=== PATIENT | female | born 1955 | race Caucasian/White ===

== ENCOUNTER 2020-08-22 15:14 | Inpatient (IN) | payer OTHER ==
[2020-08-22] MEDS ORDERED: SODIUM CHLORIDE 0.9% 1,000 ML IV STA (15:51)
--- NOTE | 2020-08-22 15:58 | ED ---
General Adult HPI - General Chief complaint: Shortness of Breath Stated complaint: SOB/fever Time Seen by Provider: 08/22/20 15:18 Source: patient, EMS Mode of arrival: EMS Limitations: no limitations - History of Present Illness Initial comments: Dictation was produced using [employer] dictation software. please excuse any grammatical, word or spelling errors. This patient was cared for during a federal and state declared state of emergency secondary to Covid 19 Chief Complaint: 64-year-old female presents with dyspnea History of Present Illness: Patient is a 64-year-old female she has past medical history of GERD, dyslipidemia. She states she was told that she has pneumonia last week. She's been short of breath for approximately 7 days. Her was positive for cocaine. He had not needed to be admitted to the hospital. Over the last 3 or 4 days patient has been having severe dyspnea especially when ambulating about the house. She told her today to call the ambulance word. Patient denies any constitutional symptoms. She denies any pain complaints. She feels rather well at rest. EMS provided patient with a breathing treatment which she reports improved her symptoms. The ROS documented in this emergency department record has been reviewed and confirmed by me. Those systems with pertinent positive or negative responses have been documented in the HPI. All other systems are other negative and/or noncontributory. PHYSICAL EXAM: General Impression: Alert and oriented x3, not in acute distress HEENT: Normocephalic atraumatic, extra-ocular movements intact, pupils equal and reactive to light bilaterally, mucous membranes moist. Cardiovascular: Heart regular rate and rhythm Chest: Able to complete full sentences, no retractions, no tachypnea Abdomen: abdomen soft, non-tender, non-distended, no organomegaly Musculoskeletal: Pulses present and equal in all extremities, no peripheral edema Motor: no focal deficits noted Neurological: CN II-XII grossly intact, no focal motor or sensory deficits noted Skin: Intact with no visualized rashes Psych: Normal affect and mood ED course: 64-year-old female presents with exertional dyspnea. She was so that she has pneumonia by her primary care physician on an outpatient visit. Her tested positive for coronavirus. Signs upon arrival shows temperature 100.9, blood pressure within acceptable limits. Patient was 70% on room air. S he is 90% with 15 L nonrebreather. Clinical presentation consistent with hypoxic respiratory failure secondary to Covid 19. Laboratory evaluation obtained. CBC unremarkable. Patient does have mild leukopenia. Coag panel is negative. D-dimer 0.48. Metabolic panel is mostly unremarkable. Lactic dehydrogenase is 1139. C-reactive protein is 32.9. Chest x-ray shows diffuse severe multifocal infiltrates with relative sparing of the upper lobe concerning for occult 19 infection. Consultation was made to supervisor bonding and underwriting operations manager Dr. Clemente. He was at bedside and evaluated patient. He recommended redness here, Decadron, zinc, vitamin D, vitamin C, melatonin. Patient placed on high flow nasal cannula. She'll be placed in a prone position. This point no need indication for intubation. Patient be admitted to the intensive care unit for hypoxic respiratory failure secondary to covid 19. - Related Data Allergies Allergy/AdvReac Type Severity Reaction Status Date / Time levofloxacin Allergy Unknown Verified 08/22/20 16:15 sulfamethoxazole Allergy Unknown Verified 08/22/20 16:15 [From Bactrim] trimethoprim [From Bactrim] Allergy Unknown Verified 08/22/20 16:15 Review of Systems ROS Statement: Those systems with pertinent positive or pertinent negative responses have been documented in the HPI. ROS Other: All systems not noted in ROS Statement are negative. Past Medical History Past Medical History: GERD/Reflux, Hyperlipidemia History of Any Multi-Drug Resistant Organisms: None Reported Past Surgical History: Orthopedic Surgery Past Psychological History: Depression Smoking Status: Never smoker Past Alcohol Use History: None Reported Past Drug Use History: None Reported General Exam Limitations: no limitations Course Vital Signs 08/22/20 08/22/20 08/22/20 15:23 15:28 15:29 Temperature 100.9 F H Pulse Rate 70 Respiratory 20 20 Rate Blood Pressure 137/74 O2 Sat by Pulse 72 L 90 L Oximetry Medical Decision Making - Lab Data Result diagrams: 08/22/20 15:41 08/22/20 15:41 Lab Results 08/22/20 08/22/20 08/22/20 Range/Units 15:41 15:41 15:41 WBC 5.6 (3.8-10.6) k/uL RBC 4.64 (3.80-5.40) m/uL Hgb 14.9 (11.4-16.0) gm/dL Hct 44.8 (34.0-46.0) % MCV 96.5 (80.0-100.0) fL MCH 32.0 (25.0-35.0) pg MCHC 33.1 (31.0-37.0) g/dL RDW 13.6 (11.5-15.5) % Plt Count 165 (150-450) k/uL Neutrophils % 91 % Lymphocytes % 5 % Monocytes % 2 % Eosinophils % 1 % Basophils % 1 % Neutrophils # 5.1 (1.3-7.7) k/uL Lymphocytes # 0.3 L (1.0-4.8) k/uL Monocytes # 0.1 (0-1.0) k/uL Eosinophils # 0.0 (0-0.7) k/uL Basophils # 0.0 (0-0.2) k/uL PT 9.6 (9.0-12.0) sec INR 0.9 (<1.2) APTT 25.0 (22.0-30.0) sec D-Dimer 0.48 (<0.60) mg/L FEU Sodium 134 L (137-145) mmol/L Potassium 3.8 (3.5-5.1) mmol/L Chloride 101 (98-107) mmol/L Carbon Dioxide 29 (22-30) mmol/L Anion Gap 4 mmol/L BUN 13 (7-17) mg/dL Creatinine 0.72 (0.52-1.04) mg/dL Est GFR (CKD-EPI)AfAm >90 (>60 ml/min/1.73 sqM) Est GFR (CKD-EPI)NonAf 90 (>60 ml/min/1.73 sqM) Glucose 133 H (74-99) mg/dL Plasma Lactic Acid Lj (0.7-2.0) mmol/L Calcium 8.4 (8.4-10.2) mg/dL Magnesium 2.2 (1.6-2.3) mg/dL Total Bilirubin 0.5 (0.2-1.3) mg/dL AST 36 (14-36) U/L ALT 18 (4-34) U/L Alkaline Phosphatase 76 (38-126) U/L Lactate Dehydrogenase 1139 H (313-618) U/L C-Reactive Protein 32.9 H (<10.0) mg/L Total Protein 6.5 (6.3-8.2) g/dL Albumin 3.5 (3.5-5.0) g/dL 08/22/20 Range/Units 15:41 WBC (3.8-10.6) k/uL RBC (3.80-5.40) m/uL Hgb (11.4-16.0) gm/dL Hct (34.0-46.0) % MCV (80.0-100.0) fL MCH (25.0-35.0) pg MCHC (31.0-37.0) g/dL RDW (11.5-15.5) % Plt Count (150-450) k/uL Neutrophils % % Lymphocytes % % Monocytes % % Eosinophils % % Basophils % % Neutrophils # (1.3-7.7) k/uL Lymphocytes # (1.0-4.8) k/uL Monocytes # (0-1.0) k/uL Eosinophils # (0-0.7) k/uL Basophils # (0-0.2) k/uL PT (9.0-12.0) sec INR (<1.2) APTT (22.0-30.0) sec D-Dimer (<0.60) mg/L FEU Sodium (137-145) mmol/L Potassium (3.5-5.1) mmol/L Chloride (98-107) mmol/L Carbon Dioxide (22-30) mmol/L Anion Gap mmol/L BUN (7-17) mg/dL Creatinine (0.52-1.04) mg/dL Est GFR (CKD-EPI)AfAm (>60 ml/min/1.73 sqM) Est GFR (CKD-EPI)NonAf (>60 ml/min/1.73 sqM) Glucose (74-99) mg/dL Plasma Lactic Acid Lj 1.0 (0.7-2.0) mmol/L Calcium (8.4-10.2) mg/dL Magnesium (1.6-2.3) mg/dL Total Bilirubin (0.2-1.3) mg/dL AST (14-36) U/L ALT (4-34) U/L Alkaline Phosphatase (38-126) U/L Lactate Dehydrogenase (313-618) U/L C-Reactive Protein (<10.0) mg/L Total Protein (6.3-8.2) g/dL Albumin (3.5-5.0) g/dL Critical Care Time Critical Care Time: Yes Total Critical Care Time: 33 Disposition Clinical Impression: COVID-19, Respiratory failure with hypoxia Disposition: ADMITTED IP TO THIS [facility] Condition: Critical Referrals: Andrea Chun DO [Primary Care Provider] - 1-2 days Decision Time: 16:47
[2020-08-22 16:04] LABS: Basophils % (A) 1 %; Eosinophils % (A) 1 %; HCT 44.8 % (34.0-46.0); HGB 14.9 gm/dL (11.4-16.0); Lymphocytes # (A) 0.3 k/uL (1.0-4.8); Lymphocytes % (A) 5 %; MCHC 33.1 g/dL (31.0-37.0); MCV 96.5 fL (80.0-100.0); Mean Platelet Volume 7.8; Monocytes # (A) 0.1 k/uL (0-1.0); Monocytes % (A) 2 %; Neutrophils # (A) 5.1 k/uL (1.3-7.7); Neutrophils % (A) 91 %; Platelet Count 165 k/uL (150-450); RBC 4.64 m/uL (3.80-5.40); RDW 13.6 % (11.5-15.5); WBC 5.6 k/uL (3.8-10.6)
[2020-08-22] MEDS ORDERED: DEXAMETHASONE SOD PHOSPHATE 10 MG/ML 1 ML VIAL IV STA (16:11)
[2020-08-22 16:17] LABS: ALT 18 U/L (4-34); AST 36 U/L (14-36); African American GFR (CKD) >90 (>60 ml/min/1.73 sqM); Albumin 3.5 g/dL (3.5-5.0); Alkaline Phosphatase 76 U/L (38-126); Anion Gap 4 mmol/L; Blood Urea Nitrogen 13 mg/dL (7-17); C Reactive Protein 32.9 mg/L (<10.0); Calcium 8.4 mg/dL (8.4-10.2); Carbon Dioxide 29 mmol/L (22-30); Chloride 101 mmol/L (98-107); Glucose 133 mg/dL (74-99); LDH 1139 U/L (313-618); Magnesium 2.2 mg/dL (1.6-2.3); Non-African American GFR(CKD) 90 (>60 ml/min/1.73 sqM); Potassium 3.8 mmol/L (3.5-5.1); Sodium 134 mmol/L (137-145); Total Bilirubin 0.5 mg/dL (0.2-1.3); Total Protein 6.5 g/dL (6.3-8.2)
[2020-08-22] MEDS ORDERED: ENOXAPARIN 40 MG/0.4 ML SYRINGE SQ STA ×2 (16:17→18:58)
[2020-08-22] MEDS ORDERED: FAMOTIDINE 20 MG/2 ML VIAL IV STA (16:18)
--- NOTE | 2020-08-22 16:23 | XR ---
EXAMINATION TYPE: XR chest 1V portable DATE OF EXAM: 08/22/2020 COMPARISON: NONE HISTORY: Fever and cough. Suspected covid pneumonia. TECHNIQUE: Single AP portable frontal upright view of the chest is obtained. FINDINGS: There are multifocal bilateral opacities with relative sparing left upper lung. Silhouetti ng of both heart borders and hemidiaphragm. No pleural effusion or pneumothorax noted bilaterally. T he cardiac silhouette size is thought within normal limits. The osseous structures are intact. IMPRESSION: Bilateral multifocal acute infiltrates with relative sparing of left upper lobe could be product of covid-19 infection.
[2020-08-22] MEDS ORDERED: ASCORBIC ACID 500 MG TAB PO ONE (16:30)
[2020-08-22] MEDS ORDERED: ZINC SULFATE 220 MG CAP PO ONE (16:30)
[2020-08-22] MEDS ORDERED: CHOLECALCIFEROL 1,000 UNIT TAB PO ONE (16:30)
[2020-08-22 16:39] LABS: D-Dimer 0.48 mg/L FEU (<0.60); INR 0.9 (<1.2); Prothrombin Time 9.6 sec (9.0-12.0)
[2020-08-22] MEDS ORDERED: NALOXONE 0.4 MG/ML 1 ML VIAL IV PRN (16:44)
[2020-08-22] MEDS ORDERED: REMDESIVIR (EUA) 200 MG in SODIUM CHLORIDE 0.9% 250 ML IVPB ONE (17:00)
[2020-08-22 18:19] LABS: Glucose,Whole Blood 143 mg/dL (75-99)
--- NOTE | 2020-08-22 18:58 | P.CNPUL ---
History of Present Illness Consult date: 08/22/20 Reason for consult: dyspnea, hypoxemia, pneumonia History of present illness: This is a 64-year-old here patient, obese, known history of hyperlipidemia and acid reflux in addition to a mild component of anxiety/depression, comes into the hospital due to worsening shortness of breath. The patient was getting more short of breath over the past week or so. Her she had the same symptoms. They visited the primary care physician with the chest x-ray was done and she was told to have pneumonia. Subsequently, her went and checked himself for COVID 19 and die turner to be positive. The patient presented to the emergency with increased cough and shortness of breath. She was found to be quite hypoxic and an initial pulse ox was in the 70% range. Accordingly, the patient was placed on high flow oxygen 6 L oxygen flow, AIRVO , and this brought her pulse ox up to 88-89%. Chest x-ray showed diffuse bilateral pulmonary i nfiltrates consistent with coronavirus Covid 19 related pneumonia. The patient was febrile with a temperature 100.9. The blood count showed lymphopenia. LDH was 1139, C-reactive protein was 32.9. Review of Systems Constitutional: Reports fatigue, Reports fever, Reports weakness Eyes: denies as per HPI, denies blurred vision, denies bulging eye, denies decreased vision, denies diplopia, denies discharge, denies dry eye, denies ir ritation, denies itching, denies pain, denies photophobia, denies loss of peripheral vision, denies loss of vision, denies tunnel vision/blind spots Ears: deny: decreased hearing, ear discharge, earache, tinnitus Ears, nose, mouth and throat: Denies headache, Denies sore throat Breasts: absent: as per HPI, change in shape, gynecomastia, masses, nipple discharge, pain, skin changes, swelling Cardiovascular: Reports dyspnea on exertion Respiratory: Reports cough, Reports dyspnea Gastrointestinal: Reports as per HPI Genitourinary: Reports as per HPI Menstruation: Reports as per HPI Musculoskeletal: Reports as per HPI Musculoskeletal: absent: ankle pain, ankle stiffness, ankle swelling, as per HPI, elbow pain, elbow stiffness, elbow swelling, foot pain, foot stiffness, foot swelling, hand pain, hand stiffness, hand swelling, hip pain, hip sti ffness, hip swelling, knee pain, knee stiffness, knee swelling, shoulder pain, shoulder stiffness, shoulder swelling, wrist pain, wrist stiffness, wrist swelling Integumentary: Reports as per HPI Neurological: Reports as per HPI, Reports weakness Psychiatric: Reports as per HPI, Reports paranoia Endocrine: Reports as per HPI Hematologic/Lymphatic: Reports as per HPI Allergic/Immunologic: Reports as per HPI Past Medical History Past Medical History: GERD/Reflux, Hyperlipidemia History of Any Multi-Drug Resistant Organisms: None Reported Past Surgical History: Orthopedic Surgery Additional Past Surgical History / Comment(s): knee surgery Past Psychological History: Depression Smoking Status: Never smoker Past Alcohol Use History: None Reported Past Drug Use History: None Reported Medications and Allergies Home Medications Medication Instructions Recorded Confirmed Type Acetaminophen [Tylenol] 325 mg PO DAILY PRN 08/22/20 08/22/20 History Albuterol Sulfate [Proair Hfa] 2 puff INHALATION RT-Q4H PRN 08/22/20 08/22/20 History Azithromycin [Zithromax] See Taper PO DAILY 08/22/20 08/22/20 History Citalopram Hydrobromide [CeleXA] 20 mg PO DAILY 08/22/20 08/22/20 History Meloxicam [Mobic] 7.5 mg PO BID 08/22/20 08/22/20 History Mometasone/Formoterol [Dulera 100 1 puff INHALATION DIRECTED PRN 08/22/20 08/22/20 History Mcg-5 Mcg Inhaler] Omeprazole [PriLOSEC] 20 mg PO DAILY 08/22/20 08/22/20 History Simvastatin [Zocor] 80 mg PO DAILY 08/22/20 08/22/20 History Vitamin C (Unknown Strength) 1 tab PO DAILY 08/22/20 08/22/20 History Vitamin D3 (Unknown Strenghth) 1 tab PO DAILY 08/22/20 08/22/20 History predniSONE See Taper PO DIRECTED 08/22/20 08/22/20 History Allergies Allergy/AdvReac Type Severity Reaction Status Date / Time levofloxacin Allergy Unknown Verified 08/22/20 17:39 sulfamethoxazole Allergy Unknown Verified 08/22/20 17:39 [From Bactrim] trimethoprim [From Bactrim] Allergy Unknown Verified 08/22/20 17:39 Physical Exam Vitals: Vital Signs Temp Pulse Resp BP Pulse Ox 11/01/20 17:05 66 18 131/59 88 L 08/22/20 16:53 100.4 F H 69 18 141/71 88 L 08/22/20 15:29 90 L 08/22/20 15:28 20 08/22/20 15:23 100.9 F H 70 20 137/74 72 L Intake and Output 08/22/20 08/22/20 08/22/20 06:59 14:59 22:59 Other: Weight 136.078 kg morbidly obese currently on high flow oxygen at 60 liters, Despite the significant hypoxemia, the patient is not having any major respiratory distress at rest. She is not using accessory muscles of breathing. She is a bit tac hypneic however. Head exam was generally normal. There was no scleral icterus or corneal arcus. Mucous membranes were moist. Neck was supple and without jugular venous distension, thyromegaly, or carotid bruits. Carotids were easily palpable bilaterally. There was no adenopathy Lungs sounds are diminished and the patient has crackles in lung bases bilaterally Cardiac exam revealed the PMI to be normally situated and sized. The rhythm was regular and no extrasystoles were noted during several minutes of auscultation. The first and second heart sounds were normal and physiologic splitting of the second heart sound was noted. There were no murmurs, rubs, clicks, or gallops. Abdominal exam revealed normal bowel sounds. The abdomen was soft, non-tender, and without masses, organomegaly, or appreciable enlargement of the abdominal aorta. Examination of the extremities revealed easily palpable radial, femoral and pedal pulses. There was no cyanosis, clubbing or edema. Examination of the skin revealed no evidence of significant rashes, suspicious appearing nevi or other concerning lesions. Neurologically, the patient is awake and alert and the patient does not have any focal neurological deficit. Cranial nerves are essentially intact. Results - Laboratory Findings CBC and BMP: 08/22/20 15:41 08/22/20 15:41 PT/INR, D-dimer PT 9.6 sec (9.0-12.0) 08/22/20 15:41 INR 0.9 (<1.2) 08/22/20 15:41 D-Dimer 0.48 mg/L FEU (<0.60) 08/22/20 15:41 Abnormal lab findings: Abnormal Labs 08/22/20 08/22/20 15:41 15:41 Lymphocytes # 0.3 L Sodium 134 L Glucose 133 H Lactate Dehydrogenase 1139 H C-Reactive Protein 32.9 H - Diagnostic Findings Chest x-ray: image reviewed Assessment and Plan Plan: 1 acute bilateral pneumonia with secondary hypoxic respiratory failure. This is most likely consistent with acute COVID 19 related pneumonia. The patient's symptoms are highly suggestive. Furthermore, her has been confirmed to have coronavirus and the patient's clinical presentation and chest x-rays highly suggestive. 2 fever, secondary to above 3 elevated inflammatory markers including LDH and C-reactive protein, secondary to above 4 dyspnea secondary to above 5 obesity with a BMI of 53.1 6 hyperlipidemia 7 acid reflux 8 osteoarthritis Plan Transfer this patient to the intensive care units Daily chest x-rays High flow oxygen currently running at 60 L to maintain a saturation above 90%. May consider BiPAP and even intubation mechanical ventilation if her condition decompensates. We'll put the patient on a probiotic position if possible in the intensive care unit. Keep her in interrupted isolation. Start the patient on Decadron 6 mg IV and a daily basis Start the patient on Remdesivir per protocol Start the patient on Lovenox Start the patient on zinc, melatonin Pepcid and vitamin C We'll continue to follow the condition very closely in the ICU. Condition is obvious significant. Testing for coronavirus Covid 19 by nasal swab PCR was sent. We'll continue to follow.
[2020-08-22] MEDS: MELATONIN 5 MG TABLET PO SCH (21:45)
[2020-08-22] MEDS: SODIUM CHLORIDE 0.9% 1,000 ML IV SCH (21:46)
[2020-08-22 23:22] LABS: Ferritin 459.5 ng/mL (10.0-291.0)
[2020-08-23 02:17] LABS: ABG Base Excess 6.7 mmol/L; ABG HCO3 31 mmol/L (21-25); ABG Oxygen Saturation 79.7 % (94-97); ABG PCO2 47 mmHg (35-45); ABG PH 7.43 (7.35-7.45); ABG TCO2 33 mmol/L (19-24); Allen Test Performed? Yes
[2020-08-23] MEDS ORDERED: propofoL 100 ML IV ONE ×2 (02:52→03:46)
[2020-08-23] MEDS ORDERED: CISATRACURIUM 2 MG/ML 5 ML VIAL IV ONE (03:39)
--- NOTE | 2020-08-23 03:49 | XR ---
EXAM: XR Chest, 1 View CLINICAL HISTORY: Reason: intubation TECHNIQUE: Frontal view of the chest. COMPARISON: 08/22/2020 4:01 PM FINDINGS: Lines/Tubes: Interval intubation with endotracheal tube terminating 4.5 cm of the level of the duran. Endotracheal tube terminates below field- of-view into the left upper quadrant. Bilateral patchy lung opacities with relative sparing of the left upper lobe, similar in appearance to prior study. IMPRESSION: Interval intubation and placement of nasogastric tube with endotracheal tube in appropriate position.
[2020-08-23] MEDS: CISATRACURIUM 200 MG in SODIUM CHLORIDE 0.9% 180 ML IV SCH ×2 (03:50→22:30)
[2020-08-23 04:09] LABS: ABG PO2 44 mmHg (83-108)
[2020-08-23 04:30] LABS: Basophils % (A) 0 %; Eosinophils % (A) 0 %; HCT 46.5 % (34.0-46.0); HGB 14.6 gm/dL (11.4-16.0); Lymphocytes # (A) 0.4 k/uL (1.0-4.8); Lymphocytes % (A) 9 %; MCH 31.1 pg (25.0-35.0); MCHC 31.5 g/dL (31.0-37.0); MCV 98.7 fL (80.0-100.0); Mean Platelet Volume 7.8; Monocytes # (A) 0.1 k/uL (0-1.0); Monocytes % (A) 3 %; Neutrophils # (A) 4.2 k/uL (1.3-7.7); Neutrophils % (A) 87 %; Platelet Count 167 k/uL (150-450); RBC 4.71 m/uL (3.80-5.40); RDW 14.3 % (11.5-15.5); WBC 4.8 k/uL (3.8-10.6)
[2020-08-23 04:50] LABS: ALT 17 U/L (4-34); AST 44 U/L (14-36); African American GFR (CKD) >90 (>60 ml/min/1.73 sqM); Albumin 3.2 g/dL (3.5-5.0); Alkaline Phosphatase 62 U/L (38-126); Anion Gap 4 mmol/L; Blood Urea Nitrogen 18 mg/dL (7-17); C Reactive Protein 41.5 mg/L (<10.0); Carbon Dioxide 29 mmol/L (22-30); Chloride 103 mmol/L (98-107); Glucose 157 mg/dL (74-99); LDH 1509 U/L (313-618); Non-African American GFR(CKD) 87 (>60 ml/min/1.73 sqM); Potassium 4.2 mmol/L (3.5-5.1); Sodium 136 mmol/L (137-145); Total Bilirubin 0.6 mg/dL (0.2-1.3)
[2020-08-23 04:59] LABS: ABG HCO3 30 mmol/L (21-25); ABG Oxygen Saturation 94.6 % (94-97); ABG PCO2 45 mmHg (35-45); ABG PH 7.42 (7.35-7.45); ABG PO2 71 mmHg (83-108); ABG TCO2 31 mmol/L (19-24); Allen Test Performed? Yes
[2020-08-23] MEDS: ZINC SULFATE 220 MG CAP PO SCH (07:42)
[2020-08-23] MEDS: CITALOPRAM HYDROBROMIDE 20 MG TAB PO SCH (07:42)
[2020-08-23] MEDS: ATORVASTATIN 40 MG TAB PO SCH (07:42)
[2020-08-23] MEDS: ASCORBIC ACID 500 MG TAB PO SCH (07:43)
[2020-08-23] MEDS: CHLORHEXIDINE GLUCONATE 15 ML CUP MUCOUS MEM SCH ×2 (07:43→20:05)
[2020-08-23] MEDS: CHOLECALCIFEROL 1,000 UNIT TAB PO SCH (07:43)
[2020-08-23] MEDS ORDERED: PANTOPRAZOLE 40 MG/10 ML VIAL IV SCH (09:00)
[2020-08-23] MEDS ORDERED: PROPOFOL 10 MG/ML 20 ML VIAL IV ONE (09:54)
[2020-08-23] MEDS ORDERED: SUCCINYLCHOLINE CHLORIDE VIAL 200 MG/10 ML VIAL IV ONE (09:54)
[2020-08-23] MEDS: DEXAMETHASONE SOD PHOSPHATE 10 MG/ML 1 ML VIAL IV SCH (10:15)
[2020-08-23] MEDS: FAMOTIDINE 20 MG/2 ML VIAL IV SCH ×2 (10:19→20:05)
[2020-08-23] MEDS: ENOXAPARIN 40 MG/0.4 ML SYRINGE SQ SCH (10:19)
[2020-08-23] MEDS: SODIUM CHLORIDE 0.9% 1,000 ML IV SCH (10:28)
[2020-08-23 11:23] LABS: Ferritin 393.4 ng/mL (10.0-291.0)
[2020-08-23 12:39] LABS: Glucose,Whole Blood 142 mg/dL (75-99)
[2020-08-23] MEDS ORDERED: FUROSEMIDE 10 MG/ML 4 ML VIAL IV STA (12:47)
--- NOTE | 2020-08-23 15:17 | P.PN ---
Subjective Progress Note Date: 08/23/20 Principal diagnosis: Acute hypoxic respiratory failure secondary to pneumonia, highly suspicious for Covid 19 pneumonitis This is a 64-year-old here patient, obese, known history of hyperlipidemia and acid reflux in addition to a mild component of anxiety/depression, comes into [facility] due to worsening shortness of breath. The patient was getting more short of breath over the past week or so. Her she had the same symptoms. They visited the primary care physician with the chest x-ray was done and she was told to have pneumonia. Subsequently, her went and checked himself for COVID 19 and turn machine operator to be positive. The patient presented to the emergency with increased cough and shortness of breath. She was found to be quite hypoxic and an initial pulse ox was in the 70% range. Accordingly, the patient was placed on high flow oxygen 6 L oxygen flow, AIRVO , and this brought her pulse ox up to 88-89%. Chest x-ray showed diffuse bilateral pulmonary infiltrates consistent with coronavirus Covid 19 related pneumonia. The patient was febrile with a temperature 100.9. The blood count showed lymphopenia. LDH was 1139, C-reactive protein was 32.9. Patient was reevaluated today on 08/23/20, patient remains intubated and mechanically ventilated. Chest x-ray shows diffuse interstitial infiltrates. She is presently on assist control rate of 25 volume is 400 FiO2 is 100% and PEEP is at 15. ABG was marginal showed a pO2 of 71 pCO2 of 45 pH of 7.42, hence I recommended increasing the PEEP to 18 and I cut down the FiO2 to 80%. Patient is on propofol drip at 41 mcg/kg/m and on Nimbex. Patient is also on Lovenox 40 mg subcu daily, and she is already started on remresivir treatment since yesterday. Patient will be started on enteral tube feeding. Labs today were all reviewed. CBC is relatively normal. Electrolytes and renal profile are normal. LDH is 10/26/2008. C-reactive protein is 41.5. Ferritin level is 393. Markers are elevated as noted. PCR for coronavirus is still pending. Objective - Vital Signs Vital signs: Vital Signs Temp 98.4 F 08/23/20 12:00 Pulse 49 L 08/23/20 15:00 Resp 25 H 08/23/20 15:00 BP 108/58 08/23/20 15:00 Pulse Ox 95 08/23/20 15:05 Intake & Output 08/22/20 08/23/20 08/23/20 18:59 06:59 18:59 Intake Total 20 856.229 6711.187 Output Total 40 780 830 Balance -20 -21.187 181.187 Weight 136.078 kg 138.1 kg 138.1 kg Intake: IV 20 735 675 Sodium Chloride 0.9% 1, 20 735 75 000 ml @ 20 mls/hr IV . Q24H [facility] Rx#:[id number] Sodium Chloride 0.9% 1, 600 000 ml @ 75 mls/hr IV . [id number] [facility] Rx#:[id number] Intake, IV Titration 23.813 276.187 Amount propofoL 1,000 mg In 23.813 276.187 Empty Bag 1 bag @ Titrate IV .Q0M [facility] Rx#: [id number] Other 60 Output: Urine 40 780 830 Other: Voiding Method Bedpan Indwelling Catheter Indwelling Catheter - Exam Physical Exam: Revealed 64-year-old female obese, on mechanical ventilation. Sedated, and paralyzed. Head: Atraumatic, normocephalic. HEENT:[Neck is supple.] [No neck masses.] [No thyromegaly.] [No JVD.] PERRLA, EOMI, no icterus. Chest: [To [place] chest expansion, crackles at the bases bilaterally.] Cardiac Exam: [Normal S1 and S2, no S3 gallop, no murmur.] Abdomen: [Obese, Soft, nontender, no megaly, no rebound, no guarding, normal bowel sounds.] Extremities: [No clubbing, no edema, no cyanosis.] Neurological Exam: Could not be assessed, patient is intubated mechanically ventilated, sedated, and paralyzed. Acute: Could not be assessed. Lymphatics: No cervical or supraclavicular lymphadenopathy. - Labs CBC & Chem 7: 08/23/20 03:59 08/23/20 03:59 Labs: Abnormal Lab Results - Last 24 Hours (Table) 08/22/20 08/22/20 08/22/20 Range/Units 15:41 15:41 17:59 Hct (34.0-46.0) % Lymphocytes # 0.3 L (1.0-4.8) k/uL ABG pCO2 (35-45) mmHg ABG pO2 (83-108) mmHg ABG HCO3 (21-25) mmol/L ABG Total CO2 (19-24) mmol/L ABG O2 Saturation (94-97) % Sodium 134 L (137-145) mmol/L BUN (7-17) mg/dL Glucose 133 H (74-99) mg/dL POC Glucose (mg/dL) 143 H (75-99) mg/dL Calcium (8.4-10.2) mg/dL Ferritin 459.5 H (10.0-291.0) ng/mL AST (14-36) U/L Lactate Dehydrogenase 1139 H (313-618) U/L C-Reactive Protein 32.9 H (<10.0) mg/L Total Protein (6.3-8.2) g/dL Albumin (3.5-5.0) g/dL 08/23/20 08/23/20 08/23/20 Range/Units 02:15 03:59 03:59 Hct 46.5 H (34.0-46.0) % Lymphocytes # 0.4 L (1.0-4.8) k/uL ABG pCO2 47 H (35-45) mmHg ABG pO2 44 L* (83-108) mmHg ABG HCO3 31 H (21-25) mmol/L ABG Total CO2 33 H (19-24) mmol/L ABG O2 Saturation 79.7 L (94-97) % Sodium 136 L (137-145) mmol/L BUN 18 H (7-17) mg/dL Glucose 157 H (74-99) mg/dL POC Glucose (mg/dL) (75-99) mg/dL Calcium 8.0 L (8.4-10.2) mg/dL Ferritin 393.4 H (10.0-291.0) ng/mL AST 44 H (14-36) U/L Lactate Dehydrogenase 1509 H (313-618) U/L C-Reactive Protein 41.5 H (<10.0) mg/L Total Protein 6.0 L (6.3-8.2) g/dL Albumin 3.2 L (3.5-5.0) g/dL 08/23/20 08/23/20 Range/Units 04:55 12:38 Hct (34.0-46.0) % Lymphocytes # (1.0-4.8) k/uL ABG pCO2 (35-45) mmHg ABG pO2 71 L (83-108) mmHg ABG HCO3 30 H (21-25) mmol/L ABG Total CO2 31 H (19-24) mmol/L ABG O2 Saturation (94-97) % Sodium (137-145) mmol/L BUN (7-17) mg/dL Glucose (74-99) mg/dL POC Glucose (mg/dL) 142 H (75-99) mg/dL Calcium (8.4-10.2) mg/dL Ferritin (10.0-291.0) ng/mL AST (14-36) U/L Lactate Dehydrogenase (313-618) U/L C-Reactive Protein (<10.0) mg/L Total Protein (6.3-8.2) g/dL Albumin (3.5-5.0) g/dL Assessment and Plan Assessment: Impression: Acute hypoxic respiratory failure secondary to bilateral pneumonia, most likely related to covid 19 pneumonitis unless for otherwise. Elevated inflammatory markers for cruz virus infection. Obesity with BMI of 53.1. History of dyslipidemia. History of GERD. History of degenerative joint disease. Recommendation: Continue ventilatory support, and vent settings were adjusted accordingly. Patient is now on a PEEP of 18 FiO2 is down to 80% Continue Decadron. Continue remdesivir Continue Lovenox. Continue zinc melatonin Pepcid and vitamin C. Patient is not ready for any weaning trials or sedation interruption patient is requiring Nimbex and she is also requiring propofol at relatively high dose. Continue nutritional support. Continue GI and DVT prophylaxis. Overall prognosis based on the initial presentation seems to be very poor and guarded. We'll continue to follow. Critical care time is 35 minutes Time with Patient: Greater than 30
[2020-08-23] MEDS: REMDESIVIR (EUA) 100 MG in SODIUM CHLORIDE 0.9% 250 ML IVPB SCH (17:30)
--- NOTE | 2020-08-23 18:41 | P.HPIM ---
History of Present Illness H&P Date: 08/23/20 Chief Complaint: Short of breath History of presenting complaint: This is a 64-year-old patient follows with Dr. Ross. Patient has tested positive for COVID. Patient's symptoms started about a week ago. Progressively short of breath. More so in the last 4 days. Became much more significant yesterday. Presented to the ER. Also had fevers. Patient was hypoxic in the ER initial pulse ox around 70%. Was on 6 L with an wall. Check stat x-ray shows bilateral infiltrates. Patient smoked to the ICU. Subsequently intubated. Patient's currently on IV Decadron, propofol, IV fluids, IV cisatracurium. Patient on a FiO2 80% and a PEEP of 18. Has a OG- tube, Florentino catheter and endotracheal tube. Telemetry shows sinus rhythm. Seen by Dr. Clemente drywall finishing foreman in the ER. Review of systems-cannot be done as patient intubated Past medical history to include: GERD, hyperlipidemia, depression, asthma Social history: . No history of smoking or alcohol. Family history: Cannot obtain patient intubated Physical examination: VITAL SIGNS: 100.9, 70, 20, 137/74, 72% on room air-upon presentation GENERAL: BMI 53.9, laying in bed, intubated. EYES: Pupils equal. Conjunctiva normal. HEENT: External appearance of nose and ears normal, oral cavity-endotracheal tube and OG tube. NECK: JVD not raised; masses not palpable. HEART: First and second heart sounds are normal; no edema. LUNGS: Respiratory rate increased; decreased breath sound. ABDOMEN: Soft, nontender, liver spleen not palpable, no masses palpable. PSYCH: Patient sedatedl. NEUROLOGICAL: Cranial nerves grossly intact; no facial asymmetry, power and sensation grossly intact. LYMPHATICS: No lymph nodes palpable in the axilla and neck INVESTIGATIONS, reviewed in the clinical context: White count 5.6 hemoglobin 14.9 platelets 165 decreased lymphocytes Potassium 3.8 creatinine 0.7 to Ferritin 459 LDH 1139 CRP 32.9 pro-calcitonin 0.07 Chest x-ray film personally reviewed by me-bilateral scattered infiltrates, portable film Assessment: -Bilateral extensive likely COVID 19 pneumonia, POA -Sepsis from above -Acute severe hypoxic respiratory failure from COVID 19 pneumonia -GERD -Hyperlipidemia -Depression not otherwise specified -Moderate persistent asthma with acute exacerbation -Morbid obesity BMI 53.9 Plan: Patient is intubated. Patient is receiving Decadron, Remdesivir, Lovenox, zinc, Pepcid vitamin C. Patient in the ICU. Drips include Nimbex and propofol. Being followed by drywall finishing foreman Past Medical History Past Medical History: GERD/Reflux, Hyperlipidemia History of Any Multi-Drug Resistant Organisms: None Reported Past Surgical History: Orthopedic Surgery Additional Past Surgical History / Comment(s): right knee surgery Past Psychological History: Depression Smoking Status: Never smoker Past Alcohol Use History: None Reported Past Drug Use History: None Reported Medications and Allergies Home Medications Medication Instructions Recorded Confirmed Type Acetaminophen [Tylenol] 325 mg PO DAILY PRN 08/22/20 08/22/20 History Albuterol Sulfate [Proair Hfa] 2 puff INHALATION RT-Q4H PRN 08/22/20 08/22/20 History Azithromycin [Zithromax] See Taper PO DAILY 08/22/20 08/22/20 History Citalopram Hydrobromide [CeleXA] 20 mg PO DAILY 08/22/20 08/22/20 History Meloxicam [Mobic] 7.5 mg PO BID 08/22/20 08/22/20 History Mometasone/Formoterol [Dulera 100 2 puff INHALATION RT-BID 08/22/20 08/23/20 History Mcg-5 Mcg Inhaler] Omeprazole [PriLOSEC] 20 mg PO DAILY 08/22/20 08/22/20 History Simvastatin [Zocor] 80 mg PO DAILY 08/22/20 08/22/20 History Vitamin C (Unknown Strength) 1 tab PO DAILY 08/22/20 08/22/20 History Vitamin D3 (Unknown Strenghth) 1 tab PO DAILY 08/22/20 08/22/20 History predniSONE See Taper PO DIRECTED 08/22/20 08/22/20 History Allergies Allergy/AdvReac Type Severity Reaction Status Date / Time levofloxacin Allergy Unknown Verified 08/22/20 17:39 sulfamethoxazole Allergy Unknown Verified 08/22/20 17:39 [From Bactrim] trimethoprim [From Bactrim] Allergy Unknown Verified 08/22/20 17:39 Physical Exam Vitals: Vital Signs Temp Pulse Resp BP Pulse Ox 08/23/20 10:00 54 L 17 107/63 92 L 11/02/20 09:00 61 28 H 127/74 94 L 08/23/20 08:00 98 F 52 L 24 104/62 94 L 08/23/20 07:00 51 L 25 H 101/61 95 08/23/20 06:00 47 L 24 103/74 92 L 08/23/20 05:00 48 L 24 91/52 91 L 08/23/20 04:00 99.5 F 53 L 24 109/73 86 L 08/23/20 03:00 65 24 140/64 84 L 08/23/20 02:00 60 18 117/60 86 L 08/23/20 01:00 66 16 116/61 85 L 08/23/20 00:10 86 L 08/23/20 00:00 99 F 60 20 125/59 87 L 08/22/20 23:00 63 15 126/54 85 L 08/22/20 22:00 61 20 131/60 85 L 08/22/20 21:00 63 18 126/62 88 L 08/22/20 20:00 98.9 F 70 15 137/70 85 L 08/22/20 19:52 90 L 08/22/20 19:00 66 27 H 127/69 83 L 08/22/20 18:45 63 26 H 127/69 91 L 08/22/20 18:30 64 24 138/70 84 L 08/22/20 18:15 74 18 128/66 85 L 08/22/20 18:00 99.6 F 68 29 H 123/112 88 L 08/22/20 17:54 73 12 85 L 08/22/20 17:05 66 18 131/59 88 L 08/22/20 16:53 100.4 F H 69 18 141/71 88 L 08/22/20 15:29 90 L 08/22/20 15:28 20 08/22/20 15:23 100.9 F H 70 20 137/74 72 L Intake and Output 08/22/20 08/23/20 08/23/20 22:59 06:59 14:59 Intake Total 155 623.813 436.187 Output Total 220 600 145 Balance -65 23.813 291.187 Intake: IV 155 600 300 Sodium Chloride 0.9% 1, 155 600 75 000 ml @ 20 mls/hr IV . Q24H [facility] Rx#:[id number] Sodium Chloride 0.9% 1, 225 000 ml @ 75 mls/hr IV . [id number] [facility] Rx#:[id number] Intake, IV Titration 23.813 76.187 Amount propofoL 1,000 mg In 23.813 76.187 Empty Bag 1 bag @ Titrate IV .Q0M [facility] Rx#: [id number] Other 60 Output: Urine 220 600 145 Other: Voiding Method Indwelling Catheter Indwelling Catheter Indwelling Catheter Weight 136.078 kg 138.1 kg Results CBC & Chem 7: 08/23/20 03:59 08/23/20 03:59 Labs: Abnormal Lab Results - Last 24 Hours (Table) 08/22/20 08/22/20 08/22/20 Range/Units 15:41 15:41 17:59 Hct (34.0-46.0) % Lymphocytes # 0.3 L (1.0-4.8) k/uL ABG pCO2 (35-45) mmHg ABG pO2 (83-108) mmHg ABG HCO3 (21-25) mmol/L ABG Total CO2 (19-24) mmol/L ABG O2 Saturation (94-97) % Sodium 134 L (137-145) mmol/L BUN (7-17) mg/dL Glucose 133 H (74-99) mg/dL POC Glucose (mg/dL) 143 H (75-99) mg/dL Calcium (8.4-10.2) mg/dL Ferritin 459.5 H (10.0-291.0) ng/mL AST (14-36) U/L Lactate Dehydrogenase 1139 H (313-618) U/L C-Reactive Protein 32.9 H (<10.0) mg/L Total Protein (6.3-8.2) g/dL Albumin (3.5-5.0) g/dL 08/23/20 08/23/20 08/23/20 Range/Units 02:15 03:59 03:59 Hct 46.5 H (34.0-46.0) % Lymphocytes # 0.4 L (1.0-4.8) k/uL ABG pCO2 47 H (35-45) mmHg ABG pO2 44 L* (83-108) mmHg ABG HCO3 31 H (21-25) mmol/L ABG Total CO2 33 H (19-24) mmol/L ABG O2 Saturation 79.7 L (94-97) % Sodium 136 L (137-145) mmol/L BUN 18 H (7-17) mg/dL Glucose 157 H (74-99) mg/dL POC Glucose (mg/dL) (75-99) mg/dL Calcium 8.0 L (8.4-10.2) mg/dL Ferritin (10.0-291.0) ng/mL AST 44 H (14-36) U/L Lactate Dehydrogenase 1509 H (313-618) U/L C-Reactive Protein 41.5 H (<10.0) mg/L Total Protein 6.0 L (6.3-8.2) g/dL Albumin 3.2 L (3.5-5.0) g/dL 08/23/20 Range/Units 04:55 Hct (34.0-46.0) % Lymphocytes # (1.0-4.8) k/uL ABG pCO2 (35-45) mmHg ABG pO2 71 L (83-108) mmHg ABG HCO3 30 H (21-25) mmol/L ABG Total CO2 31 H (19-24) mmol/L ABG O2 Saturation (94-97) % Sodium (137-145) mmol/L BUN (7-17) mg/dL Glucose (74-99) mg/dL POC Glucose (mg/dL) (75-99) mg/dL Calcium (8.4-10.2) mg/dL Ferritin (10.0-291.0) ng/mL AST (14-36) U/L Lactate Dehydrogenase (313-618) U/L C-Reactive Protein (<10.0) mg/L Total Protein (6.3-8.2) g/dL Albumin (3.5-5.0) g/dL Thrombosis Risk Factor Assmnt - Choose All That Apply Any of the Below Risk Factors Present?: Yes Each Factor Represents 1 point: Obesity (BMI >25) Other Risk Factors: Yes Each Risk Factor Represents 2 Points: Age 61-74 years Other congenital or acquired thrombophilia - If yes, enter type in comment: No Thrombosis Risk Factor Assessment Total Risk Factor Score: 3 Thrombosis Risk Factor Assessment Level: Moderate Risk
[2020-08-23] MEDS: MELATONIN 5 MG TABLET PO SCH (20:05)
[2020-08-24 04:59] LABS: Basophils # (A) 0.2 k/uL (0-0.2); Basophils % (A) 1 %; Eosinophils % (A) 0 %; HCT 44.6 % (34.0-46.0); HGB 14.4 gm/dL (11.4-16.0); Lymphocytes # (A) 0.7 k/uL (1.0-4.8); Lymphocytes % (A) 6 %; MCH 31.2 pg (25.0-35.0); MCHC 32.3 g/dL (31.0-37.0); MCV 96.8 fL (80.0-100.0); Magnesium 2.3 mg/dL (1.6-2.3); Mean Platelet Volume 8.1; Monocytes # (A) 0.3 k/uL (0-1.0); Monocytes % (A) 3 %; Neutrophils # (A) 9.4 k/uL (1.3-7.7); Neutrophils % (A) 88 %; Platelet Count 155 k/uL (150-450); RBC 4.61 m/uL (3.80-5.40); RDW 13.7 % (11.5-15.5); WBC 10.6 k/uL (3.8-10.6)
[2020-08-24 05:06] LABS: African American GFR (CKD) >90 (>60 ml/min/1.73 sqM); Anion Gap 5 mmol/L; Blood Urea Nitrogen 29 mg/dL (7-17); Calcium 7.6 mg/dL (8.4-10.2); Carbon Dioxide 26 mmol/L (22-30); Chloride 105 mmol/L (98-107); Glucose 150 mg/dL (74-99); Non-African American GFR(CKD) 90 (>60 ml/min/1.73 sqM); Sodium 136 mmol/L (137-145)
[2020-08-24 05:07] LABS: D-Dimer 0.95 mg/L FEU (<0.60)
[2020-08-24 06:59] LABS: Glucose,Whole Blood 129 mg/dL (75-99)
[2020-08-24] MEDS: ASCORBIC ACID 500 MG TAB PO SCH (08:04)
[2020-08-24] MEDS: SODIUM CHLORIDE 0.9% 1,000 ML IV SCH ×2 (08:04→17:12)
[2020-08-24] MEDS: ATORVASTATIN 40 MG TAB PO SCH (08:04)
[2020-08-24] MEDS: CHLORHEXIDINE GLUCONATE 15 ML CUP MUCOUS MEM SCH ×2 (08:05→20:22)
[2020-08-24] MEDS: FAMOTIDINE 20 MG/2 ML VIAL IV SCH ×2 (08:05→20:21)
[2020-08-24] MEDS: CHOLECALCIFEROL 1,000 UNIT TAB PO SCH (08:06)
[2020-08-24] MEDS: ENOXAPARIN 40 MG/0.4 ML SYRINGE SQ SCH ×2 (08:07→20:21)
[2020-08-24] MEDS: ZINC SULFATE 220 MG CAP PO SCH (08:07)
[2020-08-24] MEDS: DEXAMETHASONE SOD PHOSPHATE 10 MG/ML 1 ML VIAL IV SCH (08:21)
[2020-08-24 08:22] LABS: ABG Base Excess 6.4 mmol/L; ABG HCO3 31 mmol/L (21-25); ABG Oxygen Saturation 92.5 % (94-97); ABG PCO2 45 mmHg (35-45); ABG PH 7.44 (7.35-7.45); ABG PO2 63 mmHg (83-108); ABG TCO2 32 mmol/L (19-24); Allen Test Performed? Yes
--- NOTE | 2020-08-24 08:25 | XR ---
EXAMINATION TYPE: XR chest 1V portable DATE OF EXAM: 08/24/2020 COMPARISON: Prior chest x-ray 08/23/2020 HISTORY: Intubated TECHNIQUE: Single frontal view of the chest is obtained. FINDINGS: Endotracheal tube and orogastric tube are overlying appropriate positions, distal tip of t he orogastric tube not seen with certainty. Bilateral airspace disease is again seen. There are overl regan artifacts. No evident pneumothorax although there is some patient motion which may obscure detai l. Cardiomediastinal silhouette is stable. IMPRESSION: Correlate for pneumonia, edema, ARDS. Additional findings above. Follow-up suggested.
[2020-08-24 11:24] LABS: Glucose,Whole Blood 207 mg/dL (75-99)
--- NOTE | 2020-08-24 12:32 | XR ---
EXAMINATION TYPE: XR chest 1V confirm line [facility] DATE OF EXAM: 08/24/2020 COMPARISON: 08/24/2020, earlier today HISTORY: 64-year-old female central line placement TECHNIQUE: Single frontal view of the chest is obtained. FINDINGS: Right IJ CVC tip in the upper right atrium. ET tube remains satisfactory. Distal aspect of the imagin g tube courses beyond field of view. Heart mildly enlarged. Diffuse interstitial and patchy airspace opacities persist. Slightly less confluent in the right lower lung. Similar asymmetric densities, rig ht greater than left. No sizable effusion. IMPRESSION: 1. Right IJ CVC tip in the right atrium. 2. Continued diffuse opacities, right greater than the left though with improving aeration in the ri ght lower lung.
--- NOTE | 2020-08-24 16:22 | P.PN ---
Subjective Progress Note Date: 08/24/20 Principal diagnosis: Acute hypoxic respiratory failure secondary to pneumonia, highly suspicious for Covid 19 pneumonitis This is a 64-year-old here patient, obese, known history of hyperlipidemia and acid reflux in addition to a mild component of anxiety/depression, comes into [facility] due to worsening shortness of breath. The patient was getting more short of breath over the past week or so. Her she had the same symptoms. They visited the primary care physician with the chest x-ray was done and she was told to have pneumonia. Subsequently, her went and checked himself for COVID 19 and basket turner to be positive. The patient presented to the emergency with increased cough and shortness of breath. She was found to be quite hypoxic and an initial pulse ox was in the 70% range. Accordingly, the patient was placed on high flow oxygen 6 L oxygen flow, AIRVO , and this brought her pulse ox up to 88-89%. Chest x-ray showed diffuse bilateral pulmonary infiltrates consistent with coronavirus Covid 19 related pneumonia. The patient was febrile with a temperature 100.9. The blood count showed lymphopenia. LDH was 1139, C-reactive protein was 32.9. Patient was reevaluated today on 08/23/20, patient remains intubated and mechanically ventilated. Chest x-ray shows diffuse interstitial infiltrates. She is presently on assist control rate of 25 volume is 400 FiO2 is 100% and PEEP is at 15. ABG was marginal showed a pO2 of 71 pCO2 of 45 pH of 7.42, hence I recommended increasing the PEEP to 18 and I cut down the FiO2 to 80%. Patient is on propofol drip at 41 mcg/kg/m and on Nimbex. Patient is also on Lovenox 40 mg subcu daily, and she is already started on remresivir treatment since yesterday. Patient will be started on enteral tube feeding. Labs today were all reviewed. CBC is relatively normal. Electrolytes and renal profile are normal. LDH is 10/26/2008. C-reactive protein is 41.5. Ferritin level is 393. Markers are elevated as noted. PCR for coronavirus is still pending. Patient was reevaluated today on 09/20/20, patient remains intubated and mechanically ventilated. And now she is requiring high FiO2 of 70%, PEEP is up to 20. Tidal volume remains at 400 and the rate is at 25. ABG showed a pO2 of 63 pCO2 of 45 pH of 7.44 patient remains on propofol at 40 mcg/kg/per minute. Nimbex at 1 mcg/kg/m. Lovenox dose was increased to 40 mg subcu twice a day. Lines were placed today. Including a right IJ central line and a radial arterial line. Patient is also on tube feeding. Patient is on her second day of remdesivir and she remains on Decadron. pcr for Covid 19 is pending. CBC is relatively normal. D-dimer is 0.95 electrolytes are relatively normal renal profile is normal. LDH is elevated at 2168 C-reactive protein is 41.5. Pro- calcitonin is 0.07/normal. Objective - Vital Signs Vital signs: Vital Signs Temp 100.1 F H 08/24/20 12:00 Pulse 53 L 08/24/20 12:00 Resp 25 H 08/24/20 12:00 BP 113/54 08/24/20 12:00 Pulse Ox 90 L 08/24/20 12:00 Intake & Output 08/23/20 08/24/20 08/24/20 18:59 06:59 18:59 Intake Total 6937.699 6722.587 829.432 Output Total 1030 430 290 Balance 333.229 8120.587 539.432 Weight 138.1 kg 137.6 kg Intake: IV 1150 900 450 Remdesivir (Eua) 100 mg 250 In Sodium Chloride 0.9% 250 ml @ 250 mls/hr IVPB DAILY@1700 [facility] Rx#: [id number] Sodium Chloride 0.9% 1, 75 000 ml @ 20 mls/hr IV . Q24H [facility] Rx#:[id number] Sodium Chloride 0.9% 1, 825 900 450 000 ml @ 75 mls/hr IV . [id number] [facility] Rx#:[id number] Intake, IV Titration 376.187 338.587 99.432 Amount Cisatracurium 200 mg In 152.413 Sodium Chloride 0.9% 180 ml @ 1 MCG/KG/MIN 8.165 mls/hr IV .Q24H [facility] Rx#: [id number] propofoL 1,000 mg In 376.187 186.174 99.432 Empty Bag 1 bag @ Titrate IV .Q0M [facility] Rx#: [id number] Oral 60 Tube Feeding 30 200 160 Other 60 90 60 Output: Urine 1030 430 290 Other: Voiding Method Indwelling Catheter Indwelling Catheter Indwelling Catheter - Exam Physical Exam: Revealed 64-year-old female obese, on mechanical ventilation. Sedated, and paralyzed. Head: Atraumatic, normocephalic. HEENT:[Neck is supple.] [No neck masses.] [No thyromegaly.] [No JVD.] PERRLA, EOMI, no icterus. Chest: [Symmetrical chest expansion, crackles at the bases bilaterally. T hroughout.] Cardiac Exam: [Normal S1 and S2, no S3 gallop, no murmur.] Abdomen: [Obese, Soft, nontender, no megaly, no rebound, no guarding, normal bowel sounds.] Extremities: [No clubbing, no edema, no cyanosis.] Neurological Exam: Could not be assessed, patient is intubated mechanically ventilated, sedated, and paralyzed. Acute: Could not be assessed. Lymphatics: No cervical or supraclavicular lymphadenopathy. - Labs CBC & Chem 7: 08/24/20 04:24 08/24/20 04:24 Labs: Abnormal Lab Results - Last 24 Hours (Table) 08/24/20 08/24/20 08/24/20 Range/Units 04:24 04:24 04:24 Neutrophils # 9.4 H (1.3-7.7) k/uL Lymphocytes # 0.7 L (1.0-4.8) k/uL Fibrinogen (200-500) mg/dL D-Dimer (<0.60) mg/L FEU ABG pO2 (83-108) mmHg ABG HCO3 (21-25) mmol/L ABG Total CO2 (19-24) mmol/L ABG O2 Saturation (94-97) % Sodium 136 L (137-145) mmol/L BUN 29 H (7-17) mg/dL Glucose 150 H (74-99) mg/dL POC Glucose (mg/dL) (75-99) mg/dL Calcium 7.6 L (8.4-10.2) mg/dL Lactate Dehydrogenase 2168 H (313-618) U/L 08/24/20 08/24/20 08/24/20 Range/Units 04:24 06:48 08:16 Neutrophils # (1.3-7.7) k/uL Lymphocytes # (1.0-4.8) k/uL Fibrinogen 506 H (200-500) mg/dL D-Dimer 0.95 H (<0.60) mg/L FEU ABG pO2 63 L (83-108) mmHg ABG HCO3 31 H (21-25) mmol/L ABG Total CO2 32 H (19-24) mmol/L ABG O2 Saturation 92.5 L (94-97) % Sodium (137-145) mmol/L BUN (7-17) mg/dL Glucose (74-99) mg/dL POC Glucose (mg/dL) 129 H (75-99) mg/dL Calcium (8.4-10.2) mg/dL Lactate Dehydrogenase (313-618) U/L 08/24/20 Range/Units 11:22 Neutrophils # (1.3-7.7) k/uL Lymphocytes # (1.0-4.8) k/uL Fibrinogen (200-500) mg/dL D-Dimer (<0.60) mg/L FEU ABG pO2 (83-108) mmHg ABG HCO3 (21-25) mmol/L ABG Total CO2 (19-24) mmol/L ABG O2 Saturation (94-97) % Sodium (137-145) mmol/L BUN (7-17) mg/dL Glucose (74-99) mg/dL POC Glucose (mg/dL) 207 H (75-99) mg/dL Calcium (8.4-10.2) mg/dL Lactate Dehydrogenase (313-618) U/L Microbiology - Last 24 Hours (Table) 08/22/20 15:41 Blood Culture - Preliminary Blood No Growth after 24 hours Assessment and Plan Assessment: Impression: Acute hypoxic respiratory failure secondary to bilateral pneumonia, most likely related to covid 19 pneumonitis unless proven otherwise. With associated ARDS Elevated inflammatory markers for cruz virus infection. Obesity with BMI of 53.1. History of dyslipidemia. History of GERD. History of degenerative joint disease. Recommendation: Continue ventilatory support, and vent settings were adjusted accordingly. PEEP is now at 20 and FiO2 is at 70%. Continue Decadron. Continue remdesivir Continue Lovenox. Continue zinc melatonin Pepcid and vitamin C. Patient is not ready for any weaning trials or sedation interruption patient is requiring Nimbex and she is also requiring propofol at relatively high dose. Continue nutritional support. Continue GI and DVT prophylaxis. Patient is critically ill, and prognosis is poor, Critical care time is 35 minutes not including the time spent on procedures. Time with Patient: Greater than 30
[2020-08-24 17:21] LABS: Glucose,Whole Blood 255 mg/dL (75-99)
[2020-08-24 17:26] LABS: Hemoglobin A1C 6.2 % (4.0-6.0)
[2020-08-24] MEDS: REMDESIVIR (EUA) 100 MG in SODIUM CHLORIDE 0.9% 250 ML IVPB SCH (17:41)
--- NOTE | 2020-08-24 17:58 | PCN ---
PROCEDURE NOTE OPERATIVE REPORT: Placement of a right IJ central line. PREOPERATIVE DIAGNOSIS: Acute hypoxic respiratory failure secondary to Covid-19 pneumonitis. POSTOPERATIVE DIAGNOSIS: Acute hypoxic respiratory failure secondary to Covid-19 pneumonitis. ANESTHESIA USED: 2 mL of 1% lidocaine. PROCEDURE DETAILS: The patient was placed in Trendelenburg position, the area behind the right posterior belly of the sternocleidomastoid was prepared in a sterile fashion and drapes were applied and the area was localized with lidocaine. Then, using the posterior approach, the right internal jugular vein was cannulated easily. A guidewire was placed. The area was dilated around the guidewire, then a triple-lumen catheter was inserted over the guidewire and the guidewire was removed. Good blood flow noted in the 3 different ports, line was secured using 3.0 silk sutures. Chest x-ray postoperatively showed adequate placement of the central line. No evidence of any immediate complications. MMODL / IJN: [id number] /
--- NOTE | 2020-08-24 17:58 | PCN ---
PROCEDURE NOTE OPERATIVE REPORT: Placement of left radial arterial line. PREOPERATIVE DIAGNOSIS: Acute Covid 19 pneumonitis and acute hypoxic respiratory failure. POSTOPERATIVE DIAGNOSIS: Acute Covid 19 pneumonitis and acute hypoxic respiratory failure. ANESTHESIA: None deployed. PROCEDURE DETAILS: The patient was placed in supine position, the left wrist was prepared in a sterile fashion and drapes applied. The left radial artery was palpated, cannulated, and a guidewire was placed. A Cook catheter was inserted over the guidewire, and the guidewire was removed. Good blood flow, good waveform noted. No evidence of any immediate complications. The line was secured using 3.0 silk sutures. MMODL / IJN: [id number] /
[2020-08-24] MEDS: MELATONIN 5 MG TABLET PO SCH (20:21)
[2020-08-24] MEDS: CISATRACURIUM 200 MG in SODIUM CHLORIDE 0.9% 180 ML IV SCH (20:40)
--- NOTE | 2020-08-24 23:18 | P.PN ---
Progress Note - Text Progress Note Date: 08/24/20 Chief Complaint: Short of breath History of presenting complaint: This is a 64-year-old patient follows with Dr. Ross. Patient has tested positive for COVID. Patient's symptoms started about a week ago. Progressively short of breath. More so in the last 4 days. Became much more significant yesterday. Presented to the ER. Also had fevers. Patient was hypoxic in the ER initial pulse ox around 70%. Was on 6 L with an wall. Check stat x-ray shows bilateral infiltrates. Patient smoked to the ICU. Subsequently intubated. Patient's currently on IV Decadron, propofol, IV fluids, IV cisatracurium. Patient on a FiO2 80% and a PEEP of 18. Has a OG-t ube, Florentino catheter and endotracheal tube. Telemetry shows sinus rhythm. Seen by Dr. Clemente manager motor in the ER. Today-ICU. On the ventilator. FiO2 70 and a PEEP of 20. Drips include Nimbex and propofol. Continues with tube feeding. Review of systems-cannot be done as patient intubated Active Medications Ascorbic Acid (Ascorbic Acid 500 Mg Tab) 500 mg PO DAILY [facility] Last Admin: 08/24/20 08:04 Dose: 500 mg Documented by: Atorvastatin Calcium (Atorvastatin 40 Mg Tab) 40 mg PO DAILY [facility] Last Admin: 08/24/20 08:04 Dose: 40 mg Documented by: Chlorhexidine Gluconate (Chlorhexidine Gluconate 15 Ml Cup) 15 ml MUCOUS MEM BID [facility] Last Admin: 08/24/20 20:22 Dose: 15 ml Documented by: Cholecalciferol (Cholecalciferol 1,000 Unit Tab) 1,000 unit PO DAILY [facility] Last Admin: 08/24/20 08:06 Dose: 1,000 unit Documented by: Citalopram Hydrobromide (Citalopram Hydrobromide 20 Mg Tab) 20 mg PO DAILY [facility] Last Admin: 08/23/20 07:42 Dose: 20 mg Documented by: Dexamethasone Sodium Phosphate (Dexamethasone Sod Phosphate 10 Mg/Ml 1 Ml Vial) 6 mg IV DAILY [facility] Last Admin: 08/24/20 08:21 Dose: 6 mg Documented by: Enoxaparin Sodium (Enoxaparin 40 Mg/0.4 Ml Syringe) 40 mg SQ BID [facility] Last Admin: 08/24/20 20:21 Dose: 40 mg Documented by: Famotidine (Famotidine 20 Mg/2 Ml Vial) 20 mg IV Q12HR [facility] Last Admin: 08/24/20 20:21 Dose: 20 mg Documented by: Remdesivir 100 mg/ Sodium (Chloride) 250 mls @ 250 mls/hr IVPB DAILY@1700 [facility] Stop: 08/26/20 17:59 Last Admin: 08/24/20 17:41 Dose: 250 mls/hr Documented by: Sodium Chloride (Saline 0.9%) 1,000 mls @ 75 mls/hr IV .[id number] [facility] Last Admin: 08/24/20 17:12 Dose: 75 mls/hr Documented by: Cisatracurium Besylate 200 mg/ (Sodium Chloride) 200 mls @ 8.165 mls/hr IV .Q24H [facility]; Protocol Last Admin: 08/24/20 20:40 Dose: 1 mcg/kg/min, 8.165 mls/hr Documented by: Propofol 1,000 mg/ IV Solution 100 mls @ 0 mls/hr IV .Q0M [facility]; Protocol Last Admin: 08/24/20 20:42 Dose: 40 mcg/kg/min, 33.024 mls/hr Documented by: Melatonin (Melatonin 5 Mg Tablet) 5 mg PO HS [facility] Last Admin: 08/24/20 20:21 Dose: 5 mg Documented by: Naloxone HCl (Naloxone 0.4 Mg/Ml 1 Ml Vial) 0.2 mg IV Q2M PRN PRN Reason: Opioid Reversal Zinc Sulfate (Zinc Sulfate 220 Mg Cap) 220 mg PO DAILY [facility] Last Admin: 08/24/20 08:07 Dose: 220 mg Documented by: Physical examination: VITAL SIGNS: 100.1, 53, 25, 130s now 54, 90% on the ventilator GENERAL:, laying in bed, intubated. Rest of the physical exam as per nursing in manager motor INVESTIGATIONS, reviewed in the clinical context: White count 10.6 hemoglobin 14.4 d-dimer 0.95, potassium 5 creatinine 0.7 to LDH 2168 White count 5.6 hemoglobin 14.9 platelets 165 decreased lymphocytes Potassium 3.8 creatinine 0.7 to Ferritin 459 LDH 1139 CRP 32.9 pro-calcitonin 0.07 Chest x-ray film personally reviewed by me-bilateral scattered infiltrates, portable film Assessment: -Bilateral extensive likely COVID 19 pneumonia, POA -Sepsis from above-slow to respond -Acute severe hypoxic respiratory failure from COVID 19 pneumonia-slow to respond -GERD -Hyperlipidemia -Depression not otherwise specified -Moderate persistent asthma with acute exacerbation -Morbid obesity BMI 53.9 Plan: Patient is on receiving Decadron, Remdesivir, Lovenox, zinc, Pepcid vitamin C. Patient in the ICU. Drips include Nimbex and propofol. Prognosis guarded
[2020-08-25 00:07] LABS: Glucose,Whole Blood 220 mg/dL (75-99)
[2020-08-25] MEDS: INSULIN ASPART (NovoLOG) 100 UNIT/ML VIAL SQ SCH ×4 (00:30→16:54)
[2020-08-25 03:05] LABS: Basophils # (A) 0.1 k/uL (0-0.2); Basophils % (A) 1 %; Eosinophils # (A) 0.1 k/uL (0-0.7); Eosinophils % (A) 1 %; HCT 39.4 % (34.0-46.0); HGB 13.2 gm/dL (11.4-16.0); Lymphocytes # (A) 0.7 k/uL (1.0-4.8); Lymphocytes % (A) 8 %; MCH 32.6 pg (25.0-35.0); MCHC 33.3 g/dL (31.0-37.0); MCV 97.9 fL (80.0-100.0); Mean Platelet Volume 8.1; Monocytes # (A) 0.3 k/uL (0-1.0); Monocytes % (A) 3 %; Neutrophils # (A) 7.7 k/uL (1.3-7.7); Neutrophils % (A) 87 %; Platelet Count 131 k/uL (150-450); RBC 4.03 m/uL (3.80-5.40); RDW 13.8 % (11.5-15.5); WBC 8.8 k/uL (3.8-10.6)
[2020-08-25 03:16] LABS: African American GFR (CKD) >90 (>60 ml/min/1.73 sqM); Anion Gap 0 mmol/L; Blood Urea Nitrogen 23 mg/dL (7-17); Calcium 7.4 mg/dL (8.4-10.2); Carbon Dioxide 29 mmol/L (22-30); Chloride 107 mmol/L (98-107); Glucose 196 mg/dL (74-99); Non-African American GFR(CKD) >90 (>60 ml/min/1.73 sqM); Potassium 3.9 mmol/L (3.5-5.1); Sodium 136 mmol/L (137-145)
[2020-08-25] MEDS ORDERED: Potassium Replacement Protocol 1 EACH MISC MISCELLANE PRN (04:06)
[2020-08-25] MEDS: SODIUM CHLORIDE 0.9% 1,000 ML IV SCH ×2 (05:58→17:30)
[2020-08-25] MEDS ORDERED: POTASSIUM BICARBONATE/CIT AC 20 MEQ TABLET.EFF NG-TUBE SCH (06:00)
[2020-08-25 06:14] LABS: Glucose,Whole Blood 184 mg/dL (75-99)
[2020-08-25 07:38] LABS: ABG Base Excess 5.7 mmol/L; ABG HCO3 30 mmol/L (21-25); ABG Oxygen Saturation 96.5 % (94-97); ABG PCO2 45 mmHg (35-45); ABG PH 7.44 (7.35-7.45); ABG PO2 90 mmHg (83-108); ABG TCO2 31 mmol/L (19-24)
[2020-08-25 07:42] LABS: Allen Test Performed? no
[2020-08-25] MEDS: ASCORBIC ACID 500 MG TAB PO SCH (08:09)
[2020-08-25] MEDS: ZINC SULFATE 220 MG CAP PO SCH (08:09)
[2020-08-25] MEDS: ATORVASTATIN 40 MG TAB PO SCH (08:09)
[2020-08-25] MEDS: CHOLECALCIFEROL 1,000 UNIT TAB PO SCH (08:09)
[2020-08-25] MEDS: DEXAMETHASONE SOD PHOSPHATE 10 MG/ML 1 ML VIAL IV SCH (08:09)
[2020-08-25] MEDS: CITALOPRAM HYDROBROMIDE 20 MG TAB PO SCH (08:09)
[2020-08-25] MEDS: ENOXAPARIN 40 MG/0.4 ML SYRINGE SQ SCH ×2 (08:10→20:29)
[2020-08-25] MEDS: CHLORHEXIDINE GLUCONATE 15 ML CUP MUCOUS MEM SCH ×2 (08:10→20:29)
[2020-08-25] MEDS: FAMOTIDINE 20 MG/2 ML VIAL IV SCH ×2 (08:12→20:30)
[2020-08-25] MEDS: CISATRACURIUM 200 MG in SODIUM CHLORIDE 0.9% 180 ML IV SCH (08:21)
--- NOTE | 2020-08-25 10:52 | XR ---
EXAMINATION TYPE: XR chest 1V portable DATE OF EXAM: 08/25/2020 COMPARISON: R chest x-ray 08/24/2020 HISTORY: Intubated TECHNIQUE: Single frontal view of the chest is obtained. FINDINGS: Endotracheal tube, NG tube, right jugular central venous catheter are overlying appropriat e positions. Patient is rotated. There is no evident pneumothorax or pleural effusion. Bilateral airs pace disease is noted. Heart size may be accentuated by rotation. IMPRESSION: Similar findings, correlate for pneumonia, congestive heart failure, ARDS
[2020-08-25 11:26] LABS: Glucose,Whole Blood 161 mg/dL (75-99)
--- NOTE | 2020-08-25 14:24 | P.PN ---
Subjective Progress Note Date: 08/25/20 Principal diagnosis: Acute hypoxic respiratory failure secondary to Covid 19 pneumonitis This is a 64-year-old here patient, obese, known history of hyperlipidemia and acid reflux in addition to a mild component of anxiety/depression, comes into the hospital due to worsening shortness of breath. The patient was getting more short of breath over the past week or so. Her she had the same symptoms. They visited the primary care physician with the chest x-ray was done and she was told to have pneumonia. Subsequently, her went and checked himself for COVID 19 and turnaround engineer to be positive. The patient presented to the emergency with increased cough and shortness of breath. She was found to be quite hypoxic and an initial pulse ox was in the 70% range. Accordingly, the patient was placed on high flow oxygen 6 L oxygen flow, AIRVO , and this brought her pulse ox up to 88-89%. Chest x-ray showed diffuse bilateral pulmonary infiltrates consistent with coronavirus Covid 19 related pneumonia. The patient was febrile with a temperature 100.9. The blood count showed lymphopenia. LDH was 1139, C-reactive protein was 32.9. Patient was reevaluated today on 08/23/20, patient remains intubated and mechanically ventilated. Chest x-ray shows diffuse interstitial infiltrates. She is presently on assist control rate of 25 volume is 400 FiO2 is 100% and PEEP is at 15. ABG was marginal showed a pO2 of 71 pCO2 of 45 pH of 7.42, hence I recommended increasing the PEEP to 18 and I cut down the FiO2 to 80%. Patient is on propofol drip at 41 mcg/kg/m and on Nimbex. Patient is also on Lovenox 40 mg subcu daily, and she is already started on remresivir treatment since yesterday. Patient will be started on enteral tube feeding. Labs today were all reviewed. CBC is relatively normal. Electrolytes and renal profile are normal. LDH is 10/26/2008. C-reactive protein is 41.5. Ferritin level is 393. Markers are elevated as noted. PCR for coronavirus is still pending. Patient was reevaluated today on 08/24/20, patient remains intubated and mec hanically ventilated. And now she is requiring high FiO2 of 70%, PEEP is up to 20. Tidal volume remains at 400 and the rate is at 25. ABG showed a pO2 of 63 pCO2 of 45 pH of 7.44 patient remains on propofol at 40 mcg/kg/per minute. Nimbex at 1 mcg/kg/m. Lovenox dose was increased to 40 mg subcu twice a day. Lines were placed today. Including a right IJ central line and a radial arterial line. Patient is also on tube feeding. Patient is on her second day of remdesivir and she remains on Decadron. pcr for Covid 19 is pending. CBC is relatively normal. D-dimer is 0.95 electrolytes are relatively normal renal profile is normal. LDH is elevated at 2168 C-reactive protein is 41.5. Pro- calcitonin is 0.07/normal. Patient was reevaluated today on 08/25/20, remains in the ICU, intubated and mechanically ventilated. Patient is now on assist control rate of 25 FiO2 is 70% tidal volume is 400 and PEEP is 20. Her ABG showed a pO2 of 90 pCO2 of 45 pH of 7.44 hence I cut down her FiO2 to 60% and The PEEP at 20. Patient is on Nimbex, propofol, his also on enteral feeding, she is not requiring any pressors. Hemodynamically stable. Basic metabolic profile is normal, renal profile is normal. CBC is relatively normal hemoglobin is 13.2. Platelets are on the lower side at 131. Lymphocytes are 8%. Objective - Vital Signs Vital signs: Vital Signs Temp 99.1 F 08/25/20 12:00 Pulse 48 L 08/25/20 12:00 Resp 25 H 08/25/20 12:00 BP 117/62 08/25/20 12:00 Pulse Ox 94 L 08/25/20 12:00 Intake & Output 08/24/20 08/25/20 08/25/20 18:59 06:59 18:59 Intake Total 3804.294 6642.164 945.394 Output Total 640 485 245 Balance 1452.544 6177.164 700.394 Intake: IV 1150 900 450 Remdesivir (Eua) 100 mg 250 In Sodium Chloride 0.9% 250 ml @ 250 mls/hr IVPB DAILY@1700 [facility] Rx#: [id number] Sodium Chloride 0.9% 1, 900 900 450 000 ml @ 75 mls/hr IV . [id number] [facility] Rx#:[id number] Intake, IV Titration 299.432 567.164 195.394 Amount Cisatracurium 200 mg In 180.991 95.394 Sodium Chloride 0.9% 180 ml @ 1 MCG/KG/MIN 8.165 mls/hr IV .Q24H [facility] Rx#: [id number] propofoL 1,000 mg In 299.432 386.173 100.000 Empty Bag 1 bag @ Titrate IV .Q0M [facility] Rx#: [id number] Oral 60 60 Tube Feeding 220 210 180 Other 60 60 60 Output: Urine 640 485 245 Other: Voiding Method Indwelling Catheter Indwelling Catheter Indwelling Catheter ABP, PAP, CO, CI - Last Documented Arterial Blood Pressure 139/54 - Exam Physical Exam: Revealed 64-year-old female obese, on mechanical ventilation. Sedated, and paralyzed. Head: Atraumatic, normocephalic. HEENT:[Neck is supple.] [No neck masses.] [No thyromegaly.] [No JVD.] PERRLA, EOMI, no icterus. Right IJ triple-lumen catheter is noted. Chest: [Symmetrical chest expansion, crackles at the bases bilaterally. Cardiac Exam: [Normal S1 and S2, no S3 gallop, no murmur.] Abdomen: [Obese, Soft, nontender, no megaly, no rebound, no guarding, normal bowel sounds.] Extremities: [No clubbing, trace of bipedal edema, no cyanosis.] Neurological Exam: Could not be assessed, patient is intubated mechanically ventilated, sedated, and paralyzed. Acute: Could not be assessed. Lymphatics: No cervical or supraclavicular lymphadenopathy. - Labs CBC & Chem 7: 08/25/20 02:50 08/25/20 02:50 Labs: Abnormal Lab Results - Last 24 Hours (Table) 08/22/20 08/24/20 08/24/20 Range/Units 15:41 04:24 17:20 Plt Count (150-450) k/uL Lymphocytes # (1.0-4.8) k/uL ABG HCO3 (21-25) mmol/L ABG Total CO2 (19-24) mmol/L Sodium (137-145) mmol/L BUN (7-17) mg/dL Glucose (74-99) mg/dL POC Glucose (mg/dL) 255 H (75-99) mg/dL Hemoglobin A1c 6.2 H (4.0-6.0) % Calcium (8.4-10.2) mg/dL Coronavirus (PCR) Detected A (Not Detected) 08/25/20 08/25/20 08/25/20 Range/Units 00:04 02:50 02:50 Plt Count 131 L (150-450) k/uL Lymphocytes # 0.7 L (1.0-4.8) k/uL ABG HCO3 (21-25) mmol/L ABG Total CO2 (19-24) mmol/L Sodium 136 L (137-145) mmol/L BUN 23 H (7-17) mg/dL Glucose 196 H (74-99) mg/dL POC Glucose (mg/dL) 220 H (75-99) mg/dL Hemoglobin A1c (4.0-6.0) % Calcium 7.4 L (8.4-10.2) mg/dL Coronavirus (PCR) (Not Detected) 08/25/20 08/25/20 08/25/20 Range/Units 06:02 07:36 11:25 Plt Count (150-450) k/uL Lymphocytes # (1.0-4.8) k/uL ABG HCO3 30 H (21-25) mmol/L ABG Total CO2 31 H (19-24) mmol/L Sodium (137-145) mmol/L BUN (7-17) mg/dL Glucose (74-99) mg/dL POC Glucose (mg/dL) 184 H 161 H (75-99) mg/dL Hemoglobin A1c (4.0-6.0) % Calcium (8.4-10.2) mg/dL Coronavirus (PCR) (Not Detected) Microbiology - Last 24 Hours (Table) 08/22/20 15:41 Blood Culture - Preliminary Blood No Growth after 48 hours Assessment and Plan Assessment: Impression: Acute hypoxic respiratory failure secondary to covid 19 pneumonitis and ARDS. ARDS. Patient is requiring high FiO2 and high PEEP. Obesity with BMI of 53.1. History of dyslipidemia. History of GERD. History of degenerative joint disease. Recommendation: Continue ventilatory support, decrease FiO2 to 60% continue PEEP at 20. Continue Decadron. Continue remdesivir Continue Lovenox. Continue zinc melatonin Pepcid and vitamin C. No room for any weaning trials. Continue nutritional support. Continue GI and DVT prophylaxis. Patient is critically ill, prognosis is very poor. Critical care time is 32 minutes not including the time spent on procedures. Time with Patient: Greater than 30
[2020-08-25 16:43] LABS: Glucose,Whole Blood 210 mg/dL (75-99)
[2020-08-25] MEDS: REMDESIVIR (EUA) 100 MG in SODIUM CHLORIDE 0.9% 250 ML IVPB SCH (16:54)
[2020-08-25] MEDS: ARTIFICIAL TEARS OINTMENT 3.5 GM TUBE BOTH EYES SCH ×2 (16:54→20:30)
[2020-08-25] MEDS: MELATONIN 5 MG TABLET PO SCH (20:24)
--- NOTE | 2020-08-25 21:50 | P.PN ---
Progress Note - Text Progress Note Date: 08/25/20 Chief Complaint: Short of breath History of presenting complaint: This is a 64-year-old patient follows with Dr. Ross. Patient has tested positive for COVID. Patient's symptoms started about a week ago. Progressively short of breath. More so in the last 4 days. Became much more significant yesterday. Presented to the ER. Also had fevers. Patient was hypoxic in the ER initial pulse ox around 70%. Was on 6 L with an wall. Check stat x-ray shows bilateral infiltrates. Patient smoked to the ICU. Subsequently intubated. Patient's currently on IV Decadron, propofol, IV fluids, IV cisatracurium. Patient on a FiO2 80% and a PEEP of 18. Has a OG-t ube, Florentino catheter and endotracheal tube. Telemetry shows sinus rhythm. Seen by Dr. Clemente furniture mover helper in the ER. Admitted with bilateral COVID 19 pneumonia with acute hypoxic respiratory failure, on the ventilator, acute asthma exacerbation. Today-ICU. On the ventilator. FiO2 60 no. 20. Sedated. IV drips included propofol and Nimbex. Sinus rhythm. Q feedings Review of systems-cannot be done as patient intubated Active Medications Ascorbic Acid (Ascorbic Acid 500 Mg Tab) 500 mg PO DAILY [facility] Last Admin: 08/25/20 08:09 Dose: 500 mg Documented by: Atorvastatin Calcium (Atorvastatin 40 Mg Tab) 40 mg PO DAILY [facility] Last Admin: 08/25/20 08:09 Dose: 40 mg Documented by: Chlorhexidine Gluconate (Chlorhexidine Gluconate 15 Ml Cup) 15 ml MUCOUS MEM BI D [facility] Last Admin: 08/25/20 20:29 Dose: 15 ml Documented by: Cholecalciferol (Cholecalciferol 1,000 Unit Tab) 1,000 unit PO DAILY [facility] Last Admin: 08/25/20 08:09 Dose: 1,000 unit Documented by: Citalopram Hydrobromide (Citalopram Hydrobromide 20 Mg Tab) 20 mg PO DAILY [facility] Last Admin: 08/25/20 08:09 Dose: 20 mg Documented by: Dexamethasone Sodium Phosphate (Dexamethasone Sod Phosphate 10 Mg/Ml 1 Ml Vial) 6 mg IV DAILY [facility] Last Admin: 08/25/20 08:09 Dose: 6 mg Documented by: Enoxaparin Sodium (Enoxaparin 40 Mg/0.4 Ml Syringe) 40 mg SQ BID [facility] Last Admin: 08/25/20 20:29 Dose: 40 mg Documented by: Famotidine (Famotidine 20 Mg/2 Ml Vial) 20 mg IV Q12HR [facility] Last Admin: 08/25/20 20:30 Dose: 20 mg Documented by: Remdesivir 100 mg/ Sodium (Chloride) 250 mls @ 250 mls/hr IVPB DAILY@1700 [facility] Stop: 08/26/20 17:59 Last Admin: 08/25/20 16:54 Dose: 250 mls/hr Documented by: Sodium Chloride (Saline 0.9%) 1,000 mls @ 75 mls/hr IV .[id number] [facility] Last Admin: 08/25/20 17:30 Dose: 75 mls/hr Documented by: Cisatracurium Besylate 200 mg/ (Sodium Chloride) 200 mls @ 8.165 mls/hr IV .Q24H [facility]; Protocol Last Admin: 08/25/20 08:21 Dose: 1 mcg/kg/min, 8.165 mls/hr Documented by: Propofol 1,000 mg/ IV Solution 100 mls @ 0 mls/hr IV .Q0M [facility]; Protocol Last Admin: 08/25/20 18:50 Dose: 30 mcg/kg/min, 24.408 mls/hr Documented by: Insulin Aspart (Insulin Aspart (Novolog) 100 Unit/Ml Vial) 0 unit SQ Q6H [facility]; Protocol Last Admin: 08/25/20 16:54 Dose: 4 unit Documented by: Melatonin (Melatonin 5 Mg Tablet) 5 mg PO HS [facility] Last Admin: 08/25/20 20:24 Dose: Not Given Documented by: Miscellaneous Information (Potassium Replacement Protocol 1 Each Misc) 1 each MISCELLANE DAILY PRN; Protocol PRN Reason: Per Protocol Multi-Ingred Cream/Lotion/Oil/Oint (Artificial Tears Ointment 3.5 Gm Tube) 1 applic BOTH EYES Q4H [facility] Last Admin: 08/25/20 20:30 Dose: 1 applic Documented by: Naloxone HCl (Naloxone 0.4 Mg/Ml 1 Ml Vial) 0.2 mg IV Q2M PRN PRN Reason: Opioid Reversal Zinc Sulfate (Zinc Sulfate 220 Mg Cap) 220 mg PO DAILY [facility] Last Admin: 11/04/20 08:09 Dose: 220 mg Documented by: Physical examination: VITAL SIGNS: 99.1, 48, 25, 117/62, 94% on the ventilator GENERAL:, laying in bed, intubated. Psychiatry-patient sedated Rest of the physical exam as per nursing and furniture mover helper INVESTIGATIONS, reviewed in the clinical context: White count 8.8 hemoglobin 13.2 potassium 3.9 creatinine 0.64 Previous testing White count 5.6 hemoglobin 14.9 platelets 165 decreased lymphocytes Potassium 3.8 creatinine 0.7 to Ferritin 459 LDH 1139 CRP 32.9 pro-calcitonin 0.07 Chest x-ray film personally reviewed by me-bilateral scattered infiltrates, portable film Assessment: -Bilateral extensive likely COVID 19 pneumonia, POA-slow to respond -Sepsis from above- -ARDS -Acute severe hypoxic respiratory failure from COVID 19 pneumonia-slow to respond -GERD -Hyperlipidemia -Depression not otherwise specified -Moderate persistent asthma with acute exacerbation -Morbid obesity BMI 53.9 Plan: Patient is on receiving Decadron, Remdesivir, Lovenox, zinc, Pepcid vitamin C. remains critically ill. Drips - Nimbex and propofol.
[2020-08-26 00:20] LABS: Glucose,Whole Blood 211 mg/dL (75-99)
[2020-08-26] MEDS: INSULIN ASPART (NovoLOG) 100 UNIT/ML VIAL SQ SCH ×4 (00:34→18:26)
[2020-08-26] MEDS: ARTIFICIAL TEARS OINTMENT 3.5 GM TUBE BOTH EYES SCH ×6 (00:34→19:44)
[2020-08-26 04:42] LABS: Basophils # (A) 0.1 k/uL (0-0.2); Basophils % (A) 1 %; Eosinophils # (A) 0.1 k/uL (0-0.7); Eosinophils % (A) 1 %; HCT 39.7 % (34.0-46.0); HGB 12.7 gm/dL (11.4-16.0); Lymphocytes # (A) 0.6 k/uL (1.0-4.8); Lymphocytes % (A) 8 %; MCH 31.7 pg (25.0-35.0); MCV 98.9 fL (80.0-100.0); Mean Platelet Volume 8.4; Monocytes # (A) 0.2 k/uL (0-1.0); Monocytes % (A) 3 %; Neutrophils # (A) 7.1 k/uL (1.3-7.7); Neutrophils % (A) 87 %; Platelet Count 169 k/uL (150-450); RBC 4.02 m/uL (3.80-5.40); RDW 13.8 % (11.5-15.5); WBC 8.2 k/uL (3.8-10.6)
[2020-08-26 05:00] LABS: ALT 20 U/L (4-34); AST 29 U/L (14-36); African American GFR (CKD) >90 (>60 ml/min/1.73 sqM); Albumin 2.4 g/dL (3.5-5.0); Alkaline Phosphatase 56 U/L (38-126); Anion Gap -1 mmol/L; Blood Urea Nitrogen 24 mg/dL (7-17); C Reactive Protein 68.7 mg/L (<10.0); Calcium 7.5 mg/dL (8.4-10.2); Carbon Dioxide 30 mmol/L (22-30); Chloride 109 mmol/L (98-107); Glucose 227 mg/dL (74-99); LDH 1157 U/L (313-618); Non-African American GFR(CKD) >90 (>60 ml/min/1.73 sqM); Potassium 4.2 mmol/L (3.5-5.1); Sodium 138 mmol/L (137-145); Total Bilirubin 0.4 mg/dL (0.2-1.3); Total Protein 4.9 g/dL (6.3-8.2)
[2020-08-26] MEDS: SODIUM CHLORIDE 0.9% 1,000 ML IV SCH ×2 (05:02→18:41)
[2020-08-26] MEDS: CHLORHEXIDINE GLUCONATE 15 ML CUP MUCOUS MEM SCH ×2 (08:15→19:42)
[2020-08-26] MEDS: ASCORBIC ACID 500 MG TAB PO SCH (08:15)
[2020-08-26] MEDS: FAMOTIDINE 20 MG/2 ML VIAL IV SCH ×2 (08:15→19:43)
[2020-08-26] MEDS: DEXAMETHASONE SOD PHOSPHATE 10 MG/ML 1 ML VIAL IV SCH (08:15)
[2020-08-26] MEDS: ZINC SULFATE 220 MG CAP PO SCH (08:15)
[2020-08-26] MEDS: CITALOPRAM HYDROBROMIDE 20 MG TAB PO SCH (08:15)
[2020-08-26] MEDS: CHOLECALCIFEROL 1,000 UNIT TAB PO SCH (08:15)
[2020-08-26] MEDS: ENOXAPARIN 40 MG/0.4 ML SYRINGE SQ SCH ×2 (08:15→19:43)
[2020-08-26] MEDS: ATORVASTATIN 40 MG TAB PO SCH (08:15)
[2020-08-26 08:39] LABS: ABG Base Excess 5.6 mmol/L; ABG HCO3 30 mmol/L (21-25); ABG Oxygen Saturation 94.3 % (94-97); ABG PCO2 42 mmHg (35-45); ABG PH 7.45 (7.35-7.45); ABG PO2 68 mmHg (83-108); ABG TCO2 31 mmol/L (19-24)
[2020-08-26 08:41] LABS: Allen Test Performed? no
[2020-08-26 09:52] LABS: Ferritin 557.8 ng/mL (10.0-291.0)
--- NOTE | 2020-08-26 09:57 | XR ---
EXAMINATION TYPE: XR chest 1V portable DATE OF EXAM: 08/26/2020 COMPARISON: 08/25/2020 HISTORY: Tube placement FINDINGS: There are bilateral pleural effusions with cardiomegaly and bibasilar infiltrate. There is a diffuse interstitial pattern. ET tube, NG tube and central line stable. Heart size enlarged. IMPRESSION: 1. Diffuse pleural-parenchymal changes are stable, correlate for pneumonia, CHF, or ARDS.
[2020-08-26] MEDS: HYDROmorphone 0.5 MG/0.5 ML SYRINGE IVP SCH ×6 (12:30→21:14)
[2020-08-26 12:34] LABS: Glucose,Whole Blood 181 mg/dL (75-99)
--- NOTE | 2020-08-26 15:28 | P.PN ---
Subjective Progress Note Date: 08/26/20 Principal diagnosis: Acute hypoxic respiratory failure secondary to Covid 19 pneumonitis This is a 64-year-old here patient, obese, known history of hyperlipidemia and acid reflux in addition to a mild component of anxiety/depression, comes into the hospital due to worsening shortness of breath. The patient was getting more short of breath over the past week or so. Her she had the same symptoms. They visited the primary care physician with the chest x-ray was done and she was told to have pneumonia. Subsequently, her went and checked himself for COVID 19 and apple turner to be positive. The patient presented to the emergency with increased cough and shortness of breath. She was found to be quite hypoxic and an initial pulse ox was in the 70% range. Accordingly, the patient was placed on high flow oxygen 6 L oxygen flow, AIRVO , and this brought her pulse ox up to 88-89%. Chest x-ray showed diffuse bilateral pulmonary infiltrates consistent with coronavirus Covid 19 related pneumonia. The patient was febrile with a temperature 100.9. The blood count showed lymphopenia. LDH was 1139, C-reactive protein was 32.9. Patient was reevaluated today on 08/23/20, patient remains intubated and mechanically ventilated. Chest x-ray shows diffuse interstitial infiltrates. She is presently on assist control rate of 25 volume is 400 FiO2 is 100% and PEEP is at 15. ABG was marginal showed a pO2 of 71 pCO2 of 45 pH of 7.42, hence I recommended increasing the PEEP to 18 and I cut down the FiO2 to 80%. Patient is on propofol drip at 41 mcg/kg/m and on Nimbex. Patient is also on Lovenox 40 mg subcu daily, and she is already started on remresivir treatment since yesterday. Patient will be started on enteral tube feeding. Labs today were all reviewed. CBC is relatively normal. Electrolytes and renal profile are normal. LDH is 10/26/2008. C-reactive protein is 41.5. Ferritin level is 393. Markers are elevated as noted. PCR for coronavirus is still pending. Patient was reevaluated today on 08/24/20, patient remains intubated and mec hanically ventilated. And now she is requiring high FiO2 of 70%, PEEP is up to 20. Tidal volume remains at 400 and the rate is at 25. ABG showed a pO2 of 63 pCO2 of 45 pH of 7.44 patient remains on propofol at 40 mcg/kg/per minute. Nimbex at 1 mcg/kg/m. Lovenox dose was increased to 40 mg subcu twice a day. Lines were placed today. Including a right IJ central line and a radial arterial line. Patient is also on tube feeding. Patient is on her second day of remdesivir and she remains on Decadron. pcr for Covid 19 is pending. CBC is relatively normal. D-dimer is 0.95 electrolytes are relatively normal renal profile is normal. LDH is elevated at 2168 C-reactive protein is 41.5. Pro- calcitonin is 0.07/normal. Patient was reevaluated today on 08/25/20, remains in the ICU, intubated and mechanically ventilated. Patient is now on assist control rate of 25 FiO2 is 70% tidal volume is 400 and PEEP is 20. Her ABG showed a pO2 of 90 pCO2 of 45 pH of 7.44 hence I cut down her FiO2 to 60% and The PEEP at 20. Patient is on Nimbex, propofol, his also on enteral feeding, she is not requiring any pressors. Hemodynamically stable. Basic metabolic profile is normal, renal profile is normal. CBC is relatively normal hemoglobin is 13.2. Platelets are on the lower side at 131. Lymphocytes are 8%. Reevaluated today on 08/26/20, remains in the ICU, intubated and mechanically ventilated. Patient is now on assist control rate of 25 FiO2 is 60% and PEEP is 20 and tidal volume is 400. ABG today showed a pO2 of 68 pCO2 of 42 pH of 7.45 at no changes were made in the ventilator settings. Patient remains on Nimbex, propofol, and I added Dilaudid around the clock. Patient remains on IV fluid at 75 mL per hour, and she is on enteral feeding using vital a chest for . Labs today showed a relatively normal CBC is relatively normal electrolytes and basic metabolic profile. LDH is 1157 and C-reactive protein is 68.7, not much of a change in both. Chest x-ray continues to show evidence of diffuse interstitial infiltrates/ARDS. Objective - Vital Signs Vital signs: Vital Signs Temp 98 F 08/26/20 08:00 Pulse 52 L 08/26/20 11:00 Resp 25 H 08/26/20 11:00 BP 129/88 08/26/20 06:58 Pulse Ox 92 L 08/26/20 11:00 Intake & Output 08/25/20 08/26/20 08/26/20 18:59 06:59 18:59 Intake Total 2240.127 1620.212 387 Output Total 520 645 250 Balance 1720.127 975.212 137 Weight 139.1 kg 139.1 kg Intake: IV 1225 900 225 Remdesivir (Eua) 100 mg 250 In Sodium Chloride 0.9% 250 ml @ 250 mls/hr IVPB DAILY@1700 [facility] Rx#: [id number] Sodium Chloride 0.9% 1, 975 900 225 000 ml @ 75 mls/hr IV . [id number] [facility] Rx#:[id number] Intake, IV Titration 375.127 280.212 Amount Cisatracurium 200 mg In 95.394 Sodium Chloride 0.9% 180 ml @ 1 MCG/KG/MIN 8.165 mls/hr IV .Q24H [facility] Rx#: [id number] propofoL 1,000 mg In 279.733 280.212 Empty Bag 1 bag @ Titrate IV .Q0M [facility] Rx#: [id number] Oral 60 Tube Feeding 490 440 132 Other 90 30 Output: Urine 520 645 250 Other: Voiding Method Indwelling Catheter Indwelling Catheter ABP, PAP, CO, CI - Last Documented Arterial Blood Pressure 134/52 - Exam Physical Exam: Revealed 64-year-old female obese, on mechanical ventilation. Sedated, and paralyzed. Head: Atraumatic, normocephalic. HEENT:[Neck is supple.] [No neck masses.] [No thyromegaly.] [No JVD.] PERRLA, EOMI, no icterus. Right IJ triple-lumen catheter is noted. Chest: [Symmetrical chest expansion, crackles at the bases bilaterally. Cardiac Exam: [Normal S1 and S2, no S3 gallop, no murmur.] Abdomen: [Obese, Soft, nontender, no megaly, no rebound, no guarding, normal bowel sounds.] Extremities: [No clubbing, trace of bipedal edema, no cyanosis.] Neurological Exam: Could not be assessed, patient is intubated mechanically ventilated, sedated, and paralyzed. Acute: Could not be assessed. Lymphatics: No cervical or supraclavicular lymphadenopathy. - Labs CBC & Chem 7: 08/26/20 04:20 08/26/20 04:20 Labs: Abnormal Lab Results - Last 24 Hours (Table) 08/22/20 08/25/20 08/26/20 Range/Units 15:41 16:41 00:17 Lymphocytes # (1.0-4.8) k/uL ABG pO2 (83-108) mmHg ABG HCO3 (21-25) mmol/L ABG Total CO2 (19-24) mmol/L Chloride (98-107) mmol/L BUN (7-17) mg/dL Glucose (74-99) mg/dL POC Glucose (mg/dL) 210 H 211 H (75-99) mg/dL Calcium (8.4-10.2) mg/dL Ferritin (10.0-291.0) ng/mL Lactate Dehydrogenase (313-618) U/L C-Reactive Protein (<10.0) mg/L Total Protein (6.3-8.2) g/dL Albumin (3.5-5.0) g/dL Coronavirus (PCR) Detected A (Not Detected) 08/26/20 08/26/20 08/26/20 Range/Units 04:20 04:20 08:34 Lymphocytes # 0.6 L (1.0-4.8) k/uL ABG pO2 68 L (83-108) mmHg ABG HCO3 30 H (21-25) mmol/L ABG Total CO2 31 H (19-24) mmol/L Chloride 109 H (98-107) mmol/L BUN 24 H (7-17) mg/dL Glucose 227 H (74-99) mg/dL POC Glucose (mg/dL) (75-99) mg/dL Calcium 7.5 L (8.4-10.2) mg/dL Ferritin 557.8 H (10.0-291.0) ng/mL Lactate Dehydrogenase 1157 H (313-618) U/L C-Reactive Protein 68.7 H (<10.0) mg/L Total Protein 4.9 L (6.3-8.2) g/dL Albumin 2.4 L (3.5-5.0) g/dL Coronavirus (PCR) (Not Detected) 08/26/20 Range/Units 12:32 Lymphocytes # (1.0-4.8) k/uL ABG pO2 (83-108) mmHg ABG HCO3 (21-25) mmol/L ABG Total CO2 (19-24) mmol/L Chloride (98-107) mmol/L BUN (7-17) mg/dL Glucose (74-99) mg/dL POC Glucose (mg/dL) 181 H (75-99) mg/dL Calcium (8.4-10.2) mg/dL Ferritin (10.0-291.0) ng/mL Lactate Dehydrogenase (313-618) U/L C-Reactive Protein (<10.0) mg/L Total Protein (6.3-8.2) g/dL Albumin (3.5-5.0) g/dL Coronavirus (PCR) (Not Detected) Microbiology - Last 24 Hours (Table) 08/22/20 15:41 Blood Culture - Preliminary Blood No Growth after 72 hours Assessment and Plan Assessment: Impression: Acute hypoxic respiratory failure secondary to covid 19 pneumonitis and ARDS. ARDS. Patient is requiring high FiO2 and high PEEP. PEEP is at 20 and FiO2 is at 60% with marginal ABG. Obesity with BMI of 53.1. History of dyslipidemia. History of GERD. History of degenerative joint disease. Recommendation: Continue ventilatory support, no changes in the vent settings today. Continue Decadron. Continue remdesivir Continue Lovenox. Continue zinc melatonin Pepcid and vitamin C. No sedation interruption as the patient could not tolerated. Continue nutritional support. Continue GI and DVT prophylaxis. Patient is critically ill, prognosis is very poor. Critical care time is 32 minutes Time with Patient: Greater than 30
--- NOTE | 2020-08-26 16:54 | P.PN ---
Progress Note - Text Progress Note Date: 08/26/20 Chief Complaint: Short of breath History of presenting complaint: This is a 64-year-old patient follows with Dr. Ross. Patient has tested positive for COVID. Patient's symptoms started about a week ago. Progressively short of breath. More so in the last 4 days. Became much more significant yesterday. Presented to the ER. Also had fevers. Patient was hypoxic in the ER initial pulse ox around 70%. Was on 6 L with an wall. Check stat x-ray shows bilateral infiltrates. Patient smoked to the ICU. Subsequently intubated. Patient's currently on IV Decadron, propofol, IV fluids, IV cisatracurium. Patient on a FiO2 80% and a PEEP of 18. Has a OG-t ube, Florentino catheter and endotracheal tube. Telemetry shows sinus rhythm. Seen by Dr. Clemente cranberry sorter in the ER. Admitted with bilateral COVID 19 pneumonia with acute hypoxic respiratory failure, , acute asthma exacerbation. Ventilated. Today-ICU. Tbvprpyukx-8-23% and a PEEP of 20. Patient's drips include Nimbex and propofol. Review of systems-cannot be done as patient intubated Active Medications Ascorbic Acid (Ascorbic Acid 500 Mg Tab) 500 mg PO DAILY [facility] Last Admin: 08/26/20 08:15 Dose: 500 mg Documented by: Atorvastatin Calcium (Atorvastatin 40 Mg Tab) 40 mg PO DAILY [facility] Last Admin: 08/26/20 08:15 Dose: 40 mg Documented by: Chlorhexidine Gluconate (Chlorhexidine Gluconate 15 Ml Cup) 15 ml MUCOUS MEM BID [facility] Last Admin: 08/26/20 08:15 Dose: 15 ml Documented by: Cholecalciferol (Cholecalciferol 1,000 Unit Tab) 1,000 unit PO DAILY [facility] Last Admin: 08/26/20 08:15 Dose: 1,000 unit Documented by: Citalopram Hydrobromide (Citalopram Hydrobromide 20 Mg Tab) 20 mg PO DAILY [facility] Last Admin: 08/26/20 08:15 Dose: 20 mg Documented by: Dexamethasone Sodium Phosphate (Dexamethasone Sod Phosphate 10 Mg/Ml 1 Ml Vial) 6 mg IV DAILY [facility] Last Admin: 08/26/20 08:15 Dose: 6 mg Documented by: Enoxaparin Sodium (Enoxaparin 40 Mg/0.4 Ml Syringe) 40 mg SQ BID [facility] Last Admin: 08/26/20 08:15 Dose: 40 mg Documented by: Famotidine (Famotidine 20 Mg/2 Ml Vial) 20 mg IV Q12HR [facility] Last Admin: 08/26/20 08:15 Dose: 20 mg Documented by: Hydromorphone HCl (Hydromorphone 0.5 Mg/0.5 Ml Syringe) 0.5 mg IVP Q2HR [facility] Last Admin: 08/26/20 16:35 Dose: 0.5 mg Documented by: Remdesivir 100 mg/ Sodium (Chloride) 250 mls @ 250 mls/hr IVPB DAILY@1700 [facility] Stop: 08/26/20 17:59 Last Admin: 08/25/20 16:54 Dose: 250 mls/hr Documented by: Sodium Chloride (Saline 0.9%) 1,000 mls @ 75 mls/hr IV .[id number] [facility] Last Admin: 08/26/20 05:02 Dose: 75 mls/hr Documented by: Cisatracurium Besylate 200 mg/ (Sodium Chloride) 200 mls @ 8.165 mls/hr IV .Q24H [facility]; Protocol Last Admin: 08/25/20 08:21 Dose: 1 mcg/kg/min, 8.165 mls/hr Documented by: Propofol 1,000 mg/ IV Solution 100 mls @ 0 mls/hr IV .Q0M [facility]; Protocol Last Admin: 08/26/20 16:36 Dose: 30 mcg/kg/min, 24.408 mls/hr Documented by: Insulin Aspart (Insulin Aspart (Novolog) 100 Unit/Ml Vial) 0 unit SQ Q6H [facility]; Protocol Last Admin: 08/26/20 12:33 Dose: 3 unit Documented by: Melatonin (Melatonin 5 Mg Tablet) 5 mg PO HS [facility] Last Admin: 08/25/20 20:24 Dose: Not Given Documented by: Miscellaneous Information (Potassium Replacement Protocol 1 Each Misc) 1 each MISCELLANE DAILY PRN; Protocol PRN Reason: Per Protocol Multi-Ingred Cream/Lotion/Oil/Oint (Artificial Tears Ointment 3.5 Gm Tube) 1 applic BOTH EYES Q4H [facility] Last Admin: 08/26/20 16:35 Dose: 1 applic Documented by: Naloxone HCl (Naloxone 0.4 Mg/Ml 1 Ml Vial) 0.2 mg IV Q2M PRN PRN Reason: Opioid Reversal Zinc Sulfate (Zinc Sulfate 220 Mg Cap) 220 mg PO DAILY [facility] Last Admin: 08/26/20 08:15 Dose: 220 mg Documented by: Physical examination: VITAL SIGNS: 98.9, 48, 25, 121/50, 94% on the ventilator GENERAL:, laying in bed, intubated. Psychiatry-patient sedated Rest of the physical exam as per nursing and cranberry sorter INVESTIGATIONS, reviewed in the clinical context: White count 8.2 hemoglobin 12.7 platelets 169 potassium 4.2 creatinine 0.5 for CRP 68.7 LDH 1157 albumin 2.4. Check stat x-ray diffuse pleural parenchymal changes Previous testing White count 5.6 hemoglobin 14.9 platelets 165 decreased lymphocytes Potassium 3.8 creatinine 0.7 to Ferritin 459 LDH 1139 CRP 32.9 pro-calcitonin 0.07 Chest x-ray film personally reviewed by me-bilateral scattered infiltrates, portable film Assessment: -Bilateral extensive likely COVID 19 pneumonia, POA-slow to respond -Sepsis from above- -ARDS-slow to respond -Acute severe hypoxic respiratory failure from COVID 19 pneumonia-slow to respond -GERD -Hyperlipidemia -Depression not otherwise specified -Moderate persistent asthma with acute exacerbation -Morbid obesity BMI 53.9 -Hypoalbuminemia, acute phase reactant Plan: receiving Decadron, Remdesivir, Lovenox, zinc, Pepcid vitamin C. remains critically ill. Drips - Nimbex and propofol. On the ventilator. Prognosis guarded.
[2020-08-26] MEDS: REMDESIVIR (EUA) 100 MG in SODIUM CHLORIDE 0.9% 250 ML IVPB SCH (17:21)
[2020-08-26 18:25] LABS: Glucose,Whole Blood 226 mg/dL (75-99)
[2020-08-26] MEDS: MELATONIN 5 MG TABLET PO SCH (19:32)
[2020-08-27 00:03] LABS: Glucose,Whole Blood 188 mg/dL (75-99)
[2020-08-27] MEDS: HYDROmorphone 0.5 MG/0.5 ML SYRINGE IVP SCH ×9 (00:04→23:56)
[2020-08-27] MEDS: ARTIFICIAL TEARS OINTMENT 3.5 GM TUBE BOTH EYES SCH ×7 (00:05→23:24)
[2020-08-27] MEDS: INSULIN ASPART (NovoLOG) 100 UNIT/ML VIAL SQ SCH ×5 (00:05→23:56)
[2020-08-27] MEDS: CISATRACURIUM 200 MG in SODIUM CHLORIDE 0.9% 180 ML IV SCH ×2 (04:35→23:24)
[2020-08-27 04:46] LABS: Basophils # (A) 0.1 k/uL (0-0.2); Basophils % (A) 1 %; Eosinophils # (A) 0.1 k/uL (0-0.7); Eosinophils % (A) 1 %; HCT 39.6 % (34.0-46.0); HGB 12.7 gm/dL (11.4-16.0); Hypochromasia Slight; Lymphocytes # (A) 1.1 k/uL (1.0-4.8); Lymphocytes % (A) 11 %; MCH 31.7 pg (25.0-35.0); MCHC 32.1 g/dL (31.0-37.0); MCV 98.9 fL (80.0-100.0); Mean Platelet Volume 7.9; Monocytes # (A) 0.3 k/uL (0-1.0); Monocytes % (A) 3 %; Neutrophils # (A) 7.8 k/uL (1.3-7.7); Neutrophils % (A) 83 %; Platelet Count 195 k/uL (150-450); RDW 13.8 % (11.5-15.5); WBC 9.4 k/uL (3.8-10.6)
[2020-08-27 05:03] LABS: ALT 27 U/L (4-34); AST 34 U/L (14-36); African American GFR (CKD) >90 (>60 ml/min/1.73 sqM); Albumin 2.3 g/dL (3.5-5.0); Alkaline Phosphatase 55 U/L (38-126); Anion Gap 1 mmol/L; Blood Urea Nitrogen 28 mg/dL (7-17); C Reactive Protein 53.8 mg/L (<10.0); Calcium 7.7 mg/dL (8.4-10.2); Carbon Dioxide 30 mmol/L (22-30); Chloride 109 mmol/L (98-107); Glucose 180 mg/dL (74-99); LDH 1068 U/L (313-618); Non-African American GFR(CKD) >90 (>60 ml/min/1.73 sqM); Sodium 140 mmol/L (137-145); Total Bilirubin 0.5 mg/dL (0.2-1.3); Total Protein 4.8 g/dL (6.3-8.2)
[2020-08-27 06:06] LABS: Glucose,Whole Blood 151 mg/dL (75-99)
[2020-08-27 08:29] LABS: ABG Base Excess 4.1 mmol/L; ABG HCO3 28 mmol/L (21-25); ABG PCO2 41 mmHg (35-45); ABG PH 7.44 (7.35-7.45); ABG PO2 71 mmHg (83-108); ABG TCO2 30 mmol/L (19-24)
[2020-08-27 08:31] LABS: Allen Test Performed? no
[2020-08-27] MEDS: CITALOPRAM HYDROBROMIDE 20 MG TAB PO SCH (09:00)
[2020-08-27] MEDS: ENOXAPARIN 40 MG/0.4 ML SYRINGE SQ SCH ×2 (09:00→21:51)
[2020-08-27] MEDS: ATORVASTATIN 40 MG TAB PO SCH (09:01)
[2020-08-27] MEDS: CHLORHEXIDINE GLUCONATE 15 ML CUP MUCOUS MEM SCH ×2 (09:01→21:51)
[2020-08-27] MEDS: CHOLECALCIFEROL 1,000 UNIT TAB PO SCH (09:01)
[2020-08-27] MEDS: ASCORBIC ACID 500 MG TAB PO SCH (09:01)
[2020-08-27] MEDS: DEXAMETHASONE SOD PHOSPHATE 10 MG/ML 1 ML VIAL IV SCH (09:01)
[2020-08-27] MEDS: FAMOTIDINE 20 MG/2 ML VIAL IV SCH ×2 (09:01→21:51)
[2020-08-27] MEDS: SODIUM CHLORIDE 0.9% 1,000 ML IV SCH ×2 (09:01→22:44)
[2020-08-27] MEDS: ZINC SULFATE 220 MG CAP PO SCH (09:02)
--- NOTE | 2020-08-27 10:17 | XR ---
EXAMINATION TYPE: XR chest 1V portable DATE OF EXAM: 08/27/2020 COMPARISON: Prior chest x-ray 08/26/2020 HISTORY: Intubated TECHNIQUE: Single frontal view of the chest is obtained. FINDINGS: Endotracheal tube, NG tube, right jugular central venous catheter are overlying appropriat e positions. Suspect there is improvement in aeration in the upper lobes. There is improved visualiza tion of the right and left hemidiaphragm additionally. No evident pneumothorax or pleural effusion. H eart is stable. IMPRESSION: Improvement in aeration, volume status.
[2020-08-27 12:10] LABS: Glucose,Whole Blood 183 mg/dL (75-99)
--- NOTE | 2020-08-27 15:01 | P.PN ---
Subjective Progress Note Date: 08/27/20 Principal diagnosis: Acute hypoxic respiratory failure secondary to Covid 19 pneumonitis This is a 64-year-old here patient, obese, known history of hyperlipidemia and acid reflux in addition to a mild component of anxiety/depression, comes into the hospital due to worsening shortness of breath. The patient was getting more short of breath over the past week or so. Her she had the same symptoms. They visited the primary care physician with the chest x-ray was done and she was told to have pneumonia. Subsequently, her went and checked himself for COVID 19 and returned item clerk to be positive. The patient presented to the emergency with increased cough and shortness of breath. She was found to be quite hypoxic and an initial pulse ox was in the 70% range. Accordingly, the patient was placed on high flow oxygen 6 L oxygen flow, AIRVO , and this brought her pulse ox up to 88-89%. Chest x-ray showed diffuse bilateral pulmonary infiltrates consistent with coronavirus Covid 19 related pneumonia. The patient was febrile with a temperature 100.9. The blood count showed lymphopenia. LDH was 1139, C-reactive protein was 32.9. Patient was reevaluated today on 08/23/20, patient remains intubated and mechanically ventilated. Chest x-ray shows diffuse interstitial infiltrates. She is presently on assist control rate of 25 volume is 400 FiO2 is 100% and PEEP is at 15. ABG was marginal showed a pO2 of 71 pCO2 of 45 pH of 7.42, hence I recommended increasing the PEEP to 18 and I cut down the FiO2 to 80%. Patient is on propofol drip at 41 mcg/kg/m and on Nimbex. Patient is also on Lovenox 40 mg subcu daily, and she is already started on remresivir treatment since yesterday. Patient will be started on enteral tube feeding. Labs today were all reviewed. CBC is relatively normal. Electrolytes and renal profile are normal. LDH is 10/26/2008. C-reactive protein is 41.5. Ferritin level is 393. Markers are elevated as noted. PCR for coronavirus is still pending. Patient was reevaluated today on 08/24/20, patient remains intubated and mec hanically ventilated. And now she is requiring high FiO2 of 70%, PEEP is up to 20. Tidal volume remains at 400 and the rate is at 25. ABG showed a pO2 of 63 pCO2 of 45 pH of 7.44 patient remains on propofol at 40 mcg/kg/per minute. Nimbex at 1 mcg/kg/m. Lovenox dose was increased to 40 mg subcu twice a day. Lines were placed today. Including a right IJ central line and a radial arterial line. Patient is also on tube feeding. Patient is on her second day of remdesivir and she remains on Decadron. pcr for Covid 19 is pending. CBC is relatively normal. D-dimer is 0.95 electrolytes are relatively normal renal profile is normal. LDH is elevated at 2168 C-reactive protein is 41.5. Pro- calcitonin is 0.07/normal. Patient was reevaluated today on 08/25/20, remains in the ICU, intubated and mechanically ventilated. Patient is now on assist control rate of 25 FiO2 is 70% tidal volume is 400 and PEEP is 20. Her ABG showed a pO2 of 90 pCO2 of 45 pH of 7.44 hence I cut down her FiO2 to 60% and The PEEP at 20. Patient is on Nimbex, propofol, his also on enteral feeding, she is not requiring any pressors. Hemodynamically stable. Basic metabolic profile is normal, renal profile is normal. CBC is relatively normal hemoglobin is 13.2. Platelets are on the lower side at 131. Lymphocytes are 8%. Reevaluated today on 08/26/20, remains in the ICU, intubated and mechanically ventilated. Patient is now on assist control rate of 25 FiO2 is 60% and PEEP is 20 and tidal volume is 400. ABG today showed a pO2 of 68 pCO2 of 42 pH of 7.45 at no changes were made in the ventilator settings. Patient remains on Nimbex, propofol, and I added Dilaudid around the clock. Patient remains on IV fluid at 75 mL per hour, and she is on enteral feeding using vital a chest for . Labs today showed a relatively normal CBC is relatively normal electrolytes and basic metabolic profile. LDH is 1157 and C-reactive protein is 68.7, not much of a change in both. Chest x-ray continues to show evidence of diffuse interstitial infiltrates/ARDS. Patient was reevaluated today on 08/27/20, remains intubated and mechanically ventilated. Remains on high FiO2 and high PEEP, remains critically ill, and no major change control manager the last 24 hours. Patient is presently on assist control mode of mechanical ventilation. Rate is 25 tidal volume is 400 FiO2 is 60% and PEEP is 20. ABG this morning showed a pO2 of 71 pCO2 of 41 pH of 7.44. We will attempt cutting down the FiO2 to 55% if tolerated. Patient remains on Nimbex, on propofol, Dilaudid, and she is on enteral feeding. Remains on GI and DVT prophylaxis. And the patient did receive full treatment for her pneumonitis/COVID 19 pneumonitis. Labs today showed a relatively normal CBC is relatively normal electrolytes and a relatively normal renal profile Objective - Vital Signs Vital signs: Vital Signs Temp 98.3 F 08/27/20 08:00 Pulse 63 08/27/20 11:00 Resp 26 H 08/27/20 11:00 BP 129/88 08/26/20 06:58 Pulse Ox 93 L 08/27/20 11:00 Intake & Output 08/26/20 08/27/20 08/27/20 18:59 06:59 18:59 Intake Total 2053.748 2005.184 342.324 Output Total 730 755 135 Balance 7621.177 6312.184 207.324 Weight 139.1 kg 141 kg Intake: IV 1075 975 150 Remdesivir (Eua) 100 mg 250 In Sodium Chloride 0.9% 250 ml @ 250 mls/hr IVPB DAILY@1700 [facility] Rx#: [id number] Sodium Chloride 0.9% 1, 825 975 150 000 ml @ 75 mls/hr IV . [id number] [facility] Rx#:[id number] Intake, IV Titration 344.748 328.184 84.324 Amount Cisatracurium 200 mg In 200 18.643 41.911 Sodium Chloride 0.9% 180 ml @ 1 MCG/KG/MIN 8.165 mls/hr IV .Q24H [facility] Rx#: [id number] propofoL 1,000 mg In 144.748 309.541 42.413 Empty Bag 1 bag @ Titrate IV .Q0M [facility] Rx#: [id number] Tube Feeding 544 702 108 Other 90 Output: Urine 730 755 135 Other: Voiding Method Indwelling Catheter Indwelling Catheter Indwelling Catheter ABP, PAP, CO, CI - Last Documented Arterial Blood Pressure 133/53 - Exam Physical Exam: 64-year-old female intubated, mechanically ventilated, obese, in no distress. Head: Atraumatic, normocephalic. HEENT:[Neck is supple.] [No neck masses.] [No thyromegaly.] [No JVD.] PERRLA, EOMI, no icterus. Chest: [Symmetrical chest expansion, crackles at the bases bilaterally. Cardiac Exam: [Normal S1 and S2, no S3 gallop, no murmur.] Abdomen: [Obese, Soft, nontender, no megaly, no rebound, no guarding, normal bowel sounds.] Extremities: [No clubbing, trace of bipedal edema, no cyanosis.] Neurological Exam: Unable to assess. Acute: Could not be assessed. Lymphatics: No cervical or supraclavicular lymphadenopathy. - Labs CBC & Chem 7: 08/27/20 04:30 08/27/20 04:30 Labs: Abnormal Lab Results - Last 24 Hours (Table) 08/26/20 08/27/20 08/27/20 Range/Units 18:23 00:01 04:30 Neutrophils # 7.8 H (1.3-7.7) k/uL ABG pO2 (83-108) mmHg ABG HCO3 (21-25) mmol/L ABG Total CO2 (19-24) mmol/L Chloride (98-107) mmol/L BUN (7-17) mg/dL Glucose (74-99) mg/dL POC Glucose (mg/dL) 226 H 188 H (75-99) mg/dL Calcium (8.4-10.2) mg/dL Ferritin (10.0-291.0) ng/mL Lactate Dehydrogenase (313-618) U/L C-Reactive Protein (<10.0) mg/L Total Protein (6.3-8.2) g/dL Albumin (3.5-5.0) g/dL 08/27/20 08/27/20 08/27/20 Range/Units 04:30 06:04 08:19 Neutrophils # (1.3-7.7) k/uL ABG pO2 71 L (83-108) mmHg ABG HCO3 28 H (21-25) mmol/L ABG Total CO2 30 H (19-24) mmol/L Chloride 109 H (98-107) mmol/L BUN 28 H (7-17) mg/dL Glucose 180 H (74-99) mg/dL POC Glucose (mg/dL) 151 H (75-99) mg/dL Calcium 7.7 L (8.4-10.2) mg/dL Ferritin 602.0 H (10.0-291.0) ng/mL Lactate Dehydrogenase 1068 H (313-618) U/L C-Reactive Protein 53.8 H (<10.0) mg/L Total Protein 4.8 L (6.3-8.2) g/dL Albumin 2.3 L (3.5-5.0) g/dL 08/27/20 Range/Units 12:09 Neutrophils # (1.3-7.7) k/uL ABG pO2 (83-108) mmHg ABG HCO3 (21-25) mmol/L ABG Total CO2 (19-24) mmol/L Chloride (98-107) mmol/L BUN (7-17) mg/dL Glucose (74-99) mg/dL POC Glucose (mg/dL) 183 H (75-99) mg/dL Calcium (8.4-10.2) mg/dL Ferritin (10.0-291.0) ng/mL Lactate Dehydrogenase (313-618) U/L C-Reactive Protein (<10.0) mg/L Total Protein (6.3-8.2) g/dL Albumin (3.5-5.0) g/dL Microbiology - Last 24 Hours (Table) 08/22/20 15:41 Blood Culture - Preliminary Blood No Growth after 96 hours Assessment and Plan Assessment: Impression: Acute hypoxic respiratory failure secondary to covid 19 pneumonitis and ARDS. ARDS. Remains on 60% FiO2 and PEEP of 20. Obesity with BMI of 53.1. History of dyslipidemia. History of GERD. History of degenerative joint disease. Recommendation: Continue ventilatory support, attempt cutting down the FiO2 to 55%. Keep the PEEP at 20. Continue all supportive care measures. Including: Continue Decadron. Continue remdesivir Continue Lovenox. Continue zinc melatonin Pepcid and vitamin C. No sedation interruption as the patient could not tolerated. Continue nutritional support. Continue GI and DVT prophylaxis. Patient is critically ill, prognosis is very poor. Critical care time is 33 minutes We'll continue to follow Time with Patient: Greater than 30
[2020-08-27 17:49] LABS: Glucose,Whole Blood 252 mg/dL (75-99)
--- NOTE | 2020-08-27 19:08 | P.PN ---
Progress Note - Text Progress Note Date: 08/27/20 Chief Complaint: Short of breath History of presenting complaint: This is a 64-year-old patient follows with Dr. Chun. Patient has tested positive for COVID. Patient's symptoms started about a week ago. Progressively short of breath. More so in the last 4 days. Became much more significant yesterday. Presented to the ER. Also had fevers. Patient was hypoxic in the ER initial pulse ox around 70%. Was on 6 L with an wall. Check stat x-ray shows bilateral infiltrates. Patient smoked to the ICU. Subsequently intubated. Patient's currently on IV Decadron, propofol, IV fluids, IV cisatracurium. Patient on a FiO2 80% and a PEEP of 18. Has a OG- tube, Florentino catheter and endotracheal tube. Telemetry shows sinus rhythm. Seen by Dr. Clemente explosive operator bomb in the ER. Admitted with bilateral COVID 19 pneumonia with acute hypoxic respiratory failur e, , acute asthma exacerbation. Ventilated. Today-ICU. Ventilator-FiO2 55%, PEEP of 20. Telemetry shows sinus bradycardia. OG tube in place. Drips include Nimbex and propofol. Tube feeding Review of systems-cannot be done as patient intubated Active Medications Ascorbic Acid (Ascorbic Acid 500 Mg Tab) 500 mg PO DAILY [facility] Last Admin: 08/27/20 09:01 Dose: 500 mg Documented by: Atorvastatin Calcium (Atorvastatin 40 Mg Tab) 40 mg PO DAILY [facility] Last Admin: 08/27/20 09:01 Dose: 40 mg Documented by: Chlorhexidine Gluconate (Chlorhexidine Gluconate 15 Ml Cup) 15 ml MUCOUS MEM BID [facility] Last Admin: 08/27/20 09:01 Dose: 15 ml Documented by: Cholecalciferol (Cholecalciferol 1,000 Unit Tab) 1,000 unit PO DAILY [facility] Last Admin: 08/27/20 09:01 Dose: 1,000 unit Documented by: Citalopram Hydrobromide (Citalopram Hydrobromide 20 Mg Tab) 20 mg PO DAILY [facility] Last Admin: 08/27/20 09:00 Dose: 20 mg Documented by: Dexamethasone Sodium Phosphate (Dexamethasone Sod Phosphate 10 Mg/Ml 1 Ml Vial) 6 mg IV DAILY [facility] Last Admin: 08/27/20 09:01 Dose: 6 mg Documented by: Enoxaparin Sodium (Enoxaparin 40 Mg/0.4 Ml Syringe) 40 mg SQ BID [facility] Last Admin: 08/27/20 09:00 Dose: 40 mg Documented by: Famotidine (Famotidine 20 Mg/2 Ml Vial) 20 mg IV Q12HR [facility] Last Admin: 08/27/20 09:01 Dose: 20 mg Documented by: Hydromorphone HCl (Hydromorphone 0.5 Mg/0.5 Ml Syringe) 0.5 mg IVP Q4HR [facility] Last Admin: 08/27/20 15:48 Dose: 0.5 mg Documented by: Sodium Chloride (Saline 0.9%) 1,000 mls @ 75 mls/hr IV .[id number] [facility] Last Admin: 08/27/20 09:01 Dose: 75 mls/hr Documented by: Cisatracurium Besylate 200 mg/ (Sodium Chloride) 200 mls @ 8.165 mls/hr IV .Q24H [facility]; Protocol Last Titration: 08/27/20 09:26 Dose: 1 mcg/kg/min, 8.165 mls/hr Documented by: Propofol 1,000 mg/ IV Solution 100 mls @ 0 mls/hr IV .Q0M [facility]; Protocol Last Admin: 08/27/20 15:48 Dose: 30 mcg/kg/min, 25.38 mls/hr Documented by: Insulin Aspart (Insulin Aspart (Novolog) 100 Unit/Ml Vial) 0 unit SQ Q6H [facility]; Protocol Last Admin: 08/27/20 18:27 Dose: 6 unit Documented by: Insulin Detemir (Insulin Detemir (Levemir) 100 Unit/Ml Syr) 10 unit SQ [facility] Melatonin (Melatonin 5 Mg Tablet) 5 mg PO [facility] Last Admin: 08/26/20 19:32 Dose: Not Given Documented by: Miscellaneous Information (Potassium Replacement Protocol 1 Each Misc) 1 each MISCELLANE DAILY PRN; Protocol PRN Reason: Per Protocol Multi-Ingred Cream/Lotion/Oil/Oint (Artificial Tears Ointment 3.5 Gm Tube) 1 applic BOTH EYES Q4H [facility] Last Admin: 08/27/20 15:48 Dose: 1 applic Documented by: Naloxone HCl (Naloxone 0.4 Mg/Ml 1 Ml Vial) 0.2 mg IV Q2M PRN PRN Reason: Opioid Reversal Zinc Sulfate (Zinc Sulfate 220 Mg Cap) 220 mg PO DAILY [facility] Last Admin: 08/27/20 09:02 Dose: 220 mg Documented by: Physical examination: VITAL SIGNS: 98.5, 57, 23, 130/56, 92% on the ventilator GENERAL:, laying in bed, intubated. Psychiatry-patient sedated Rest of the physical exam as per nursing and explosive operator bomb INVESTIGATIONS, reviewed in the clinical context: Today-White count 9.4 hemoglobin 12.7 which is 195 potassium 4 creatinine 0.57 CRP 53.8. Check stat [id number] some improvement in urination. Previous testing White count 5.6 hemoglobin 14.9 platelets 165 decreased lymphocytes Potassium 3.8 creatinine 0.7 to Ferritin 459 LDH 1139 CRP 32.9 pro-calcitonin 0.07 Chest x-ray film personally reviewed by me-bilateral scattered infiltrates, portable film Assessment: -Bilateral extensive likely COVID 19 pneumonia, POA-slow to respond -Sepsis from above- -ARDS-slow to respond -Acute severe hypoxic respiratory failure from COVID 19 pneumonia-slow to respond -GERD -Hyperlipidemia -Depression not otherwise specified -Moderate persistent asthma with acute exacerbation -Morbid obesity BMI 53.9 -Hypoalbuminemia, acute phase reactant Plan: receiving Decadron, [ Remdesivir-dose completed], Lovenox, zinc, Pepcid vitamin C. remains critically ill. Drips - Nimbex and propofol. On the ventilator. Prognosis guarded.
[2020-08-27] MEDS ORDERED: INSULIN DETEMIR (LEVEMIR) 100 UNIT/ML SYR SQ SCH (21:00)
[2020-08-27] MEDS: MELATONIN 5 MG TABLET PO SCH (22:43)
[2020-08-27 23:52] LABS: Glucose,Whole Blood 229 mg/dL (75-99)
[2020-08-28] MEDS: ARTIFICIAL TEARS OINTMENT 3.5 GM TUBE BOTH EYES SCH ×5 (04:09→20:25)
[2020-08-28] MEDS: HYDROmorphone 0.5 MG/0.5 ML SYRINGE IVP SCH ×5 (04:09→20:20)
[2020-08-28 04:41] LABS: Basophils # (A) 0.1 k/uL (0-0.2); Basophils % (A) 1 %; Eosinophils % (A) 0 %; HCT 38.4 % (34.0-46.0); HGB 12.1 gm/dL (11.4-16.0); Hypochromasia Slight; Lymphocytes # (A) 0.6 k/uL (1.0-4.8); Lymphocytes % (A) 7 %; MCH 31.5 pg (25.0-35.0); MCHC 31.6 g/dL (31.0-37.0); MCV 99.5 fL (80.0-100.0); Mean Platelet Volume 8.3; Monocytes # (A) 0.3 k/uL (0-1.0); Monocytes % (A) 4 %; Neutrophils # (A) 6.9 k/uL (1.3-7.7); Neutrophils % (A) 86 %; Platelet Count 196 k/uL (150-450); RBC 3.86 m/uL (3.80-5.40); RDW 13.9 % (11.5-15.5); WBC 8.1 k/uL (3.8-10.6)
[2020-08-28 04:50] LABS: ALT 47 U/L (4-34); AST 33 U/L (14-36); African American GFR (CKD) >90 (>60 ml/min/1.73 sqM); Albumin 2.2 g/dL (3.5-5.0); Alkaline Phosphatase 62 U/L (38-126); Anion Gap -1 mmol/L; Blood Urea Nitrogen 24 mg/dL (7-17); Calcium 7.6 mg/dL (8.4-10.2); Carbon Dioxide 30 mmol/L (22-30); Chloride 109 mmol/L (98-107); Creatine Kinase <20 U/L (30-135); Glucose 218 mg/dL (74-99); LDH 871 U/L (313-618); Non-African American GFR(CKD) >90 (>60 ml/min/1.73 sqM); Potassium 4.3 mmol/L (3.5-5.1); Sodium 138 mmol/L (137-145); Total Bilirubin 0.4 mg/dL (0.2-1.3); Total Protein 4.7 g/dL (6.3-8.2)
[2020-08-28 05:19] LABS: C Reactive Protein 126.4 mg/L (<10.0)
[2020-08-28 05:33] LABS: Glucose,Whole Blood 210 mg/dL (75-99)
[2020-08-28] MEDS: INSULIN ASPART (NovoLOG) 100 UNIT/ML VIAL SQ SCH ×3 (05:35→17:39)
[2020-08-28 07:49] LABS: ABG Base Excess 5.1 mmol/L; ABG HCO3 30 mmol/L (21-25); ABG Oxygen Saturation 94.4 % (94-97); ABG PCO2 45 mmHg (35-45); ABG PH 7.43 (7.35-7.45); ABG PO2 70 mmHg (83-108); ABG TCO2 31 mmol/L (19-24); Allen Test Performed? Yes
[2020-08-28] MEDS ORDERED: ENOXAPARIN 60 MG/0.6 ML SYRINGE SQ SCH (09:00)
--- NOTE | 2020-08-28 09:27 | XR ---
EXAMINATION TYPE: XR chest 1V portable DATE OF EXAM: 08/28/2020 CLINICAL HISTORY: Tube placement. TECHNIQUE: Portable semiupright view of the chest. COMPARISON: 08/27/2020 chest radiograph FINDINGS: Endotracheal tube, enteric tube, and right internal jugular central venous catheter redemo nstrated. Bibasilar airspace opacities and small bilateral pleural effusions unchanged versus 08/27/20 20. No pneumothorax. IMPRESSION: Bibasilar airspace opacities and small bilateral pleural effusions unchanged versus 08/27.
[2020-08-28 09:44] LABS: Ferritin 565.6 ng/mL (10.0-291.0)
[2020-08-28] MEDS: DEXAMETHASONE SOD PHOSPHATE 10 MG/ML 1 ML VIAL IV SCH (09:54)
[2020-08-28] MEDS: FAMOTIDINE 20 MG/2 ML VIAL IV SCH ×2 (09:55→20:20)
[2020-08-28] MEDS: CHOLECALCIFEROL 1,000 UNIT TAB PO SCH (09:55)
[2020-08-28] MEDS: ATORVASTATIN 40 MG TAB PO SCH (09:55)
[2020-08-28] MEDS: ENOXAPARIN 80 MG/0.8 ML SYRINGE SQ SCH ×2 (09:55→20:19)
[2020-08-28] MEDS: CITALOPRAM HYDROBROMIDE 20 MG TAB PO SCH (09:55)
[2020-08-28] MEDS: ASCORBIC ACID 500 MG TAB PO SCH (09:55)
[2020-08-28] MEDS: CHLORHEXIDINE GLUCONATE 15 ML CUP MUCOUS MEM SCH ×2 (09:55→20:20)
[2020-08-28] MEDS: ZINC SULFATE 220 MG CAP PO SCH (09:55)
[2020-08-28] MEDS: SODIUM CHLORIDE 0.9% 1,000 ML IV SCH (11:20)
[2020-08-28 11:51] LABS: Glucose,Whole Blood 187 mg/dL (75-99)
[2020-08-28] MEDS: CISATRACURIUM 200 MG in SODIUM CHLORIDE 0.9% 180 ML IV SCH (12:58)
--- NOTE | 2020-08-28 13:03 | P.PN ---
Subjective Progress Note Date: 08/28/20 Principal diagnosis: Acute hypoxic respiratory failure secondary to Covid 19 pneumonitis This is a 64-year-old here patient, obese, known history of hyperlipidemia and acid reflux in addition to a mild component of anxiety/depression, comes into the hospital due to worsening shortness of breath. The patient was getting more short of breath over the past week or so. Her she had the same symptoms. They visited the primary care physician with the chest x-ray was done and she was told to have pneumonia. Subsequently, her went and checked himself for COVID 19 and inspector returned materials to be positive. The patient presented to the emergency with increased cough and shortness of breath. She was found to be quite hypoxic and an initial pulse ox was in the 70% range. Accordingly, the patient was placed on high flow oxygen 6 L oxygen flow, AIRVO , and this brought her pulse ox up to 88-89%. Chest x-ray showed diffuse bilateral pulmonary infiltrates consistent with coronavirus Covid 19 related pneumonia. The patient was febrile with a temperature 100.9. The blood count showed lymphopenia. LDH was 1139, C-reactive protein was 32.9. Patient was reevaluated today on 08/23/20, patient remains intubated and mechanically ventilated. Chest x-ray shows diffuse interstitial infiltrates. She is presently on assist control rate of 25 volume is 400 FiO2 is 100% and PEEP is at 15. ABG was marginal showed a pO2 of 71 pCO2 of 45 pH of 7.42, hence I recommended increasing the PEEP to 18 and I cut down the FiO2 to 80%. Patient is on propofol drip at 41 mcg/kg/m and on Nimbex. Patient is also on Lovenox 40 mg subcu daily, and she is already started on remresivir treatment since yesterday. Patient will be started on enteral tube feeding. Labs today were all reviewed. CBC is relatively normal. Electrolytes and renal profile are normal. LDH is 10/26/2008. C-reactive protein is 41.5. Ferritin level is 393. Markers are elevated as noted. PCR for coronavirus is still pending. Patient was reevaluated today on 08/24/20, patient remains intubated and mec hanically ventilated. And now she is requiring high FiO2 of 70%, PEEP is up to 20. Tidal volume remains at 400 and the rate is at 25. ABG showed a pO2 of 63 pCO2 of 45 pH of 7.44 patient remains on propofol at 40 mcg/kg/per minute. Nimbex at 1 mcg/kg/m. Lovenox dose was increased to 40 mg subcu twice a day. Lines were placed today. Including a right IJ central line and a radial arterial line. Patient is also on tube feeding. Patient is on her second day of remdesivir and she remains on Decadron. pcr for Covid 19 is pending. CBC is relatively normal. D-dimer is 0.95 electrolytes are relatively normal renal profile is normal. LDH is elevated at 2168 C-reactive protein is 41.5. Pro- calcitonin is 0.07/normal. Patient was reevaluated today on 08/25/20, remains in the ICU, intubated and mechanically ventilated. Patient is now on assist control rate of 25 FiO2 is 70% tidal volume is 400 and PEEP is 20. Her ABG showed a pO2 of 90 pCO2 of 45 pH of 7.44 hence I cut down her FiO2 to 60% and The PEEP at 20. Patient is on Nimbex, propofol, his also on enteral feeding, she is not requiring any pressors. Hemodynamically stable. Basic metabolic profile is normal, renal profile is normal. CBC is relatively normal hemoglobin is 13.2. Platelets are on the lower side at 131. Lymphocytes are 8%. Reevaluated today on 08/26/20, remains in the ICU, intubated and mechanically ventilated. Patient is now on assist control rate of 25 FiO2 is 60% and PEEP is 20 and tidal volume is 400. ABG today showed a pO2 of 68 pCO2 of 42 pH of 7.45 at no changes were made in the ventilator settings. Patient remains on Nimbex, propofol, and I added Dilaudid around the clock. Patient remains on IV fluid at 75 mL per hour, and she is on enteral feeding using vital a chest for . Labs today showed a relatively normal CBC is relatively normal electrolytes and basic metabolic profile. LDH is 1157 and C-reactive protein is 68.7, not much of a change in both. Chest x-ray continues to show evidence of diffuse interstitial infiltrates/ARDS. Patient was reevaluated today on 08/27/20, remains intubated and mechanically ventilated. Remains on high FiO2 and high PEEP, remains critically ill, and no major drying rack changer the last 24 hours. Patient is presently on assist control mode of mechanical ventilation. Rate is 25 tidal volume is 400 FiO2 is 60% and PEEP is 20. ABG this morning showed a pO2 of 71 pCO2 of 41 pH of 7.44. We will attempt cutting down the FiO2 to 55% if tolerated. Patient remains on Nimbex, on propofol, Dilaudid, and she is on enteral feeding. Remains on GI and DVT prophylaxis. And the patient did receive full treatment for her pneumonitis/COVID 19 pneumonitis. Labs today showed a relatively normal CBC is relatively normal electrolytes and a relatively normal renal profile Patient was reevaluated today on 08/28/20, remains in the ICU, intubated and m echanically ventilated. Patient remains on the same ventilator settings, her PEEP remains at 20 assist control rate is 20 FiO2 is 55% and tidal volume is 400. Chest x-ray is showing minimal improvement. Hence I would recommend that we cut down on the PEEP to 18. I have also recommended increasing Lovenox 80 mg subcu twice a day, in the meantime the patient remains on Nimbex, propofol, IV fluid at 75 mL/h, and she receives enteral feeding. ABG today showed a pO2 of 70 pCO2 of 45 pH of 7.43. CBC is normal, basic metabolic profile is normal. LDH seems to be improving down to 871 today. C-reactive protein is a bit elevated. I believe there may be a slight improvement noted on the chest x-ray, and ABG is reflecting that, I will go ahead and cut down the PEEP to 18 Objective - Vital Signs Vital signs: Vital Signs Temp 98 F 08/28/20 08:00 Pulse 47 L 08/28/20 10:00 Resp 25 H 08/28/20 10:00 BP 129/88 08/26/20 06:58 Pulse Ox 93 L 08/28/20 10:00 Intake & Output 08/27/20 08/28/20 08/28/20 18:59 06:59 18:59 Intake Total 6261.239 9236.346 546 Output Total 675 660 300 Balance 191.008 4297.346 246 Weight 151.4 kg Intake: IV 825 900 300 Sodium Chloride 0.9% 1, 825 900 300 000 ml @ 75 mls/hr IV . [id number] [facility] Rx#:[id number] Intake, IV Titration 84.324 435.346 Amount Cisatracurium 200 mg In 41.911 163.436 Sodium Chloride 0.9% 180 ml @ 1 MCG/KG/MIN 8.165 mls/hr IV .Q24H [facility] Rx#: [id number] propofoL 1,000 mg In 42.413 271.91 Empty Bag 1 bag @ Titrate IV .Q0M [facility] Rx#: [id number] Tube Feeding 594 810 216 Other 60 60 30 Output: Urine 675 660 300 Other: Voiding Method Indwelling Catheter Indwelling Catheter Indwelling Catheter ABP, PAP, CO, CI - Last Documented Arterial Blood Pressure 124/47 - Exam Physical Exam: 64-year-old female intubated, mechanically ventilated, obese, in no distress. Head: Atraumatic, normocephalic. HEENT:[Neck is supple.] [No neck masses.] [No thyromegaly.] [No JVD.] PERRLA, EOMI, no icterus. Chest: [Symmetrical chest expansion, crackles at the bases bilaterally. Cardiac Exam: [Normal S1 and S2, no S3 gallop, no murmur.] Abdomen: [Obese, Soft, nontender, no megaly, no rebound, no guarding, normal bowel sounds.] Extremities: No clubbing edema or cyanosis. Neurologic: Could not be assessed. Psychiatric: Could not be assessed.. Lymphatics: No cervical or supraclavicular lymphadenopathy. - Labs CBC & Chem 7: 08/28/20 04:30 08/28/20 04:30 Labs: Abnormal Lab Results - Last 24 Hours (Table) 08/27/20 08/27/20 08/28/20 Range/Units 17:47 23:51 04:30 Lymphocytes # 0.6 L (1.0-4.8) k/uL D-Dimer (<0.60) mg/L FEU ABG pO2 (83-108) mmHg ABG HCO3 (21-25) mmol/L ABG Total CO2 (19-24) mmol/L Chloride (98-107) mmol/L BUN (7-17) mg/dL Glucose (74-99) mg/dL POC Glucose (mg/dL) 252 H 229 H (75-99) mg/dL Calcium (8.4-10.2) mg/dL Ferritin (10.0-291.0) ng/mL ALT (4-34) U/L Lactate Dehydrogenase (313-618) U/L Creatine Kinase (30-135) U/L C-Reactive Protein (<10.0) mg/L Total Protein (6.3-8.2) g/dL Albumin (3.5-5.0) g/dL 08/28/20 08/28/20 08/28/20 Range/Units 04:30 04:30 05:31 Lymphocytes # (1.0-4.8) k/uL D-Dimer 4.12 H (<0.60) mg/L FEU ABG pO2 (83-108) mmHg ABG HCO3 (21-25) mmol/L ABG Total CO2 (19-24) mmol/L Chloride 109 H (98-107) mmol/L BUN 24 H (7-17) mg/dL Glucose 218 H (74-99) mg/dL POC Glucose (mg/dL) 210 H (75-99) mg/dL Calcium 7.6 L (8.4-10.2) mg/dL Ferritin 565.6 H (10.0-291.0) ng/mL ALT 47 H (4-34) U/L Lactate Dehydrogenase 871 H (313-618) U/L Creatine Kinase <20 L (30-135) U/L C-Reactive Protein 126.4 H (<10.0) mg/L Total Protein 4.7 L (6.3-8.2) g/dL Albumin 2.2 L (3.5-5.0) g/dL 08/28/20 08/28/20 Range/Units 07:42 11:49 Lymphocytes # (1.0-4.8) k/uL D-Dimer (<0.60) mg/L FEU ABG pO2 70 L (83-108) mmHg ABG HCO3 30 H (21-25) mmol/L ABG Total CO2 31 H (19-24) mmol/L Chloride (98-107) mmol/L BUN (7-17) mg/dL Glucose (74-99) mg/dL POC Glucose (mg/dL) 187 H (75-99) mg/dL Calcium (8.4-10.2) mg/dL Ferritin (10.0-291.0) ng/mL ALT (4-34) U/L Lactate Dehydrogenase (313-618) U/L Creatine Kinase (30-135) U/L C-Reactive Protein (<10.0) mg/L Total Protein (6.3-8.2) g/dL Albumin (3.5-5.0) g/dL Microbiology - Last 24 Hours (Table) 08/22/20 15:41 Blood Culture - Preliminary Blood No Growth after 120 hours Assessment and Plan Assessment: Impression: Acute hypoxic respiratory failure secondary to covid 19 pneumonitis and ARDS. ARDS. Obesity with BMI of 53.1. History of dyslipidemia. History of GERD. History of degenerative joint disease. Recommendation: Decrease PEEP to 18. Continue ventilatory support, Continue all supportive care measures. Including: Continue Decadron. Continue remdesivir Continue Lovenox. Continue zinc melatonin Pepcid and vitamin C. No sedation interruption as the patient could not tolerated. Continue nutritional support. Continue GI and DVT prophylaxis. Patient is critically ill, prognosis is very poor. Critical care time is 32 minutes We'll continue to follow Time with Patient: Greater than 30
[2020-08-28 17:35] LABS: Glucose,Whole Blood 290 mg/dL (75-99)
[2020-08-28] MEDS: METOCLOPRAMIDE 5 MG/ML 2 ML VIAL IVP SCH (17:37)
[2020-08-28] MEDS: MELATONIN 5 MG TABLET PO SCH (20:01)
[2020-08-28] MEDS: INSULIN DETEMIR (LEVEMIR) 100 UNIT/ML SYR SQ SCH (20:19)
[2020-08-28] MEDS: LACTULOSE 20 GM/30 ML CUP PO SCH (20:20)
[2020-08-29] MEDS: HYDROmorphone 0.5 MG/0.5 ML SYRINGE IVP SCH ×6 (00:19→20:53)
[2020-08-29] MEDS: METOCLOPRAMIDE 5 MG/ML 2 ML VIAL IVP SCH ×4 (00:20→17:41)
[2020-08-29] MEDS: ARTIFICIAL TEARS OINTMENT 3.5 GM TUBE BOTH EYES SCH ×6 (00:22→20:54)
[2020-08-29 00:31] LABS: Glucose,Whole Blood 246 mg/dL (75-99)
[2020-08-29] MEDS: SODIUM CHLORIDE 0.9% 1,000 ML IV SCH ×2 (00:35→15:50)
[2020-08-29] MEDS: INSULIN ASPART (NovoLOG) 100 UNIT/ML VIAL SQ SCH ×4 (00:35→17:41)
[2020-08-29] MEDS: CISATRACURIUM 200 MG in SODIUM CHLORIDE 0.9% 180 ML IV SCH (03:25)
[2020-08-29 04:42] LABS: Basophils # (A) 0.1 k/uL (0-0.2); Basophils % (A) 1 %; Eosinophils % (A) 0 %; HCT 39.4 % (34.0-46.0); HGB 12.5 gm/dL (11.4-16.0); Hypochromasia Slight; Lymphocytes # (A) 0.8 k/uL (1.0-4.8); Lymphocytes % (A) 10 %; MCH 31.8 pg (25.0-35.0); MCHC 31.7 g/dL (31.0-37.0); MCV 100.2 fL (80.0-100.0); Mean Platelet Volume 8.3; Monocytes # (A) 0.3 k/uL (0-1.0); Monocytes % (A) 4 %; Neutrophils # (A) 6.5 k/uL (1.3-7.7); Neutrophils % (A) 83 %; Platelet Count 218 k/uL (150-450); RBC 3.93 m/uL (3.80-5.40); RDW 13.8 % (11.5-15.5); WBC 7.8 k/uL (3.8-10.6)
[2020-08-29 05:05] LABS: ALT 42 U/L (4-34); AST 25 U/L (14-36); African American GFR (CKD) >90 (>60 ml/min/1.73 sqM); Albumin 2.2 g/dL (3.5-5.0); Alkaline Phosphatase 62 U/L (38-126); Anion Gap 0 mmol/L; Blood Urea Nitrogen 26 mg/dL (7-17); C Reactive Protein 64.5 mg/L (<10.0); Calcium 7.9 mg/dL (8.4-10.2); Carbon Dioxide 31 mmol/L (22-30); Chloride 107 mmol/L (98-107); Creatine Kinase <20 U/L (30-135); Glucose 286 mg/dL (74-99); LDH 796 U/L (313-618); Non-African American GFR(CKD) >90 (>60 ml/min/1.73 sqM); Potassium 4.5 mmol/L (3.5-5.1); Sodium 138 mmol/L (137-145); Total Bilirubin 0.4 mg/dL (0.2-1.3); Total Protein 4.9 g/dL (6.3-8.2)
[2020-08-29 05:48] LABS: Glucose,Whole Blood 217 mg/dL (75-99)
--- NOTE | 2020-08-29 07:15 | XR ---
EXAMINATION TYPE: XR chest 1V portable DATE OF EXAM: 08/29/2020 COMPARISON: 08/28/2020 HISTORY: SOB, Follow Up FINDINGS: Indwelling tubes and catheters are unchanged. Perihilar and basilar infiltrates persist unchanged. Stable appearance of the cardio-mediastinal structures at this time. Pleural effusion unchanged. IMPRESSION: 1. Stable portable chest. Clinical correlation and follow up until resolution is recommended.
[2020-08-29 08:03] LABS: ABG Base Excess 6.1 mmol/L; ABG HCO3 30 mmol/L (21-25); ABG Oxygen Saturation 95.8 % (94-97); ABG PCO2 42 mmHg (35-45); ABG PH 7.46 (7.35-7.45); ABG PO2 73 mmHg (83-108); ABG TCO2 31 mmol/L (19-24); Allen Test Performed? Yes
[2020-08-29] MEDS: ASCORBIC ACID 500 MG TAB PO SCH (08:44)
[2020-08-29] MEDS: CHLORHEXIDINE GLUCONATE 15 ML CUP MUCOUS MEM SCH ×2 (08:44→20:53)
[2020-08-29] MEDS: ATORVASTATIN 40 MG TAB PO SCH (08:44)
[2020-08-29] MEDS: FAMOTIDINE 20 MG/2 ML VIAL IV SCH ×2 (08:44→20:53)
[2020-08-29] MEDS: CITALOPRAM HYDROBROMIDE 20 MG TAB PO SCH (08:44)
[2020-08-29] MEDS: ENOXAPARIN 80 MG/0.8 ML SYRINGE SQ SCH ×2 (08:47→20:54)
[2020-08-29] MEDS: CHOLECALCIFEROL 1,000 UNIT TAB PO SCH (08:47)
[2020-08-29] MEDS: LACTULOSE 20 GM/30 ML CUP PO SCH ×2 (08:47→20:53)
[2020-08-29] MEDS: DEXAMETHASONE SOD PHOSPHATE 10 MG/ML 1 ML VIAL IV SCH (08:47)
[2020-08-29] MEDS: ZINC SULFATE 220 MG CAP PO SCH (08:47)
[2020-08-29 09:22] LABS: Ferritin 524.9 ng/mL (10.0-291.0)
[2020-08-29 11:51] LABS: Glucose,Whole Blood 219 mg/dL (75-99)
--- NOTE | 2020-08-29 14:27 | P.PN ---
Subjective Progress Note Date: 08/29/20 Principal diagnosis: Acute hypoxic respiratory failure secondary to Covid 19 pneumonitis This is a 64-year-old here patient, obese, known history of hyperlipidemia and acid reflux in addition to a mild component of anxiety/depression, comes into the hospital due to worsening shortness of breath. The patient was getting more short of breath over the past week or so. Her she had the same symptoms. They visited the primary care physician with the chest x-ray was done and she was told to have pneumonia. Subsequently, her went and checked himself for COVID 19 and roustabout supervisor to be positive. The patient presented to the emergency with increased cough and shortness of breath. She was found to be quite hypoxic and an initial pulse ox was in the 70% range. Accordingly, the patient was placed on high flow oxygen 6 L oxygen flow, AIRVO , and this brought her pulse ox up to 88-89%. Chest x-ray showed diffuse bilateral pulmonary infiltrates consistent with coronavirus Covid 19 related pneumonia. The patient was febrile with a temperature 100.9. The blood count showed lymphopenia. LDH was 1139, C-reactive protein was 32.9. Patient was reevaluated today on 08/23/20, patient remains intubated and mechanically ventilated. Chest x-ray shows diffuse interstitial infiltrates. She is presently on assist control rate of 25 volume is 400 FiO2 is 100% and PEEP is at 15. ABG was marginal showed a pO2 of 71 pCO2 of 45 pH of 7.42, hence I recommended increasing the PEEP to 18 and I cut down the FiO2 to 80%. Patient is on propofol drip at 41 mcg/kg/m and on Nimbex. Patient is also on Lovenox 40 mg subcu daily, and she is already started on remresivir treatment since yesterday. Patient will be started on enteral tube feeding. Labs today were all reviewed. CBC is relatively normal. Electrolytes and renal profile are normal. LDH is 10/26/2008. C-reactive protein is 41.5. Ferritin level is 393. Markers are elevated as noted. PCR for coronavirus is still pending. Patient was reevaluated today on 08/24/20, patient remains intubated and mec hanically ventilated. And now she is requiring high FiO2 of 70%, PEEP is up to 20. Tidal volume remains at 400 and the rate is at 25. ABG showed a pO2 of 63 pCO2 of 45 pH of 7.44 patient remains on propofol at 40 mcg/kg/per minute. Nimbex at 1 mcg/kg/m. Lovenox dose was increased to 40 mg subcu twice a day. Lines were placed today. Including a right IJ central line and a radial arterial line. Patient is also on tube feeding. Patient is on her second day of remdesivir and she remains on Decadron. pcr for Covid 19 is pending. CBC is relatively normal. D-dimer is 0.95 electrolytes are relatively normal renal profile is normal. LDH is elevated at 2168 C-reactive protein is 41.5. Pro- calcitonin is 0.07/normal. Patient was reevaluated today on 08/25/20, remains in the ICU, intubated and mechanically ventilated. Patient is now on assist control rate of 25 FiO2 is 70% tidal volume is 400 and PEEP is 20. Her ABG showed a pO2 of 90 pCO2 of 45 pH of 7.44 hence I cut down her FiO2 to 60% and The PEEP at 20. Patient is on Nimbex, propofol, his also on enteral feeding, she is not requiring any pressors. Hemodynamically stable. Basic metabolic profile is normal, renal profile is normal. CBC is relatively normal hemoglobin is 13.2. Platelets are on the lower side at 131. Lymphocytes are 8%. Reevaluated today on 08/26/20, remains in the ICU, intubated and mechanically ventilated. Patient is now on assist control rate of 25 FiO2 is 60% and PEEP is 20 and tidal volume is 400. ABG today showed a pO2 of 68 pCO2 of 42 pH of 7.45 at no changes were made in the ventilator settings. Patient remains on Nimbex, propofol, and I added Dilaudid around the clock. Patient remains on IV fluid at 75 mL per hour, and she is on enteral feeding using vital a chest for . Labs today showed a relatively normal CBC is relatively normal electrolytes and basic metabolic profile. LDH is 1157 and C-reactive protein is 68.7, not much of a change in both. Chest x-ray continues to show evidence of diffuse interstitial infiltrates/ARDS. Patient was reevaluated today on 08/27/20, remains intubated and mechanically ventilated. Remains on high FiO2 and high PEEP, remains critically ill, and no major spinning frame changer the last 24 hours. Patient is presently on assist control mode of mechanical ventilation. Rate is 25 tidal volume is 400 FiO2 is 60% and PEEP is 20. ABG this morning showed a pO2 of 71 pCO2 of 41 pH of 7.44. We will attempt cutting down the FiO2 to 55% if tolerated. Patient remains on Nimbex, on propofol, Dilaudid, and she is on enteral feeding. Remains on GI and DVT prophylaxis. And the patient did receive full treatment for her pneumonitis/COVID 19 pneumonitis. Labs today showed a relatively normal CBC is relatively normal electrolytes and a relatively normal renal profile Patient was reevaluated today on 08/28/20, remains in the ICU, intubated and m echanically ventilated. Patient remains on the same ventilator settings, her PEEP remains at 20 assist control rate is 20 FiO2 is 55% and tidal volume is 400. Chest x-ray is showing minimal improvement. Hence I would recommend that we cut down on the PEEP to 18. I have also recommended increasing Lovenox 80 mg subcu twice a day, in the meantime the patient remains on Nimbex, propofol, IV fluid at 75 mL/h, and she receives enteral feeding. ABG today showed a pO2 of 70 pCO2 of 45 pH of 7.43. CBC is normal, basic metabolic profile is normal. LDH seems to be improving down to 871 today. C-reactive protein is a bit elevated. I believe there may be a slight improvement noted on the chest x-ray, and ABG is reflecting that, I will go ahead and cut down the PEEP to 18 Patient was reevaluated today on 08/29/20, remains in the ICU, mechanically ventilated. Paralyzed and sedated. Her ventilator settings are assist control rate of 25 tidal volume is 400 FiO2 is 55% and PEEP is 18 today I was able to cut it down to 16. Her ABG showed a pO2 of 73 pCO2 of 42 pH of 7.46. Patient remains on Nimbex and propofol at 30 mcg/kg/m, and her IV fluid is at 75 ML per hour. Patient had no bowel movements in the last 5 days, and I recommended Reglan and lactulose to be continued. Chest x-ray continues to show diffuse interstitial infiltrates and ARDS picture. However considering the slight improvement in the chest x-ray and the slight improvement in the ABG, I would proceed to cutting down the PEEP to 16 and set of 18, and it was 20 2 days ago. Labs showed relatively normal CBC relatively normal electrolytes and normal renal profile C-reactive protein is down to 64.5 LDH is 796. Patient did receive remdesivir, and she received 1 unit of convalescent plasma on 08/29. Objective - Vital Signs Vital signs: Vital Signs Temp 97.6 F 08/29/20 08:00 Pulse 44 L 08/29/20 11:00 Resp 25 H 08/29/20 11:00 BP 129/88 08/26/20 06:58 Pulse Ox 91 L 08/29/20 11:00 Intake & Output 08/28/20 08/29/20 08/29/20 18:59 06:59 18:59 Intake Total 1410.74 2059.968 536 Output Total 625 790 210 Balance 785.74 1269.968 326 Weight 151.4 kg 153.4 kg Intake: IV 750 900 300 Sodium Chloride 0.9% 1, 750 900 300 000 ml @ 75 mls/hr IV . [id number] [facility] Rx#:[id number] Intake, IV Titration 222.74 475.968 Amount Cisatracurium 200 mg In 122.74 200.000 Sodium Chloride 0.9% 180 ml @ 1 MCG/KG/MIN 8.165 mls/hr IV .Q24H [facility] Rx#: [id number] propofoL 1,000 mg In 100 275.968 Empty Bag 1 bag @ Titrate IV .Q0M [facility] Rx#: [id number] Tube Feeding 378 594 216 Other 60 90 20 Output: Urine 625 790 210 Other: Voiding Method Indwelling Catheter Indwelling Catheter Indwelling Catheter ABP, PAP, CO, CI - Last Documented Arterial Blood Pressure 147/59 - Exam Physical Exam: 64-year-old female intubated, mechanically ventilated, obese, sedated and paralyzed. Head: Atraumatic, normocephalic. HEENT:[Neck is supple.] [No neck masses.] [No thyromegaly.] [No JVD.] PERRLA, EOMI, no icterus. Chest: [Symmetrical chest expansion, crackles at the bases bilaterally. Cardiac Exam: [Normal S1 and S2, no S3 gallop, no murmur.] Abdomen: [Obese, Soft, nontender, no megaly, no rebound, no guarding, normal bowel sounds.] Extremities: No clubbing edema or cyanosis. Neurologic: Could not be assessed. Psychiatric: Could not be assessed.. Lymphatics: No cervical or supraclavicular lymphadenopathy. - Labs CBC & Chem 7: 08/29/20 04:33 08/29/20 04:33 Labs: Abnormal Lab Results - Last 24 Hours (Table) 08/28/20 08/29/20 08/29/20 Range/Units 17:34 00:30 04:33 MCV 100.2 H (80.0-100.0) fL Lymphocytes # 0.8 L (1.0-4.8) k/uL ABG pH (7.35-7.45) ABG pO2 (83-108) mmHg ABG HCO3 (21-25) mmol/L ABG Total CO2 (19-24) mmol/L Carbon Dioxide (22-30) mmol/L BUN (7-17) mg/dL Creatinine (0.52-1.04) mg/dL Glucose (74-99) mg/dL POC Glucose (mg/dL) 290 H 246 H (75-99) mg/dL Calcium (8.4-10.2) mg/dL Ferritin (10.0-291.0) ng/mL ALT (4-34) U/L Lactate Dehydrogenase (313-618) U/L Creatine Kinase (30-135) U/L C-Reactive Protein (<10.0) mg/L Total Protein (6.3-8.2) g/dL Albumin (3.5-5.0) g/dL 08/29/20 08/29/20 08/29/20 Range/Units 04:33 05:46 07:57 MCV (80.0-100.0) fL Lymphocytes # (1.0-4.8) k/uL ABG pH 7.46 H (7.35-7.45) ABG pO2 73 L (83-108) mmHg ABG HCO3 30 H (21-25) mmol/L ABG Total CO2 31 H (19-24) mmol/L Carbon Dioxide 31 H (22-30) mmol/L BUN 26 H (7-17) mg/dL Creatinine 0.50 L (0.52-1.04) mg/dL Glucose 286 H (74-99) mg/dL POC Glucose (mg/dL) 217 H (75-99) mg/dL Calcium 7.9 L (8.4-10.2) mg/dL Ferritin 524.9 H (10.0-291.0) ng/mL ALT 42 H (4-34) U/L Lactate Dehydrogenase 796 H (313-618) U/L Creatine Kinase <20 L (30-135) U/L C-Reactive Protein 64.5 H (<10.0) mg/L Total Protein 4.9 L (6.3-8.2) g/dL Albumin 2.2 L (3.5-5.0) g/dL 08/29/20 Range/Units 11:48 MCV (80.0-100.0) fL Lymphocytes # (1.0-4.8) k/uL ABG pH (7.35-7.45) ABG pO2 (83-108) mmHg ABG HCO3 (21-25) mmol/L ABG Total CO2 (19-24) mmol/L Carbon Dioxide (22-30) mmol/L BUN (7-17) mg/dL Creatinine (0.52-1.04) mg/dL Glucose (74-99) mg/dL POC Glucose (mg/dL) 219 H (75-99) mg/dL Calcium (8.4-10.2) mg/dL Ferritin (10.0-291.0) ng/mL ALT (4-34) U/L Lactate Dehydrogenase (313-618) U/L Creatine Kinase (30-135) U/L C-Reactive Protein (<10.0) mg/L Total Protein (6.3-8.2) g/dL Albumin (3.5-5.0) g/dL Microbiology - Last 24 Hours (Table) 08/22/20 15:41 Blood Culture - Final Blood No Growth after 144 hours Assessment and Plan Assessment: Impression: Acute hypoxic respiratory failure secondary to covid 19 pneumonitis and ARDS. ARDS. Obesity with BMI of 53.1. History of dyslipidemia. History of GERD. History of degenerative joint disease. Recommendation: Patient will receive 1 unit of convalescent plasma today. Finished a full course of remdesivir Decrease PEEP to 16 Continue ventilatory support, Continue Decadron. Continue Lovenox. Continue nutritional support. Continue GI and DVT prophylaxis. Continue to monitor closely in the ICU. Patient remains critically ill and prognosis is extremely guarded. Critical care time is 33 minutes Continue zinc melatonin Pepcid and vitamin C. Time with Patient: Greater than 30
[2020-08-29 17:28] LABS: Glucose,Whole Blood 318 mg/dL (75-99)
[2020-08-29] MEDS: MELATONIN 5 MG TABLET PO SCH (20:53)
[2020-08-29] MEDS: INSULIN DETEMIR (LEVEMIR) 100 UNIT/ML SYR SQ SCH (20:54)
--- NOTE | 2020-08-29 22:34 | P.PN ---
Subjective Progress Note Date: 08/28/20 Principal diagnosis: COVID 19 Pneumonia Ms. Frost is a 64-year-old female with a past medical history of GERD and hyperlipidemia admitted to the hospital with a chief complaint of difficulty in breathing. Patient's has tested positive for Covid. Patient symptoms started 1 week ago and progressively difficulty in breathing has worsened. Patient was found to be hypoxic in the ER and chest x-ray showed bilateral infiltrates. Patient was subsequently intubated and admitted to the ICU. On 08/28/2020-patient remains in the ICU. She is intubated and sedated. Patient had a chest x-ray done showing minimal improvement in the infiltrates. On reviewing the vitals, patient has been afebrile for the past 24 hours, heart rate 40s to 50s with blood pressure around 120 x 60. Patient spent settings are PEEP of 20, assist-control rate of 20, FiO2 55% and tidal volume of 490. Patient's labs show white count of 8.1, hemoglobin 12.1 and platelets 196. ABG showing 7.43 PCO2 of 45 and PO2 of 70. Sodium 138 potassium 4.3 BUN 24 and creatinine of 0.53. Albumin is 2.2. Objective - Vital Signs Vital signs: Vital Signs Temp 98 F 08/28/20 08:00 Pulse 47 L 08/28/20 10:00 Resp 25 H 08/28/20 10:00 BP 129/88 08/26/20 06:58 Pulse Ox 93 L 08/28/20 10:00 Intake & Output 08/27/20 08/28/20 08/28/20 18:59 06:59 18:59 Intake Total 6573.541 8724.346 546 Output Total 675 660 300 Balance 850.919 9396.346 246 Weight 151.4 kg Intake: IV 825 900 300 Sodium Chloride 0.9% 1, 825 900 300 000 ml @ 75 mls/hr IV . [id number] [facility] Rx#:[id number] Intake, IV Titration 84.324 435.346 Amount Cisatracurium 200 mg In 41.911 163.436 Sodium Chloride 0.9% 180 ml @ 1 MCG/KG/MIN 8.165 mls/hr IV .Q24H [facility] Rx#: [id number] propofoL 1,000 mg In 42.413 271.91 Empty Bag 1 bag @ Titrate IV .Q0M [facility] Rx#: [id number] Tube Feeding 594 810 216 Other 60 60 30 Output: Urine 675 660 300 Other: Voiding Method Indwelling Catheter Indwelling Catheter Indwelling Catheter ABP, PAP, CO, CI - Last Documented Arterial Blood Pressure 124/47 - Exam Physical Exam: 64-year-old female intubated, mechanically ventilated, obese, in no distress. Head: Atraumatic, normocephalic. HEENT: Pt has OG tube in place Chest: crackles at the bases bilaterally. Cardiac Exam: Normal S1 and S2 Abdomen: Obese, Soft, nontender, no megaly, no rebound, no guarding, normal bowel sounds. Extremities: trace of bipedal edema, Neurological Exam: sedated - Labs CBC & Chem 7: 08/29/20 04:33 08/29/20 04:33 Labs: Abnormal Lab Results - Last 24 Hours (Table) 08/27/20 08/27/20 08/27/20 Range/Units 12:09 17:47 23:51 Lymphocytes # (1.0-4.8) k/uL D-Dimer (<0.60) mg/L FEU ABG pO2 (83-108) mmHg ABG HCO3 (21-25) mmol/L ABG Total CO2 (19-24) mmol/L Chloride (98-107) mmol/L BUN (7-17) mg/dL Glucose (74-99) mg/dL POC Glucose (mg/dL) 183 H 252 H 229 H (75-99) mg/dL Calcium (8.4-10.2) mg/dL Ferritin (10.0-291.0) ng/mL ALT (4-34) U/L Lactate Dehydrogenase (313-618) U/L Creatine Kinase (30-135) U/L C-Reactive Protein (<10.0) mg/L Total Protein (6.3-8.2) g/dL Albumin (3.5-5.0) g/dL 08/28/20 08/28/20 08/28/20 Range/Units 04:30 04:30 04:30 Lymphocytes # 0.6 L (1.0-4.8) k/uL D-Dimer 4.12 H (<0.60) mg/L FEU ABG pO2 (83-108) mmHg ABG HCO3 (21-25) mmol/L ABG Total CO2 (19-24) mmol/L Chloride 109 H (98-107) mmol/L BUN 24 H (7-17) mg/dL Glucose 218 H (74-99) mg/dL POC Glucose (mg/dL) (75-99) mg/dL Calcium 7.6 L (8.4-10.2) mg/dL Ferritin 565.6 H (10.0-291.0) ng/mL ALT 47 H (4-34) U/L Lactate Dehydrogenase 871 H (313-618) U/L Creatine Kinase <20 L (30-135) U/L C-Reactive Protein 126.4 H (<10.0) mg/L Total Protein 4.7 L (6.3-8.2) g/dL Albumin 2.2 L (3.5-5.0) g/dL 08/28/20 08/28/20 08/28/20 Range/Units 05:31 07:42 11:49 Lymphocytes # (1.0-4.8) k/uL D-Dimer (<0.60) mg/L FEU ABG pO2 70 L (83-108) mmHg ABG HCO3 30 H (21-25) mmol/L ABG Total CO2 31 H (19-24) mmol/L Chloride (98-107) mmol/L BUN (7-17) mg/dL Glucose (74-99) mg/dL POC Glucose (mg/dL) 210 H 187 H (75-99) mg/dL Calcium (8.4-10.2) mg/dL Ferritin (10.0-291.0) ng/mL ALT (4-34) U/L Lactate Dehydrogenase (313-618) U/L Creatine Kinase (30-135) U/L C-Reactive Protein (<10.0) mg/L Total Protein (6.3-8.2) g/dL Albumin (3.5-5.0) g/dL Microbiology - Last 24 Hours (Table) 08/22/20 15:41 Blood Culture - Preliminary Blood No Growth after 120 hours Assessment and Plan Assessment: Assessment: -Acute severe hypoxic respiratory failure from COVID 19 pneumonia-slow to respond -Bilateral extensive likely COVID 19 pneumonia, POA-slow to respond -Sepsis from above -ARDS-slow to respond -GERD -Hyperlipidemia -Depression not otherwise specified -Moderate persistent asthma with acute exacerbation -Morbid obesity BMI 53.9 -Hypoalbuminemia Plan: SHe is receiving Decadron, Remdesivir, Lovenox, zinc, Pepcid vitamin C. Remains critically ill. Drips - Nimbex and propofol. On the ventilator, PEEP has been decreased from 20 to 18 today. Prognosis guarded.
--- NOTE | 2020-08-29 22:39 | P.PN ---
Subjective Progress Note Date: 08/29/20 Principal diagnosis: COVID 19 Pneumonia Ms. Frost is a 64-year-old female with a past medical history of GERD and hyperlipidemia admitted to the hospital with a chief complaint of difficulty in breathing. Patient's has tested positive for Covid. Patient symptoms started 1 week ago and progressively difficulty in breathing has worsened. Patient was found to be hypoxic in the ER and chest x-ray showed bilateral infiltrates. Patient was subsequently intubated and admitted to the ICU. On 08/28/2020-patient remains in the ICU. She is intubated and sedated. Patient had a chest x-ray done showing minimal improvement in the infiltrates. On reviewing the vitals, patient has been afebrile for the past 24 hours, heart rate 40s to 50s with blood pressure around 120 x 60. Patient spent settings are PEEP of 20, assist-control rate of 20, FiO2 55% and tidal volume of 490. Patient's labs show white count of 8.1, hemoglobin 12.1 and platelets 196. ABG showing 7.43 PCO2 of 45 and PO2 of 70. Sodium 138 potassium 4.3 BUN 24 and creatinine of 0.53. Albumin is 2.2. On 08/29/2020 -patient remains in the ICU. She is paralyzed and intubated. Patient is very slow to respond to the treatment. She is on Nimbex and propofol drips. Chest x-ray showing diffuse infiltrates and ARDS. Current ventilator settings are assist control rate of 25, FiO2 55, PEEP of 18, tidal volume of 400 mL. She had ABGs done this morning showing pH of 7.46, PCO2 42 and PO2 of 73. Patient's labs from this morning showing white count of 7.8 hemoglobin 12.5, platelets 218. Sodium 138, potassium 4.5, BUN 26, creatinine 0.50 albumin is 2.2. Active Medications Ascorbic Acid (Ascorbic Acid 500 Mg Tab) 500 mg PO DAILY [facility] Last Admin: 08/29/20 08:44 Dose: 500 mg Documented by: Atorvastatin Calcium (Atorvastatin 40 Mg Tab) 40 mg PO DAILY [facility] Last Admin: 08/29/20 08:44 Dose: 40 mg Documented by: Chlorhexidine Gluconate (Chlorhexidine Gluconate 15 Ml Cup) 15 ml MUCOUS MEM BID [facility] Last Admin: 08/29/20 20:53 Dose: 15 ml Documented by: Cholecalciferol (Cholecalciferol 1,000 Unit Tab) 1,000 unit PO DAILY [facility] Last Admin: 08/29/20 08:47 Dose: 1,000 unit Documented by: Citalopram Hydrobromide (Citalopram Hydrobromide 20 Mg Tab) 20 mg PO DAILY [facility] Last Admin: 08/29/20 08:44 Dose: 20 mg Documented by: Dexamethasone Sodium Phosphate (Dexamethasone Sod Phosphate 10 Mg/Ml 1 Ml Vial) 6 mg IV DAILY [facility] Last Admin: 08/29/20 08:47 Dose: 6 mg Documented by: Enoxaparin Sodium (Enoxaparin 80 Mg/0.8 Ml Syringe) 80 mg SQ BID [facility] Last Admin: 08/29/20 20:54 Dose: 80 mg Documented by: Famotidine (Famotidine 20 Mg/2 Ml Vial) 20 mg IV Q12HR [facility] Last Admin: 08/29/20 20:53 Dose: 20 mg Documented by: Hydromorphone HCl (Hydromorphone 0.5 Mg/0.5 Ml Syringe) 0.5 mg IVP Q4HR [facility] Last Admin: 08/29/20 20:53 Dose: 0.5 mg Documented by: Sodium Chloride (Saline 0.9%) 1,000 mls @ 75 mls/hr IV .[id number] [facility] Last Admin: 08/29/20 15:50 Dose: Not Given Documented by: Cisatracurium Besylate 200 mg/ (Sodium Chloride) 200 mls @ 8.165 mls/hr IV .Q24H [facility]; Protocol Last Admin: 08/29/20 03:25 Dose: 1.5 mcg/kg/min, 12.247 mls/hr Documented by: Propofol 1,000 mg/ IV Solution 100 mls @ 0 mls/hr IV .Q0M [facility]; Protocol Last Admin: 08/29/20 21:28 Dose: 50 mcg/kg/min, 46.02 mls/hr Documented by: Insulin Aspart (Insulin Aspart (Novolog) 100 Unit/Ml Vial) 0 unit SQ Q6H [facility]; Protocol Last Admin: 08/29/20 17:41 Dose: 8 unit Documented by: Insulin Detemir (Insulin Detemir (Levemir) 100 Unit/Ml Syr) 15 unit SQ HS [facility] Last Admin: 08/29/20 20:54 Dose: 15 unit Documented by: Lactulose (Lactulose 20 Gm/30 Ml Cup) 20 gm PO BID [facility] Last Admin: 08/29/20 20:53 Dose: 20 gm Documented by: Melatonin (Melatonin 5 Mg Tablet) 5 mg PO HS [facility] Last Admin: 08/29/20 20:53 Dose: Not Given Documented by: Metoclopramide HCl (Metoclopramide 5 Mg/Ml 2 Ml Vial) 10 mg IVP Q6HR [facility] Last Admin: 08/29/20 17:41 Dose: 10 mg Documented by: Miscellaneous Information (Potassium Replacement Protocol 1 Each Misc) 1 each MISCELLANE DAILY PRN; Protocol PRN Reason: Per Protocol Multi-Ingred Cream/Lotion/Oil/Oint (Artificial Tears Ointment 3.5 Gm Tube) 1 applic BOTH EYES Q4H [facility] Last Admin: 08/29/20 20:54 Dose: 1 applic Documented by: Naloxone HCl (Naloxone 0.4 Mg/Ml 1 Ml Vial) 0.2 mg IV Q2M PRN PRN Reason: Opioid Reversal Zinc Sulfate (Zinc Sulfate 220 Mg Cap) 220 mg PO DAILY [facility] Last Admin: 08/29/20 08:47 Dose: 220 mg Documented by: Objective - Vital Signs Vital signs: Vital Signs Temp 97.6 F 08/29/20 08:00 Pulse 44 L 08/29/20 11:00 Resp 25 H 08/29/20 11:00 BP 129/88 08/26/20 06:58 Pulse Ox 91 L 08/29/20 11:00 Intake & Output 08/28/20 08/29/20 08/29/20 18:59 06:59 18:59 Intake Total 1410.74 2059.968 536 Output Total 625 790 210 Balance 785.74 1269.968 326 Weight 151.4 kg 153.4 kg Intake: IV 750 900 300 Sodium Chloride 0.9% 1, 750 900 300 000 ml @ 75 mls/hr IV . [id number] [facility] Rx#:[id number] Intake, IV Titration 222.74 475.968 Amount Cisatracurium 200 mg In 122.74 200.000 Sodium Chloride 0.9% 180 ml @ 1 MCG/KG/MIN 8.165 mls/hr IV .Q24H [facility] Rx#: [id number] propofoL 1,000 mg In 100 275.968 Empty Bag 1 bag @ Titrate IV .Q0M [facility] Rx#: [id number] Tube Feeding 378 594 216 Other 60 90 20 Output: Urine 625 790 210 Other: Voiding Method Indwelling Catheter Indwelling Catheter Indwelling Catheter ABP, PAP, CO, CI - Last Documented Arterial Blood Pressure 147/59 - Exam Physical Exam: 64-year-old female intubated, mechanically ventilated, obese, in no distress. Head: Atraumatic, normocephalic. HEENT: Pt has OG tube in place Chest: crackles at the bases bilaterally. Cardiac Exam: Normal S1 and S2 Abdomen: Obese, Soft, nontender, no megaly, no rebound, no guarding, normal bowel sounds. Extremities: trace of bipedal edema, Neurological Exam: paralyzed - Labs CBC & Chem 7: 08/29/20 04:33 08/29/20 04:33 Labs: Abnormal Lab Results - Last 24 Hours (Table) 08/28/20 08/29/20 08/29/20 Range/Units 17:34 00:30 04:33 MCV 100.2 H (80.0-100.0) fL Lymphocytes # 0.8 L (1.0-4.8) k/uL ABG pH (7.35-7.45) ABG pO2 (83-108) mmHg ABG HCO3 (21-25) mmol/L ABG Total CO2 (19-24) mmol/L Carbon Dioxide (22-30) mmol/L BUN (7-17) mg/dL Creatinine (0.52-1.04) mg/dL Glucose (74-99) mg/dL POC Glucose (mg/dL) 290 H 246 H (75-99) mg/dL Calcium (8.4-10.2) mg/dL Ferritin (10.0-291.0) ng/mL ALT (4-34) U/L Lactate Dehydrogenase (313-618) U/L Creatine Kinase (30-135) U/L C-Reactive Protein (<10.0) mg/L Total Protein (6.3-8.2) g/dL Albumin (3.5-5.0) g/dL 08/29/20 08/29/20 08/29/20 Range/Units 04:33 05:46 07:57 MCV (80.0-100.0) fL Lymphocytes # (1.0-4.8) k/uL ABG pH 7.46 H (7.35-7.45) ABG pO2 73 L (83-108) mmHg ABG HCO3 30 H (21-25) mmol/L ABG Total CO2 31 H (19-24) mmol/L Carbon Dioxide 31 H (22-30) mmol/L BUN 26 H (7-17) mg/dL Creatinine 0.50 L (0.52-1.04) mg/dL Glucose 286 H (74-99) mg/dL POC Glucose (mg/dL) 217 H (75-99) mg/dL Calcium 7.9 L (8.4-10.2) mg/dL Ferritin 524.9 H (10.0-291.0) ng/mL ALT 42 H (4-34) U/L Lactate Dehydrogenase 796 H (313-618) U/L Creatine Kinase <20 L (30-135) U/L C-Reactive Protein 64.5 H (<10.0) mg/L Total Protein 4.9 L (6.3-8.2) g/dL Albumin 2.2 L (3.5-5.0) g/dL 08/29/20 Range/Units 11:48 MCV (80.0-100.0) fL Lymphocytes # (1.0-4.8) k/uL ABG pH (7.35-7.45) ABG pO2 (83-108) mmHg ABG HCO3 (21-25) mmol/L ABG Total CO2 (19-24) mmol/L Carbon Dioxide (22-30) mmol/L BUN (7-17) mg/dL Creatinine (0.52-1.04) mg/dL Glucose (74-99) mg/dL POC Glucose (mg/dL) 219 H (75-99) mg/dL Calcium (8.4-10.2) mg/dL Ferritin (10.0-291.0) ng/mL ALT (4-34) U/L Lactate Dehydrogenase (313-618) U/L Creatine Kinase (30-135) U/L C-Reactive Protein (<10.0) mg/L Total Protein (6.3-8.2) g/dL Albumin (3.5-5.0) g/dL Microbiology - Last 24 Hours (Table) 08/22/20 15:41 Blood Culture - Final Blood No Growth after 144 hours Assessment and Plan Assessment: Assessment: -Acute severe hypoxic respiratory failure from COVID 19 pneumonia-slow to respond -Bilateral extensive likely COVID 19 pneumonia, POA-slow to respond -Sepsis from above -ARDS-slow to respond -GERD -Hyperlipidemia -Depression not otherwise specified -Moderate persistent asthma with acute exacerbation -Morbid obesity BMI 53.9 -Hypoalbuminemia Plan: SHe is receiving Decadron, Remdesivir, Lovenox, zinc, Pepcid vitamin C. Remains critically ill. Drips - Nimbex and propofol. On the ventilator, PEEP has been decreased from 18 to 16 today. As the patient did not have a bowel movement for the past 5 days, she has been started on Reglan and lactulose. Prognosis guarded.
[2020-08-30] MEDS: HYDROmorphone 0.5 MG/0.5 ML SYRINGE IVP SCH ×7 (00:01→23:53)
[2020-08-30] MEDS: METOCLOPRAMIDE 5 MG/ML 2 ML VIAL IVP SCH ×5 (00:01→23:53)
[2020-08-30] MEDS: ARTIFICIAL TEARS OINTMENT 3.5 GM TUBE BOTH EYES SCH ×7 (00:02→23:54)
[2020-08-30 00:13] LABS: Glucose,Whole Blood 221 mg/dL (75-99)
[2020-08-30] MEDS: INSULIN ASPART (NovoLOG) 100 UNIT/ML VIAL SQ SCH ×5 (00:16→23:53)
[2020-08-30] MEDS: SODIUM CHLORIDE 0.9% 1,000 ML IV SCH ×2 (04:06→16:19)
[2020-08-30] MEDS: CISATRACURIUM 200 MG in SODIUM CHLORIDE 0.9% 180 ML IV SCH ×3 (04:08→16:08)
[2020-08-30 04:26] LABS: Basophils % (A) 1 %; Eosinophils # (A) 0.1 k/uL (0-0.7); Eosinophils % (A) 1 %; HCT 37.4 % (34.0-46.0); HGB 11.8 gm/dL (11.4-16.0); Lymphocytes % (A) 13 %; MCHC 31.7 g/dL (31.0-37.0); MCV 97.7 fL (80.0-100.0); Mean Platelet Volume 8.1; Monocytes # (A) 0.4 k/uL (0-1.0); Monocytes % (A) 6 %; Neutrophils % (A) 79 %; Platelet Count 240 k/uL (150-450); RBC 3.82 m/uL (3.80-5.40); RDW 13.9 % (11.5-15.5); WBC 7.7 k/uL (3.8-10.6)
[2020-08-30 04:45] LABS: ALT 41 U/L (4-34); AST 21 U/L (14-36); African American GFR (CKD) >90 (>60 ml/min/1.73 sqM); Albumin 2.3 g/dL (3.5-5.0); Alkaline Phosphatase 60 U/L (38-126); Anion Gap 1 mmol/L; Blood Urea Nitrogen 26 mg/dL (7-17); C Reactive Protein 37.5 mg/L (<10.0); Carbon Dioxide 31 mmol/L (22-30); Chloride 106 mmol/L (98-107); Creatine Kinase <20 U/L (30-135); Glucose 232 mg/dL (74-99); LDH 687 U/L (313-618); Non-African American GFR(CKD) >90 (>60 ml/min/1.73 sqM); Potassium 4.3 mmol/L (3.5-5.1); Sodium 138 mmol/L (137-145); Total Bilirubin 0.4 mg/dL (0.2-1.3)
[2020-08-30 05:51] LABS: Glucose,Whole Blood 178 mg/dL (75-99)
[2020-08-30 05:55] LABS: ABG Base Excess 5.7 mmol/L; ABG HCO3 30 mmol/L (21-25); ABG Oxygen Saturation 93.1 % (94-97); ABG PCO2 45 mmHg (35-45); ABG PH 7.43 (7.35-7.45); ABG PO2 65 mmHg (83-108); ABG TCO2 31 mmol/L (19-24); Allen Test Performed? Yes
--- NOTE | 2020-08-30 08:18 | XR ---
EXAMINATION TYPE: XR chest 1V portable DATE OF EXAM: 08/30/2020 COMPARISON: Prior chest x-ray 08/29/2020 HISTORY: Covid, intubated TECHNIQUE: Single frontal view of the chest is obtained. FINDINGS: Endotracheal tube, NG tube, right jugular central venous catheter are overlying appropriat e positions. Bilateral airspace disease persists. There is no evident pneumothorax or sizable effusio n. Heart is likely stable, patient is rotated. IMPRESSION: Correlate for pneumonia, edema, ARDS.
[2020-08-30] MEDS: FAMOTIDINE 20 MG/2 ML VIAL IV SCH ×2 (09:33→20:25)
[2020-08-30] MEDS: CHLORHEXIDINE GLUCONATE 15 ML CUP MUCOUS MEM SCH ×2 (09:33→20:24)
[2020-08-30] MEDS: CITALOPRAM HYDROBROMIDE 20 MG TAB PO SCH (09:33)
[2020-08-30] MEDS: CHOLECALCIFEROL 1,000 UNIT TAB PO SCH (09:33)
[2020-08-30] MEDS: ASCORBIC ACID 500 MG TAB PO SCH (09:34)
[2020-08-30] MEDS: ATORVASTATIN 40 MG TAB PO SCH (09:34)
[2020-08-30] MEDS: LACTULOSE 20 GM/30 ML CUP PO SCH ×2 (09:34→20:24)
[2020-08-30] MEDS: ENOXAPARIN 80 MG/0.8 ML SYRINGE SQ SCH ×2 (09:39→20:48)
[2020-08-30] MEDS: DEXAMETHASONE SOD PHOSPHATE 10 MG/ML 1 ML VIAL IV SCH (09:40)
[2020-08-30] MEDS: ZINC SULFATE 220 MG CAP PO SCH (09:40)
[2020-08-30 10:58] LABS: Ferritin 339.8 ng/mL (10.0-291.0)
--- NOTE | 2020-08-30 11:52 | PN ---
PROGRESS NOTE PULMONARY/CRITICAL CARE PROGRESS NOTE: DATE OF SERVICE: 08/30/2020 Critical care time 34 minutes. This is a 64-year-old female admitted on August 22, 2020. She was moved to the ICU or admitted to the ICU on August 22 for COVID pneumonia. She was intubated for acute hypoxemic respiratory failure on August 23, 2020. She has remained on the ventilator since having developed acute respiratory distress syndrome. Currently, she is on the volume assist-control mode, rate of 25, tidal volume 400, FiO2 of 55%, PEEP is 16, blood gases are reasonable with a pO2 of 65, pCO2 of 45, pH of 6.43. Patient is on Nimbex at 2.5 mcg/kg per minute, propofol at 50 mcg/kg per minute, saline at 75 mL an hour and Vital high-protein at 54 with a goal of 54 mL an hour. Currently, the patient remains relatively stable. In addition to the above, she has a history of obesity, hyperlipidemia, GERD, degenerative joint disease. Current vital signs are reviewed. Temperature is 97.6, heart rate is 50, respiratory rate 25, blood pressure 117/59, and saturations are 93%. Appears in no acute distress. Currently sedated and paralyzed. HEENT: Examination is grossly unremarkable. Oral endotracheal tube is noted. There is also an NG tube noted. NECK: Supple, full range of motion. No adenopathy. Neck veins are flat. CARDIOVASCULAR: Examination reveals regular rhythm and rate. Heart rate 60 beats per minute. S1, S2 normal. LUNGS: Reveal diffuse coarse rhonchi. Breath sounds equal. No wheezes or crackles. ABDOMEN: Obese, bowel sounds are heard. EXTREMITIES: Intact. Minimal edema. No cyanosis or clubbing. SKIN: Without rash. NEUROLOGIC: Examination cannot be adequately assessed. The patient has received convalescent plasma x1 and her 5 days of Remdesivir. LAB DATA: Reviewed. White count 7.7, hemoglobin 11.8, hematocrit 37.4, platelet count 240,000. D-dimer 1.36. Blood gases have been noted. Sodium potassium chloride normal. CO2 is 31, anion gap 1, BUN and creatinine were 26 and 0.48. LDH 687. CK less than 20. Albumin 2.3. Microbiology is currently negative. Chest x-ray shows diffuse bilateral infiltrates consistent with bilateral pneumonia and acute respiratory distress syndrome. CURRENT MEDICATIONS: Reviewed. The patient is currently on Artificial Tears, vitamin C, Lipitor, chlorhexidine, vitamin D3, Nimbex, Celexa, Decadron, Lovenox, famotidine, Dilaudid, NovoLog insulin lactulose, melatonin, Reglan, Narcan, potassium replacement, propofol and zinc. ASSESSMENT: 1. Acute hypoxemic respiratory failure secondary to COVID-19 pneumonia, with subsequent development of ARDS. Status post intubation on August 23. 2. Obesity. 3. Hyperlipidemia. 4. Gastroesophageal reflux disease. 5. Degenerative joint disease. PLAN: The patient remains on mechanical ventilator. Her FiO2 is 55% PEEP is 16. She has received 1 dose of convalescent plasma and her 5 days of Remdesivir. Her other medications are appropriate include vitamin C, zinc, vitamin D, and Decadron. Will continue to follow. Prognosis is guarded. Critical care time 34 minutes. MMDARLENEL / AMAN: [id number] /
[2020-08-30 12:19] LABS: Glucose,Whole Blood 170 mg/dL (75-99)
[2020-08-30] MEDS ORDERED: ALBUTEROL HFA INHALER INHALATION PRN (14:05)
[2020-08-30] MEDS: ALBUTEROL HFA INHALER INHALATION SCH ×2 (16:10→18:46)
[2020-08-30 18:02] LABS: Glucose,Whole Blood 249 mg/dL (75-99)
[2020-08-30] MEDS: MELATONIN 5 MG TABLET PO SCH (20:25)
[2020-08-30] MEDS: INSULIN DETEMIR (LEVEMIR) 100 UNIT/ML SYR SQ SCH (20:51)
[2020-08-30 21:07] LABS: Glucose,Whole Blood 258 mg/dL (75-99)
[2020-08-30 23:58] LABS: Glucose,Whole Blood 207 mg/dL (75-99)
[2020-08-31] MEDS: ALBUTEROL HFA INHALER INHALATION SCH ×6 (00:10→21:34)
--- NOTE | 2020-08-31 01:11 | P.PN ---
Subjective Progress Note Date: 08/30/20 Principal diagnosis: COVID 19 Pneumonia Ms. Frost is a 64-year-old female with a past medical history of GERD and hyperlipidemia admitted to the hospital with a chief complaint of difficulty in breathing. Patient's has tested positive for Covid. Patient symptoms started 1 week ago and progressively difficulty in breathing has worsened. Patient was found to be hypoxic in the ER and chest x-ray showed bilateral infiltrates. Patient was subsequently intubated and admitted to the ICU. On 08/28/2020-patient remains in the ICU. She is intubated and sedated. Patient had a chest x-ray done showing minimal improvement in the infiltrates. On reviewing the vitals, patient has been afebrile for the past 24 hours, heart rate 40s to 50s with blood pressure around 120 x 60. Patient spent settings are PEEP of 20, assist-control rate of 20, FiO2 55% and tidal volume of 490. Patient's labs show white count of 8.1, hemoglobin 12.1 and platelets 196. ABG showing 7.43 PCO2 of 45 and PO2 of 70. Sodium 138 potassium 4.3 BUN 24 and creatinine of 0.53. Albumin is 2.2. On 08/29/2020 -patient remains in the ICU. She is paralyzed and intubated. Patient is very slow to respond to the treatment. She is on Nimbex and propofol drips. Chest x-ray showing diffuse infiltrates and ARDS. Current ventilator settings are assist control rate of 25, FiO2 55, PEEP of 18, tidal volume of 400 mL. She had ABGs done this morning showing pH of 7.46, PCO2 42 and PO2 of 73. Patient's labs from this morning showing white count of 7.8 hemoglobin 12.5, platelets 218. Sodium 138, potassium 4.5, BUN 26, creatinine 0.50 albumin is 2.2. On 08/30/2020 -patient remains in the ICU. She is ventilated and paralyzed. Patient oxygen saturations have been slowly dropping to below 90s. She is currently on volume assist control mode, tidal volume 400, rate of 25, FiO2 55, PEEP of 16. ABGs from this morning show pH of 7.43, PCO2 45, PO2 of 65. Patient's blood sugars have been running in 200s to 250s. On reviewing her labs sodium of 138, potassium 4.3, chloride 106, bicarb 31, BUN 26, creatinine 0.48. White count of 7.7 hemoglobin 9.8 platelets 240. Active Medications Albuterol Sulfate (Albuterol Hfa Inhaler) 2 puff INHALATION RT-Q4H [facility] Last Admin: 08/31/20 00:10 Dose: 2 puff Documented by: Albuterol Sulfate (Albuterol Hfa Inhaler) 2 puff INHALATION RT-Q2H PRN PRN Reason: Shortness Of Breath Or Wheezing Ascorbic Acid (Ascorbic Acid 500 Mg Tab) 500 mg PO DAILY [facility] Last Admin: 08/30/20 09:34 Dose: 500 mg Documented by: Atorvastatin Calcium (Atorvastatin 40 Mg Tab) 40 mg PO DAILY [facility] Last Admin: 08/30/20 09:34 Dose: 40 mg Documented by: Chlorhexidine Gluconate (Chlorhexidine Gluconate 15 Ml Cup) 15 ml MUCOUS MEM BID [facility] Last Admin: 08/30/20 20:24 Dose: 15 ml Documented by: Cholecalciferol (Cholecalciferol 1,000 Unit Tab) 1,000 unit PO DAILY [facility] Last Admin: 08/30/20 09:33 Dose: 1,000 unit Documented by: Citalopram Hydrobromide (Citalopram Hydrobromide 20 Mg Tab) 20 mg PO DAILY [facility] Last Admin: 08/30/20 09:33 Dose: 20 mg Documented by: Dexamethasone Sodium Phosphate (Dexamethasone Sod Phosphate 10 Mg/Ml 1 Ml Vial) 6 mg IV DAILY [facility] Last Admin: 08/30/20 09:40 Dose: 6 mg Documented by: Enoxaparin Sodium (Enoxaparin 80 Mg/0.8 Ml Syringe) 80 mg SQ BID [facility] Last Admin: 08/30/20 20:48 Dose: 80 mg Documented by: Famotidine (Famotidine 20 Mg/2 Ml Vial) 20 mg IV Q12HR [facility] Last Admin: 08/30/20 20:25 Dose: 20 mg Documented by: Hydromorphone HCl (Hydromorphone 0.5 Mg/0.5 Ml Syringe) 0.5 mg IVP Q4HR [facility] Last Admin: 08/30/20 23:53 Dose: 0.5 mg Documented by: Sodium Chloride (Saline 0.9%) 1,000 mls @ 75 mls/hr IV .[id number] [facility] Last Admin: 08/30/20 16:19 Dose: 75 mls/hr Documented by: Cisatracurium Besylate 200 mg/ (Sodium Chloride) 200 mls @ 8.165 mls/hr IV .Q24H [facility]; Protocol Last Titration: 08/30/20 21:00 Dose: 1.5 mcg/kg/min, 12.247 mls/hr Documented by: Propofol 1,000 mg/ IV Solution 100 mls @ 0 mls/hr IV .Q0M [facility]; Protocol Last Admin: 08/30/20 23:52 Dose: 50 mcg/kg/min, 42.524 mls/hr Documented by: Insulin Aspart (Insulin Aspart (Novolog) 100 Unit/Ml Vial) 0 unit SQ Q6H [facility]; Protocol Last Admin: 08/30/20 23:53 Dose: 4 unit Documented by: Insulin Detemir (Insulin Detemir (Levemir) 100 Unit/Ml Syr) 18 unit SQ [facility] Last Admin: 08/30/20 20:51 Dose: 18 unit Documented by: Lactulose (Lactulose 20 Gm/30 Ml Cup) 20 gm PO BID [facility] Last Admin: 08/30/20 20:24 Dose: 20 gm Documented by: Melatonin (Melatonin 5 Mg Tablet) 5 mg PO [facility] Last Admin: 08/30/20 20:25 Dose: 5 mg Documented by: Metoclopramide HCl (Metoclopramide 5 Mg/Ml 2 Ml Vial) 10 mg IVP Q6HR [facility] Last Admin: 08/30/20 23:53 Dose: 10 mg Documented by: Miscellaneous Information (Potassium Replacement Protocol 1 Each Misc) 1 each MISCELLANE DAILY PRN; Protocol PRN Reason: Per Protocol Multi-Ingred Cream/Lotion/Oil/Oint (Artificial Tears Ointment 3.5 Gm Tube) 1 applic BOTH EYES Q4H [facility] Last Admin: 08/30/20 23:54 Dose: 1 applic Documented by: Naloxone HCl (Naloxone 0.4 Mg/Ml 1 Ml Vial) 0.2 mg IV Q2M PRN PRN Reason: Opioid Reversal Zinc Sulfate (Zinc Sulfate 220 Mg Cap) 220 mg PO DAILY [facility] Last Admin: 08/30/20 09:40 Dose: 220 mg Documented by: Objective - Vital Signs Vital signs: Vital Signs Temp 97.5 F L 08/30/20 16:00 Pulse 66 08/30/20 17:00 Resp 25 H 08/30/20 17:00 BP 131/74 08/30/20 17:00 Pulse Ox 90 L 08/30/20 17:00 Intake & Output 08/29/20 08/30/20 08/30/20 18:59 06:59 18:59 Intake Total 8982.832 2691.423 1810.361 Output Total 640 725 680 Balance 3449.634 3731.423 1130.361 Weight 141.748 kg Intake: IV 975 825 825 Sodium Chloride 0.9% 1, 975 825 825 000 ml @ 75 mls/hr IV . [id number] [facility] Rx#:[id number] Intake, IV Titration 200.000 522.423 391.361 Amount Cisatracurium 200 mg In 245.723 193.876 Sodium Chloride 0.9% 180 ml @ 1 MCG/KG/MIN 8.165 mls/hr IV .Q24H [facility] Rx#: [id number] propofoL 1,000 mg In 200.000 276.700 100 Empty Bag 1 bag @ Titrate IV .Q0M [facility] Rx#: [id number] propofoL 500 mg In Empty 97.485 Bag 1 bag @ Titrate IV . Q0M [facility] Rx#:[id number] Tube Feeding 702 540 594 Blood Product 0 187 Ffp Pher Conval Covid19 0 187 Acda 1 Unit [id number] Other 80 90 Output: Urine 640 725 680 Other: Voiding Method Indwelling Catheter Indwelling Catheter Indwelling Catheter ABP, PAP, CO, CI - Last Documented Arterial Blood Pressure 106/71 - Exam Physical Exam: 64-year-old female intubated, mechanically ventilated, obese, in no distress. Head: Atraumatic, normocephalic. HEENT: Pt has OG tube in place Chest: crackles at the bases bilaterally. Cardiac Exam: Normal S1 and S2 Abdomen: Obese, Soft, nontender, no megaly, no rebound, no guarding, normal bowel sounds. Extremities: trace of bipedal edema, Neurological Exam: paralyzed - Labs CBC & Chem 7: 08/30/20 04:22 08/30/20 04:22 Labs: Abnormal Lab Results - Last 24 Hours (Table) 08/29/20 08/30/20 08/30/20 Range/Units 17:27 00:10 04:22 D-Dimer (<0.60) mg/L FEU ABG pO2 (83-108) mmHg ABG HCO3 (21-25) mmol/L ABG Total CO2 (19-24) mmol/L ABG O2 Saturation (94-97) % Carbon Dioxide 31 H (22-30) mmol/L BUN 26 H (7-17) mg/dL Creatinine 0.48 L (0.52-1.04) mg/dL Glucose 232 H (74-99) mg/dL POC Glucose (mg/dL) 318 H 221 H (75-99) mg/dL Calcium 8.0 L (8.4-10.2) mg/dL Ferritin 339.8 H (10.0-291.0) ng/mL ALT 41 H (4-34) U/L Lactate Dehydrogenase 687 H (313-618) U/L Creatine Kinase <20 L (30-135) U/L C-Reactive Protein 37.5 H (<10.0) mg/L Total Protein 5.0 L (6.3-8.2) g/dL Albumin 2.3 L (3.5-5.0) g/dL 08/30/20 08/30/20 08/30/20 Range/Units 04:22 05:49 05:50 D-Dimer 1.36 H (<0.60) mg/L FEU ABG pO2 65 L (83-108) mmHg ABG HCO3 30 H (21-25) mmol/L ABG Total CO2 31 H (19-24) mmol/L ABG O2 Saturation 93.1 L (94-97) % Carbon Dioxide (22-30) mmol/L BUN (7-17) mg/dL Creatinine (0.52-1.04) mg/dL Glucose (74-99) mg/dL POC Glucose (mg/dL) 178 H (75-99) mg/dL Calcium (8.4-10.2) mg/dL Ferritin (10.0-291.0) ng/mL ALT (4-34) U/L Lactate Dehydrogenase (313-618) U/L Creatine Kinase (30-135) U/L C-Reactive Protein (<10.0) mg/L Total Protein (6.3-8.2) g/dL Albumin (3.5-5.0) g/dL 08/30/20 Range/Units 12:18 D-Dimer (<0.60) mg/L FEU ABG pO2 (83-108) mmHg ABG HCO3 (21-25) mmol/L ABG Total CO2 (19-24) mmol/L ABG O2 Saturation (94-97) % Carbon Dioxide (22-30) mmol/L BUN (7-17) mg/dL Creatinine (0.52-1.04) mg/dL Glucose (74-99) mg/dL POC Glucose (mg/dL) 170 H (75-99) mg/dL Calcium (8.4-10.2) mg/dL Ferritin (10.0-291.0) ng/mL ALT (4-34) U/L Lactate Dehydrogenase (313-618) U/L Creatine Kinase (30-135) U/L C-Reactive Protein (<10.0) mg/L Total Protein (6.3-8.2) g/dL Albumin (3.5-5.0) g/dL Assessment and Plan Assessment: Assessment: -Acute severe hypoxic respiratory failure from COVID 19 pneumonia-slow to respond -Bilateral extensive likely COVID 19 pneumonia, POA-slow to respond -Sepsis from above -ARDS-slow to respond -GERD -Hyperlipidemia -Depression not otherwise specified -Moderate persistent asthma with acute exacerbation -Morbid obesity BMI 53.9 -Hypoalbuminemia Plan: SHe is on Decadron, Remdesivir, Lovenox, zinc, Pepcid vitamin C. Remains critically ill on the Ventilator. Drips - Nimbex and propofol. She received a dose of convalescent plasma. Prognosis is poor.
[2020-08-31] MEDS: SODIUM CHLORIDE 0.9% 1,000 ML IV SCH ×2 (01:50→17:26)
[2020-08-31] MEDS: HYDROmorphone 0.5 MG/0.5 ML SYRINGE IVP SCH ×5 (03:59→21:26)
[2020-08-31] MEDS: ARTIFICIAL TEARS OINTMENT 3.5 GM TUBE BOTH EYES SCH ×6 (03:59→23:03)
[2020-08-31] MEDS: CISATRACURIUM 200 MG in SODIUM CHLORIDE 0.9% 180 ML IV SCH ×2 (03:59→18:39)
[2020-08-31 04:40] LABS: Basophils # (A) 0.1 k/uL (0-0.2); Basophils % (A) 1 %; Eosinophils # (A) 0.1 k/uL (0-0.7); Eosinophils % (A) 2 %; HCT 38.3 % (34.0-46.0); HGB 12.1 gm/dL (11.4-16.0); Lymphocytes # (A) 0.8 k/uL (1.0-4.8); Lymphocytes % (A) 10 %; MCH 30.9 pg (25.0-35.0); MCHC 31.7 g/dL (31.0-37.0); MCV 97.5 fL (80.0-100.0); Mean Platelet Volume 8.1; Monocytes # (A) 0.4 k/uL (0-1.0); Monocytes % (A) 5 %; Neutrophils # (A) 6.7 k/uL (1.3-7.7); Neutrophils % (A) 82 %; Platelet Count 266 k/uL (150-450); RBC 3.93 m/uL (3.80-5.40); RDW 14.2 % (11.5-15.5); WBC 8.1 k/uL (3.8-10.6)
[2020-08-31 04:51] LABS: African American GFR (CKD) >90 (>60 ml/min/1.73 sqM); Anion Gap -1 mmol/L; Blood Urea Nitrogen 25 mg/dL (7-17); Calcium 7.9 mg/dL (8.4-10.2); Carbon Dioxide 31 mmol/L (22-30); Chloride 106 mmol/L (98-107); Glucose 142 mg/dL (74-99); Non-African American GFR(CKD) >90 (>60 ml/min/1.73 sqM); Potassium 4.2 mmol/L (3.5-5.1); Sodium 136 mmol/L (137-145)
[2020-08-31 05:29] LABS: Glucose,Whole Blood 157 mg/dL (75-99)
[2020-08-31 05:31] LABS: ABG Base Excess 6.1 mmol/L; ABG HCO3 31 mmol/L (21-25); ABG Oxygen Saturation 87.3 % (94-97); ABG PCO2 51 mmHg (35-45); ABG PH 7.39 (7.35-7.45); ABG TCO2 33 mmol/L (19-24); Allen Test Performed? Yes
[2020-08-31] MEDS: INSULIN ASPART (NovoLOG) 100 UNIT/ML VIAL SQ SCH ×3 (05:31→17:43)
[2020-08-31] MEDS: METOCLOPRAMIDE 5 MG/ML 2 ML VIAL IVP SCH ×4 (05:31→23:08)
[2020-08-31 05:39] LABS: ABG PO2 54 mmHg (83-108)
--- NOTE | 2020-08-31 08:37 | XR ---
EXAMINATION TYPE: XR chest 1V portable DATE OF EXAM: 08/31/2020 COMPARISON: 08/30/2020 HISTORY: Shortness of breath FINDINGS: There are bilateral pleural effusions with cardiomegaly and bibasilar infiltrate. There is a diffuse interstitial pattern. Heart is enlarged. Central line, ET tube, and NG tube stable. IMPRESSION: 1. Diffuse pleural-parenchymal changes stable correlate for diffuse pneumonia. Underlying pulmonary e silvestre or CHF not excluded.
[2020-08-31] MEDS: ENOXAPARIN 80 MG/0.8 ML SYRINGE SQ SCH ×2 (09:16→21:24)
[2020-08-31] MEDS: DEXAMETHASONE SOD PHOSPHATE 10 MG/ML 1 ML VIAL IV SCH (09:17)
[2020-08-31] MEDS: FAMOTIDINE 20 MG/2 ML VIAL IV SCH ×2 (09:18→21:27)
[2020-08-31] MEDS: ATORVASTATIN 40 MG TAB PO SCH (09:18)
[2020-08-31] MEDS: CITALOPRAM HYDROBROMIDE 20 MG TAB PO SCH (09:18)
[2020-08-31] MEDS: ASCORBIC ACID 500 MG TAB PO SCH (09:18)
[2020-08-31] MEDS: CHLORHEXIDINE GLUCONATE 15 ML CUP MUCOUS MEM SCH ×2 (09:18→21:27)
[2020-08-31] MEDS: ZINC SULFATE 220 MG CAP PO SCH (09:18)
[2020-08-31] MEDS: LACTULOSE 20 GM/30 ML CUP PO SCH ×2 (09:19→21:27)
[2020-08-31] MEDS: CHOLECALCIFEROL 1,000 UNIT TAB PO SCH (09:24)
[2020-08-31 11:22] LABS: Glucose,Whole Blood 120 mg/dL (75-99)
--- NOTE | 2020-08-31 14:19 | PN ---
PROGRESS NOTE PULMONARY/CRITICAL CARE PROGRESS NOTE: DATE OF SERVICE: 08/31/2020 Critical care time 34 minutes. This is a 64-year-old female who was admitted on August 22, 2020. She was moved to the ICU on August 22 for COVID pneumonia. She was intubated for acute hypoxemic respiratory failure on the next day, August 23, 2020. She remains on the ventilator. Currently, her settings include volume assist-control mode rate of 25, tidal volume 400, FiO2 of 70%, PEEP of 16, blood gases this morning on 55%. In the same setting showed a pO2 of only 54, pCO2 of 51, and pH of 7.39. Hence, the FiO2 was increased to 70%. Currently, she is on Nimbex at 1.5 mcg/kg per minute, propofol at 50 mcg/kg per minute, saline at 75 mL an hour and Vital high-protein at 54 with a goal of 54 mL an hour. Her chest x-ray continues to show diffuse bilateral infiltrates. She does have a history of obesity, hyperlipidemia, acid reflux disease, and degenerative joint disease. In addition, her respiratory failure now satisfies criteria for acute respiratory distress syndrome. Currently, vital signs are reviewed, temperature is 97.7, heart rate 67, respiratory rate 25, blood pressure 127/51, saturations are 93% on the 70% FiO2. Appears in no acute distress. Currently sedated and paralyzed. HEENT: Examination is grossly unremarkable. There is an orally placed endotracheal tube and NG tube. NECK: Supple, full range of motion. No adenopathy. Neck veins are flat. CARDIOVASCULAR: Examination reveals regular rhythm and rate. Heart rate 71 beats per minute. S1, S2 normal. Heart sounds are distant. No murmur. LUNGS: Reveal diffuse coarse bilateral rhonchi. Breath sounds equal. No wheezes or crackles. ABDOMEN: Obese. Bowel sounds are heard. EXTREMITIES: Intact. Minimal edema. No cyanosis or clubbing. SKIN: Without rash. NEUROLOGIC: Examination cannot be adequately evaluated. The patient did receive convalescent plasma x1 dose and 5 days of Remdesivir. LAB DATA: Reviewed. White count 8.1, hemoglobin 12.1, hematocrit 38.3, and platelet count 266,000. Blood gases as mentioned. Sodium 136, potassium 4.2, chloride is 106, CO2 is 31, anion gap is -1. BUN and creatinine were 25 and 0.48. Calcium 7.9. Microbiology is negative. Chest x-ray shows diffuse bilateral infiltrates. They are stable. CURRENT MEDICATIONS: Reviewed. The patient is currently on albuterol inhaler, Artificial Tears, vitamin C, Lipitor, chlorhexidine, vitamin D3, Nimbex, Celexa, Decadron, Lovenox, Pepcid, Dilaudid, insulin, and lactulose, melatonin, Reglan, Narcan, potassium protocol, propofol, saline, and zinc. ASSESSMENT: 1. Acute hypoxemic respiratory failure secondary to COVID-19 pneumonia with subsequent development of ARDS, which based on the [place] criteria is severe in nature with a PaO2 FiO2 ratio of 77. 2. Status post intubation on August 23, 2020 with failure to wean. 3. Obesity. 4. Hyperlipidemia. 5. Gastroesophageal reflux disease. 6. Degenerative joint disease. PLAN: Currently, the patient remains on mechanical ventilator. Her PO2 this morning was only 54. FiO2 was increased from 55%-70%. Will see if we cannot wean the FiO2 down again. If not, we will have to go up on the PEEP. She is currently on Nimbex at 1.5 mcg/kg per minute, propofol at 50 mcg/kg per minute and saline at 75 mL an hour. She is getting nourished with Vital high-protein at goal. Additional recommendations and suggestions are forthcoming. Prognosis is guarded. She has received 1 dose of convalescent plasma and her 5 days of Remdesivir along with other appropriate medications including vitamin C, zinc, vitamin D, and Decadron. Critical care time 34 minutes. MMODL / IJN: [id number] /
--- NOTE | 2020-08-31 16:37 | P.PN ---
Subjective from records: Ms. Frost is a 64-year-old female with a past medical history of GERD and hyperlipidemia admitted to the hospital with a chief complaint of difficulty in breathing. Patient's has tested positive for Covid. Patient symptoms started 1 week ago and progressively difficulty in breathing has worsened. Patient was found to be hypoxic in the ER and chest x-ray showed bilateral infiltrates. Patient was subsequently intubated and admitted to the ICU. On 08/28/2020-patient remains in the ICU. She is intubated and sedated. Patient had a chest x-ray done showing minimal improvement in the infiltrates. On reviewing the vitals, patient has been afebrile for the past 24 hours, heart rate 40s to 50s with blood pressure around 120 x 60. Patient spent settings are PEEP of 20, assist-control rate of 20, FiO2 55% and tidal volume of 490. Patient's labs show white count of 8.1, hemoglobin 12.1 and platelets 196. ABG showing 7.43 PCO2 of 45 and PO2 of 70. Sodium 138 potassium 4.3 BUN 24 and creatinine of 0.53. Albumin is 2.2. On 08/29/2020 -patient remains in the ICU. She is paralyzed and intubated. Patient is very slow to respond to the treatment. She is on Nimbex and propofol drips. Chest x-ray showing diffuse infiltrates and ARDS. Current ventilator settings are assist control rate of 25, FiO2 55, PEEP of 18, tidal volume of 400 mL. She had ABGs done this morning showing pH of 7.46, PCO2 42 and PO2 of 73. Patient's labs from this morning showing white count of 7.8 hemoglobin 12.5, platelets 218. Sodium 138, potassium 4.5, BUN 26, creatinine 0.50 albumin is 2.2. On 08/30/2020 -patient remains in the ICU. She is ventilated and paralyzed. Patient oxygen saturations have been slowly dropping to below 90s. She is currently on volume assist control mode, tidal volume 400, rate of 25, FiO2 55, PEEP of 16. ABGs from this morning show pH of 7.43, PCO2 45, PO2 of 65. Patient's blood sugars have been running in 200s to 250s. On reviewing her labs sodium of 138, potassium 4.3, chloride 106, bicarb 31, BUN 26, creatinine 0.48. White count of 7.7 hemoglobin 9.8 platelets 240. subjective: This is first day I am taking care of the patient 08/31/2020 this is a 64 years old female with past medical history of gastroesophageal reflux disease and hyperlipidemia. Presents on 08/22 with bilateral: With pneumonia and acute hypoxic respiratory failure. Also her had called pneumonia.she had fever and pulse ox was 72 on room air.and within 24 hours she got intubated for respiratory failure. patient remains in the ICU intubated and sedated and she is currently on mechanical ventilation Patient has been afebrile for the last few days, she is tachypneic at 25, bradycardic 50-64, blood pressure 176/55. ABG shows hypoxic today with pO2 54, pH is normal at 7.3 and pCO2 was slightly high at 51. CBC and BMP were unremarkable chest x-ray: Showing diffuse pleural-parenchymal changes for diffuse pneumonia. With underlying pulmonary edema or CHF not excluded Patient remains on albuterol,zinc sulfate, normal sinus 75 mL/h.Lovenox therapeutic dose 80 mg twice a day and dexamethasone 6 mg daily review of system: N/a Active Medications Generic Name Dose Route Start Last Admin Trade Name Freq PRN Reason Stop Dose Admin Albuterol Sulfate 2 puff 08/30/20 16:00 08/31/20 16:35 Albuterol Hfa Inhaler INHALATION 2 puff RT-Q4H ANAMARIA Administration Albuterol Sulfate 2 puff 08/30/20 14:05 Albuterol Hfa Inhaler INHALATION RT-Q2H PRN Shortness Of Breath Or Wheezing Ascorbic Acid 500 mg 08/23/20 09:00 08/31/20 09:18 Ascorbic Acid 500 Mg Tab PO 500 mg DAILY ANAMARIA Administration Atorvastatin Calcium 40 mg 08/23/20 09:00 08/31/20 09:18 Atorvastatin 40 Mg Tab PO 40 mg DAILY ANAMARIA Administration Chlorhexidine Gluconate 15 ml 08/23/20 09:00 08/31/20 09:18 Chlorhexidine Gluconate 15 Ml Cup MUCOUS MEM 15 ml BID ANAMARIA Administration Cholecalciferol 1,000 unit 08/23/20 09:00 08/31/20 09:24 Cholecalciferol 1,000 Unit Tab PO 1,000 unit DAILY ANAMARIA Administration Citalopram Hydrobromide 20 mg 08/23/20 09:00 08/31/20 09:18 Citalopram Hydrobromide 20 Mg Tab PO 20 mg DAILY ANAMARIA Administration Dexamethasone Sodium Phosphate 6 mg 08/23/20 09:30 08/31/20 09:17 Dexamethasone Sod Phosphate 10 Mg/Ml 1 Ml Vial IV 6 mg DAILY ANAMARIA Administration Enoxaparin Sodium 80 mg 08/28/20 09:00 08/31/20 09:16 Enoxaparin 80 Mg/0.8 Ml Syringe SQ 80 mg BID ANAMARIA Administration Famotidine 20 mg 08/23/20 09:30 08/31/20 09:18 Famotidine 20 Mg/2 Ml Vial IV 20 mg Q12HR ANAMARIA Administration Hydromorphone HCl 0.5 mg 08/27/20 12:00 08/31/20 16:24 Hydromorphone 0.5 Mg/0.5 Ml Syringe IVP 0.5 mg Q4HR ANAMARIA Administration Sodium Chloride 1,000 mls @ 75 mls/hr 08/22/20 21:30 08/31/20 01:50 Saline 0.9% IV 75 mls/hr .[id number] ANAMARIA Administration Cisatracurium Besylate 200 mg/ 200 mls @ 8.165 mls/hr 08/23/20 04:00 08/31/20 03:59 Sodium Chloride IV 1.5 mcg/kg/min .Q24H ANAMARIA 12.247 mls/hr Administration Protocol 1 MCG/KG/MIN Propofol 1,000 mg/ IV Solution 100 mls @ 0 mls/hr 08/30/20 15:30 08/31/20 15:13 IV 50 mcg/kg/min .Q0M ANAMARIA 42.524 mls/hr Administration Protocol Titrate Insulin Aspart 0 unit 08/25/20 00:00 08/31/20 11:23 Insulin Aspart (Novolog) 100 Unit/Ml Vial SQ Not Given Q6H [facility] Protocol Insulin Detemir 18 unit 08/30/20 21:00 08/30/20 20:51 Insulin Detemir (Levemir) 100 Unit/Ml Syr SQ 18 unit HS ANAMARIA Administration Lactulose 20 gm 08/28/20 21:00 08/31/20 09:19 Lactulose 20 Gm/30 Ml Cup PO 20 gm BID ANAMARIA Administration Melatonin 5 mg 08/22/20 21:00 08/30/20 20:25 Melatonin 5 Mg Tablet PO 5 mg HS ANAMARIA Administration Metoclopramide HCl 10 mg 08/28/20 18:00 08/31/20 12:04 Metoclopramide 5 Mg/Ml 2 Ml Vial IVP 10 mg Q6HR [facility]ARIA Administration Miscellaneous Information 1 each 08/25/20 04:06 Potassium Replacement Protocol 1 Each Misc MISCELLANE DAILY PRN Per Protocol Protocol Multi-Ingred Cream/Lotion/Oil/Oint 1 applic 08/25/20 16:00 08/31/20 16:24 Artificial Tears Ointment 3.5 Gm Tube BOTH EYES 1 applic Q4H [facility]IA Administration Naloxone HCl 0.2 mg 08/22/20 16:44 Naloxone 0.4 Mg/Ml 1 Ml Vial IV Q2M PRN Opioid Reversal Zinc Sulfate 220 mg 08/23/20 09:00 08/31/20 09:18 Zinc Sulfate 220 Mg Cap PO 220 mg DAILY ANAMARIA Administration Objective - Vital Signs Vital signs: Vital Signs Temp 97.9 F 08/31/20 12:00 Pulse 64 08/31/20 15:00 Resp 25 H 08/31/20 15:00 BP 129/65 08/31/20 03:00 Pulse Ox 95 08/31/20 15:00 Intake & Output 08/30/20 08/31/20 08/31/20 18:59 06:59 18:59 Intake Total 4663.339 8885.202 1648.912 Output Total 730 1145 955 Balance 8093.900 3285.202 693.912 Weight 152.906 kg 152.906 kg Intake: IV 900 900 675 Sodium Chloride 0.9% 1, 900 900 675 000 ml @ 75 mls/hr IV . [id number] [facility] Rx#:[id number] Intake, IV Titration 391.361 469.202 265.912 Amount Cisatracurium 200 mg In 193.876 184.863 Sodium Chloride 0.9% 180 ml @ 1 MCG/KG/MIN 8.165 mls/hr IV .Q24H [facility]IA Rx#: [id number] propofoL 1,000 mg In 100 Empty Bag 1 bag @ Titrate IV .Q0M [facility] Rx#: [id number] propofoL 1,000 mg In 284.339 265.912 Empty Bag 1 bag @ Titrate IV .Q0M [facility]NAM[facility]IA Rx#: [id number] propofoL 500 mg In Empty 97.485 Bag 1 bag @ Titrate IV . Q0M [facility] Rx#:[id number] Tube Feeding 648 756 648 Other 90 60 Output: Urine 730 1145 955 Other: Voiding Method Indwelling Catheter Indwelling Catheter Indwelling Catheter ABP, PAP, CO, CI - Last Documented Arterial Blood Pressure 141/58 - Exam -GENERAL: patient is intubated and sedated. morbidly obese HEENT: Pupils are round and equally reacting to light. EOMI. No scleral icterus. No conjunctival pallor. Normocephalic, atraumatic. No pharyngeal erythema. No thyromegaly. CARDIOVASCULAR: S1 and S2 present. No murmurs, rubs, or gallops. PULMONARY: Chest is clear to auscultation, no wheezing or crackles. ABDOMEN: Soft, nontender, nondistended, normoactive bowel sounds. No palpable organomegaly. MUSCULOSKELETAL: No joint swelling or deformity. EXTREMITIES: No cyanosis, clubbing, or pedal edema. NEUROLOGICAL: Gross neurological examination did not reveal any focal deficits. SKIN: No rashes. no petechiae. - Labs CBC & Chem 7: 08/31/20 04:30 08/31/20 04:30 Labs: Abnormal Lab Results - Last 24 Hours (Table) 08/30/20 08/30/20 08/30/20 Range/Units 18:00 20:54 23:46 Lymphocytes # (1.0-4.8) k/uL ABG pCO2 (35-45) mmHg ABG pO2 (83-108) mmHg ABG HCO3 (21-25) mmol/L ABG Total CO2 (19-24) mmol/L ABG O2 Saturation (94-97) % Sodium (137-145) mmol/L Carbon Dioxide (22-30) mmol/L BUN (7-17) mg/dL Creatinine (0.52-1.04) mg/dL Glucose (74-99) mg/dL POC Glucose (mg/dL) 249 H 258 H 207 H (75-99) mg/dL Calcium (8.4-10.2) mg/dL 08/31/20 08/31/20 08/31/20 Range/Units 04:30 04:30 05:26 Lymphocytes # 0.8 L (1.0-4.8) k/uL ABG pCO2 51 H (35-45) mmHg ABG pO2 54 L* (83-108) mmHg ABG HCO3 31 H (21-25) mmol/L ABG Total CO2 33 H (19-24) mmol/L ABG O2 Saturation 87.3 L (94-97) % Sodium 136 L (137-145) mmol/L Carbon Dioxide 31 H (22-30) mmol/L BUN 25 H (7-17) mg/dL Creatinine 0.48 L (0.52-1.04) mg/dL Glucose 142 H (74-99) mg/dL POC Glucose (mg/dL) (75-99) mg/dL Calcium 7.9 L (8.4-10.2) mg/dL 08/31/20 08/31/20 Range/Units 05:27 11:21 Lymphocytes # (1.0-4.8) k/uL ABG pCO2 (35-45) mmHg ABG pO2 (83-108) mmHg ABG HCO3 (21-25) mmol/L ABG Total CO2 (19-24) mmol/L ABG O2 Saturation (94-97) % Sodium (137-145) mmol/L Carbon Dioxide (22-30) mmol/L BUN (7-17) mg/dL Creatinine (0.52-1.04) mg/dL Glucose (74-99) mg/dL POC Glucose (mg/dL) 157 H 120 H (75-99) mg/dL Calcium (8.4-10.2) mg/dL Assessment and Plan Assessment: -Acute severe hypoxic respiratory failure from COVID 19 pneumonia-slow to respond -Bilateral extensive likely COVID 19 pneumonia, POA-slow to respond -ARDS-slow to respond -GERD -Hyperlipidemia -Depression not otherwise specified -Moderate persistent asthma with acute exacerbation -Morbid obesity BMI 53.9 -Hypoalbuminemia Plan: this is a 64 years old female who presents with bilateral, with pneumonia and respiratory failure.patient remains in the ICU with pulmonary/critical care team R following the case closely and help in managing her ventilation. Patient to continue with Lovenox therapeutic dose 80 mg twice a day and dexamethasone 6 mg daily Labs and medication were reviewed.. Continue same treatment. Continue with symptomatic treatment. Resume home medication. Monitor lytes and vitals. DVT and GI prophylaxis. Further recommendationsas per clinical course of the patient DVT prophylaxis: Subcutaneous Lovenox GI Prophylaxis: Ppi Prognosis is guarded
[2020-08-31 17:41] LABS: Glucose,Whole Blood 253 mg/dL (75-99)
[2020-08-31 17:41] LABS: Glucose,Whole Blood 292 mg/dL (75-99)
[2020-08-31 20:27] LABS: Glucose,Whole Blood 207 mg/dL (75-99)
[2020-08-31] MEDS: MELATONIN 5 MG TABLET PO SCH (21:24)
[2020-08-31] MEDS: INSULIN DETEMIR (LEVEMIR) 100 UNIT/ML SYR SQ SCH (21:28)
[2020-08-31 23:22] LABS: Glucose,Whole Blood 173 mg/dL (75-99)
[2020-09-01] MEDS: INSULIN ASPART (NovoLOG) 100 UNIT/ML VIAL SQ SCH ×5 (00:04→23:25)
[2020-09-01] MEDS: HYDROmorphone 0.5 MG/0.5 ML SYRINGE IVP SCH ×7 (00:05→23:24)
[2020-09-01] MEDS: ALBUTEROL HFA INHALER INHALATION SCH ×7 (00:39→23:34)
[2020-09-01] MEDS: ARTIFICIAL TEARS OINTMENT 3.5 GM TUBE BOTH EYES SCH ×6 (03:39→23:45)
[2020-09-01 04:46] LABS: Basophils % (A) 0 %; Eosinophils # (A) 0.1 k/uL (0-0.7); Eosinophils % (A) 1 %; HCT 36.5 % (34.0-46.0); HGB 11.5 gm/dL (11.4-16.0); Hypochromasia Slight; Lymphocytes # (A) 0.9 k/uL (1.0-4.8); Lymphocytes % (A) 12 %; MCH 30.8 pg (25.0-35.0); MCHC 31.5 g/dL (31.0-37.0); MCV 97.7 fL (80.0-100.0); Mean Platelet Volume 7.9; Monocytes # (A) 0.3 k/uL (0-1.0); Monocytes % (A) 4 %; Neutrophils # (A) 5.9 k/uL (1.3-7.7); Neutrophils % (A) 81 %; Platelet Count 276 k/uL (150-450); RBC 3.73 m/uL (3.80-5.40); RDW 14.2 % (11.5-15.5); WBC 7.2 k/uL (3.8-10.6)
[2020-09-01 05:00] LABS: African American GFR (CKD) >90 (>60 ml/min/1.73 sqM); Anion Gap -1 mmol/L; Blood Urea Nitrogen 24 mg/dL (7-17); Calcium 7.9 mg/dL (8.4-10.2); Carbon Dioxide 34 mmol/L (22-30); Chloride 104 mmol/L (98-107); Glucose 157 mg/dL (74-99); Non-African American GFR(CKD) >90 (>60 ml/min/1.73 sqM); Potassium 4.4 mmol/L (3.5-5.1); Sodium 137 mmol/L (137-145)
[2020-09-01 05:02] LABS: D-Dimer 1.33 mg/L FEU (<0.60)
[2020-09-01 05:25] LABS: C Reactive Protein 53.4 mg/L (<10.0)
[2020-09-01 05:32] LABS: ABG Base Excess 8.9 mmol/L; ABG HCO3 34 mmol/L (21-25); ABG Oxygen Saturation 94.1 % (94-97); ABG PCO2 54 mmHg (35-45); ABG PO2 69 mmHg (83-108); ABG TCO2 35 mmol/L (19-24); Allen Test Performed? Yes
[2020-09-01] MEDS: METOCLOPRAMIDE 5 MG/ML 2 ML VIAL IVP SCH ×4 (05:53→23:26)
[2020-09-01 06:10] LABS: Glucose,Whole Blood 139 mg/dL (75-99)
[2020-09-01] MEDS: CITALOPRAM HYDROBROMIDE 20 MG TAB PO SCH (07:42)
[2020-09-01] MEDS: LACTULOSE 20 GM/30 ML CUP PO SCH ×2 (07:42→20:24)
[2020-09-01] MEDS: FAMOTIDINE 20 MG/2 ML VIAL IV SCH ×2 (07:42→20:24)
[2020-09-01] MEDS: CHOLECALCIFEROL 1,000 UNIT TAB PO SCH (07:42)
[2020-09-01] MEDS: CHLORHEXIDINE GLUCONATE 15 ML CUP MUCOUS MEM SCH ×2 (07:42→20:24)
[2020-09-01] MEDS: ATORVASTATIN 40 MG TAB PO SCH (07:42)
[2020-09-01] MEDS: ZINC SULFATE 220 MG CAP PO SCH (07:43)
[2020-09-01] MEDS: ENOXAPARIN 80 MG/0.8 ML SYRINGE SQ SCH ×2 (07:43→20:24)
[2020-09-01] MEDS: ASCORBIC ACID 500 MG TAB PO SCH (07:43)
[2020-09-01] MEDS: SODIUM CHLORIDE 0.9% 1,000 ML IV SCH (07:44)
[2020-09-01] MEDS: CISATRACURIUM 200 MG in SODIUM CHLORIDE 0.9% 180 ML IV SCH ×2 (08:03→17:55)
[2020-09-01] MEDS: DEXAMETHASONE SOD PHOSPHATE 10 MG/ML 1 ML VIAL IV SCH (08:05)
--- NOTE | 2020-09-01 08:43 | XR ---
EXAMINATION TYPE: XR chest 1V portable DATE OF EXAM: 09/01/2020 COMPARISON: Prior chest x-ray 08/31/2020 HISTORY: Intubated TECHNIQUE: Single frontal view of the chest is obtained. FINDINGS: Endotracheal tube and NG tube, right jugular central venous catheter are overlying appropr iate positions. There is no evident pneumothorax. Bilateral airspace disease persists. Heart size is stable. IMPRESSION: Correlate for congestive heart failure, pneumonia, ARDS
[2020-09-01 09:32] LABS: Ferritin 306.9 ng/mL (10.0-291.0)
--- NOTE | 2020-09-01 11:04 | PN ---
PROGRESS NOTE PULMONARY/CRITICAL CARE PROGRESS NOTE: DATE OF SERVICE: 09/01/2020 Critical care time 33 minutes. This is a 64-year-old female who was admitted back on August 22, 2020. She was moved to the ICU on 08/22 for COVID pneumonia. She was intubated for acute hypoxemic respiratory failure The next day, on August 23, 2020. She remains currently on the ventilator. She has not made any progress or much progress at all. She is on the volume assist-control mode, rate of 25, tidal volume 400, FiO2 80% and a PEEP of 16 to be increased to 20. PO2 was 69, pCO2 of 54, pH is 7.4. The patient is on Nimbex at 2 mcg/kg per minute, propofol at 50 mcg/kg per minute, saline at 75 mL an hour and Vital high-protein at 54 with a goal of 54 mL an hour. Currently, as I mentioned, patient has not made much or any progress. She has a history of obesity, hyperlipidemia, acid reflux disease, degenerative joint disease, and acute respiratory distress syndrome. Current vital signs are reviewed. Temperature 97.4, heart rate 54, respiratory rate 25, blood pressure 127/48 and saturations are anywhere from 89% -92%. Appears in no acute distress. HEENT: Examination is grossly unremarkable. There is an orally placed endotracheal tube. NG tube is noted. NECK: Supple, full range of motion. No adenopathy. Neck veins are flat. CARDIOVASCULAR: Examination reveals regular rhythm and rate. Heart rate 69 beats per minute. S1, S2 normal. LUNGS: Reveal diminished breath sounds throughout. There are coarse bilateral rhonchi. There are some expiratory crackles. No wheezes. ABDOMEN: Obese, bowel sounds are heard. EXTREMITIES: Intact. There is mild edema. SKIN: Without rash. NEUROLOGIC: Examination could not be adequately assessed as the patient is sedated and paralyzed. LABS: Reviewed. White count 7.2, hemoglobin 11.5, hematocrit 36.5, platelet count 276,000. D-dimer 1.33. Blood gases are noted. Sodium 137, potassium 4.4, chloride 104, CO2 is 34, anion gap is -1. BUN and creatinine were 24 and 0.49. Microbiology is negative. Chest x-ray on 09/01 shows diffuse interstitial and patchy opacities. This is consistent with interstitial edema, acute respiratory distress syndrome, or pneumonia. MEDICATIONS: Reviewed. Currently, the patient is on albuterol inhaler, Artificial Tears, vitamin C, Lipitor, chlorhexidine, vitamin D3, Nimbex, Celexa, Decadron, Lovenox, famotidine, Dilaudid, insulin, lactulose, melatonin, Reglan, Narcan, potassium replacement, propofol, saline IV, and zinc. ASSESSMENT: 1. Acute hypoxemic respiratory failure secondary to COVID-19 pneumonia with subsequent development of ARDS, which based on [place] criteria is severe in nature, with a PaO2/FiO2 ratio of less than 100. 2. Status post intubation on August 23, 2020 with failure to wean from mechanical ventilation. 3. Obesity. 4. Hyperlipidemia. 5. Gastroesophageal reflux disease. 6. Degenerative joint disease. PLAN: Currently, the patient really has not made any progress. The PO2 of 69 on 80% 16 of PEEP. The PEEP will be increased from 16-20. Will see if we cannot edge down the FiO2. She remains on Nimbex and propofol. She is on saline at 75 mL an hour. She is getting nourishment. Will continue to follow. Overall prognosis is very guarded. Her medications are appropriate. Critical care time 33 minutes. MMODL / IJN: [id number] /
[2020-09-01 11:55] LABS: Glucose,Whole Blood 217 mg/dL (75-99)
--- NOTE | 2020-09-01 14:43 | CDI ---
Documentation Clarification Form Date: 09/01/2020 02:22:04 PM From: Quin Singh CCS, CCDS Admit Date: 08/22/2020 04:44:00 PM Patient Name: Grisel Frost Visit Number: [id number] Discharge Date: ATTENTION: The Clinical Documentation Specialists (CDI) and [facility] Coding Staff appreciate your assistance in clarifying documentation. Please respond to the clarification below the line at the bottom and electronically sign. The CDI & [facility] Coding staff will review the response and follow-up if needed. Please note: Queries are made part of the Legal Health Record. If you have any questions, please contact the author of this message via ITS. Dr. Candido Cedeno. Sheet: CHF is documented in the 08/25 CXR, the 08/26 CXR, the 08/31 CXR, the 08/31 Attending Progress Note and the 09/01 CXR. History/Risk Factors: Morbid Obesity w/BMI >60, Asthma, Hyperlipidemia, GERD. Clinical Indicators: Presented to the ED on 08/22 with Dyspnea, told by her PCP that she may have pneumonia. Clinically in acute hypoxic respiratory failure secondary to COVID 19. Patient's has tested positive for COVID. The patient initially had no extremity or peripheral edema. Per the 08/28 Attending Progress Note, the patient has a trace of bipedal edema, 08/30: Minimal edema, 09/01: Mild edema. VS 08/22: T 100.9^, P 70, R 20 (sob), BP 137/74, PO 72 RA - 90 15% nb VS 08/23: PO 85 on high flow O2, intubated, remains intubated. COVID: Positive on 08/22 BNP: not done. Echocardiogram Results: None to date CXR 08/22: Bilateral multifocal acute infiltrates, could be COVID 19 infection. CXR 08/24: Correlate for pneumonia, edema, ARDS. CXR 08/25: Similar, CHF. CXR 08/28: Bibasilar airspace opacities & small bilateral pleural effusions. CXR: 08/31: Diffuse pleural-parenchymal changes stable correlate for diffuse pneumonia. Underlying pulmonary edema or CHF not excluded. CXR 09/01: Correlate for CHF Treatment on admission 08/22: IV flid 1,000 mls @ 20 mls/hr q24, IV Decadron, IV Remdesivir. Patient was intubated on 08/23, remains on vent. 08/23: IV Lasix. Completed 5 days of Remdesivir. Received Convalescent Plasma on 08/29. In your professional opinion, can you please clarify the acuity and type of CHF if known? Congestive Heart Failure is ruled out Congestive Heart Failure, specified as: Systolic Heart Failure: o Acute o Chronic o Acute on Chronic Diastolic Heart Failure: o Acute o Chronic o Acute on Chronic Systolic & Diastolic Heart Failure: o Acute o Chronic o Acute on Chronic Heart Failure Unable to Determine Other, please specify (Last Revision: January 2018) no echocardiogram done to rule in or out heart failure , no indication to change in management MTDD
--- NOTE | 2020-09-01 17:59 | P.PN ---
Subjective from records: Ms. Frost is a 64-year-old female with a past medical history of GERD and hyperlipidemia admitted to the hospital with a chief complaint of difficulty in breathing. Patient's has tested positive for Covid. Patient symptoms started 1 week ago and progressively difficulty in breathing has worsened. Patient was found to be hypoxic in the ER and chest x-ray showed bilateral infiltrates. Patient was subsequently intubated and admitted to the ICU. On 08/28/2020-patient remains in the ICU. She is intubated and sedated. Patient had a chest x-ray done showing minimal improvement in the infiltrates. On reviewing the vitals, patient has been afebrile for the past 24 hours, heart rate 40s to 50s with blood pressure around 120 x 60. Patient spent settings are PEEP of 20, assist-control rate of 20, FiO2 55% and tidal volume of 490. Patient's labs show white count of 8.1, hemoglobin 12.1 and platelets 196. ABG showing 7.43 PCO2 of 45 and PO2 of 70. Sodium 138 potassium 4.3 BUN 24 and creatinine of 0.53. Albumin is 2.2. On 08/29/2020 -patient remains in the ICU. She is paralyzed and intubated. Patient is very slow to respond to the treatment. She is on Nimbex and propofol drips. Chest x-ray showing diffuse infiltrates and ARDS. Current ventilator settings are assist control rate of 25, FiO2 55, PEEP of 18, tidal volume of 400 mL. She had ABGs done this morning showing pH of 7.46, PCO2 42 and PO2 of 73. Patient's labs from this morning showing white count of 7.8 hemoglobin 12.5, platelets 218. Sodium 138, potassium 4.5, BUN 26, creatinine 0.50 albumin is 2.2. On 08/30/2020 -patient remains in the ICU. She is ventilated and paralyzed. Patient oxygen saturations have been slowly dropping to below 90s. She is currently on volume assist control mode, tidal volume 400, rate of 25, FiO2 55, PEEP of 16. ABGs from this morning show pH of 7.43, PCO2 45, PO2 of 65. Patient's blood sugars have been running in 200s to 250s. On reviewing her labs sodium of 138, potassium 4.3, chloride 106, bicarb 31, BUN 26, creatinine 0.48. White count of 7.7 hemoglobin 9.8 platelets 240. subjective: 08/31/2020 this is a 64 years old female with past medical history of gastroesophageal reflux disease and hyperlipidemia. Presents on 08/22 with bilateral: With pneumonia and acute hypoxic respiratory failure. Also her had called pneumonia.she had fever and pulse ox was 72 on room air.and within 24 hours she got intubated for respiratory failure. patient remains in the ICU intubated and sedated and she is currently on mechanical ventilation Patient has been afebrile for the last few days, she is tachypneic at 25, bradycardic 50-64, blood pressure 176/55. ABG shows hypoxic today with pO2 54, pH is normal at 7.3 and pCO2 was slightly high at 51. CBC and BMP were unremarkable chest x-ray: Showing diffuse pleural-parenchymal changes for diffuse pneumonia. With underlying pulmonary edema or CHF not excluded Patient remains on albuterol,zinc sulfate, normal sinus 75 mL/h.Lovenox therape utic dose 80 mg twice a day and dexamethasone 6 mg daily 09/01/2020 Patient remains in the ICU intubated and sedated. She remains on mechanical ventilation with pulmonary/critical care team following her closely and help in managing her patient sitting. Basically PEEP was increased today. Chest x-ray from today showing possible ARDS versus CHF and pneumonia. Clinically remains the same. Labs showing very slow and mild trending down of her inflammatory markers No change in medication, she remains on Lovenox therapeutic dose, albuterol, zinc sulfate, normal saline at 75 mL/h and dexamethasone review of system: N/a Active Medications Generic Name Dose Route Start Last Admin Trade Name Freq PRN Reason Stop Dose Admin Albuterol Sulfate 2 puff 08/30/20 16:00 09/01/20 16:12 Albuterol Hfa Inhaler INHALATION 2 puff RT-Q4H ANAMARIA Administration Albuterol Sulfate 2 puff 08/30/20 14:05 Albuterol Hfa Inhaler INHALATION RT-Q2H PRN Shortness Of Breath Or Wheezing Ascorbic Acid 500 mg 08/23/20 09:00 09/01/20 07:43 Ascorbic Acid 500 Mg Tab PO 500 mg DAILY A[facility] Administration Atorvastatin Calcium 40 mg 08/23/20 09:00 09/01/20 07:42 Atorvastatin 40 Mg Tab PO 40 mg DAILY A[facility] Administration Chlorhexidine Gluconate 15 ml 08/23/20 09:00 09/01/20 07:42 Chlorhexidine Gluconate 15 Ml Cup MUCOUS MEM 15 ml BID [facility]IA Administration Cholecalciferol 1,000 unit 08/23/20 09:00 09/01/20 07:42 Cholecalciferol 1,000 Unit Tab PO 1,000 unit DAILY ANAMRA[facility] Administration Citalopram Hydrobromide 20 mg 08/23/20 09:00 09/01/20 07:42 Citalopram Hydrobromide 20 Mg Tab PO 20 mg DAILY [facility] Administration Dexamethasone Sodium Phosphate 6 mg 08/23/20 09:30 09/01/20 08:05 Dexamethasone Sod Phosphate 10 Mg/Ml 1 Ml Vial IV 6 mg DAILY [facility] Administration Enoxaparin Sodium 80 mg 08/28/20 09:00 09/01/20 07:43 Enoxaparin 80 Mg/0.8 Ml Syringe SQ 80 mg BID [facility] Administration Famotidine 20 mg 08/23/20 09:30 09/01/20 07:42 Famotidine 20 Mg/2 Ml Vial IV 20 mg Q12HR [facility] Administration Hydromorphone HCl 0.5 mg 08/27/20 12:00 09/01/20 16:03 Hydromorphone 0.5 Mg/0.5 Ml Syringe IVP 0.5 mg Q4HR [facility] Administration Sodium Chloride 1,000 mls @ 75 mls/hr 08/22/20 21:30 09/01/20 07:44 Saline 0.9% IV Not Given .[id number] [facility] Cisatracurium Besylate 200 mg/ 200 mls @ 8.165 mls/hr 08/23/20 04:00 09/01/20 08:03 Sodium Chloride IV 2 mcg/kg/min .Q24H [facility] 16.329 mls/hr Administration Protocol 1 MCG/KG/MIN Propofol 1,000 mg/ IV Solution 100 mls @ 0 mls/hr 08/30/20 15:30 09/01/20 15:27 IV 50 mcg/kg/min .Q0M A[facility] 46.988 mls/hr Administration Protocol Titrate Insulin Aspart 0 unit 08/25/20 00:00 09/01/20 11:59 Insulin Aspart (Novolog) 100 Unit/Ml Vial SQ 4 unit Q6H [facility] Administration Protocol Insulin Detemir 18 unit 08/30/20 21:00 08/31/20 21:28 Insulin Detemir (Levemir) 100 Unit/Ml Syr SQ 18 unit HS [facility] Administration Lactulose 20 gm 08/28/20 21:00 09/01/20 07:42 Lactulose 20 Gm/30 Ml Cup PO 20 gm BID [facility] Administration Melatonin 5 mg 08/22/20 21:00 08/31/20 21:24 Melatonin 5 Mg Tablet PO 5 mg HS [facility] Administration Metoclopramide HCl 10 mg 08/28/20 18:00 09/01/20 11:59 Metoclopramide 5 Mg/Ml 2 Ml Vial IVP 10 mg Q6HR [facility] Administration Miscellaneous Information 1 each 08/25/20 04:06 Potassium Replacement Protocol 1 Each Misc MISCELLANE DAILY PRN Per Protocol Protocol Multi-Ingred Cream/Lotion/Oil/Oint 1 applic 08/25/20 16:00 09/01/20 16:03 Artificial Tears Ointment 3.5 Gm Tube BOTH EYES 1 applic Q4H [facility] Administration Naloxone HCl 0.2 mg 08/22/20 16:44 Naloxone 0.4 Mg/Ml 1 Ml Vial IV Q2M PRN Opioid Reversal Zinc Sulfate 220 mg 08/23/20 09:00 09/01/20 07:43 Zinc Sulfate 220 Mg Cap PO 220 mg DAILY [facility] Administration Objective - Vital Signs Vital signs: Vital Signs Temp 97.6 F 09/01/20 12:00 Pulse 50 L 09/01/20 14:00 Resp 25 H 09/01/20 14:00 BP 129/65 08/31/20 03:00 Pulse Ox 91 L 09/01/20 14:00 Intake & Output 08/31/20 09/01/20 09/01/20 18:59 06:59 18:59 Intake Total 2344.758 2295.591 1377.291 Output Total 1285 1070 695 Balance 9374.751 3090.591 682.291 Weight 152.906 kg 156.625 kg Intake: IV 900 900 600 Sodium Chloride 0.9% 1, 900 900 600 000 ml @ 75 mls/hr IV . [id number] [facility] Rx#:[id number] Intake, IV Titration 544.758 495.591 177.291 Amount Cisatracurium 200 mg In 179.623 106.141 77.291 Sodium Chloride 0.9% 180 ml @ 1 MCG/KG/MIN 8.165 mls/hr IV .Q24H [facility] Rx#: [id number] propofoL 1,000 mg In 365.135 389.45 100 Empty Bag 1 bag @ Titrate IV .Q0M A[facility]ARIA Rx#: [id number] Tube Feeding 810 810 540 Other 90 90 60 Output: Urine 1285 1070 695 Other: Voiding Method Indwelling Catheter Indwelling Catheter Indwelling Catheter ABP, PAP, CO, CI - Last Documented Arterial Blood Pressure 113/49 - Exam -GENERAL: patient is intubated and sedated. morbidly obese HEENT: Pupils are round and equally reacting to light. EOMI. No scleral icterus. No conjunctival pallor. Normocephalic, atraumatic. No pharyngeal erythema. No thyromegaly. CARDIOVASCULAR: S1 and S2 present. No murmurs, rubs, or gallops. PULMONARY: Chest is clear to auscultation, no wheezing or crackles. ABDOMEN: Soft, nontender, nondistended, normoactive bowel sounds. No palpable organomegaly. MUSCULOSKELETAL: No joint swelling or deformity. EXTREMITIES: No cyanosis, clubbing, or pedal edema. NEUROLOGICAL: Gross neurological examination did not reveal any focal deficits. SKIN: No rashes. no petechiae. - Labs CBC & Chem 7: 09/01/20 04:15 09/01/20 04:15 Labs: Abnormal Lab Results - Last 24 Hours (Table) 08/31/20 08/31/20 08/31/20 Range/Units 17:38 17:40 20:26 RBC (3.80-5.40) m/uL Lymphocytes # (1.0-4.8) k/uL D-Dimer (<0.60) mg/L FEU ABG pCO2 (35-45) mmHg ABG pO2 (83-108) mmHg ABG HCO3 (21-25) mmol/L ABG Total CO2 (19-24) mmol/L Carbon Dioxide (22-30) mmol/L BUN (7-17) mg/dL Creatinine (0.52-1.04) mg/dL Glucose (74-99) mg/dL POC Glucose (mg/dL) 253 H 292 H 207 H (75-99) mg/dL Calcium (8.4-10.2) mg/dL Ferritin (10.0-291.0) ng/mL Lactate Dehydrogenase (313-618) U/L C-Reactive Protein (<10.0) mg/L 08/31/20 09/01/20 09/01/20 Range/Units 23:10 04:15 04:15 RBC 3.73 L (3.80-5.40) m/uL Lymphocytes # 0.9 L (1.0-4.8) k/uL D-Dimer (<0.60) mg/L FEU ABG pCO2 (35-45) mmHg ABG pO2 (83-108) mmHg ABG HCO3 (21-25) mmol/L ABG Total CO2 (19-24) mmol/L Carbon Dioxide 34 H (22-30) mmol/L BUN 24 H (7-17) mg/dL Creatinine 0.49 L (0.52-1.04) mg/dL Glucose 157 H (74-99) mg/dL POC Glucose (mg/dL) 173 H (75-99) mg/dL Calcium 7.9 L (8.4-10.2) mg/dL Ferritin (10.0-291.0) ng/mL Lactate Dehydrogenase (313-618) U/L C-Reactive Protein (<10.0) mg/L 09/01/20 09/01/20 09/01/20 Range/Units 04:15 04:15 05:28 RBC (3.80-5.40) m/uL Lymphocytes # (1.0-4.8) k/uL D-Dimer 1.33 H (<0.60) mg/L FEU ABG pCO2 54 H (35-45) mmHg ABG pO2 69 L (83-108) mmHg ABG HCO3 34 H (21-25) mmol/L ABG Total CO2 35 H (19-24) mmol/L Carbon Dioxide (22-30) mmol/L BUN (7-17) mg/dL Creatinine (0.52-1.04) mg/dL Glucose (74-99) mg/dL POC Glucose (mg/dL) (75-99) mg/dL Calcium (8.4-10.2) mg/dL Ferritin 306.9 H (10.0-291.0) ng/mL Lactate Dehydrogenase 761 H (313-618) U/L C-Reactive Protein 53.4 H (<10.0) mg/L 09/01/20 09/01/20 Range/Units 05:58 11:54 RBC (3.80-5.40) m/uL Lymphocytes # (1.0-4.8) k/uL D-Dimer (<0.60) mg/L FEU ABG pCO2 (35-45) mmHg ABG pO2 (83-108) mmHg ABG HCO3 (21-25) mmol/L ABG Total CO2 (19-24) mmol/L Carbon Dioxide (22-30) mmol/L BUN (7-17) mg/dL Creatinine (0.52-1.04) mg/dL Glucose (74-99) mg/dL POC Glucose (mg/dL) 139 H 217 H (75-99) mg/dL Calcium (8.4-10.2) mg/dL Ferritin (10.0-291.0) ng/mL Lactate Dehydrogenase (313-618) U/L C-Reactive Protein (<10.0) mg/L Assessment and Plan Assessment: -Acute severe hypoxic respiratory failure from COVID 19 pneumonia-slow to respond -Bilateral extensive likely COVID 19 pneumonia, POA-slow to respond -ARDS-slow to respond -GERD -Hyperlipidemia -Depression not otherwise specified -Moderate persistent asthma with acute exacerbation -Morbid obesity BMI 53.9 -Hypoalbuminemia Plan: this is a 64 years old female who presents with bilateral, with pneumonia and respiratory failure.patient remains in the ICU with pulmonary/critical care team R following the case closely and help in managing her ventilation. Patient to continue with Lovenox therapeutic dose 80 mg twice a day and dexamethasone 6 mg daily Labs and medication were reviewed.. Continue same treatment. Continue with symptomatic treatment. Resume home medication. Monitor lytes and vitals. DVT and GI prophylaxis. Further recommendationsas per clinical course of the patient DVT prophylaxis: Subcutaneous Lovenox GI Prophylaxis: Ppi Prognosis is guarded
[2020-09-01 18:00] LABS: Glucose,Whole Blood 218 mg/dL (75-99)
[2020-09-01] MEDS: INSULIN DETEMIR (LEVEMIR) 100 UNIT/ML SYR SQ SCH (20:24)
[2020-09-01] MEDS: MELATONIN 5 MG TABLET PO SCH (20:25)
[2020-09-01 20:37] LABS: Glucose,Whole Blood 190 mg/dL (75-99)
[2020-09-01 23:09] LABS: Glucose,Whole Blood 174 mg/dL (75-99)
[2020-09-02] MEDS: SODIUM CHLORIDE 0.9% 1,000 ML IV SCH ×3 (03:17→23:35)
[2020-09-02] MEDS: ARTIFICIAL TEARS OINTMENT 3.5 GM TUBE BOTH EYES SCH ×6 (03:18→23:34)
[2020-09-02] MEDS: HYDROmorphone 0.5 MG/0.5 ML SYRINGE IVP SCH ×7 (03:25→23:34)
[2020-09-02] MEDS: ALBUTEROL HFA INHALER INHALATION SCH ×6 (03:36→23:49)
[2020-09-02 04:27] LABS: Basophils % (A) 0 %; Eosinophils # (A) 0.1 k/uL (0-0.7); Eosinophils % (A) 2 %; HCT 35.9 % (34.0-46.0); HGB 11.2 gm/dL (11.4-16.0); Hypochromasia Slight; Lymphocytes # (A) 0.9 k/uL (1.0-4.8); Lymphocytes % (A) 12 %; MCH 30.7 pg (25.0-35.0); MCHC 31.2 g/dL (31.0-37.0); MCV 98.3 fL (80.0-100.0); Mean Platelet Volume 7.9; Monocytes # (A) 0.3 k/uL (0-1.0); Monocytes % (A) 4 %; Neutrophils # (A) 6.2 k/uL (1.3-7.7); Neutrophils % (A) 81 %; Platelet Count 254 k/uL (150-450); RBC 3.65 m/uL (3.80-5.40); RDW 14.3 % (11.5-15.5); WBC 7.7 k/uL (3.8-10.6)
[2020-09-02 04:54] LABS: African American GFR (CKD) >90 (>60 ml/min/1.73 sqM); Anion Gap -2 mmol/L; Blood Urea Nitrogen 23 mg/dL (7-17); C Reactive Protein 63.7 mg/L (<10.0); Calcium 7.9 mg/dL (8.4-10.2); Carbon Dioxide 37 mmol/L (22-30); Chloride 103 mmol/L (98-107); Glucose 144 mg/dL (74-99); Non-African American GFR(CKD) >90 (>60 ml/min/1.73 sqM); Potassium 4.1 mmol/L (3.5-5.1); Sodium 138 mmol/L (137-145)
[2020-09-02 05:18] LABS: ABG Base Excess 9.5 mmol/L; ABG HCO3 34 mmol/L (21-25); ABG Oxygen Saturation 92.4 % (94-97); ABG PCO2 55 mmHg (35-45); ABG PH 7.41 (7.35-7.45); ABG PO2 64 mmHg (83-108); ABG TCO2 36 mmol/L (19-24)
[2020-09-02 05:29] LABS: Allen Test Performed? no
[2020-09-02 05:29] LABS: Glucose,Whole Blood 155 mg/dL (75-99)
[2020-09-02] MEDS: METOCLOPRAMIDE 5 MG/ML 2 ML VIAL IVP SCH ×4 (05:32→23:34)
[2020-09-02] MEDS: INSULIN ASPART (NovoLOG) 100 UNIT/ML VIAL SQ SCH ×3 (05:33→17:24)
[2020-09-02] MEDS: CISATRACURIUM 200 MG in SODIUM CHLORIDE 0.9% 180 ML IV SCH (05:35)
[2020-09-02] MEDS: ZINC SULFATE 220 MG CAP PO SCH (08:42)
[2020-09-02] MEDS: FAMOTIDINE 20 MG/2 ML VIAL IV SCH ×2 (08:42→20:47)
[2020-09-02] MEDS: ASCORBIC ACID 500 MG TAB PO SCH (08:42)
[2020-09-02] MEDS: CITALOPRAM HYDROBROMIDE 20 MG TAB PO SCH (08:42)
[2020-09-02] MEDS: DEXAMETHASONE SOD PHOSPHATE 10 MG/ML 1 ML VIAL IV SCH (08:42)
[2020-09-02] MEDS: ATORVASTATIN 40 MG TAB PO SCH (08:42)
[2020-09-02] MEDS: CHOLECALCIFEROL 1,000 UNIT TAB PO SCH (08:42)
[2020-09-02] MEDS: LACTULOSE 20 GM/30 ML CUP PO SCH ×2 (08:44→20:47)
[2020-09-02] MEDS: CHLORHEXIDINE GLUCONATE 15 ML CUP MUCOUS MEM SCH ×2 (08:44→20:47)
[2020-09-02] MEDS: ENOXAPARIN 80 MG/0.8 ML SYRINGE SQ SCH ×2 (08:44→20:48)
--- NOTE | 2020-09-02 09:02 | XR ---
EXAMINATION TYPE: XR chest 1V portable DATE OF EXAM: 09/02/2020 COMPARISON: 09/01/2020 HISTORY: Tube placement TECHNIQUE: Single frontal view of the chest is obtained. FINDINGS: Diffuse interstitial pattern with bilateral consolidation and pleural effusion. No pneumot horax. ETT, NG tube and central line stable. Hypertrophic and degenerative changes of the spine. IMPRESSION: diffuse pleural-parenchymal changes correlate for CHF, ARDS or diffuse pneumonia.
--- NOTE | 2020-09-02 10:17 | PN ---
PROGRESS NOTE PULMONARY/CRITICAL CARE PROGRESS NOTE: DATE OF SERVICE: 09/02/2020 Critical care time 34 minutes. A 64-year-old female who was admitted back on August 22, 2020. She was moved to the ICU on 08/22 for COVID pneumonia/pneumonitis. She was intubated on August 23, 2020 for respiratory failure and profound hypoxemia. She has remained on the ventilator since that time and has not made much in the way of progress. Currently, she is on the volume assist-control mode rate of 25, tidal volume 400, FiO2 65%, PEEP of 20. Blood gases show pO2 of 64, pCO2 of 55 and a pH of 7.41. She is getting Nimbex at 2 mcg/kg per minute, propofol at 50 mcg/kg per minute, saline at 75 mL an hours and Vital high- protein at 54 with a goal of 54 mL an hour. Yesterday, we bumped her PEEP up from 16 to 20. We have been able to wean her FiO2 down from 80% to 65%. Currently, the patient is clinically stable. In addition to the above, she has a history of obesity, hyperlipidemia, gastroesophageal reflux disease, and degenerative joint disease. Current vital signs are reviewed, temperature 97.9, heart rate 56, respiratory rate 25, blood pressure 122/54 mean 76, and saturations are 94% on the 65% and 20 PEEP. Appears in no acute distress. Currently sedated and paralyzed. HEENT: Examination is grossly unremarkable. There is an orally placed endotracheal tube and NG tube. NECK: Supple, full range of motion. No adenopathy. Neck veins are flat. CARDIOVASCULAR: Examination reveals regular rhythm and rate. S1, S2 normal. Heart rate 56. Heart sounds are distant. LUNGS: Reveal coarse bilateral rhonchi. Breath sounds equal. No wheezes. ABDOMEN: Obese, bowel sounds are heard. EXTREMITIES: Intact. Mild edema. SKIN: Without rash. NEUROLOGIC: Examination cannot be adequately assessed. LABS: Reviewed. White count 7.7, hemoglobin 11.2, hematocrit 35.9, platelet count 254,000. D-dimer 1.43. Sodium 138, potassium 4.1, chloride is 103, CO2 is 37. BUN and creatinine were 23 and 0.54. C-reactive protein 63.7. Microbiology is currently negative. Chest x-ray from 09/02 compared to the one on shows no changes. She has got diffuse pleural parenchymal changes which are consistent with ARDS. CURRENT MEDICATIONS: Reviewed. She is currently on albuterol inhaler, Artificial Tears, vitamin C, Lipitor, chlorhexidine, vitamin D3, Nimbex, citalopram, Decadron, Lovenox, famotidine, Dilaudid, insulin, lactulose, melatonin, Reglan, Narcan, potassium replacement therapy, propofol, saline IV, and zinc. ASSESSMENT: 1. Acute hypoxemic respiratory failure secondary to COVID-19 pneumonia with subsequent development of acute respiratory distress syndrome, severe, based on the [place] criteria. 2. Status post intubation on August 23 with failure to wean from mechanical ventilation. 3. Obesity. 4. Hyperlipidemia. 5. Gastroesophageal reflux disease. 6. Degenerative joint disease. PLAN: Yesterday we increased the PEEP from 16-20. We were able to reduce the FiO2 down from 80% to 65%. The patient remains on Nimbex at 2 mcg/kg per minute, Diprivan at 50 mcg/kg per minute and saline at 75 mL an hour. She is being nourished with Vital high- protein. Her chest x-ray is basically unchanged. Will continue to follow. Overall prognosis is poor. No additional recommendations are made. Critical care time 34 minutes. MMODL / IJN: [id number] /
[2020-09-02 10:31] LABS: Ferritin 258.3 ng/mL (10.0-291.0)
[2020-09-02 11:25] LABS: Glucose,Whole Blood 180 mg/dL (75-99)
[2020-09-02 16:57] LABS: Glucose,Whole Blood 224 mg/dL (75-99)
[2020-09-02] MEDS: MELATONIN 5 MG TABLET PO SCH (20:48)
[2020-09-02] MEDS: INSULIN DETEMIR (LEVEMIR) 100 UNIT/ML SYR SQ SCH (20:48)
--- NOTE | 2020-09-02 21:47 | P.PN ---
Progress Note - Text Progress Note Date: 09/02/20 Chief Complaint: Short of breath History of presenting complaint: This is a 64-year-old patient follows with Dr. Chun. Patient has tested positive for COVID. Patient's symptoms started about a week ago. Progressively short of breath. More so in the last 4 days. Became much more significant yesterday. Presented to the ER. Also had fevers. Patient was hypoxic in the ER initial pulse ox around 70%. Was on 6 L with an wall. Check stat x-ray shows bilateral infiltrates. Patient smoked to the ICU. Subsequently intubated. Patient's currently on IV Decadron, propofol, IV fluids, IV cisatracurium. Patient on a FiO2 80% and a PEEP of 18. Has a OG- tube, Florentino catheter and endotracheal tube. Telemetry shows sinus rhythm. Seen by Dr. Clemente public health clinical nurse specialist in the ER. Admitted with bilateral COVID 19 pneumonia with acute hypoxic respiratory failur e, , acute asthma exacerbation. Ventilated.status post steroids, Remdesivir. Today-ICU. on the ventilator. FiO2 65% and a PEEP of 20. Drips included propofol and Nimbex. Has a Florentino catheter. 2 feeding at 50 mL an hour. Review of systems-cannot be done as patient intubated Active Medications Albuterol Sulfate (Albuterol Hfa Inhaler) 2 puff INHALATION RT-Q4H [facility] Last Admin: 09/02/20 19:43 Dose: 2 puff Documented by: Albuterol Sulfate (Albuterol Hfa Inhaler) 2 puff INHALATION RT-Q2H PRN PRN Reason: Shortness Of Breath Or Wheezing Ascorbic Acid (Ascorbic Acid 500 Mg Tab) 500 mg PO DAILY [facility] Last Admin: 09/02/20 08:42 Dose: 500 mg Documented by: Atorvastatin Calcium (Atorvastatin 40 Mg Tab) 40 mg PO DAILY [facility] Last Admin: 09/02/20 08:42 Dose: 40 mg Documented by: Chlorhexidine Gluconate (Chlorhexidine Gluconate 15 Ml Cup) 15 ml MUCOUS MEM BID [facility] Last Admin: 09/02/20 20:47 Dose: 15 ml Documented by: Cholecalciferol (Cholecalciferol 1,000 Unit Tab) 1,000 unit PO DAILY [facility] Last Admin: 09/02/20 08:42 Dose: 1,000 unit Documented by: Citalopram Hydrobromide (Citalopram Hydrobromide 20 Mg Tab) 20 mg PO DAILY [facility] Last Admin: 09/02/20 08:42 Dose: 20 mg Documented by: Dexamethasone Sodium Phosphate (Dexamethasone Sod Phosphate 10 Mg/Ml 1 Ml Vial) 6 mg IV DAILY [facility] Last Admin: 09/02/20 08:42 Dose: 6 mg Documented by: Enoxaparin Sodium (Enoxaparin 80 Mg/0.8 Ml Syringe) 80 mg SQ BID [facility] Last Admin: 09/02/20 20:48 Dose: 80 mg Documented by: Famotidine (Famotidine 20 Mg/2 Ml Vial) 20 mg IV Q12HR [facility] Last Admin: 09/02/20 20:47 Dose: 20 mg Documented by: Hydromorphone HCl (Hydromorphone 0.5 Mg/0.5 Ml Syringe) 0.5 mg IVP Q4HR [facility] Last Admin: 09/02/20 20:48 Dose: 0.5 mg Documented by: Sodium Chloride (Saline 0.9%) 1,000 mls @ 75 mls/hr IV .[id number] [facility] Last Admin: 09/02/20 12:34 Dose: 75 mls/hr Documented by: Cisatracurium Besylate 200 mg/ (Sodium Chloride) 200 mls @ 8.165 mls/hr IV .Q24H [facility]; Protocol Last Admin: 09/02/20 05:35 Dose: 2 mcg/kg/min, 16.329 mls/hr Documented by: Propofol 1,000 mg/ IV Solution 100 mls @ 0 mls/hr IV .Q0M [facility]; Protocol Last Admin: 09/02/20 17:35 Dose: 50 mcg/kg/min, 47.042 mls/hr Documented by: Insulin Aspart (Insulin Aspart (Novolog) 100 Unit/Ml Vial) 0 unit SQ Q6H [facility]; Protocol Last Admin: 09/02/20 17:24 Dose: 7 unit Documented by: Insulin Detemir (Insulin Detemir (Levemir) 100 Unit/Ml Syr) 36 unit SQ HS [facility] Last Admin: 09/02/20 20:48 Dose: 36 unit Documented by: Lactulose (Lactulose 20 Gm/30 Ml Cup) 20 gm PO BID [facility] Last Admin: 09/02/20 20:47 Dose: 20 gm Documented by: Melatonin (Melatonin 5 Mg Tablet) 5 mg PO HS [facility] Last Admin: 09/02/20 20:48 Dose: 5 mg Documented by: Metoclopramide HCl (Metoclopramide 5 Mg/Ml 2 Ml Vial) 10 mg IVP Q6HR [facility] Last Admin: 09/02/20 17:25 Dose: 10 mg Documented by: Miscellaneous Information (Potassium Replacement Protocol 1 Each Misc) 1 each MISCELLANE DAILY PRN; Protocol PRN Reason: Per Protocol Multi-Ingred Cream/Lotion/Oil/Oint (Artificial Tears Ointment 3.5 Gm Tube) 1 applic BOTH EYES Q4H [facility] Last Admin: 09/02/20 20:47 Dose: 1 applic Documented by: Naloxone HCl (Naloxone 0.4 Mg/Ml 1 Ml Vial) 0.2 mg IV Q2M PRN PRN Reason: Opioid Reversal Zinc Sulfate (Zinc Sulfate 220 Mg Cap) 220 mg PO DAILY [facility] Last Admin: 09/02/20 08:42 Dose: 220 mg Documented by: Physical examination: VITAL SIGNS:98, 54, 25, 135/61, 91% on the ventilator GENERAL:, laying in bed, intubated.Florentino catheter Psychiatry-patient sedated Rest of the physical exam as per nursing and public health clinical nurse specialist INVESTIGATIONS, reviewed in the clinical context: Today-white count 7.7 hemoglobin 11.2 platelets 254potassium 4.1 creatinine 0.5 for CRP 63.7 Accu-Cheks 155, 180, 224 Previous testing White count 5.6 hemoglobin 14.9 platelets 165 decreased lymphocytes Potassium 3.8 creatinine 0.7 to Ferritin 459 LDH 1139 CRP 32.9 pro-calcitonin 0.07 Chest x-ray film personally reviewed by me-bilateral scattered infiltrates, portable film COVID 19 P/Cr-detected Assessment: -Bilateral extensive COVID 19 pneumonia, POA-slow to respond -Sepsis from above- -ARDS-slow to respond -Acute severe hypoxic respiratory failure from COVID 19 pneumonia-slow to respond -GERD -Hyperlipidemia -Depression not otherwise specified -Moderate persistent asthma with acute exacerbation -Morbid obesity BMI 53.9 -Hypoalbuminemia, acute phase reactant Plan: remains critically ill.include Nimbex and propofol.follow-up in public health clinical nurse specialist. Other supportive medications to continue. Will discussed with Dr. Stokes about discontinuing dexamethasone.-Patient's had 10 days of the same.
[2020-09-02 23:19] LABS: Glucose,Whole Blood 139 mg/dL (75-99)
[2020-09-03] MEDS: INSULIN ASPART (NovoLOG) 100 UNIT/ML VIAL SQ SCH ×4 (00:19→17:13)
[2020-09-03] MEDS: CISATRACURIUM 200 MG in SODIUM CHLORIDE 0.9% 180 ML IV SCH ×2 (03:05→17:13)
[2020-09-03] MEDS: ALBUTEROL HFA INHALER INHALATION SCH ×6 (03:37→23:43)
[2020-09-03] MEDS: ARTIFICIAL TEARS OINTMENT 3.5 GM TUBE BOTH EYES SCH ×5 (04:00→22:33)
[2020-09-03] MEDS: HYDROmorphone 0.5 MG/0.5 ML SYRINGE IVP SCH ×5 (04:00→19:13)
[2020-09-03 05:10] LABS: ABG Base Excess 11.5 mmol/L; ABG HCO3 35 mmol/L (21-25); ABG Oxygen Saturation 92.8 % (94-97); ABG PCO2 49 mmHg (35-45); ABG PH 7.47 (7.35-7.45); ABG PO2 62 mmHg (83-108); ABG TCO2 37 mmol/L (19-24)
[2020-09-03 05:13] LABS: Allen Test Performed? no
[2020-09-03 05:57] LABS: Basophils % (A) 0 %; Eosinophils # (A) 0.1 k/uL (0-0.7); Eosinophils % (A) 1 %; HCT 33.8 % (34.0-46.0); Hypochromasia Slight; Lymphocytes # (A) 1.3 k/uL (1.0-4.8); Lymphocytes % (A) 15 %; MCH 31.9 pg (25.0-35.0); MCHC 32.6 g/dL (31.0-37.0); MCV 97.7 fL (80.0-100.0); Mean Platelet Volume 7.9; Monocytes # (A) 0.4 k/uL (0-1.0); Monocytes % (A) 4 %; Neutrophils # (A) 6.5 k/uL (1.3-7.7); Neutrophils % (A) 76 %; Platelet Count 231 k/uL (150-450); RBC 3.46 m/uL (3.80-5.40); RDW 14.1 % (11.5-15.5); WBC 8.5 k/uL (3.8-10.6)
[2020-09-03 06:08] LABS: ALT 59 U/L (4-34); AST 35 U/L (14-36); African American GFR (CKD) >90 (>60 ml/min/1.73 sqM); Albumin 2.2 g/dL (3.5-5.0); Alkaline Phosphatase 60 U/L (38-126); Anion Gap -2 mmol/L; Blood Urea Nitrogen 28 mg/dL (7-17); Calcium 7.9 mg/dL (8.4-10.2); Carbon Dioxide 37 mmol/L (22-30); Chloride 102 mmol/L (98-107); Glucose 134 mg/dL (74-99); Non-African American GFR(CKD) >90 (>60 ml/min/1.73 sqM); Potassium 4.4 mmol/L (3.5-5.1); Sodium 137 mmol/L (137-145); Total Bilirubin 0.4 mg/dL (0.2-1.3); Total Protein 4.8 g/dL (6.3-8.2)
[2020-09-03] MEDS: METOCLOPRAMIDE 5 MG/ML 2 ML VIAL IVP SCH ×3 (06:12→17:17)
[2020-09-03 06:20] LABS: Glucose,Whole Blood 140 mg/dL (75-99)
--- NOTE | 2020-09-03 08:30 | XR ---
EXAMINATION TYPE: XR chest 1V portable DATE OF EXAM: 09/03/2020 COMPARISON: 09/02/2020 HISTORY: Tube placement FINDINGS: There are bilateral pleural effusions with cardiomegaly and bibasilar infiltrate. There is a diffuse interstitial pattern. ET and NG tube stable. Right-sided central line noted. IMPRESSION: 1. Stable diffuse airspace disease correlate for pulmonary edema versus diffuse pneumonia
[2020-09-03] MEDS: CHOLECALCIFEROL 1,000 UNIT TAB PO SCH (09:36)
[2020-09-03] MEDS: ATORVASTATIN 40 MG TAB PO SCH (09:36)
[2020-09-03] MEDS: DEXAMETHASONE SOD PHOSPHATE 10 MG/ML 1 ML VIAL IV SCH (09:36)
[2020-09-03] MEDS: LACTULOSE 20 GM/30 ML CUP PO SCH ×2 (09:36→20:18)
[2020-09-03] MEDS: ZINC SULFATE 220 MG CAP PO SCH (09:36)
[2020-09-03] MEDS: CHLORHEXIDINE GLUCONATE 15 ML CUP MUCOUS MEM SCH ×2 (09:36→20:18)
[2020-09-03] MEDS: ASCORBIC ACID 500 MG TAB PO SCH (09:36)
[2020-09-03] MEDS: CITALOPRAM HYDROBROMIDE 20 MG TAB PO SCH (09:36)
[2020-09-03] MEDS: ENOXAPARIN 80 MG/0.8 ML SYRINGE SQ SCH ×2 (09:37→20:18)
[2020-09-03] MEDS: FAMOTIDINE 20 MG/2 ML VIAL IV SCH ×2 (09:37→20:18)
[2020-09-03 10:56] LABS: Ferritin 228.1 ng/mL (10.0-291.0)
--- NOTE | 2020-09-03 11:25 | PN ---
PROGRESS NOTE PULMONARY/CRITICAL CARE PROGRESS NOTE: DATE OF SERVICE: September 03, 2020. Critical care time 33 minutes. This is a 64-year-old female who was admitted on August 23, 2020 and moved to the ICU on the same day. She came in with COVID-19 pneumonia/pneumonitis. She was intubated on the following day, August 23, for respiratory failure and profound hypoxemia. She remains on the ventilator, having not made much progress. Currently, she is on the volume assist-control mode rate of 25, tidal volume 400, FiO2 65%, PEEP of 20. Blood gases show pO2 of 62, pCO2 of 49 and pH 7.47. Currently, she is on Atracurium or Nimbex at 2 mcg/kg/minute with train of 4 monitoring, propofol at 50 mcg/kg/minute, saline at 75 mL an hour and Vital high-protein at 54, which is goal. Again, the patient has not made much progress at all over this past week. She does have a history of obesity, hyperlipidemia, GERD, and degenerative joint disease. PHYSICAL EXAMINATION: VITAL SIGNS: Current vital signs are reviewed. Temperature 97.5, heart rate 65, respiratory rate 25, blood pressure 128/61, mean 83, saturations are 93%. Appears in no acute distress. HEENT: Examination is grossly unremarkable. NECK: Supple. Full range of motion. No adenopathy. Neck veins are flat. Again, she has an orally placed endotracheal tube and NG tube. NECK: Supple. CARDIOVASCULAR: Examination reveals regular rhythm and rate. Heart rate mid 60s. S1, S2 normal. Heart sounds are distant. LUNGS: Reveal diffuse coarse rhonchi. Breath sounds are diminished. Breath sounds equal bilaterally. No crackles. ABDOMEN: Obese. Bowel sounds are heard. EXTREMITIES: Intact. Some slight edema. No cyanosis or clubbing. SKIN: Without rash. NEUROLOGIC: Examination cannot be adequately assessed. CURRENT LABORATORY DATA: Includes a white count 8.5, hemoglobin of 11, hematocrit 33.8, platelet count which is normal at 231,000. D-dimer 1.12. Blood gases have been noted. Sodium 137, potassium 4.4, chloride 102, CO2 37, anion gap is -2, BUN and creatinine were 28 and 0.53. C- reactive protein 67, albumin 2.2. Microbiology including blood cultures have been negative. IMAGING: Chest x-ray from the 13 when compared to the prior chest x-ray shows stable diffuse airspace disease. CURRENT MEDICATIONS: Reviewed. The patient is on albuterol inhaler, Artificial Tears, vitamin C, Lipitor, chlorhexidine, vitamin D3, Nimbex, citalopram, Decadron, Lovenox, famotidine, Dilaudid, insulin, lactulose, melatonin, Reglan, Narcan, potassium replacement therapy, Diprivan, zinc, and saline IV. ASSESSMENT: 1. Acute hypoxemic respiratory failure secondary to COVID-19 pneumonia with subsequent development of acute respiratory distress syndrome, severe, based on the [place] criteria. 2. Status post intubation on August 23 with failure to wean from mechanical ventilation and no significant progress over the last 4 or 5 days. 3. Obesity. 4. Hyperlipidemia. 5. Gastroesophageal reflux disease. 6. Degenerative joint disease. PLAN: Currently, the patient is on the volume assist-control mode. She is on a PEEP of 20. Her FiO2 is 65%. Blood gases are barely acceptable. She is getting Nimbex at 2 mcg/kg/minute, propofol at 50 mcg/kg/ minute and Vital high-protein at goal. We will continue to follow. I will reach out to the family. No additional recommendations are made. Prognosis is poor. MMODL / IJN: [id number] /
[2020-09-03 11:40] LABS: Glucose,Whole Blood 141 mg/dL (75-99)
[2020-09-03] MEDS: SODIUM CHLORIDE 0.9% 1,000 ML IV SCH (12:24)
[2020-09-03 16:50] LABS: Glucose,Whole Blood 197 mg/dL (75-99)
[2020-09-03] MEDS: MELATONIN 5 MG TABLET PO SCH (20:18)
[2020-09-03] MEDS: INSULIN DETEMIR (LEVEMIR) 100 UNIT/ML SYR SQ SCH (20:19)
[2020-09-03] MEDS: CLEVIDIPINE BUTYRATE 25 MG in EMPTY BAG 1 BAG IV SCH ×2 (21:21→22:36)
[2020-09-04] MEDS: CLEVIDIPINE BUTYRATE 25 MG in EMPTY BAG 1 BAG IV SCH ×2 (01:21→04:48)
[2020-09-04] MEDS: ARTIFICIAL TEARS OINTMENT 3.5 GM TUBE BOTH EYES SCH ×6 (03:23→20:56)
[2020-09-04] MEDS: HYDROmorphone 0.5 MG/0.5 ML SYRINGE IVP SCH ×6 (03:24→20:56)
[2020-09-04] MEDS: METOCLOPRAMIDE 5 MG/ML 2 ML VIAL IVP SCH ×4 (03:24→17:05)
[2020-09-04] MEDS: SODIUM CHLORIDE 0.9% 1,000 ML IV SCH ×3 (03:25→23:36)
[2020-09-04] MEDS: ALBUTEROL HFA INHALER INHALATION SCH ×5 (03:52→20:17)
[2020-09-04 03:54] LABS: Glucose,Whole Blood 133 mg/dL (75-99)
[2020-09-04] MEDS: CISATRACURIUM 200 MG in SODIUM CHLORIDE 0.9% 180 ML IV SCH ×3 (03:54→17:44)
[2020-09-04] MEDS: INSULIN ASPART (NovoLOG) 100 UNIT/ML VIAL SQ SCH ×4 (03:55→17:07)
[2020-09-04 04:13] LABS: Basophils # (A) 0.1 k/uL (0-0.2); Basophils % (A) 1 %; Eosinophils # (A) 0.1 k/uL (0-0.7); Eosinophils % (A) 1 %; HCT 38.8 % (34.0-46.0); HGB 12.3 gm/dL (11.4-16.0); Hypochromasia Slight; Lymphocytes # (A) 0.8 k/uL (1.0-4.8); Lymphocytes % (A) 6 %; MCH 31.1 pg (25.0-35.0); MCHC 31.7 g/dL (31.0-37.0); Mean Platelet Volume 7.6; Monocytes # (A) 0.5 k/uL (0-1.0); Monocytes % (A) 4 %; Neutrophils # (A) 11.7 k/uL (1.3-7.7); Neutrophils % (A) 88 %; Platelet Count 283 k/uL (150-450); RBC 3.96 m/uL (3.80-5.40); RDW 14.3 % (11.5-15.5); WBC 13.3 k/uL (3.8-10.6)
[2020-09-04 04:31] LABS: ALT 85 U/L (4-34); AST 51 U/L (14-36); African American GFR (CKD) >90 (>60 ml/min/1.73 sqM); Albumin 2.6 g/dL (3.5-5.0); Alkaline Phosphatase 81 U/L (38-126); Anion Gap 1 mmol/L; Blood Urea Nitrogen 22 mg/dL (7-17); C Reactive Protein 67.1 mg/L (<10.0); Calcium 8.4 mg/dL (8.4-10.2); Carbon Dioxide 37 mmol/L (22-30); Chloride 105 mmol/L (98-107); Creatine Kinase <20 U/L (30-135); Glucose 142 mg/dL (74-99); LDH 890 U/L (313-618); Non-African American GFR(CKD) >90 (>60 ml/min/1.73 sqM); Potassium 4.3 mmol/L (3.5-5.1); Sodium 143 mmol/L (137-145); Total Bilirubin 0.5 mg/dL (0.2-1.3); Total Protein 5.5 g/dL (6.3-8.2)
[2020-09-04 04:32] LABS: D-Dimer 1.35 mg/L FEU (<0.60)
[2020-09-04 05:27] LABS: ABG Base Excess 12.7 mmol/L; ABG HCO3 37 mmol/L (21-25); ABG Oxygen Saturation 88.9 % (94-97); ABG PCO2 58 mmHg (35-45); ABG PH 7.42 (7.35-7.45); ABG TCO2 39 mmol/L (19-24); Allen Test Performed? Yes
[2020-09-04 05:49] LABS: ABG PO2 57 mmHg (83-108)
[2020-09-04 06:14] LABS: Glucose,Whole Blood 121 mg/dL (75-99)
--- NOTE | 2020-09-04 08:11 | XR ---
EXAMINATION TYPE: XR chest 1V portable DATE OF EXAM: 09/04/2020 COMPARISON: Prior chest x-ray 09/03/2020 HISTORY: Intubated TECHNIQUE: Single frontal view of the chest is obtained. FINDINGS: Endotracheal tube and NG tube, right jugular central venous catheter are overlying appropr iate positions. Lung volumes are low, technique is apical lordotic. Bilateral airspace disease persis ts. Heart size likely stable accounting for differences in technique. There are overlying cardiac anatoliy ds. No evident pneumothorax. IMPRESSION: Correlate for pneumonia, edema, ARDS.
[2020-09-04] MEDS: CITALOPRAM HYDROBROMIDE 20 MG TAB PO SCH (08:29)
[2020-09-04] MEDS: FAMOTIDINE 20 MG/2 ML VIAL IV SCH ×2 (08:29→20:57)
[2020-09-04] MEDS: CHLORHEXIDINE GLUCONATE 15 ML CUP MUCOUS MEM SCH ×2 (08:29→20:56)
[2020-09-04] MEDS: ASCORBIC ACID 500 MG TAB PO SCH (08:29)
[2020-09-04] MEDS: ZINC SULFATE 220 MG CAP PO SCH (08:29)
[2020-09-04] MEDS: CHOLECALCIFEROL 1,000 UNIT TAB PO SCH (08:29)
[2020-09-04] MEDS: LACTULOSE 20 GM/30 ML CUP PO SCH ×2 (08:29→20:57)
[2020-09-04] MEDS: ENOXAPARIN 80 MG/0.8 ML SYRINGE SQ SCH ×2 (08:29→20:57)
[2020-09-04] MEDS: ATORVASTATIN 40 MG TAB PO SCH (08:29)
[2020-09-04] MEDS: DEXAMETHASONE SOD PHOSPHATE 10 MG/ML 1 ML VIAL IV SCH (08:29)
[2020-09-04 11:54] LABS: Ferritin 282.4 ng/mL (10.0-291.0)
--- NOTE | 2020-09-04 12:02 | PN ---
PROGRESS NOTE PULMONARY/CRITICAL CARE PROGRESS NOTE: DATE OF SERVICE: September 04, 2020 Critical care time 33 minutes. This is a 64-year-old female who was admitted back on August 22. She was moved to the ICU on the same day. She was intubated on the following day, August 23. She was intubated for respiratory failure and profound hypoxemia. She remains on the ventilator. She has not made much progress. Currently, she is on the volume assist- control mode rate of 25, tidal volume 400, FiO2 of 65%, PEEP of 20. Blood gases show pO2 of 57, pCO2 of 58, and pH of 7.4. She is currently on Nimbex at 3 mcg/minute, Diprivan at 50 mcg/kg/minute, saline at 75 mL an hour and Cleviprex, which is currently off. She is also getting Vital high-protein at 42, which is goal. Currently, she is doing about the same as she did yesterday. Chest x-ray is about the same. She does have a history of obesity, hyperlipidemia, GERD, degenerative joint disease. I did have a conversation with the yesterday. I apprised him of the fact that she really was not showing much improvement. He was going to talk to the family members about next steps. I talked about a possible tracheostomy and PEG tube placement. PHYSICAL EXAMINATION: VITAL SIGNS: Current vital signs are reviewed. Current temperature is 98.3, heart rate 61, respiratory rate 25, blood pressure 116/56, mean 76, saturations are right around 90%. Appears in no acute distress. HEENT: Examination is grossly unremarkable. Orally placed endotracheal tube and NG tube. NECK: Supple. Full range of motion. No adenopathy. Neck veins are flat. CARDIOVASCULAR: Examination reveals regular rhythm and rate. Heart sounds are distant. Heart rate mid 60s. S1, S2 normal. LUNGS: Reveal diffuse coarse rhonchi. No crackles or wheezes. ABDOMEN: Soft, obese. Bowel sounds are noted. EXTREMITIES: Intact. Mild edema. No cyanosis or clubbing. SKIN: Without rash. NEUROLOGIC: Examination is difficult to assess given the fact that she is sedated and paralyzed. Current drips include Nimbex at 3 mcg/kg/minute, Diprivan at 50 mcg/kg/minute, saline at 75 mL an hour, Cleviprex, which is currently off and Vital high-protein at goal which is 42 cc an hour. LABS: Reviewed. White count 13.3, hemoglobin 12.3, hematocrit 38.8, platelet count 283,000. Fibrinogen 575. D-dimer 1.35. Sodium 143, potassium 4.3, chloride 105, CO2 37, anion gap is 1. BUN and creatinine were 22 and 0.45. The rest of the labs are reviewed. LDH is 890. Albumin 2.6. C-reactive protein 67.1. Microbiology including blood cultures are negative. IMAGING: Chest x-ray from the shows diffuse bilateral airspace disease. Chest x-ray is about the same, maybe slightly better. MEDICATIONS: Reviewed. She is currently on albuterol inhaler, vitamin C, Lipitor, chlorhexidine, vitamin D3, Nimbex, Celexa, Decadron, Lovenox, famotidine, Dilaudid p.r.n., insulin, lactulose, melatonin, Reglan, Narcan, potassium replacement, propofol, saline IV, and zinc. ASSESSMENT: 1. Acute hypoxemic respiratory failure, secondary to COVID-19 pneumonia/pneumonitis, with subsequent development of acute respiratory distress syndrome (ARDS), severe, based on [place] criteria. 2. Status post intubation on August 23 with failure to wean from mechanical ventilation and no significant progress over the last 5-6 days. 3. Obesity. 4. Hyperlipidemia. 5. Gastroesophageal reflux disease. 6. Degenerative joint disease. PLAN: The patient remains on appropriate medications. She has received more than 10 days of Decadron. That will be discontinued. Additional recommendations and suggestions are forthcoming. Cleviprex is currently off. She is getting nourishment at goal. She remains on Diprivan and Nimbex. Additional recommendations and suggestions are forthcoming. I did have a conversation with her yesterday. Critical care time 33 minutes. MMODL / IJN: [id number] /
[2020-09-04 13:05] LABS: Glucose,Whole Blood 193 mg/dL (75-99)
--- NOTE | 2020-09-04 14:45 | P.PN ---
Progress Note - Text Progress Note Date: 09/03/20 Chief Complaint: Short of breath History of presenting complaint: This is a 64-year-old patient follows with Dr. Chun. Patient has tested positive for COVID. Patient's symptoms started about a week ago. Progressively short of breath. More so in the last 4 days. Became much more significant yesterday. Presented to the ER. Also had fevers. Patient was hypoxic in the ER initial pulse ox around 70%. Was on 6 L with an wall. Check stat x-ray shows bilateral infiltrates. Patient smoked to the ICU. Subsequently intubated. Patient's currently on IV Decadron, propofol, IV fluids, IV cisatracurium. Patient on a FiO2 80% and a PEEP of 18. Has a OG- tube, Florentino catheter and endotracheal tube. Telemetry shows sinus rhythm. Seen by Dr. Clemente legal paraprofessional in the ER. Admitted with bilateral COVID 19 pneumonia with acute hypoxic respiratory failur e, , acute asthma exacerbation. Ventilated.status post steroids, Remdesivir. Today-ICU. on the ventilator. FiO2 65% and a PEEP of 20. Drips included propofol and Nimbex. Has a Florentino catheter. Tube feeding at goal Review of systems- patient intubated Active Medications Albuterol Sulfate (Albuterol Hfa Inhaler) 2 puff INHALATION RT-Q4H [facility] Last Admin: 09/03/20 11:56 Dose: 2 puff Documented by: Albuterol Sulfate (Albuterol Hfa Inhaler) 2 puff INHALATION RT-Q2H PRN PRN Reason: Shortness Of Breath Or Wheezing Ascorbic Acid (Ascorbic Acid 500 Mg Tab) 500 mg PO DAILY [facility] [place] Last Admin: 09/03/20 09:36 Dose: 500 mg Documented by: Atorvastatin Calcium (Atorvastatin 40 Mg Tab) 40 mg PO DAILY [facility] [place] Last Admin: 09/03/20 09:36 Dose: 40 mg Documented by: Chlorhexidine Gluconate (Chlorhexidine Gluconate 15 Ml Cup) 15 ml MUCOUS MEM BID [facility] [place] Last Admin: 09/03/20 09:36 Dose: 15 ml Documented by: Cholecalciferol (Cholecalciferol 1,000 Unit Tab) 1,000 unit PO DAILY [facility] [place] Last Admin: 09/03/20 09:36 Dose: 1,000 unit Documented by: Citalopram Hydrobromide (Citalopram Hydrobromide 20 Mg Tab) 20 mg PO DAILY [facility] [place] Last Admin: 09/03/20 09:36 Dose: 20 mg Documented by: Dexamethasone Sodium Phosphate (Dexamethasone Sod Phosphate 10 Mg/Ml 1 Ml Vial) 6 mg IV DAILY [facility] [place] Last Admin: 09/03/20 09:36 Dose: 6 mg Documented by: Enoxaparin Sodium (Enoxaparin 80 Mg/0.8 Ml Syringe) 80 mg SQ BID [facility] [place] Last Admin: 09/03/20 09:37 Dose: 80 mg Documented by: Famotidine (Famotidine 20 Mg/2 Ml Vial) 20 mg IV Q12HR [facility] [place] Last Admin: 09/03/20 09:37 Dose: 20 mg Documented by: Hydromorphone HCl (Hydromorphone 0.5 Mg/0.5 Ml Syringe) 0.5 mg IVP Q4HR [facility] [place] Last Admin: 09/03/20 12:25 Dose: 0.5 mg Documented by: Sodium Chloride (Saline 0.9%) 1,000 mls @ 75 mls/hr IV .[id number] [facility] [place] Last Admin: 09/03/20 12:24 Dose: 75 mls/hr Documented by: Cisatracurium Besylate 200 mg/ (Sodium Chloride) 200 mls @ 8.165 mls/hr IV .Q24H [facility] [place]; Protocol Last Admin: 09/03/20 03:05 Dose: 2 mcg/kg/min, 16.329 mls/hr Documented by: Propofol 1,000 mg/ IV Solution 100 mls @ 0 mls/hr IV .Q0M [facility] [place]; Protocol Last Admin: 09/03/20 11:12 Dose: 50 mcg/kg/min, 47.042 mls/hr Documented by: Insulin Aspart (Insulin Aspart (Novolog) 100 Unit/Ml Vial) 0 unit SQ Q6H [facility] [place]; Protocol Last Admin: 09/03/20 12:25 Dose: 2 unit Documented by: Insulin Detemir (Insulin Detemir (Levemir) 100 Unit/Ml Syr) 36 unit SQ [facility] Last Admin: 09/02/20 20:48 Dose: 36 unit Documented by: Lactulose (Lactulose 20 Gm/30 Ml Cup) 20 gm PO BID [facility] [place] Last Admin: 09/03/20 09:36 Dose: 20 gm Documented by: Melatonin (Melatonin 5 Mg Tablet) 5 mg PO [facility] Last Admin: 09/02/20 20:48 Dose: 5 mg Documented by: Metoclopramide HCl (Metoclopramide 5 Mg/Ml 2 Ml Vial) 10 mg IVP Q6HR [facility] [place] Last Admin: 09/03/20 12:24 Dose: 10 mg Documented by: Miscellaneous Information (Potassium Replacement Protocol 1 Each Misc) 1 each MISCELLANE DAILY PRN; Protocol PRN Reason: Per Protocol Multi-Ingred Cream/Lotion/Oil/Oint (Artificial Tears Ointment 3.5 Gm Tube) 1 applic BOTH EYES Q4H [facility] [place] Last Admin: 09/03/20 07:47 Dose: 1 applic Documented by: Naloxone HCl (Naloxone 0.4 Mg/Ml 1 Ml Vial) 0.2 mg IV Q2M PRN PRN Reason: Opioid Reversal Zinc Sulfate (Zinc Sulfate 220 Mg Cap) 220 mg PO DAILY [facility] [place] Last Admin: 09/03/20 09:36 Dose: 220 mg Documented by: Physical examination: VITAL SIGNS: 97.5, 70, 27, 109/54, 93% on ventilator GENERAL:, laying in bed, intubated.Florentino catheter Psychiatry-patient sedated Rest of the physical exam as per nursing and legal paraprofessional INVESTIGATIONS, reviewed in the clinical context: Today-white count 8.5 hemoglobin 11 platelets 231 potassium 4.4 creatinine 0.53 CRP 67 albumin 2.2 Accu-Cheks 155, 180, 224 Previous testing White count 5.6 hemoglobin 14.9 platelets 165 decreased lymphocytes Potassium 3.8 creatinine 0.7 to Ferritin 459 LDH 1139 CRP 32.9 pro-calcitonin 0.07 Chest x-ray film personally reviewed by me-bilateral scattered infiltrates, port able film COVID 19 P/Cr-detected Assessment: -Bilateral extensive COVID 19 pneumonia, POA-slow to respond -Sepsis from above- -ARDS-slow to respond -Acute severe hypoxic respiratory failure from COVID 19 pneumonia-slow to respond -GERD -Hyperlipidemia -Depression not otherwise specified -Moderate persistent asthma with acute exacerbation -Morbid obesity BMI 53.9 -Hypoalbuminemia, acute phase reactant Plan: Patient on Nimbex and propofol.. Continue current medication treatment plan. Follow-up in legal paraprofessional
--- NOTE | 2020-09-04 14:49 | P.PN ---
Progress Note - Text Progress Note Date: 09/04/20 Chief Complaint: Short of breath History of presenting complaint: This is a 64-year-old patient follows with Dr. Chun. Patient has tested positive for COVID. Patient's symptoms started about a week ago. Progressively short of breath. More so in the last 4 days. Became much more significant yesterday. Presented to the ER. Also had fevers. Patient was hypoxic in the ER initial pulse ox around 70%. Was on 6 L with an wall. Check stat x-ray shows bilateral infiltrates. Patient smoked to the ICU. Subsequently intubated. Patient's currently on IV Decadron, propofol, IV fluids, IV cisatracurium. Patient on a FiO2 80% and a PEEP of 18. Has a OG- tube, Florentino catheter and endotracheal tube. Telemetry shows sinus rhythm. Seen by Dr. Clemente oil field technician in the ER. Admitted with bilateral COVID 19 pneumonia with acute hypoxic respiratory failur e, , acute asthma exacerbation. Ventilated.status post steroids, Remdesivir. Today-ICU. Remains intubated on the ventilator. FiO2 65 the people 20. Drips include Nimbex and propofol. Getting Cleviprex on and off. Tube feeding at goal. Review of systems- patient intubated Active Medications Albuterol Sulfate (Albuterol Hfa Inhaler) 2 puff INHALATION RT-Q4H [facility] Last Admin: 09/04/20 12:01 Dose: 2 puff Documented by: Albuterol Sulfate (Albuterol Hfa Inhaler) 2 puff INHALATION RT-Q2H PRN PRN Reason: Shortness Of Breath Or Wheezing Ascorbic Acid (Ascorbic Acid 500 Mg Tab) 500 mg PO DAILY [facility] Last Admin: 09/04/20 08:29 Dose: 500 mg Documented by: Atorvastatin Calcium (Atorvastatin 40 Mg Tab) 40 mg PO DAILY [facility] Last Admin: 09/04/20 08:29 Dose: 40 mg Documented by: Chlorhexidine Gluconate (Chlorhexidine Gluconate 15 Ml Cup) 15 ml MUCOUS MEM BID [facility] Last Admin: 09/04/20 08:29 Dose: 15 ml Documented by: Cholecalciferol (Cholecalciferol 1,000 Unit Tab) 1,000 unit PO DAILY [facility] Last Admin: 09/04/20 08:29 Dose: 1,000 unit Documented by: Citalopram Hydrobromide (Citalopram Hydrobromide 20 Mg Tab) 20 mg PO DAILY [facility] Last Admin: 09/04/20 08:29 Dose: 20 mg Documented by: Enoxaparin Sodium (Enoxaparin 80 Mg/0.8 Ml Syringe) 80 mg SQ BID [facility] Last Admin: 09/04/20 08:29 Dose: 80 mg Documented by: Famotidine (Famotidine 20 Mg/2 Ml Vial) 20 mg IV Q12HR [facility] Last Admin: 09/04/20 08:29 Dose: 20 mg Documented by: Hydromorphone HCl (Hydromorphone 0.5 Mg/0.5 Ml Syringe) 0.5 mg IVP Q4HR [facility] Last Admin: 09/04/20 13:24 Dose: 0.5 mg Documented by: Sodium Chloride (Saline 0.9%) 1,000 mls @ 75 mls/hr IV .[id number] [facility] Last Admin: 09/04/20 03:25 Dose: 75 mls/hr Documented by: Cisatracurium Besylate 200 mg/ (Sodium Chloride) 200 mls @ 8.165 mls/hr IV .Q24H [facility]; Protocol Last Admin: 09/04/20 10:12 Dose: 3 mcg/kg/min, 24.494 mls/hr Documented by: Propofol 1,000 mg/ IV Solution 100 mls @ 0 mls/hr IV .Q0M [facility]; Protocol Last Admin: 09/04/20 13:26 Dose: 50 mcg/kg/min, 47.042 mls/hr Documented by: Clevidipine 25 mg/ IV Solution 50 mls @ 2 mls/hr IV .Q24H [facility]; Protocol Last Titration: 09/04/20 05:20 Dose: 0 mg/hr, 0 mls/hr Documented by: Insulin Aspart (Insulin Aspart (Novolog) 100 Unit/Ml Vial) 0 unit SQ Q6H [facility]; Protocol Last Admin: 09/04/20 13:25 Dose: 5 unit Documented by: Insulin Detemir (Insulin Detemir (Levemir) 100 Unit/Ml Syr) 36 unit SQ HS [facility] Last Admin: 09/03/20 20:19 Dose: 36 unit Documented by: Lactulose (Lactulose 20 Gm/30 Ml Cup) 20 gm PO BID [facility] Last Admin: 09/04/20 08:29 Dose: 20 gm Documented by: Melatonin (Melatonin 5 Mg Tablet) 5 mg PO HS [facility] Last Admin: 09/03/20 20:18 Dose: 5 mg Documented by: Metoclopramide HCl (Metoclopramide 5 Mg/Ml 2 Ml Vial) 10 mg IVP Q6HR [facility] Last Admin: 09/04/20 13:24 Dose: 10 mg Documented by: Miscellaneous Information (Potassium Replacement Protocol 1 Each Misc) 1 each MISCELLANE DAILY PRN; Protocol PRN Reason: Per Protocol Multi-Ingred Cream/Lotion/Oil/Oint (Artificial Tears Ointment 3.5 Gm Tube) 1 applic BOTH EYES Q4H [facility] Last Admin: 09/04/20 13:25 Dose: 1 applic Documented by: Naloxone HCl (Naloxone 0.4 Mg/Ml 1 Ml Vial) 0.2 mg IV Q2M PRN PRN Reason: Opioid Reversal Zinc Sulfate (Zinc Sulfate 220 Mg Cap) 220 mg PO DAILY [facility] Last Admin: 09/04/20 08:29 Dose: 220 mg Documented by: Physical examination: VITAL SIGNS: 98.3, 76, 25, 120/58, 90% on the ventilator GENERAL:, laying in bed, intubated.Florentino catheter Psychiatry-patient sedated Rest of the physical exam as per nursing and oil field technician INVESTIGATIONS, reviewed in the clinical context: Today-white count 13.3, hemoglobin 12.3, platelets 283, potassium 4.3, bun 22, LDH 890, CRP 67.1, Chest x-ray personally reviewed by [id number] infiltrates Previous testing White count 5.6 hemoglobin 14.9 platelets 165 decreased lymphocytes Potassium 3.8 creatinine 0.7 to Ferritin 459 LDH 1139 CRP 32.9 pro-calcitonin 0.07 Chest x-ray film personally reviewed by me-bilateral scattered infiltrates, portable film COVID 19 P/Cr-detected Assessment: -Bilateral extensive COVID 19 pneumonia, POA-slow to respond -Sepsis from above- -ARDS-slow to respond -Acute severe hypoxic respiratory failure from COVID 19 pneumonia-slow to respond -GERD -Hyperlipidemia -Depression not otherwise specified -Moderate persistent asthma with acute exacerbation -Morbid obesity BMI 53.9 -Hypoalbuminemia, acute phase reactant Plan: Patient on Nimbex and propofol.. Intermittent use of Cleviprex. Tube feeding at goal. Prognosis guarded.
[2020-09-04 17:02] LABS: Glucose,Whole Blood 183 mg/dL (75-99)
[2020-09-04 19:40] LABS: LD Isoenzymes 1 19 % (19-38); LD Isoenzymes 2 38 % (30-43); LD Isoenzymes 3 22 % (16-26); LD Isoenzymes 4 9 % (3-12); LD Isoenzymes 5 12 % (3-14); Lactacte Dehydrogenase(LD) ISO 249 U/L (120-250)
[2020-09-04] MEDS: MELATONIN 5 MG TABLET PO SCH (20:57)
[2020-09-04] MEDS: INSULIN DETEMIR (LEVEMIR) 100 UNIT/ML SYR SQ SCH (21:00)
[2020-09-05 00:08] LABS: Glucose,Whole Blood 110 mg/dL (75-99)
[2020-09-05] MEDS: ALBUTEROL HFA INHALER INHALATION SCH ×6 (00:32→22:01)
[2020-09-05] MEDS: ARTIFICIAL TEARS OINTMENT 3.5 GM TUBE BOTH EYES SCH ×7 (00:59→23:21)
[2020-09-05] MEDS: CISATRACURIUM 200 MG in SODIUM CHLORIDE 0.9% 180 ML IV SCH ×3 (00:59→19:27)
[2020-09-05] MEDS: INSULIN ASPART (NovoLOG) 100 UNIT/ML VIAL SQ SCH ×4 (01:44→18:50)
[2020-09-05] MEDS: HYDROmorphone 0.5 MG/0.5 ML SYRINGE IVP SCH ×7 (01:45→23:21)
[2020-09-05] MEDS: METOCLOPRAMIDE 5 MG/ML 2 ML VIAL IVP SCH ×5 (01:46→23:21)
[2020-09-05 05:03] LABS: ABG Base Excess 11.2 mmol/L; ABG HCO3 35 mmol/L (21-25); ABG Oxygen Saturation 94.1 % (94-97); ABG PCO2 49 mmHg (35-45); ABG PH 7.46 (7.35-7.45); ABG PO2 67 mmHg (83-108); ABG TCO2 36 mmol/L (19-24); Allen Test Performed? Yes
[2020-09-05 05:18] LABS: Basophils % (A) 0 %; Eosinophils # (A) 0.1 k/uL (0-0.7); Eosinophils % (A) 1 %; HCT 32.8 % (34.0-46.0); HGB 10.6 gm/dL (11.4-16.0); Hypochromasia Slight; Lymphocytes # (A) 1.2 k/uL (1.0-4.8); Lymphocytes % (A) 16 %; MCH 31.5 pg (25.0-35.0); MCHC 32.1 g/dL (31.0-37.0); Mean Platelet Volume 8.1; Monocytes # (A) 0.4 k/uL (0-1.0); Monocytes % (A) 6 %; Neutrophils # (A) 5.5 k/uL (1.3-7.7); Neutrophils % (A) 74 %; Platelet Count 243 k/uL (150-450); RBC 3.35 m/uL (3.80-5.40); RDW 14.5 % (11.5-15.5); WBC 7.4 k/uL (3.8-10.6)
[2020-09-05 05:26] LABS: ALT 74 U/L (4-34); AST 38 U/L (14-36); African American GFR (CKD) >90 (>60 ml/min/1.73 sqM); Albumin 2.2 g/dL (3.5-5.0); Alkaline Phosphatase 68 U/L (38-126); Anion Gap -1 mmol/L; Blood Urea Nitrogen 30 mg/dL (7-17); Calcium 8.1 mg/dL (8.4-10.2); Carbon Dioxide 36 mmol/L (22-30); Chloride 105 mmol/L (98-107); Glucose 100 mg/dL (74-99); Non-African American GFR(CKD) >90 (>60 ml/min/1.73 sqM); Potassium 3.8 mmol/L (3.5-5.1); Sodium 140 mmol/L (137-145); Total Bilirubin 0.4 mg/dL (0.2-1.3); Total Protein 4.8 g/dL (6.3-8.2)
[2020-09-05 05:39] LABS: Glucose,Whole Blood 88 mg/dL (75-99)
[2020-09-05] MEDS: SODIUM CHLORIDE 0.9% 1,000 ML IV SCH (06:36)
[2020-09-05] MEDS ORDERED: POTASSIUM BICARBONATE/CIT AC 20 MEQ TABLET.EFF NG-TUBE SCH (07:00)
--- NOTE | 2020-09-05 07:33 | XR ---
EXAMINATION TYPE: XR chest 1V portable DATE OF EXAM: 09/05/2020 COMPARISON: 09/04/2020 HISTORY: SOB, Follow Up FINDINGS: Indwelling tubes and catheters are unchanged. Stable diffuse bilateral airspace and interstitial infiltrates. Correlate for pulmonary edema, ARDS o r diffuse lateral pneumonia. Stable appearance of the cardio-mediastinal structures at this time. Pleural effusion unchanged. IMPRESSION: 1. Stable portable chest. Clinical correlation and follow up until resolution is recommended.
[2020-09-05] MEDS: CHLORHEXIDINE GLUCONATE 15 ML CUP MUCOUS MEM SCH ×2 (09:36→21:04)
[2020-09-05] MEDS: ENOXAPARIN 80 MG/0.8 ML SYRINGE SQ SCH ×2 (09:36→21:05)
[2020-09-05] MEDS: FAMOTIDINE 20 MG/2 ML VIAL IV SCH ×2 (09:36→21:04)
[2020-09-05] MEDS: LACTULOSE 20 GM/30 ML CUP PO SCH ×2 (09:36→21:04)
[2020-09-05] MEDS: ASCORBIC ACID 500 MG TAB PO SCH (09:37)
[2020-09-05] MEDS: ATORVASTATIN 40 MG TAB PO SCH (09:37)
[2020-09-05] MEDS: ZINC SULFATE 220 MG CAP PO SCH (09:37)
[2020-09-05] MEDS: CITALOPRAM HYDROBROMIDE 20 MG TAB PO SCH (09:37)
[2020-09-05] MEDS: CHOLECALCIFEROL 1,000 UNIT TAB PO SCH (09:37)
[2020-09-05 09:52] LABS: Creatine Kinase <20 U/L (30-135)
[2020-09-05 10:05] LABS: C Reactive Protein 138.1 mg/L (<10.0)
[2020-09-05 11:54] LABS: Glucose,Whole Blood 63 mg/dL (75-99)
[2020-09-05 11:54] LABS: Glucose,Whole Blood 76 mg/dL (75-99)
--- NOTE | 2020-09-05 13:30 | PN ---
PROGRESS NOTE DATE OF SERVICE: September 05, 2020 Critical care time: 34 minutes. This is a 64-year-old female who was admitted back on August 22. She was moved to the ICU on the same day, was intubated on the following day, August 23 for respiratory failure and profound hypoxemia. She remains on the ventilator. Her COVID-19 testing was positive. She has Covid-19 pneumonia. Currently, she is on the volume assist- control modality rate of 25, tidal volume 400, FiO2 65%, PEEP of 20. Blood gases show pO2 of 67, pCO2 49 and pH 7.46. She remains on Nimbex at 2 mcg/kg per minute with train of 4 monitoring, propofol at 50 mcg/kg per minute, saline at 75 mL an hour and Vital high-protein at 42 with a goal of 42 mL an hour. Currently, she really has not shown much improvement whatsoever. We did talk to the about the tracheostomy and PEG tube. I believe he would agree to that. PHYSICAL EXAMINATION: VITAL SIGNS: Current vital signs are reviewed. Temperature is 97.6, heart rate 60, respiratory rate 25, blood pressure 126/49, saturations 94%. GENERAL: Appears in no acute distress. Currently sedated and paralyzed. HEENT: Examination is grossly unremarkable. NECK: Supple. Full range of motion. No adenopathy. Neck veins are flat. There is an orally placed endotracheal tube and NG tube. CARDIOVASCULAR: Examination reveals regular rhythm and rate. Heart rate 60 beats per minute. S1, S2 normal. Heart sounds are distant. LUNGS: Reveal diffuse coarse rhonchi. Breath sounds equal. ABDOMEN: Soft. Bowel sounds are heard. EXTREMITIES are intact. Slight edema. No cyanosis or clubbing. SKIN: Without rash. NEUROLOGIC: Examination cannot be adequately assessed as the patient is sedated and paralyzed. Attempts to remove paralysis, result in tachypneic, tachycardic, hypertension, and high peak airway pressures. CURRENT LABS: Reviewed. White count 7.4, hemoglobin 10.6, hematocrit 32.8, platelet count 343,000, blood gases have been noted. Sodium 140, potassium 3.8 chloride 105, CO2 36, BUN and creatinine were 30 and 0.55, calcium 8.1, AST 38, ALT 74, albumin 2.2. Microbiology is negative. Chest x-ray shows diffuse bilateral airspace disease consistent with the patient's known diagnosis of COVID-19 pneumonia. MEDICATIONS: Reviewed. The patient is on albuterol inhaler, Artificial Tears, ascorbic acid, Lipitor, chlorhexidine, vitamin D3, Nimbex, citalopram, Cleviprex p.r.n., Lovenox, famotidine, Dilaudid, insulin, lactulose, melatonin, Reglan, Narcan, potassium replacement, propofol, saline IV, and zinc. ASSESSMENT: 1. Acute hypoxemic respiratory failure, secondary to Covid 19 pneumonia/pneumonitis, with subsequent development of ARDS, severe, based on [place] criteria. 2. Status post intubation on August 23 with failure to wean from mechanical ventilation secondary to hypoxemic respiratory failure without significant progress over the last 5/6 days. 3. Obesity. 4. Hyperlipidemia. 5. Gastroesophageal reflux disease. 6. Degenerative joint disease. PLAN: Currently, the patient is doing about the same. She remains on 65%, PEEP of 20. Blood gases are borderline. She remains paralyzed. Attempt to remove paralysis results in acute septic tachycardia, tachypneic, hypertension, and elevated peak airway pressures. We will continue to follow. Prognosis is guarded. She is being nourished. She is getting saline at 75 mL an hour. No additional recommendations are made. Prognosis is guarded. I did speak to her a couple days ago. Critical care time: 34 minutes. MMDARLENEL / AMAN: [phone] /
[2020-09-05 16:59] LABS: Glucose,Whole Blood 72 mg/dL (75-99)
[2020-09-05 16:59] LABS: Glucose,Whole Blood 67 mg/dL (75-99)
[2020-09-05 17:43] LABS: Ferritin 231.8 ng/mL (10.0-291.0)
[2020-09-05] MEDS: DEXTROSE 50% SYRINGE 50 ML IVP ONE ×2 (18:49→21:27)
--- NOTE | 2020-09-05 20:09 | P.PN ---
Progress Note - Text Progress Note Date: 09/05/20 Chief Complaint: Short of breath History of presenting complaint: This is a 64-year-old patient follows with Dr. Chun. Patient has tested positive for COVID. Patient's symptoms started about a week ago. Progressively short of breath. More so in the last 4 days. Became much more significant yesterday. Presented to the ER. Also had fevers. Patient was hypoxic in the ER initial pulse ox around 70%. Was on 6 L with an wall. Check stat x-ray shows bilateral infiltrates. Patient smoked to the ICU. Subsequently intubated. Patient's currently on IV Decadron, propofol, IV fluids, IV cisatracurium. Patient on a FiO2 80% and a PEEP of 18. Has a OG- tube, Florentino catheter and endotracheal tube. Telemetry shows sinus rhythm. Seen by Dr. Clemente lining marker in the ER. Admitted with bilateral COVID 19 pneumonia with acute hypoxic respiratory failur e, , acute asthma exacerbation. Ventilated.status post steroids, Remdesivir. Today-ICU. intubated. FiO2 62% and a PEEP of 20. 2 feeding at 42 mL an hour. Sinus rhythm. This included Bumex and propofol. No other change. Review of systems- patient intubated Active Medications Albuterol Sulfate (Albuterol Hfa Inhaler) 2 puff INHALATION RT-Q4H [facility] Last Admin: 09/05/20 16:55 Dose: 2 puff Documented by: Albuterol Sulfate (Albuterol Hfa Inhaler) 2 puff INHALATION RT-Q2H PRN PRN Reason: Shortness Of Breath Or Wheezing Ascorbic Acid (Ascorbic Acid 500 Mg Tab) 500 mg PO DAILY [facility] Last Admin: 09/05/20 09:37 Dose: 500 mg Documented by: Atorvastatin Calcium (Atorvastatin 40 Mg Tab) 40 mg PO DAILY [facility] Last Admin: 09/05/20 09:37 Dose: 40 mg Documented by: Chlorhexidine Gluconate (Chlorhexidine Gluconate 15 Ml Cup) 15 ml MUCOUS MEM BID [facility] Last Admin: 09/05/20 09:36 Dose: 15 ml Documented by: Cholecalciferol (Cholecalciferol 1,000 Unit Tab) 1,000 unit PO DAILY [facility] Last Admin: 09/05/20 09:37 Dose: 1,000 unit Documented by: Citalopram Hydrobromide (Citalopram Hydrobromide 20 Mg Tab) 20 mg PO DAILY [facility] Last Admin: 09/05/20 09:37 Dose: 20 mg Documented by: Enoxaparin Sodium (Enoxaparin 80 Mg/0.8 Ml Syringe) 80 mg SQ BID [facility] Last Admin: 09/05/20 09:36 Dose: 80 mg Documented by: Famotidine (Famotidine 20 Mg/2 Ml Vial) 20 mg IV Q12HR [facility] Last Admin: 09/05/20 09:36 Dose: 20 mg Documented by: Hydromorphone HCl (Hydromorphone 0.5 Mg/0.5 Ml Syringe) 0.5 mg IVP Q4HR [facility] Last Admin: 09/05/20 16:32 Dose: 0.5 mg Documented by: Sodium Chloride (Saline 0.9%) 1,000 mls @ 75 mls/hr IV .[id number] [facility] Last Admin: 09/05/20 06:36 Dose: 75 mls/hr Documented by: Cisatracurium Besylate 200 mg/ (Sodium Chloride) 200 mls @ 8.165 mls/hr IV .Q24H [facility]; Protocol Last Admin: 09/05/20 19:27 Dose: 3 mcg/kg/min, 24.494 mls/hr Documented by: Propofol 1,000 mg/ IV Solution 100 mls @ 0 mls/hr IV .Q0M [facility]; Protocol Last Admin: 09/05/20 17:42 Dose: 50 mcg/kg/min, 46.845 mls/hr Documented by: Clevidipine 25 mg/ IV Solution 50 mls @ 2 mls/hr IV .Q24H [facility]; Protocol Last Titration: 09/04/20 05:20 Dose: 0 mg/hr, 0 mls/hr Documented by: Insulin Aspart (Insulin Aspart (Novolog) 100 Unit/Ml Vial) 0 unit SQ Q6H [facility]; Protocol Last Admin: 09/05/20 18:50 Dose: Not Given Documented by: Insulin Detemir (Insulin Detemir (Levemir) 100 Unit/Ml Syr) 42 unit SQ HS [facility] Last Admin: 09/04/20 21:00 Dose: 42 unit Documented by: Lactulose (Lactulose 20 Gm/30 Ml Cup) 20 gm PO BID [facility] Last Admin: 09/05/20 09:36 Dose: 20 gm Documented by: Melatonin (Melatonin 5 Mg Tablet) 5 mg PO HS [facility] Last Admin: 09/04/20 20:57 Dose: 5 mg Documented by: Metoclopramide HCl (Metoclopramide 5 Mg/Ml 2 Ml Vial) 10 mg IVP Q6HR [facility] Last Admin: 09/05/20 19:13 Dose: 10 mg Documented by: Miscellaneous Information (Potassium Replacement Protocol 1 Each Misc) 1 each MISCELLANE DAILY PRN; Protocol PRN Reason: Per Protocol Multi-Ingred Cream/Lotion/Oil/Oint (Artificial Tears Ointment 3.5 Gm Tube) 1 applic BOTH EYES Q4H [facility] Last Admin: 09/05/20 19:13 Dose: 1 applic Documented by: Naloxone HCl (Naloxone 0.4 Mg/Ml 1 Ml Vial) 0.2 mg IV Q2M PRN PRN Reason: Opioid Reversal Zinc Sulfate (Zinc Sulfate 220 Mg Cap) 220 mg PO DAILY [facility] Last Admin: 09/05/20 09:37 Dose: 220 mg Documented by: Physical examination: VITAL SIGNS: 98, 59, 25, 130/51, 92% on the ventilator GENERAL:, laying in bed, intubated.Florentino catheter Psychiatry-patient sedated Rest of the physical exam as per nursing and lining marker INVESTIGATIONS, reviewed in the clinical context: Today-white count 7.4 hemoglobin 10.6 platelets 243potassium 3.8 creatinine 0.55 albumin 2.2 CRP 138 Chest x-ray -unchanged-scattered infiltrates Previous testing White count 5.6 hemoglobin 14.9 platelets 165 decreased lymphocytes Potassium 3.8 creatinine 0.7 to Ferritin 459 LDH 1139 CRP 32.9 pro-calcitonin 0.07 Chest x-ray film personally reviewed by me-bilateral scattered infiltrates, portable film COVID 19 P/Cr-detected Assessment: -Bilateral extensive COVID 19 pneumonia, POA-slow to respond -Sepsis from above- -ARDS-slow to respond -Acute severe hypoxic respiratory failure from COVID 19 pneumonia-slow to respond -GERD -Hyperlipidemia -Depression not otherwise specified -Moderate persistent asthma with acute exacerbation -Morbid obesity BMI 53.9 -Hypoalbuminemia, acute phase reactant Plan: continue Nimbex and propofol.. CRP is going up.. Tube feeding at goal. Prognosis guarded
[2020-09-05] MEDS: MELATONIN 5 MG TABLET PO SCH (21:12)
[2020-09-05 21:16] LABS: Glucose,Whole Blood 68 mg/dL (75-99)
[2020-09-05 21:49] LABS: Glucose,Whole Blood 61 mg/dL (75-99)
[2020-09-05] MEDS: INSULIN DETEMIR (LEVEMIR) 100 UNIT/ML SYR SQ SCH (22:08)
[2020-09-05 22:18] LABS: Glucose,Whole Blood 142 mg/dL (75-99)
[2020-09-05] MEDS ORDERED: CLEVIDIPINE BUTYRATE 25 MG/50 ML VIAL IV ONE (23:32)
[2020-09-05 23:42] LABS: Glucose,Whole Blood 102 mg/dL (75-99)
[2020-09-06] MEDS: CISATRACURIUM 200 MG in SODIUM CHLORIDE 0.9% 180 ML IV SCH ×4 (02:04→23:55)
[2020-09-06] MEDS: ALBUTEROL HFA INHALER INHALATION SCH ×6 (02:36→21:18)
[2020-09-06] MEDS: INSULIN ASPART (NovoLOG) 100 UNIT/ML VIAL SQ SCH ×4 (02:36→17:09)
[2020-09-06] MEDS: CLEVIDIPINE BUTYRATE 25 MG in EMPTY BAG 1 BAG IV SCH ×15 (03:06→23:55)
[2020-09-06] MEDS: ARTIFICIAL TEARS OINTMENT 3.5 GM TUBE BOTH EYES SCH ×6 (04:10→23:53)
[2020-09-06] MEDS: HYDROmorphone 0.5 MG/0.5 ML SYRINGE IVP SCH ×6 (04:10→23:53)
[2020-09-06 04:41] LABS: ABG HCO3 34 mmol/L (21-25); ABG Oxygen Saturation 81.4 % (94-97); ABG PCO2 61 mmHg (35-45); ABG PH 7.35 (7.35-7.45); ABG TCO2 36 mmol/L (19-24); Allen Test Performed? Yes
[2020-09-06 04:47] LABS: ABG PO2 50 mmHg (83-108)
[2020-09-06 05:06] LABS: Basophils # (A) 0.1 k/uL (0-0.2); Basophils % (A) 0 %; Eosinophils # (A) 0.1 k/uL (0-0.7); Eosinophils % (A) 1 %; HCT 38.7 % (34.0-46.0); Hypochromasia Moderate; Lymphocytes # (A) 1.2 k/uL (1.0-4.8); Lymphocytes % (A) 11 %; MCH 30.7 pg (25.0-35.0); Macrocytosis Slight; Mean Platelet Volume 8.1; Monocytes # (A) 0.4 k/uL (0-1.0); Monocytes % (A) 4 %; Neutrophils # (A) 8.2 k/uL (1.3-7.7); Neutrophils % (A) 81 %; Platelet Count 298 k/uL (150-450); WBC 10.1 k/uL (3.8-10.6)
[2020-09-06 05:29] LABS: D-Dimer 1.93 mg/L FEU (<0.60)
[2020-09-06 05:36] LABS: ALT 78 U/L (4-34); AST 46 U/L (14-36); African American GFR (CKD) >90 (>60 ml/min/1.73 sqM); Albumin 2.6 g/dL (3.5-5.0); Alkaline Phosphatase 89 U/L (38-126); Anion Gap 1 mmol/L; Blood Urea Nitrogen 28 mg/dL (7-17); C Reactive Protein 81.3 mg/L (<10.0); Calcium 8.1 mg/dL (8.4-10.2); Carbon Dioxide 33 mmol/L (22-30); Chloride 104 mmol/L (98-107); Creatine Kinase <20 U/L (30-135); Glucose 107 mg/dL (74-99); LDH 846 U/L (313-618); Non-African American GFR(CKD) >90 (>60 ml/min/1.73 sqM); Potassium 3.7 mmol/L (3.5-5.1); Sodium 138 mmol/L (137-145); Total Bilirubin 0.6 mg/dL (0.2-1.3); Total Protein 5.5 g/dL (6.3-8.2)
[2020-09-06] MEDS: METOCLOPRAMIDE 5 MG/ML 2 ML VIAL IVP SCH ×4 (05:39→23:54)
[2020-09-06 05:51] LABS: Glucose,Whole Blood 117 mg/dL (75-99)
[2020-09-06] MEDS ORDERED: POTASSIUM BICARBONATE/CIT AC 20 MEQ TABLET.EFF NG-TUBE SCH (06:00)
[2020-09-06] MEDS: INSULIN DETEMIR (LEVEMIR) 100 UNIT/ML SYR SQ SCH ×2 (07:39→21:30)
[2020-09-06] MEDS: SODIUM CHLORIDE 0.9% 1,000 ML IV SCH ×2 (08:10→20:19)
--- NOTE | 2020-09-06 08:24 | XR ---
EXAMINATION TYPE: XR chest 1V portable DATE OF EXAM: 09/06/2020 COMPARISON: Prior chest x-ray 09/05/2020 HISTORY: Intubated TECHNIQUE: Single frontal view of the chest is obtained. FINDINGS: Findings are not significantly changed in the interval. Endotracheal tube, right jugular c entral venous catheter and NG tube are all stable. There are overlying appropriate positions. There i s no evident pneumothorax. Bibasilar density is noted. Heart is likely stable. IMPRESSION: Correlate for pneumonia, pulmonary edema and congestive heart failure, ARDS.
[2020-09-06 09:49] LABS: Ferritin 292.5 ng/mL (10.0-291.0)
[2020-09-06 09:53] LABS: ABG Base Excess 4.2 mmol/L; ABG HCO3 32 mmol/L (21-25); ABG Oxygen Saturation 75.5 % (94-97); ABG PH 7.25 (7.35-7.45); ABG TCO2 34 mmol/L (19-24)
[2020-09-06 10:00] LABS: ABG PCO2 72 mmHg (35-45); ABG PO2 48 mmHg (83-108); Allen Test Performed? NO
[2020-09-06] MEDS: ASCORBIC ACID 500 MG TAB PO SCH (10:10)
[2020-09-06] MEDS: CITALOPRAM HYDROBROMIDE 20 MG TAB PO SCH (10:10)
[2020-09-06] MEDS: CHLORHEXIDINE GLUCONATE 15 ML CUP MUCOUS MEM SCH ×2 (10:10→20:15)
[2020-09-06] MEDS: LACTULOSE 20 GM/30 ML CUP PO SCH ×2 (10:10→20:15)
[2020-09-06] MEDS: ATORVASTATIN 40 MG TAB PO SCH (10:10)
[2020-09-06] MEDS: CHOLECALCIFEROL 1,000 UNIT TAB PO SCH (10:11)
[2020-09-06] MEDS: ZINC SULFATE 220 MG CAP PO SCH (10:11)
[2020-09-06] MEDS: FUROSEMIDE 10 MG/ML 4 ML VIAL IV SCH ×3 (10:11→23:53)
[2020-09-06] MEDS: FAMOTIDINE 20 MG/2 ML VIAL IV SCH ×2 (10:11→20:15)
[2020-09-06] MEDS: methylPREDNISolone SOD SUCCI 125 MG/2 ML VIAL IV SCH ×4 (10:11→23:53)
[2020-09-06] MEDS: ENOXAPARIN 80 MG/0.8 ML SYRINGE SQ SCH ×2 (10:11→20:16)
[2020-09-06 10:46] LABS: ABG Base Excess 6.3 mmol/L; ABG HCO3 34 mmol/L (21-25); ABG Oxygen Saturation 79.9 % (94-97); ABG PH 7.25 (7.35-7.45); ABG TCO2 36 mmol/L (19-24)
[2020-09-06 10:50] LABS: ABG PCO2 77 mmHg (35-45)
[2020-09-06 10:51] LABS: ABG PO2 52 mmHg (83-108); Allen Test Performed? No
[2020-09-06 11:50] LABS: Glucose,Whole Blood 204 mg/dL (75-99)
--- NOTE | 2020-09-06 16:02 | P.PN ---
Subjective Progress Note Date: 09/06/20 64-year-old female patient who was admitted on 08/22/2024, with related pneumonia and the patient presented with diffuse breath and pulmonary infiltrates and acute hypoxic respiratory failure. The patient got transferred to the ICU and the patient was intubated on 08/23/2024 severe hypoxemia. The patient has been on the mechanical ventilator since. For now, the patient remains on an assist-control mode of ventilation with tidal volume of 400 and FiO2 of 75% and PEEP of 20 with a respiratory rate of 25. Chest x-ray still showing diffuse but the pulmonary infiltrates. ABG from this morning showed a pH of 7.35 with a pCO2 of 61 and pO2 of 50. The peak airway pressure was quite high at 48 with a static pressure of 44. The patient was still paralyzed with Nimbex and the patient is on propofol. Peak airway pressure 52, static of 46. The patient remains sedated with propofol running at 50 g per KG per minute. . The patient is also on paralytics and the medics is running at 3 g per KG per minute. The patient is receiving enteral feeding for nutritional support at the rate of 42 mL an hour of vital high protein and the patient is on normal state rate of 75 mL an hour. The neck fluid balance is significantly positive this patient. On today's evaluation, I noted that the patient's airway pressures are quite elevated. This is related to her morbid obesity which causes extrapulmonary restriction in addition to ARDS. Based on this, I dropped his tidal volume down to 350. I further increase the inspiratory time positive to 0.2 seconds and drop the flow down to 50 allowing this patient to get in I:E ratio 1-1. Subsequent blood gases showed a pH of 7.25 with a pCO2 of 77 and pO2 of 50 to and there has been no significant major improvement in oxygenation with above-mentioned changes. The patient is on Catapres for blood pressure control at 2 mg per hour. She is tolerating enteral feeding for nutritional support. Objective - Vital Signs Vital signs: Vital Signs Temp 98.9 F 09/06/20 12:00 Pulse 97 09/06/20 14:00 Resp 25 H 09/06/20 14:00 BP 152/71 09/06/20 14:00 Pulse Ox 80 L 09/06/20 14:00 Intake & Output 09/05/20 09/06/20 09/06/20 18:59 06:59 18:59 Intake Total 2232.089 2226.984 1332.437 Output Total 373 1170 1405 Balance 9422.577 8054.984 -72.563 Weight 159.6 kg 159.6 kg Intake: IV 936 936 295 Normal Saline Pressure 36 36 30 Bag Sodium Chloride 0.9% 1, 900 900 265 000 ml @ 10 mls/hr IV . Q24H [facility] Rx#:[id number] Intake, IV Titration 612.089 666.984 581.437 Amount Cisatracurium 200 mg In 310.527 278.415 301.276 Sodium Chloride 0.9% 180 ml @ 1 MCG/KG/MIN 8.165 mls/hr IV .Q24H [facility] Rx#: [id number] Clevidipine Butyrate 25 84.666 178.6 mg In Empty Bag 1 bag @ 1 MG/HR 2 mls/hr IV .Q24H [facility] Rx#:[id number] propofoL 1,000 mg In 301.562 303.903 101.561 Empty Bag 1 bag @ Titrate IV .Q0M [facility] Rx#: [id number] Tube Feeding 504 504 336 Other 180 120 120 Output: Urine 373 1170 1405 Other: Voiding Method Indwelling Catheter Indwelling Catheter Indwelling Catheter # Bowel Movements 0 0 ABP, PAP, CO, CI - Last Documented Arterial Blood Pressure 137/64 - Exam Gen. appearance intubated, comfortable likely distress. Orogastric and orotracheal tube are both in place. Head exam was generally normal. There was no scleral icterus or corneal arcus. Mucous membranes were moist. Neck was supple and without jugular venous distension, thyromegaly, or carotid bruits. Carotids were easily palpable bilaterally. There was no adenopathy. Lungs sounds are diminished in the patient's correct in lung bases bilaterally. Cardiac exam revealed the PMI to be normally situated and sized. The rhythm was regular and no extrasystoles were noted during several minutes of auscultation. The first and second heart sounds were normal and physiologic splitting of the second heart sound was noted. There were no murmurs, rubs, clicks, or gallops. Abdominal exam revealed normal bowel sounds. The abdomen was soft, non-tender, and without masses, organomegaly, or appreciable enlargement of the abdominal aorta. Examination of the extremities revealed easily palpable radial, femoral and pedal pulses. There was no cyanosis, clubbing or edema. Examination of the skin revealed no evidence of significant rashes, suspicious appearing nevi or other concerning lesions. Neurologically the patient is sedated and paralyzed. Motor function and sensory function cannot be accurately assessed. - Labs CBC & Chem 7: 09/06/20 04:18 09/06/20 04:18 Labs: Abnormal Lab Results - Last 24 Hours (Table) 09/05/20 09/05/20 09/05/20 Range/Units 16:56 16:57 21:14 Neutrophils # (1.3-7.7) k/uL Fibrinogen (200-500) mg/dL D-Dimer (<0.60) mg/L FEU ABG pH (7.35-7.45) ABG pCO2 (35-45) mmHg ABG pO2 (83-108) mmHg ABG HCO3 (21-25) mmol/L ABG Total CO2 (19-24) mmol/L ABG O2 Saturation (94-97) % Carbon Dioxide (22-30) mmol/L BUN (7-17) mg/dL Creatinine (0.52-1.04) mg/dL Glucose (74-99) mg/dL POC Glucose (mg/dL) 67 L 72 L 68 L (75-99) mg/dL Calcium (8.4-10.2) mg/dL Ferritin (10.0-291.0) ng/mL AST (14-36) U/L ALT (4-34) U/L Lactate Dehydrogenase (313-618) U/L Creatine Kinase (30-135) U/L C-Reactive Protein (<10.0) mg/L Total Protein (6.3-8.2) g/dL Albumin (3.5-5.0) g/dL 09/05/20 09/05/20 09/05/20 Range/Units 21:47 22:16 23:39 Neutrophils # (1.3-7.7) k/uL Fibrinogen (200-500) mg/dL D-Dimer (<0.60) mg/L FEU ABG pH (7.35-7.45) ABG pCO2 (35-45) mmHg ABG pO2 (83-108) mmHg ABG HCO3 (21-25) mmol/L ABG Total CO2 (19-24) mmol/L ABG O2 Saturation (94-97) % Carbon Dioxide (22-30) mmol/L BUN (7-17) mg/dL Creatinine (0.52-1.04) mg/dL Glucose (74-99) mg/dL POC Glucose (mg/dL) 61 L 142 H 102 H (75-99) mg/dL Calcium (8.4-10.2) mg/dL Ferritin (10.0-291.0) ng/mL AST (14-36) U/L ALT (4-34) U/L Lactate Dehydrogenase (313-618) U/L Creatine Kinase (30-135) U/L C-Reactive Protein (<10.0) mg/L Total Protein (6.3-8.2) g/dL Albumin (3.5-5.0) g/dL 09/06/20 09/06/20 09/06/20 Range/Units 04:18 04:18 04:18 Neutrophils # 8.2 H (1.3-7.7) k/uL Fibrinogen 611 H (200-500) mg/dL D-Dimer 1.93 H (<0.60) mg/L FEU ABG pH (7.35-7.45) ABG pCO2 (35-45) mmHg ABG pO2 (83-108) mmHg ABG HCO3 (21-25) mmol/L ABG Total CO2 (19-24) mmol/L ABG O2 Saturation (94-97) % Carbon Dioxide 33 H (22-30) mmol/L BUN 28 H (7-17) mg/dL Creatinine 0.44 L (0.52-1.04) mg/dL Glucose 107 H (74-99) mg/dL POC Glucose (mg/dL) (75-99) mg/dL Calcium 8.1 L (8.4-10.2) mg/dL Ferritin 292.5 H (10.0-291.0) ng/mL AST 46 H (14-36) U/L ALT 78 H (4-34) U/L Lactate Dehydrogenase 846 H (313-618) U/L Creatine Kinase <20 L (30-135) U/L C-Reactive Protein 81.3 H (<10.0) mg/L Total Protein 5.5 L (6.3-8.2) g/dL Albumin 2.6 L (3.5-5.0) g/dL 09/06/20 09/06/20 09/06/20 Range/Units 04:38 05:50 09:41 Neutrophils # (1.3-7.7) k/uL Fibrinogen (200-500) mg/dL D-Dimer (<0.60) mg/L FEU ABG pH 7.25 L (7.35-7.45) ABG pCO2 61 H 72 H* (35-45) mmHg ABG pO2 50 L* 48 L* (83-108) mmHg ABG HCO3 34 H 32 H (21-25) mmol/L ABG Total CO2 36 H 34 H (19-24) mmol/L ABG O2 Saturation 81.4 L 75.5 L (94-97) % Carbon Dioxide (22-30) mmol/L BUN (7-17) mg/dL Creatinine (0.52-1.04) mg/dL Glucose (74-99) mg/dL POC Glucose (mg/dL) 117 H (75-99) mg/dL Calcium (8.4-10.2) mg/dL Ferritin (10.0-291.0) ng/mL AST (14-36) U/L ALT (4-34) U/L Lactate Dehydrogenase (313-618) U/L Creatine Kinase (30-135) U/L C-Reactive Protein (<10.0) mg/L Total Protein (6.3-8.2) g/dL Albumin (3.5-5.0) g/dL 09/06/20 09/06/20 Range/Units 10:40 11:49 Neutrophils # (1.3-7.7) k/uL Fibrinogen (200-500) mg/dL D-Dimer (<0.60) mg/L FEU ABG pH 7.25 L (7.35-7.45) ABG pCO2 77 H* (35-45) mmHg ABG pO2 52 L* (83-108) mmHg ABG HCO3 34 H (21-25) mmol/L ABG Total CO2 36 H (19-24) mmol/L ABG O2 Saturation 79.9 L (94-97) % Carbon Dioxide (22-30) mmol/L BUN (7-17) mg/dL Creatinine (0.52-1.04) mg/dL Glucose (74-99) mg/dL POC Glucose (mg/dL) 204 H (75-99) mg/dL Calcium (8.4-10.2) mg/dL Ferritin (10.0-291.0) ng/mL AST (14-36) U/L ALT (4-34) U/L Lactate Dehydrogenase (313-618) U/L Creatine Kinase (30-135) U/L C-Reactive Protein (<10.0) mg/L Total Protein (6.3-8.2) g/dL Albumin (3.5-5.0) g/dL Assessment and Plan Plan: 1 acute bilateral pneumonia with secondary acute COVID 19 related pneumonia. The patient developed an acute ARDS secondary to underlying Covid 19 related pneumonia. The patient remains sedated and paralyzed. The patient is sitting motor volume ventilation with permissive hypercapnia. She remains severely hypoxic and chest x-ray shows diffuse pulmonary pulmonary infiltrates. Considered a component of fluid overload. 2 Acute hypoxic respiratory failure secondary to above, ARDS secondary to Covid 19 pneumonia. 3 elevated inflammatory markers including LDH and C-reactive protein, secondary to above, the most recent ferritin level is up to 92 and the LDH level is up to 846 4 Moderate persistent bronchial asthma 5 obesity with a BMI of 53.1 6 hyperlipidemia 7 acid reflux 8 osteoarthritis 9 Depression Plan Continue vent support with above-mentioned ventilator changes. The patient is allowing some permissive hypercapnia. Increase the PEEP up to 22. drop the flow down to 50 and added an inspiratory pause with a inverse-ratio 1-1 breathing. Blood gases to follow. Meanwhile, the patient will be started on Lasix to achieve a negative fluid balance and I started the patient on Lasix 40 mg IV every 8 hours. The patient will be also started on IV Solu-Medrol 60 mg every 6 hours to treat ARDS. Condition is extremely critical. Continue supportive care. Keep the patient sedated and paralyzed for another 24 hours with a possib ility of getting the patient paralytic holiday in a.m. depending on her overall pulmonary status and oxygenation. Continue enteral feeding for nutritional support. Condition is critical. This evaluation was done more than 30 minutes. \ Time with Patient: Greater than 30
[2020-09-06 17:07] LABS: Glucose,Whole Blood 217 mg/dL (75-99)
--- NOTE | 2020-09-06 19:35 | P.PN ---
Progress Note - Text Progress Note Date: 09/06/20 Chief Complaint: Short of breath History of presenting complaint: This is a 64-year-old patient follows with Dr. Chun. Patient has tested positive for COVID. Patient's symptoms started about a week ago. Progressively short of breath. More so in the last 4 days. Became much more significant yesterday. Presented to the ER. Also had fevers. Patient was hypoxic in the ER initial pulse ox around 70%. Was on 6 L with an wall. Check stat x-ray shows bilateral infiltrates. Patient smoked to the ICU. Subsequently intubated. Patient's currently on IV Decadron, propofol, IV fluids, IV cisatracurium. Patient on a FiO2 80% and a PEEP of 18. Has a OG- tube, Florentino catheter and endotracheal tube. Telemetry shows sinus rhythm. Seen by Dr. Clemente occasional babysitter in the ER. Admitted with bilateral COVID 19 pneumonia with acute hypoxic respiratory failur e, , acute asthma exacerbation. Ventilated.status post steroids, Remdesivir. Today-ICU. intubated. FiO2 72% and a PEEP of 22.. Tube feeding. Sinus rhythm. Drips- Nimbex and propofol. . Review of systems- patient intubated Active Medications Albuterol Sulfate (Albuterol Hfa Inhaler) 2 puff INHALATION RT-Q4H [facility] Last Admin: 09/06/20 15:53 Dose: 2 puff Documented by: Albuterol Sulfate (Albuterol Hfa Inhaler) 2 puff INHALATION RT-Q2H PRN PRN Reason: Shortness Of Breath Or Wheezing Ascorbic Acid (Ascorbic Acid 500 Mg Tab) 500 mg PO DAILY [facility] Last Admin: 09/06/20 10:10 Dose: 500 mg Documented by: Atorvastatin Calcium (Atorvastatin 40 Mg Tab) 40 mg PO DAILY [facility] Last Admin: 09/06/20 10:10 Dose: 40 mg Documented by: Chlorhexidine Gluconate (Chlorhexidine Gluconate 15 Ml Cup) 15 ml MUCOUS MEM BID [facility] Last Admin: 09/06/20 10:10 Dose: 15 ml Documented by: Cholecalciferol (Cholecalciferol 1,000 Unit Tab) 1,000 unit PO DAILY [facility] Last Admin: 09/06/20 10:11 Dose: 1,000 unit Documented by: Citalopram Hydrobromide (Citalopram Hydrobromide 20 Mg Tab) 20 mg PO DAILY [facility] Last Admin: 09/06/20 10:10 Dose: 20 mg Documented by: Enoxaparin Sodium (Enoxaparin 80 Mg/0.8 Ml Syringe) 80 mg SQ BID [facility] Last Admin: 09/06/20 10:11 Dose: 80 mg Documented by: Famotidine (Famotidine 20 Mg/2 Ml Vial) 20 mg IV Q12HR [facility] Last Admin: 09/06/20 10:11 Dose: 20 mg Documented by: Furosemide (Furosemide 10 Mg/Ml 4 Ml Vial) 40 mg IV Q8HR [facility] Last Admin: 09/06/20 15:18 Dose: 40 mg Documented by: Hydromorphone HCl (Hydromorphone 0.5 Mg/0.5 Ml Syringe) 0.5 mg IVP Q4HR [facility] Last Admin: 09/06/20 15:18 Dose: 0.5 mg Documented by: Sodium Chloride (Saline 0.9%) 1,000 mls @ 10 mls/hr IV .Q24H [facility] Last Admin: 09/06/20 08:10 Dose: 10 mls/hr Documented by: Cisatracurium Besylate 200 mg/ (Sodium Chloride) 200 mls @ 8.165 mls/hr IV .Q24H [facility]; Protocol Last Admin: 09/06/20 15:18 Dose: 3 mcg/kg/min, 24.494 mls/hr Documented by: Propofol 1,000 mg/ IV Solution 100 mls @ 0 mls/hr IV .Q0M [facility]; Protocol Last Admin: 09/06/20 17:10 Dose: 50 mcg/kg/min, 46.845 mls/hr Documented by: Clevidipine 25 mg/ IV Solution 50 mls @ 2 mls/hr IV .Q24H [facility]; Protocol Last Admin: 09/06/20 17:10 Dose: 21 mg/hr, 42 mls/hr Documented by: Insulin Aspart (Insulin Aspart (Novolog) 100 Unit/Ml Vial) 0 unit SQ Q6HR [facility]; Protocol Insulin Detemir (Insulin Detemir (Levemir) 100 Unit/Ml Syr) 30 unit SQ HS [facility] Last Admin: 09/05/20 22:08 Dose: 30 unit Documented by: Lactulose (Lactulose 20 Gm/30 Ml Cup) 20 gm PO BID [facility] Last Admin: 09/06/20 10:10 Dose: 20 gm Documented by: Melatonin (Melatonin 5 Mg Tablet) 5 mg PO HS [facility] Last Admin: 09/05/20 21:12 Dose: 5 mg Documented by: Methylprednisolone Sodium Succinate (Methylprednisolone Sod Succi 125 Mg/2 Ml Vial) 60 mg IV Q6HR [facility] Last Admin: 09/06/20 17:09 Dose: 60 mg Documented by: Metoclopramide HCl (Metoclopramide 5 Mg/Ml 2 Ml Vial) 10 mg IVP Q6HR [facility] Last Admin: 09/06/20 17:09 Dose: 10 mg Documented by: Miscellaneous Information (Potassium Replacement Protocol 1 Each Misc) 1 each MISCELLANE DAILY PRN; Protocol PRN Reason: Per Protocol Multi-Ingred Cream/Lotion/Oil/Oint (Artificial Tears Ointment 3.5 Gm Tube) 1 applic BOTH EYES Q4H [facility] Last Admin: 09/06/20 15:19 Dose: 1 applic Documented by: Naloxone HCl (Naloxone 0.4 Mg/Ml 1 Ml Vial) 0.2 mg IV Q2M PRN PRN Reason: Opioid Reversal Zinc Sulfate (Zinc Sulfate 220 Mg Cap) 220 mg PO DAILY [facility] Last Admin: 09/06/20 10:11 Dose: 220 mg Documented by: Physical examination: VITAL SIGNS: 98.7, 96, 25, 147/68, 83% on the ventilator GENERAL:, laying in bed, intubated.Florentino catheter Psychiatry-patient sedated Rest of the physical exam as per nursing and occasional babysitter INVESTIGATIONS, reviewed in the clinical context: White count 10.1 hemoglobin 12 platelets 298 d-dimer 1.93 potassium 3.7 creatinine 0.44 CRP 81.3 ABG-pH 7.35 pCO2 61 pO2 50 Chest x-ray -unchanged-scattered infiltrates Previous testing White count 5.6 hemoglobin 14.9 platelets 165 decreased lymphocytes Potassium 3.8 creatinine 0.7 to Ferritin 459 LDH 1139 CRP 32.9 pro-calcitonin 0.07 Chest x-ray film personally reviewed by me-bilateral scattered infiltrates, portable film COVID 19 P/Cr-detected Assessment: -Bilateral extensive COVID 19 pneumonia, POA-slow to respond -Sepsis from above- -ARDS-slow to respond -Acute severe hypoxic respiratory failure from COVID 19 pneumonia-slow to respond -GERD -Hyperlipidemia -Depression not otherwise specified -Moderate persistent asthma with acute exacerbation -Morbid obesity BMI 53.9 -Hypoalbuminemia, acute phase reactant Plan: continue Nimbex and propofol.. Tube feeding at goal. Prognosis guarded. Started by occasional babysitter on IV Lasix to get a negative fluid balance. Also IV Terrie u-Medrol added for the ARDS.
[2020-09-06] MEDS: MELATONIN 5 MG TABLET PO SCH (20:15)
[2020-09-06 20:40] LABS: Glucose,Whole Blood 213 mg/dL (75-99)
[2020-09-07 00:04] LABS: Glucose,Whole Blood 195 mg/dL (75-99)
[2020-09-07] MEDS: INSULIN ASPART (NovoLOG) 100 UNIT/ML VIAL SQ SCH ×8 (00:42→18:02)
[2020-09-07] MEDS: ALBUTEROL HFA INHALER INHALATION SCH ×6 (01:01→21:22)
[2020-09-07] MEDS ORDERED: AMIODARONE 360 MG in DEXTROSE 5% IN WATER 200 ML IV ONE ×2 (02:29)
[2020-09-07] MEDS ORDERED: DEXTROSE 5% IN WATER 100 ML with AMIODARONE 150 MG IV ONE (02:29)
[2020-09-07] MEDS: ARTIFICIAL TEARS OINTMENT 3.5 GM TUBE BOTH EYES SCH ×5 (02:54→20:18)
[2020-09-07] MEDS: HYDROmorphone 0.5 MG/0.5 ML SYRINGE IVP SCH ×5 (04:29→20:28)
[2020-09-07 04:52] LABS: ABG Base Excess 10.5 mmol/L; ABG HCO3 36 mmol/L (21-25); ABG PCO2 66 mmHg (35-45); ABG PH 7.35 (7.35-7.45); ABG PO2 74 mmHg (83-108); ABG TCO2 38 mmol/L (19-24)
[2020-09-07 05:00] LABS: Basophils # (A) 0.1 k/uL (0-0.2); Basophils % (A) 1 %; Eosinophils % (A) 0 %; HCT 34.9 % (34.0-46.0); HGB 11.1 gm/dL (11.4-16.0); Hypochromasia Slight; Lymphocytes # (A) 0.5 k/uL (1.0-4.8); Lymphocytes % (A) 5 %; MCH 31.1 pg (25.0-35.0); MCHC 31.9 g/dL (31.0-37.0); MCV 97.8 fL (80.0-100.0); Mean Platelet Volume 8.4; Monocytes # (A) 0.5 k/uL (0-1.0); Monocytes % (A) 6 %; Neutrophils # (A) 7.8 k/uL (1.3-7.7); Neutrophils % (A) 87 %; Platelet Count 221 k/uL (150-450); RBC 3.57 m/uL (3.80-5.40); RDW 14.1 % (11.5-15.5)
[2020-09-07 05:37] LABS: D-Dimer 1.09 mg/L FEU (<0.60)
[2020-09-07 05:52] LABS: ALT 89 U/L (4-34); AST 45 U/L (14-36); African American GFR (CKD) >90 (>60 ml/min/1.73 sqM); Albumin 2.4 g/dL (3.5-5.0); Alkaline Phosphatase 105 U/L (38-126); Anion Gap 2 mmol/L; Blood Urea Nitrogen 20 mg/dL (7-17); Calcium 7.9 mg/dL (8.4-10.2); Carbon Dioxide 37 mmol/L (22-30); Chloride 101 mmol/L (98-107); Glucose 181 mg/dL (74-99); LDH 710 U/L (313-618); Non-African American GFR(CKD) >90 (>60 ml/min/1.73 sqM); Potassium 3.6 mmol/L (3.5-5.1); Sodium 140 mmol/L (137-145); Total Bilirubin 0.7 mg/dL (0.2-1.3); Total Protein 5.1 g/dL (6.3-8.2)
[2020-09-07] MEDS: CISATRACURIUM 200 MG in SODIUM CHLORIDE 0.9% 180 ML IV SCH (06:06)
[2020-09-07 06:16] LABS: C Reactive Protein 228.7 mg/L (<10.0)
[2020-09-07] MEDS ORDERED: POTASSIUM BICARBONATE/CIT AC 20 MEQ TABLET.EFF NG-TUBE SCH (07:00)
[2020-09-07] MEDS: METOCLOPRAMIDE 5 MG/ML 2 ML VIAL IVP SCH ×3 (07:00→18:01)
[2020-09-07] MEDS: methylPREDNISolone SOD SUCCI 125 MG/2 ML VIAL IV SCH ×3 (07:00→18:00)
--- NOTE | 2020-09-07 08:10 | ECHOF ---
Referral Reason:assess LV EF, COVID19 MEASUREMENTS -------- HEIGHT: 160.0 cm WEIGHT: 159.2 kg BP: 149/59 RVIDd: 3.3 cm (< 3.3) IVSd: 1.4 cm (0.6 - 1.1) LVIDd: 2.8 cm (3.9 - 5.3) LVPWd: 1.4 cm (0.6 - 1.1) IVSs: 2.0 cm LVIDs: 2.0 cm LVPWs: 1.7 cm LA Diam: 3.2 cm (2.7 - 3.8) LAESV Index (A-L): 25.94 ml/m Ao Diam: 3.1 cm (2.0 - 3.7) AV Cusp: 2.0 cm (1.5 - 2.6) MV EXCURSION: 14.924 mm (> 18.000) MV EF SLOPE: 66 mm/s (70 - 150) EPSS: 0.3 cm MV E Rod: 1.18 m/s MV DecT: 288 ms MV A Rod: 1.19 m/s MV E/A Ratio: 0.99 AV maxP.75 mmHg AV meanP.83 mmHg RAP: 15.00 mmHg RVSP: 58.16 mmHg FINDINGS -------- Sinus rhythm. This was a technically adequate study. The left ventricular size is normal. There is moderate concentric left ventricular hypertrophy. O verall left ventricular systolic function is normal with, an EF between 60 - 65 %. The right ventricle is mildly enlarged. Normal LA size by volume 22+/-6 ml/m2. The right atrium is normal in size. Interatrial and interventricular septum intact. There is mild aortic valve sclerosis. The mitral valve is normal. Mild tricuspid regurgitation present. There is severe pulmonary hypertension. The right ventricul ar systolic pressure, as measured by Doppler, is 58.16mmHg. Trace/mild (physiologic) pulmonic regurgitation. The aortic root size is normal. The inferior vena cava is dilated with no significant inspiratory collapse which is consistent estima bryon right atrial pressure of >15 mmHg. There is no pericardial effusion. CONCLUSIONS -------- 1. The left ventricular size is normal. 2. There is moderate concentric left ventricular hypertrophy. 3. Overall left ventricular systolic function is normal with, an EF between 60 - 65 %. 4. The right ventricle is mildly enlarged. 5. There is mild aortic valve sclerosis. 6. Mild tricuspid regurgitation present. 7. There is severe pulmonary hypertension. 8. The right ventricular systolic pressure, as measured by Doppler, is 58.16mmHg. 9. Trace/mild (physiologic) pulmonic regurgitation. 10. The inferior vena cava is dilated with no significant inspiratory collapse which is consistent es timated right atrial pressure of >15 mmHg. 11. There is no pericardial effusion. PALLETISER OPERATOR: Sujata Milligan RDCS
--- NOTE | 2020-09-07 08:35 | XR ---
EXAMINATION TYPE: XR chest 1V portable DATE OF EXAM: 09/07/2020 COMPARISON: 09/06/2020 HISTORY: Shortness of breath TECHNIQUE: Single frontal view of the chest is obtained. FINDINGS: ET tube, NG tube and central line stable. Diffuse bilateral pleural-parenchymal changes st able. No pneumothorax. Heart size stable. Hypertrophic and degenerative change of the spine. IMPRESSION: Stable diffuse pleural-parenchymal changes correlate for pulmonary edema, ARDS, or diffu se pneumonia.
[2020-09-07] MEDS: LACTULOSE 20 GM/30 ML CUP PO SCH ×2 (08:46→20:28)
[2020-09-07] MEDS: CHLORHEXIDINE GLUCONATE 15 ML CUP MUCOUS MEM SCH ×2 (08:46→20:28)
[2020-09-07] MEDS: FAMOTIDINE 20 MG/2 ML VIAL IV SCH ×2 (08:46→20:28)
[2020-09-07] MEDS: FUROSEMIDE 10 MG/ML 4 ML VIAL IV SCH ×2 (08:47→18:00)
[2020-09-07] MEDS: ENOXAPARIN 80 MG/0.8 ML SYRINGE SQ SCH ×2 (08:47→20:28)
[2020-09-07] MEDS: ATORVASTATIN 40 MG TAB PO SCH (08:48)
[2020-09-07] MEDS: CHOLECALCIFEROL 1,000 UNIT TAB PO SCH (08:48)
[2020-09-07] MEDS: ZINC SULFATE 220 MG CAP PO SCH (08:48)
[2020-09-07] MEDS: ASCORBIC ACID 500 MG TAB PO SCH (08:48)
[2020-09-07] MEDS: CITALOPRAM HYDROBROMIDE 20 MG TAB PO SCH (08:48)
[2020-09-07] MEDS: AMIODARONE 300 MG in DEXTROSE 5% IN WATER 250 ML IV SCH ×4 (08:51→20:18)
[2020-09-07 09:59] LABS: ABG Base Excess 13.2 mmol/L; ABG PH 7.28 (7.35-7.45); ABG PO2 93 mmHg (83-108); ABG TCO2 43 mmol/L (19-24); Allen Test Performed? Yes
[2020-09-07 10:01] LABS: ABG PCO2 86 mmHg (35-45)
[2020-09-07 10:02] LABS: Ferritin 438.3 ng/mL (10.0-291.0)
[2020-09-07 10:02] LABS: ABG HCO3 40 mmol/L (21-25)
[2020-09-07 11:44] LABS: Glucose,Whole Blood 171 mg/dL (75-99)
[2020-09-07 15:07] VITALS: BMI 62.5
--- NOTE | 2020-09-07 15:31 | P.PN ---
Subjective Progress Note Date: 09/07/20 64-year-old female patient who was admitted on 08/22/2024, with related pneumonia and the patient presented with diffuse breath and pulmonary infiltrates and acute hypoxic respiratory failure. The patient got transferred to the ICU and the patient was intubated on 08/23/2024 severe hypoxemia. The patient has been on the mechanical ventilator since. For now, the patient remains on an assist-control mode of ventilation with tidal volume of 400 and FiO2 of 75% and PEEP of 20 with a respiratory rate of 25. Chest x-ray still showing diffuse but the pulmonary infiltrates. ABG from this morning showed a pH of 7.35 with a pCO2 of 61 and pO2 of 50. The peak airway pressure was quite high at 48 with a static pressure of 44. The patient was still paralyzed with Nimbex and the patient is on propofol. Peak airway pressure 52, static of 46. The patient remains sedated with propofol running at 50 g per KG per minute. . The patient is also on paralytics and the medics is running at 3 g per KG per minute. The patient is receiving enteral feeding for nutritional support at the rate of 42 mL an hour of vital high protein and the patient is on normal state rate of 75 mL an hour. The neck fluid balance is significantly positive this patient. On today's evaluation, I noted that the patient's airway pressures are quite elevated. This is related to her morbid obesity which causes extrapulmona ry restriction in addition to ARDS. Based on this, I dropped his tidal volume down to 350. I further increase the inspiratory time positive to 0.2 seconds and drop the flow down to 50 allowing this patient to get in I:E ratio 1-1. Subsequent blood gases showed a pH of 7.25 with a pCO2 of 77 and pO2 of 50 to and there has been no significant major improvement in oxygenation with above- mentioned changes. The patient is on Catapres for blood pressure control at 2 mg per hour. She is tolerating enteral feeding for nutritional support. On 09/07/2020 the patient remains intubated on a mechanical ventilator. Unfortunately she continues to be in ARDS secondary to call in mental related pneumonia. The patient is still on propofol at 50 g and the patient also Nimbex at 3 g. The patient is on a mechanical ventilator and it was noted that the patient had elevated peak and static pressure which is essentially unchanged compared to yesterday. Peak static airway pressure was 46 and 44 respectively. Based on that, I suspect this patient. Pressure control mode of ventilation. Earlier, the patient was in a tidal volume of 350 with an FiO2 of 35% with a PEEP of 22 with a rate of 25. The blood gases showed a pH of 7.3 with a pCO2 of 66 and pO2 74. At that point, I switched this patient to a pressure control mode with a PEEP of 22, pressure control of 18, expiratory time of 1.1, FiO2 of 75% and the generator minute ventilation was at 6.7 L. The plateau airway pressure was down to 38 accordingly. The subsequent blood gases showed a pH of 7.28 with a pCO2 of 86 and pO2 of 93. I asked the patient to have her FiO2 lower down to 65%. She is hemodynamically stable. She is on Catapres for blood pressure control. Fluid balance is -1.93 over the past 24 hours and the patient is being diuresed IV Lasix. She is on vital high protein at the rate of 20 mL an hour which is at goal for now. No fever. No other issues otherwise for now. The most recent CRP level from today still elevated at 228 and LDH level is at 710. Objective - Vital Signs Vital signs: Vital Signs Temp 98.9 F 09/07/20 04:00 Pulse 70 09/07/20 07:00 Resp 25 H 09/07/20 07:00 BP 161/70 09/07/20 00:00 Pulse Ox 89 L 09/07/20 07:00 Intake & Output 09/06/20 09/07/20 09/07/20 18:59 06:59 18:59 Intake Total 0258.759 5433.455 103.204 Output Total 3155 1973 Balance -1357.863 -623.545 103.204 Weight 159.6 kg 160.2 kg Intake: IV 399 338 Normal Saline Pressure 54 78 Bag Sodium Chloride 0.9% 1, 345 260 000 ml @ 10 mls/hr IV . Q24H [facility] Rx#:[id number] Intake, IV Titration 832.137 751.455 103.204 Amount Cisatracurium 200 mg In 301.276 351.455 Sodium Chloride 0.9% 180 ml @ 1 MCG/KG/MIN 8.165 mls/hr IV .Q24H [facility] Rx#: [id number] Clevidipine Butyrate 25 329.3 100 mg In Empty Bag 1 bag @ 1 MG/HR 2 mls/hr IV .Q24H [facility] Rx#:[id number] propofoL 1,000 mg In 201.561 300 103.204 Empty Bag 1 bag @ Titrate IV .Q0M [facility] Rx#: [id number] Tube Feeding 416 260 Other 150 Output: Urine 3155 1973 Other: Voiding Method Indwelling Catheter Indwelling Catheter # Bowel Movements 0 ABP, PAP, CO, CI - Last Documented Arterial Blood Pressure 128/51 - Exam Gen. appearance intubated, comfortable likely distress. Orogastric and orotracheal tube are both in place. Head exam was generally normal. There was no scleral icterus or corneal arcus. Mucous membranes were moist. Neck was supple and without jugular venous distension, thyromegaly, or carotid bruits. Carotids were easily palpable bilaterally. There was no adenopathy. Lungs sounds are diminished in the patient's correct in lung bases bilaterally. Cardiac exam revealed the PMI to be normally situated and sized. The rhythm was regular and no extrasystoles were noted during several minutes of auscultation. The first and second heart sounds were normal and physiologic splitting of the second heart sound was noted. There were no murmurs, rubs, clicks, or gallops. Abdominal exam revealed normal bowel sounds. The abdomen was soft, non-tender, and without masses, organomegaly, or appreciable enlargement of the abdominal aorta. Examination of the extremities revealed easily palpable radial, femoral and pedal pulses. There was no cyanosis, clubbing or edema. Examination of the skin revealed no evidence of significant rashes, suspicious appearing nevi or other concerning lesions. Neurologically the patient is sedated and paralyzed. Motor function and sensory function cannot be accurately assessed. - Labs CBC & Chem 7: 09/07/20 04:45 09/07/20 04:45 Labs: Abnormal Lab Results - Last 24 Hours (Table) 09/06/20 09/06/20 09/06/20 Range/Units 04:18 09:41 10:40 RBC (3.80-5.40) m/uL Hgb (11.4-16.0) gm/dL Neutrophils # (1.3-7.7) k/uL Lymphocytes # (1.0-4.8) k/uL Fibrinogen (200-500) mg/dL D-Dimer (<0.60) mg/L FEU ABG pH 7.25 L 7.25 L (7.35-7.45) ABG pCO2 72 H* 77 H* (35-45) mmHg ABG pO2 48 L* 52 L* (83-108) mmHg ABG HCO3 32 H 34 H (21-25) mmol/L ABG Total CO2 34 H 36 H (19-24) mmol/L ABG O2 Saturation 75.5 L 79.9 L (94-97) % Carbon Dioxide (22-30) mmol/L BUN (7-17) mg/dL Glucose (74-99) mg/dL POC Glucose (mg/dL) (75-99) mg/dL Calcium (8.4-10.2) mg/dL Ferritin 292.5 H (10.0-291.0) ng/mL AST (14-36) U/L ALT (4-34) U/L Lactate Dehydrogenase (313-618) U/L C-Reactive Protein (<10.0) mg/L Total Protein (6.3-8.2) g/dL Albumin (3.5-5.0) g/dL 09/06/20 09/06/20 09/06/20 Range/Units 11:49 17:04 20:39 RBC (3.80-5.40) m/uL Hgb (11.4-16.0) gm/dL Neutrophils # (1.3-7.7) k/uL Lymphocytes # (1.0-4.8) k/uL Fibrinogen (200-500) mg/dL D-Dimer (<0.60) mg/L FEU ABG pH (7.35-7.45) ABG pCO2 (35-45) mmHg ABG pO2 (83-108) mmHg ABG HCO3 (21-25) mmol/L ABG Total CO2 (19-24) mmol/L ABG O2 Saturation (94-97) % Carbon Dioxide (22-30) mmol/L BUN (7-17) mg/dL Glucose (74-99) mg/dL POC Glucose (mg/dL) 204 H 217 H 213 H (75-99) mg/dL Calcium (8.4-10.2) mg/dL Ferritin (10.0-291.0) ng/mL AST (14-36) U/L ALT (4-34) U/L Lactate Dehydrogenase (313-618) U/L C-Reactive Protein (<10.0) mg/L Total Protein (6.3-8.2) g/dL Albumin (3.5-5.0) g/dL 09/07/20 09/07/20 09/07/20 Range/Units 00:03 04:45 04:45 RBC 3.57 L (3.80-5.40) m/uL Hgb 11.1 L (11.4-16.0) gm/dL Neutrophils # 7.8 H (1.3-7.7) k/uL Lymphocytes # 0.5 L (1.0-4.8) k/uL Fibrinogen 642 H (200-500) mg/dL D-Dimer 1.09 H (<0.60) mg/L FEU ABG pH (7.35-7.45) ABG pCO2 (35-45) mmHg ABG pO2 (83-108) mmHg ABG HCO3 (21-25) mmol/L ABG Total CO2 (19-24) mmol/L ABG O2 Saturation (94-97) % Carbon Dioxide (22-30) mmol/L BUN (7-17) mg/dL Glucose (74-99) mg/dL POC Glucose (mg/dL) 195 H (75-99) mg/dL Calcium (8.4-10.2) mg/dL Ferritin (10.0-291.0) ng/mL AST (14-36) U/L ALT (4-34) U/L Lactate Dehydrogenase (313-618) U/L C-Reactive Protein (<10.0) mg/L Total Protein (6.3-8.2) g/dL Albumin (3.5-5.0) g/dL 09/07/20 09/07/20 Range/Units 04:45 04:50 RBC (3.80-5.40) m/uL Hgb (11.4-16.0) gm/dL Neutrophils # (1.3-7.7) k/uL Lymphocytes # (1.0-4.8) k/uL Fibrinogen (200-500) mg/dL D-Dimer (<0.60) mg/L FEU ABG pH (7.35-7.45) ABG pCO2 66 H (35-45) mmHg ABG pO2 74 L (83-108) mmHg ABG HCO3 36 H (21-25) mmol/L ABG Total CO2 38 H (19-24) mmol/L ABG O2 Saturation (94-97) % Carbon Dioxide 37 H (22-30) mmol/L BUN 20 H (7-17) mg/dL Glucose 181 H (74-99) mg/dL POC Glucose (mg/dL) (75-99) mg/dL Calcium 7.9 L (8.4-10.2) mg/dL Ferritin (10.0-291.0) ng/mL AST 45 H (14-36) U/L ALT 89 H (4-34) U/L Lactate Dehydrogenase 710 H (313-618) U/L C-Reactive Protein 228.7 H (<10.0) mg/L Total Protein 5.1 L (6.3-8.2) g/dL Albumin 2.4 L (3.5-5.0) g/dL Assessment and Plan Plan: 1 acute bilateral pneumonia with secondary acute COVID 19 related pneumonia. The patient developed an acute ARDS secondary to underlying Covid 19 related pneumonia. The patient remains sedated and paralyzed. The patient is low volume ventilation with permissive hypercapnia. She remains severely hypoxic and chest x-ray shows diffuse pulmonary pulmonary infiltrates. Considered a component of fluid overload. The patient was started on diuretics. Airway pressures remains quite elevated on today's evaluation the patient was switched a pressure control mode of ventilation administered ventilator changes were done and subsequent blood gases showed some improvement in oxygenation. Meanwhile, the patient will be kept on diuretics to maintain a negative fluid balance. The patient is still on sedation and paralysis for now. The paralytic holiday will be given today. 2 Acute hypoxic respiratory failure secondary to above, ARDS secondary to Covid 19 pneumonia. Serial above-mentioned changes. 3 elevated inflammatory markers including LDH and C-reactive protein, secondary to above, the most recent inflammatory markers are still elevated including the CRP which is up to 228. 4 Moderate persistent bronchial asthma 5 obesity with a BMI of 53.1 6 hyperlipidemia 7 acid reflux 8 osteoarthritis 9 Depression Plan Continue vent support with above-mentioned ventilator changes. The patient is currently on a pressure control mode of ventilation. Allow some permissive hypercapnia. Wean down the FiO2 gradually. Continue IV Lasix Maintain a negative fluid balance Continue IV Solu-Medrol 60 mg every 6 hours Condition is extremely critical. Continue supportive care. Keep the patient sedated and paralyzed for another 24 hours with a possibility of getting the patient paralytic holiday today depending on her overall pulmonary status and oxygenation. Continue enteral feeding for nutritional support. Condition is critical. This evaluation was done more than 30 minutes. \ Time with Patient: Greater than 30
[2020-09-07 17:30] LABS: Glucose,Whole Blood 168 mg/dL (75-99)
[2020-09-07 20:06] LABS: LD Isoenzymes 1 19 % (19-38); LD Isoenzymes 2 37 % (30-43); LD Isoenzymes 3 21 % (16-26); LD Isoenzymes 4 9 % (3-12); LD Isoenzymes 5 14 % (3-14); Lactacte Dehydrogenase(LD) ISO 280 U/L (120-250)
[2020-09-07 20:24] LABS: Glucose,Whole Blood 157 mg/dL (75-99)
[2020-09-07] MEDS: AMIODARONE 200 MG TAB PO SCH (20:25)
[2020-09-07] MEDS: MELATONIN 5 MG TABLET PO SCH (20:28)
[2020-09-07] MEDS: INSULIN DETEMIR (LEVEMIR) 100 UNIT/ML SYR SQ SCH (20:28)
[2020-09-07] MEDS: SODIUM CHLORIDE 0.9% 1,000 ML IV SCH (20:28)
--- NOTE | 2020-09-07 22:45 | P.PN ---
Progress Note - Text Progress Note Date: 09/07/20 Chief Complaint: Short of breath History of presenting complaint: This is a 64-year-old patient follows with Dr. Chun. Patient has tested positive for COVID. Patient's symptoms started about a week ago. Progressively short of breath. More so in the last 4 days. Became much more significant yesterday. Presented to the ER. Also had fevers. Patient was hypoxic in the ER initial pulse ox around 70%. Was on 6 L with an wall. Check stat x-ray shows bilateral infiltrates. Patient smoked to the ICU. Subsequently intubated. Patient's currently on IV Decadron, propofol, IV fluids, IV cisatracurium. Patient on a FiO2 80% and a PEEP of 18. Has a OG- tube, Florentino catheter and endotracheal tube. Telemetry shows sinus rhythm. 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 Admitted with bilateral COVID 19 pneumonia with acute hypoxic respiratory failur e, , acute asthma exacerbation. Ventilated.status post steroids, Remdesivir. Received multiple drips. Today-ICU. intubated. FiO2 -60%. PEEP of 22. Did receive IV Lasix. Nimbex discontinued this morning. Continue with propofol. Did go into atrial fibrillation put on IV amiodarone. When back in a sinus rhythm.. Review of systems- patient intubated Active Medications Albuterol Sulfate (Albuterol Hfa Inhaler) 2 puff INHALATION RT-Q4H [facility] Last Admin: 09/07/20 21:22 Dose: 2 puff Documented by: Albuterol Sulfate (Albuterol Hfa Inhaler) 2 puff INHALATION RT-Q2H PRN PRN Reason: Shortness Of Breath Or Wheezing Amiodarone HCl (Amiodarone 200 Mg Tab) 400 mg PO BID [facility] Last Admin: 09/07/20 20:25 Dose: Not Given Documented by: Ascorbic Acid (Ascorbic Acid 500 Mg Tab) 500 mg PO DAILY [facility] Last Admin: 09/07/20 08:48 Dose: 500 mg Documented by: Atorvastatin Calcium (Atorvastatin 40 Mg Tab) 40 mg PO DAILY [facility] Last Admin: 09/07/20 08:48 Dose: 40 mg Documented by: Chlorhexidine Gluconate (Chlorhexidine Gluconate 15 Ml Cup) 15 ml MUCOUS MEM BID [facility] Last Admin: 09/07/20 20:28 Dose: 15 ml Documented by: Cholecalciferol (Cholecalciferol 1,000 Unit Tab) 1,000 unit PO DAILY [facility] Last Admin: 09/07/20 08:48 Dose: 1,000 unit Documented by: Citalopram Hydrobromide (Citalopram Hydrobromide 20 Mg Tab) 20 mg PO DAILY [facility] Last Admin: 09/07/20 08:48 Dose: 20 mg Documented by: Enoxaparin Sodium (Enoxaparin 80 Mg/0.8 Ml Syringe) 80 mg SQ BID [facility] Last Admin: 09/07/20 20:28 Dose: 80 mg Documented by: Famotidine (Famotidine 20 Mg/2 Ml Vial) 20 mg IV Q12HR [facility] Last Admin: 09/07/20 20:28 Dose: 20 mg Documented by: Furosemide (Furosemide 10 Mg/Ml 4 Ml Vial) 40 mg IV Q8HR [facility] Last Admin: 09/07/20 18:00 Dose: 40 mg Documented by: Hydromorphone HCl (Hydromorphone 0.5 Mg/0.5 Ml Syringe) 0.5 mg IVP Q4HR [facility] Last Admin: 09/07/20 20:28 Dose: 0.5 mg Documented by: Sodium Chloride (Saline 0.9%) 1,000 mls @ 10 mls/hr IV .Q24H [facility] Last Admin: 09/07/20 20:28 Dose: 10 mls/hr Documented by: Cisatracurium Besylate 200 mg/ (Sodium Chloride) 200 mls @ 8.165 mls/hr IV .Q24H [facility]; Protocol Last Titration: 09/07/20 12:40 Dose: 0 mcg/kg/min, 0 mls/hr Documented by: Propofol 1,000 mg/ IV Solution 100 mls @ 0 mls/hr IV .Q0M [facility]; Protocol Last Titration: 09/07/20 21:35 Dose: Infused Documented by: Clevidipine 25 mg/ IV Solution 50 mls @ 2 mls/hr IV .Q24H [facility]; Protocol Last Titration: 09/07/20 03:00 Dose: Infused Documented by: Amiodarone HCl 300 mg/ (Dextrose/Water) 250 mls @ 25 mls/hr IV .Q10H [facility]; Protocol Stop: 09/08/20 02:28 Last Admin: 09/07/20 20:18 Dose: Not Given Documented by: Insulin Aspart (Insulin Aspart (Novolog) 100 Unit/Ml Vial) 0 unit SQ Q6HR [facility]; Protocol Last Admin: 09/07/20 18:01 Dose: 3 unit Documented by: Insulin Aspart (Insulin Aspart (Novolog) 100 Unit/Ml Vial) 2 unit SQ Q6HR [facility] Last Admin: 09/07/20 18:02 Dose: 2 unit Documented by: Insulin Detemir (Insulin Detemir (Levemir) 100 Unit/Ml Syr) 30 unit SQ [facility] Last Admin: 09/07/20 20:28 Dose: 30 unit Documented by: Lactulose (Lactulose 20 Gm/30 Ml Cup) 20 gm PO BID [facility] Last Admin: 09/07/20 20:28 Dose: 20 gm Documented by: Melatonin (Melatonin 5 Mg Tablet) 5 mg PO [facility] Last Admin: 09/07/20 20:28 Dose: 5 mg Documented by: Methylprednisolone Sodium Succinate (Methylprednisolone Sod Succi 125 Mg/2 Ml Vial) 60 mg IV Q6HR [facility] Last Admin: 09/07/20 18:00 Dose: 60 mg Documented by: Metoclopramide HCl (Metoclopramide 5 Mg/Ml 2 Ml Vial) 10 mg IVP Q6HR [facility] Last Admin: 09/07/20 18:01 Dose: 10 mg Documented by: Miscellaneous Information (Potassium Replacement Protocol 1 Each Misc) 1 each MISCELLANE DAILY PRN; Protocol PRN Reason: Per Protocol Multi-Ingred Cream/Lotion/Oil/Oint (Artificial Tears Ointment 3.5 Gm Tube) 1 applic BOTH EYES Q4H [facility] Last Admin: 09/07/20 20:18 Dose: 1 applic Documented by: Naloxone HCl (Naloxone 0.4 Mg/Ml 1 Ml Vial) 0.2 mg IV Q2M PRN PRN Reason: Opioid Reversal Zinc Sulfate (Zinc Sulfate 220 Mg Cap) 220 mg PO DAILY [facility] Last Admin: 09/07/20 08:48 Dose: 220 mg Documented by: Physical examination: VITAL SIGNS: 98.3, 75, 25, 140/61, 89% on the ventilator GENERAL:, laying in bed, intubated.Florentino catheter Psychiatry-patient sedated Rest of the physical exam as per nursing and director reactor projects INVESTIGATIONS, reviewed in the clinical context: White count 9 hemoglobin 11.1 platelets 221 potassium 3.6 creatinine 0.55, ABG noted Previous testing White count 5.6 hemoglobin 14.9 platelets 165 decreased lymphocytes Potassium 3.8 creatinine 0.7 to Ferritin 459 LDH 1139 CRP 32.9 pro-calcitonin 0.07 Chest x-ray film personally reviewed by me-bilateral scattered infiltrates, portable film COVID 19 P/Cr-detected Assessment: -Bilateral extensive COVID 19 pneumonia, POA-slow to respond -Sepsis from above- -ARDS-slow to respond -Acute severe hypoxic respiratory failure from COVID 19 pneumonia-slow to respond -GERD -Hyperlipidemia -Depression not otherwise specified -Moderate persistent asthma with acute exacerbation -Morbid obesity BMI 53.9 -Hypoalbuminemia, acute phase reactant -Paroxysmal atrial fibrillation back to sinus rhythm Plan: On propofol.. Tube feeding at goal. Prognosis guarded. Remains on IV Lasix, IV steroids. Nimbex held this morning. According to paroxysmal atrial fibrillation back in sinus rhythm. Started on amiodarone.
[2020-09-08 00:01] LABS: Glucose,Whole Blood 190 mg/dL (75-99)
[2020-09-08] MEDS: FUROSEMIDE 10 MG/ML 4 ML VIAL IV SCH ×2 (00:13→08:31)
[2020-09-08] MEDS: HYDROmorphone 0.5 MG/0.5 ML SYRINGE IVP SCH ×3 (00:13→08:32)
[2020-09-08] MEDS: INSULIN ASPART (NovoLOG) 100 UNIT/ML VIAL SQ SCH ×4 (00:13→05:21)
[2020-09-08] MEDS: methylPREDNISolone SOD SUCCI 125 MG/2 ML VIAL IV SCH ×2 (00:13→05:21)
[2020-09-08] MEDS: METOCLOPRAMIDE 5 MG/ML 2 ML VIAL IVP SCH ×2 (00:13→05:22)
[2020-09-08] MEDS: ARTIFICIAL TEARS OINTMENT 3.5 GM TUBE BOTH EYES SCH ×4 (00:29→13:02)
[2020-09-08] MEDS: ALBUTEROL HFA INHALER INHALATION SCH ×4 (01:24→11:42)
[2020-09-08 03:22] LABS: Basophils % (A) 0 %; Eosinophils % (A) 0 %; HCT 32.7 % (34.0-46.0); HGB 10.4 gm/dL (11.4-16.0); Hypochromasia Slight; Lymphocytes # (A) 0.8 k/uL (1.0-4.8); Lymphocytes % (A) 11 %; MCH 30.8 pg (25.0-35.0); MCHC 31.7 g/dL (31.0-37.0); MCV 97.2 fL (80.0-100.0); Mean Platelet Volume 8.2; Monocytes # (A) 0.3 k/uL (0-1.0); Monocytes % (A) 5 %; Neutrophils # (A) 5.8 k/uL (1.3-7.7); Neutrophils % (A) 82 %; Platelet Count 206 k/uL (150-450); RBC 3.36 m/uL (3.80-5.40); RDW 14.7 % (11.5-15.5)
[2020-09-08 03:36] LABS: ALT 81 U/L (4-34); AST 38 U/L (14-36); African American GFR (CKD) >90 (>60 ml/min/1.73 sqM); Albumin 2.4 g/dL (3.5-5.0); Alkaline Phosphatase 89 U/L (38-126); Blood Urea Nitrogen 31 mg/dL (7-17); Chloride 96 mmol/L (98-107); Glucose 213 mg/dL (74-99); Non-African American GFR(CKD) >90 (>60 ml/min/1.73 sqM); Potassium 3.4 mmol/L (3.5-5.1); Sodium 137 mmol/L (137-145); Total Bilirubin 0.4 mg/dL (0.2-1.3); Total Protein 5.2 g/dL (6.3-8.2)
[2020-09-08 03:42] LABS: Anion Gap 0 mmol/L
[2020-09-08 03:51] LABS: C Reactive Protein 144.5 mg/L (<10.0)
[2020-09-08 03:56] LABS: D-Dimer 0.8 mg/L FEU (<0.60)
[2020-09-08 03:59] LABS: Carbon Dioxide 41 mmol/L (22-30)
[2020-09-08 04:02] VITALS: TEMP 97.8
[2020-09-08] MEDS: POTASSIUM BICARBONATE/CIT AC 20 MEQ TABLET.EFF NG-TUBE SCH ×2 (04:23→05:22)
[2020-09-08 05:02] LABS: ABG PCO2 59 mmHg (35-45); ABG PH 7.46 (7.35-7.45); ABG PO2 58 mmHg (83-108)
[2020-09-08 05:03] LABS: ABG Base Excess 18.3 mmol/L; ABG HCO3 42 mmol/L (21-25); ABG TCO2 44 mmol/L (19-24)
[2020-09-08 05:19] LABS: Glucose,Whole Blood 181 mg/dL (75-99)
[2020-09-08 06:10] VITALS: RESP 25
--- NOTE | 2020-09-08 07:38 | XR ---
EXAMINATION TYPE: XR chest 1V portable DATE OF EXAM: 09/08/2020 COMPARISON: Prior chest x-ray 09/07/2020 HISTORY: Intubated TECHNIQUE: Single frontal view of the chest is obtained. FINDINGS: Endotracheal tube, NG tube, right jugular central venous catheter are overlying appropriat e positions. Bilateral patchy airspace disease persists, there is no evident pneumothorax or sizable effusion. Heart size is stable. There are overlying cardiac leads. Patient is rotated. IMPRESSION: Findings are similar to prior exam. Correlate for pneumonia, edema, ARDS.
[2020-09-08] MEDS: ASCORBIC ACID 500 MG TAB PO SCH (08:33)
[2020-09-08] MEDS: ATORVASTATIN 40 MG TAB PO SCH (08:33)
[2020-09-08] MEDS: CHLORHEXIDINE GLUCONATE 15 ML CUP MUCOUS MEM SCH (08:33)
[2020-09-08] MEDS: ENOXAPARIN 80 MG/0.8 ML SYRINGE SQ SCH (08:33)
[2020-09-08] MEDS: AMIODARONE 200 MG TAB PO SCH (08:33)
[2020-09-08] MEDS: CHOLECALCIFEROL 1,000 UNIT TAB PO SCH (08:33)
[2020-09-08] MEDS: ZINC SULFATE 220 MG CAP PO SCH (08:33)
[2020-09-08] MEDS: CITALOPRAM HYDROBROMIDE 20 MG TAB PO SCH (08:33)
[2020-09-08] MEDS: FAMOTIDINE 20 MG/2 ML VIAL IV SCH (08:34)
[2020-09-08] MEDS: LACTULOSE 20 GM/30 ML CUP PO SCH (08:34)
[2020-09-08 09:26] LABS: Ferritin 490.4 ng/mL (10.0-291.0)
[2020-09-08 09:47] VITALS: PULSE 46
[2020-09-08 10:04] VITALS: BP 119/61
[2020-09-08] MEDS ORDERED: MORPHINE SULFATE 4 MG/ML SYRINGE IVP ONE (11:56)
[2020-09-08] MEDS ORDERED: ATROPINE OPHTH SOLN 1% 5ML BTL SUBLINGUAL PRN (11:56)
[2020-09-08] MEDS ORDERED: LORazepam 2 MG/ML INJ IV PRN (11:56)
[2020-09-08] MEDS ORDERED: MORPHINE SULFATE 4 MG/ML SYRINGE IV PRN (11:56)
[2020-09-08] MEDS ORDERED: MORPHINE SULFATE (100 MG/2 ML) 100 MG in SODIUM CHLORIDE 0.9% 100 ML IV SCH (12:30)
--- NOTE | 2020-09-08 15:43 | P.PN ---
Subjective Progress Note Date: 09/08/20 64-year-old female patient who was admitted on 08/22/2024, with related pneumonia and the patient presented with diffuse breath and pulmonary infiltrates and acute hypoxic respiratory failure. The patient got transferred to the ICU and the patient was intubated on 08/23/2024 severe hypoxemia. The patient has been on the mechanical ventilator since. For now, the patient remains on an assist-control mode of ventilation with tidal volume of 400 and FiO2 of 75% and PEEP of 20 with a respiratory rate of 25. Chest x-ray still showing diffuse but the pulmonary infiltrates. ABG from this morning showed a pH of 7.35 with a pCO2 of 61 and pO2 of 50. The peak airway pressure was quite high at 48 with a static pressure of 44. The patient was still paralyzed with Nimbex and the patient is on propofol. Peak airway pressure 52, static of 46. The patient remains sedated with propofol running at 50 g per KG per minute. . The patient is also on paralytics and the medics is running at 3 g per KG per minute. The patient is receiving enteral feeding for nutritional support at the rate of 42 mL an hour of vital high protein and the patient is on normal state rate of 75 mL an hour. The neck fluid balance is significantly positive this patient. On today's evaluation, I noted that the patient's airway pressures are quite elevated. This is related to her morbid obesity which causes extrapulmona ry restriction in addition to ARDS. Based on this, I dropped his tidal volume down to 350. I further increase the inspiratory time positive to 0.2 seconds and drop the flow down to 50 allowing this patient to get in I:E ratio 1-1. Subsequent blood gases showed a pH of 7.25 with a pCO2 of 77 and pO2 of 50 to and there has been no significant major improvement in oxygenation with above- mentioned changes. The patient is on Catapres for blood pressure control at 2 mg per hour. She is tolerating enteral feeding for nutritional support. On 09/07/2020 the patient remains intubated on a mechanical ventilator. Unfortunately she continues to be in ARDS secondary to call in mental related pneumonia. The patient is still on propofol at 50 g and the patient also Nimbex at 3 g. The patient is on a mechanical ventilator and it was noted that the patient had elevated peak and static pressure which is essentially unchanged compared to yesterday. Peak static airway pressure was 46 and 44 respectively. Based on that, I suspect this patient. Pressure control mode of ventilation. Earlier, the patient was in a tidal volume of 350 with an FiO2 of 35% with a PEEP of 22 with a rate of 25. The blood gases showed a pH of 7.3 with a pCO2 of 66 and pO2 74. At that point, I switched this patient to a pressure control mode with a PEEP of 22, pressure control of 18, expiratory time of 1.1, FiO2 of 75% and the generator minute ventilation was at 6.7 L. The plateau airway pressure was down to 38 accordingly. The subsequent blood gases showed a pH of 7.28 with a pCO2 of 86 and pO2 of 93. I asked the patient to have her FiO2 lower down to 65%. She is hemodynamically stable. She is on Catapres for blood pressure control. Fluid balance is -1.93 over the past 24 hours and the patient is being diuresed IV Lasix. She is on vital high protein at the rate of 20 mL an hour which is at goal for now. No fever. No other issues otherwise for now. The most recent CRP level from today still elevated at 228 and LDH level is at 710. On 09/08/2020, the patient remains sedated . Propofol is running at 40 Fadi grams per kilogram per minute and paralytics have been discontinued over the past 24 hours. On a mechanical ventilator, the patient is on a pressure control mode with a pressure control of 18, rate of 25, FiO2 of 60% with a PEEP of 22. The peak blood pressure is 41. Plateau airway pressure is 40. The blood gas showed a pH of 7.46 with a pCO2 of 59 pO2 of 58. IV fluids are running at KVO. The patient IV Lasix for the rescue 8 hours and the patient is a negative fluid balance. The patient is receiving enteral feeding for nutritional support and the patient is on vital high protein. As mentioned earlier, the patient was started on high-dose on the Medrol. The patient was also started on diuretics. Nevertheless, despite all this changes, chest x-ray findings remain unchanged. The oxygenation remains poor. The patient remains in ARDS. I have already contacted a patient's and I was made aware by the family that the patient would not have wanted long-term intubation mechanical ventilation. This is the third combination of the head with the and he made it clear to me that the patient would not have wanted this type of prolonged mechanical ventilation. It seems that the family has made a decision to proceed with comfort care measures. I explained to the at length the situation. I think her chance of recovery extremely low based on her comorbidities. The patient is morbidly obese with a BMI of 60.4. She has extensive call in 19 related pneumonia with secondary ARDS. She has not shown any sign of improvement and the patient has been intubated for more than 2 weeks on mechanical ventilator. Objective - Vital Signs Vital signs: Vital Signs Temp 97.8 F 09/08/20 04:00 Pulse 46 L 09/08/20 09:00 Resp 25 H 09/08/20 09:00 BP 129/64 09/08/20 09:00 Pulse Ox 87 L 09/08/20 09:00 Intake & Output 09/07/20 09/08/20 09/08/20 18:59 06:59 18:59 Intake Total 6488.775 2388.098 295 Output Total 2300 1740 135 Balance -942.282 -404.902 160 Weight 160.2 kg 154.539 kg Intake: IV 336 429 66 Normal Saline Pressure 36 39 6 Bag Sodium Chloride 0.9% 1, 300 390 60 000 ml @ 10 mls/hr IV . Q24H [facility] Rx#:[id number] Intake, IV Titration 651.718 303.098 100 Amount Amiodarone 300 mg In 243.083 Dextrose 5% in Water 250 ml @ 0.5 MG/MIN 25 mls/hr IV .Q10H [facility] Rx#: [id number] Amiodarone 360 mg In 50.03 Dextrose 5% in Water 200 ml @ 1 MG/MIN 33.333 mls/ hr IV .Q6H [facility] Rx#: [id number] Cisatracurium 200 mg In 155.401 Sodium Chloride 0.9% 180 ml @ 1 MCG/KG/MIN 8.165 mls/hr IV .Q24H [facility] Rx#: [id number] propofoL 1,000 mg In 203.204 303.098 100 Empty Bag 1 bag @ Titrate IV .Q0M [facility] Rx#: [id number] Tube Feeding 220 513 129 Other 150 90 Output: Urine 2300 1740 135 Other: Voiding Method Indwelling Catheter Indwelling Catheter ABP, PAP, CO, CI - Last Documented Arterial Blood Pressure 145/57 - Exam Gen. appearance intubated, comfortable likely distress. Orogastric and orotracheal tube are both in place. Head exam was generally normal. There was no scleral icterus or corneal arcus. Mucous membranes were moist. Neck was supple and without jugular venous distension, thyromegaly, or carotid bruits. Carotids were easily palpable bilaterally. There was no adenopathy. Lungs sounds are diminished in the patient's correct in lung bases bilaterally. Cardiac exam revealed the PMI to be normally situated and sized. The rhythm was regular and no extrasystoles were noted during several minutes of auscultation. The first and second heart sounds were normal and physiologic splitting of the second heart sound was noted. There were no murmurs, rubs, clicks, or gallops. Abdominal exam revealed normal bowel sounds. The abdomen was soft, non-tender, and without masses, organomegaly, or appreciable enlargement of the abdominal aorta. Examination of the extremities revealed easily palpable radial, femoral and pedal pulses. There was no cyanosis, clubbing or edema. Examination of the skin revealed no evidence of significant rashes, suspicious appearing nevi or other concerning lesions. Neurologically the patient is sedated .. Motor function and sensory function cannot be accurately assessed. The patient is currently off paralytics - Labs CBC & Chem 7: 09/08/20 03:00 09/08/20 03:00 Labs: Abnormal Lab Results - Last 24 Hours (Table) 09/03/20 09/07/20 09/07/20 Range/Units 05:22 04:45 09:58 RBC (3.80-5.40) m/uL Hgb (11.4-16.0) gm/dL Hct (34.0-46.0) % Lymphocytes # (1.0-4.8) k/uL Fibrinogen (200-500) mg/dL D-Dimer (<0.60) mg/L FEU ABG pH 7.28 L (7.35-7.45) ABG pCO2 86 H* (35-45) mmHg ABG pO2 (83-108) mmHg ABG HCO3 40 H* (21-25) mmol/L ABG Total CO2 43 H (19-24) mmol/L ABG O2 Saturation (94-97) % Potassium (3.5-5.1) mmol/L Chloride (98-107) mmol/L Carbon Dioxide (22-30) mmol/L BUN (7-17) mg/dL Glucose (74-99) mg/dL POC Glucose (mg/dL) (75-99) mg/dL Calcium (8.4-10.2) mg/dL Ferritin 438.3 H (10.0-291.0) ng/mL AST (14-36) U/L ALT (4-34) U/L LD Isoenzymes 280 H (120-250) U/L C-Reactive Protein (<10.0) mg/L Total Protein (6.3-8.2) g/dL Albumin (3.5-5.0) g/dL 09/07/20 09/07/20 09/07/20 Range/Units 11:41 17:28 20:22 RBC (3.80-5.40) m/uL Hgb (11.4-16.0) gm/dL Hct (34.0-46.0) % Lymphocytes # (1.0-4.8) k/uL Fibrinogen (200-500) mg/dL D-Dimer (<0.60) mg/L FEU ABG pH (7.35-7.45) ABG pCO2 (35-45) mmHg ABG pO2 (83-108) mmHg ABG HCO3 (21-25) mmol/L ABG Total CO2 (19-24) mmol/L ABG O2 Saturation (94-97) % Potassium (3.5-5.1) mmol/L Chloride (98-107) mmol/L Carbon Dioxide (22-30) mmol/L BUN (7-17) mg/dL Glucose (74-99) mg/dL POC Glucose (mg/dL) 171 H 168 H 157 H (75-99) mg/dL Calcium (8.4-10.2) mg/dL Ferritin (10.0-291.0) ng/mL AST (14-36) U/L ALT (4-34) U/L LD Isoenzymes (120-250) U/L C-Reactive Protein (<10.0) mg/L Total Protein (6.3-8.2) g/dL Albumin (3.5-5.0) g/dL 09/07/20 09/08/20 09/08/20 Range/Units 23:59 03:00 03:00 RBC 3.36 L (3.80-5.40) m/uL Hgb 10.4 L (11.4-16.0) gm/dL Hct 32.7 L (34.0-46.0) % Lymphocytes # 0.8 L (1.0-4.8) k/uL Fibrinogen (200-500) mg/dL D-Dimer (<0.60) mg/L FEU ABG pH (7.35-7.45) ABG pCO2 (35-45) mmHg ABG pO2 (83-108) mmHg ABG HCO3 (21-25) mmol/L ABG Total CO2 (19-24) mmol/L ABG O2 Saturation (94-97) % Potassium 3.4 L (3.5-5.1) mmol/L Chloride 96 L (98-107) mmol/L Carbon Dioxide 41 H* (22-30) mmol/L BUN 31 H (7-17) mg/dL Glucose 213 H (74-99) mg/dL POC Glucose (mg/dL) 190 H (75-99) mg/dL Calcium 8.0 L (8.4-10.2) mg/dL Ferritin (10.0-291.0) ng/mL AST 38 H (14-36) U/L ALT 81 H (4-34) U/L LD Isoenzymes (120-250) U/L C-Reactive Protein (<10.0) mg/L Total Protein 5.2 L (6.3-8.2) g/dL Albumin 2.4 L (3.5-5.0) g/dL 09/08/20 09/08/20 09/08/20 Range/Units 03:00 03:00 04:54 RBC (3.80-5.40) m/uL Hgb (11.4-16.0) gm/dL Hct (34.0-46.0) % Lymphocytes # (1.0-4.8) k/uL Fibrinogen 620 H (200-500) mg/dL D-Dimer 0.80 H (<0.60) mg/L FEU ABG pH 7.46 H (7.35-7.45) ABG pCO2 59 H (35-45) mmHg ABG pO2 58 L* (83-108) mmHg ABG HCO3 42 H* (21-25) mmol/L ABG Total CO2 44 H (19-24) mmol/L ABG O2 Saturation 91.0 L (94-97) % Potassium (3.5-5.1) mmol/L Chloride (98-107) mmol/L Carbon Dioxide (22-30) mmol/L BUN (7-17) mg/dL Glucose (74-99) mg/dL POC Glucose (mg/dL) (75-99) mg/dL Calcium (8.4-10.2) mg/dL Ferritin 490.4 H (10.0-291.0) ng/mL AST (14-36) U/L ALT (4-34) U/L LD Isoenzymes (120-250) U/L C-Reactive Protein 144.5 H (<10.0) mg/L Total Protein (6.3-8.2) g/dL Albumin (3.5-5.0) g/dL 09/08/20 Range/Units 05:18 RBC (3.80-5.40) m/uL Hgb (11.4-16.0) gm/dL Hct (34.0-46.0) % Lymphocytes # (1.0-4.8) k/uL Fibrinogen (200-500) mg/dL D-Dimer (<0.60) mg/L FEU ABG pH (7.35-7.45) ABG pCO2 (35-45) mmHg ABG pO2 (83-108) mmHg ABG HCO3 (21-25) mmol/L ABG Total CO2 (19-24) mmol/L ABG O2 Saturation (94-97) % Potassium (3.5-5.1) mmol/L Chloride (98-107) mmol/L Carbon Dioxide (22-30) mmol/L BUN (7-17) mg/dL Glucose (74-99) mg/dL POC Glucose (mg/dL) 181 H (75-99) mg/dL Calcium (8.4-10.2) mg/dL Ferritin (10.0-291.0) ng/mL AST (14-36) U/L ALT (4-34) U/L LD Isoenzymes (120-250) U/L C-Reactive Protein (<10.0) mg/L Total Protein (6.3-8.2) g/dL Albumin (3.5-5.0) g/dL Assessment and Plan Plan: 1 acute bilateral pneumonia with secondary acute COVID 19 related pneumonia. The patient developed an acute ARDS secondary to underlying Covid 19 related pneumonia. The patient remains sedated and paralyzed. The patient is low volume ventilation with permissive hypercapnia. She remains severely hypoxic and chest x-ray shows diffuse pulmonary pulmonary infiltrates. Considered a component of fluid overload. The patient was started on diuretics. Airway pressures remains quite elevated on today's evaluation the patient was switched a pressure control mode of ventilation . The patient remains sedated. The patient is off paralytics. The patient has been on a mechanical ventilator for more than 2 weeks. No improvement in her status to no improvement in condition. She is full-blown ARDS secondary to Covid 19 related pneumonia. Peak and plateau airway pressures are quite high. The patient remains ARDS. No improvement in oxygenation on volume control or pressure control mode of ventilation. Oxygenation remains borderline. Blood gases was noted. Chest x- ray was noted. The patient is being treated with a combination of mechanical ventilation, IV Solu-Medrol and IV Lasix. 2 Acute hypoxic respiratory failure secondary to above, ARDS secondary to Covid 19 pneumonia. Serial above-mentioned changes. 3 elevated inflammatory markers including LDH and C-reactive protein, secondary to above, the most recent inflammatory markers are still elevated including the CRP 4 Moderate persistent bronchial asthma 5 obesity with a BMI of 53.1 6 hyperlipidemia 7 acid reflux 8 osteoarthritis 9 Depression Plan I had a lengthy discussion with the patient's . The was very clear. Based on the patient's wishes, told me that she would have never want in this type of prolonged intubation mechanical ventilation. The patient has 2 other children and the third is what he . The children also in agreement with the father. Based on all this, we are initiating comfort care measures on this patient. We are the process of stopping all treatment, initiate morphine drip and subsequently extubated the patient. She will likely pass away on the mechanical ventilation is been withdrawn. The prognosis extremely poor. There is a poor outcome. His mortality related to Covid 19 related pneumonia with secondary ARDS. Discussion with the took place over the phone. There is a critically care evaluation that was on a more than 30 minutes. Time with Patient: Greater than 30
--- NOTE | 2020-09-10 10:09 | CDI ---
Per the 08/23 History & Physical the patient is admitted with Bilateral extensive likely COVID 19 Pneumonia, POA, Sepsis from above. Acute severe hypoxic respiratory failure from COVID 19 pneumonia, Moderate Persistent Asthma with Acute Exacerbation and Morbid Obesity with BMI 53.9. Per the 08/30 Pulmonary/Critical Care Progress Note: Acute hypoxemic respiratory failure secondary to COVID 19 pneumonia, with subsequent development of ARDS. History/Risk Factors: Asthma, GERD, Hyperlipidemia, Morbid obesity, BMI >50. Clinical Indicators: Patient presented to the ED on 08/22 with SOB & fever via EMS. Diagnosed with COVID pneumonia & Sepsis per History & Physical. Admitted to ICU and started on 15L nrb. 08/22 VS: T 100.9^, R 20 -29 (SOB), PO 72 RA 08/22 LAB: Lactic Acid (1.0), COVID Positive, WBC (5.6) Blood culture 08/22: Final negative after 144 hours. Treatment 08/22: Admit to ICU, O2 15L nrb, IV fluid 1,000 mls @ 20 mls/hr, IV Decadron, po Vit D3, po Zinc Sulfate, IV Remdesivir, IV fluid 1,000 mls @ 10 mls/hr. Intubated on 08/23, remained on ventilator until day of expiration, 09/08. Subsequent medications included: IV Solumedrol, IV Lasix, IV Cleviprex, IV Dextrose, INH Ventolin, IV Propofol & Convalescent Plasma on 08/29. In your professional opinion, please clarify if these findings signify one of the following conditions, whether the condition is POA, and cause, if known: Severe Sepsis Other, please specify Unable to determine Present on Admission: Yes or No Link or clarify if there is associated (due to/with): o Organ failure (Last Revision: January 2018) Severe sepsis, POA MTDD
--- NOTE | 2020-09-12 23:48 | P.DS ---
Providers Date of admission: 08/22/20 16:44 Expected date of discharge: 09/08/20 () Attending physician: Miguel Angel Lucero Consults: 08/22/20 16:18 Consult Physician Stat Consulting Provider: Abdullahi Clemente Consult Reason/Comments: icu patient, hypoxic covid 19 Do you want consulting provider notified?: Already Contacted Primary care physician: Andrea Mckinley [facility] Course: Chief Complaint: Short of breath History of presenting complaint: This is a 64-year-old patient follows with Dr. Chun. Patient has tested positive for COVID. Patient's symptoms started about a week ago. Progressively short of breath. More so in the last 4 days. Became much more significant yesterday. Presented to the ER. Also had fevers. Patient was hypoxic in the ER initial pulse ox around 70%. Was on 6 L with an wall. Check stat x-ray shows bilateral infiltrates. Patient smoked to the ICU. Subsequently intubated. Patient's currently on IV Decadron, propofol, IV fluids, IV cisatracurium. Patient on a FiO2 80% and a PEEP of 18. Has a OG- tube, Florentino catheter and endotracheal tube. Telemetry shows sinus rhythm. Seen by Dr. Clemente fire boss in the ER. Admitted with bilateral COVID 19 pneumonia with acute hypoxic respiratory failure, , acute asthma exacerbation. Ventilated.status post steroids, Remdesivir. Received multiple drips. Today-ICU. Patient continued to do poorly. Daughter spoke to the family/. Patient was terminally weaned. Patient . INVESTIGATIONS, reviewed in the clinical context: White count 9 hemoglobin 11.1 platelets 221 potassium 3.6 creatinine 0.55, ABG noted Previous testing White count 5.6 hemoglobin 14.9 platelets 165 decreased lymphocytes Potassium 3.8 creatinine 0.7 to Ferritin 459 LDH 1139 CRP 32.9 pro-calcitonin 0.07 Chest x-ray film personally reviewed by vt-bilateral scattered infiltrates, portable film COVID 19 P/Cr-detected Assessment: -Bilateral extensive COVID 19 pneumonia, POA-slow to respond -Sepsis from above- -ARDS-slow to respond -Acute severe hypoxic respiratory failure from COVID 19 pneumonia-slow to respond -GERD -Hyperlipidemia -Depression not otherwise specified -Moderate persistent asthma with acute exacerbation -Morbid obesity BMI 53.9 -Hypoalbuminemia, acute phase reactant -Paroxysmal atrial fibrillation back to sinus rhythm Cause of : COVID 19 pneumonia Disposition: Patient Plan - Discharge Summary New Discharge Prescriptions: No Action Omeprazole [PriLOSEC] 20 mg PO DAILY Citalopram Hydrobromide [CeleXA] 20 mg PO DAILY Meloxicam [Mobic] 7.5 mg PO BID Simvastatin [Zocor] 80 mg PO DAILY Vitamin D3 (Unknown Strenghth) 1 tab PO DAILY Vitamin C (Unknown Strength) 1 tab PO DAILY predniSONE See Taper PO DIRECTED Azithromycin [Zithromax] See Taper PO DAILY Mometasone/Formoterol [Dulera 100 Mcg-5 Mcg Inhaler] 2 puff INHALATION RT-BID Acetaminophen [Tylenol] 325 mg PO DAILY PRN PRN Reason: Fever And/ Or Pain Albuterol Sulfate [Proair Hfa] 2 puff INHALATION RT-Q4H PRN PRN Reason: Shortness Of Breath Discharge Medication List Acetaminophen [Tylenol] 325 mg PO DAILY PRN 08/22/20 [History] Albuterol Sulfate [Proair Hfa] 2 puff INHALATION RT-Q4H PRN 08/22/20 [History] Azithromycin [Zithromax] See Taper PO DAILY 08/22/20 [History] Citalopram Hydrobromide [CeleXA] 20 mg PO DAILY 08/22/20 [History] Meloxicam [Mobic] 7.5 mg PO BID 08/22/20 [History] Mometasone/Formoterol [Dulera 100 Mcg-5 Mcg Inhaler] 2 puff INHALATION RT-BID 08/22/20 [History] Omeprazole [PriLOSEC] 20 mg PO DAILY 08/22/20 [History] Simvastatin [Zocor] 80 mg PO DAILY 08/22/20 [History] Vitamin C (Unknown Strength) 1 tab PO DAILY 08/22/20 [History] Vitamin D3 (Unknown Strenghth) 1 tab PO DAILY 08/22/20 [History] predniSONE See Taper PO DIRECTED 08/22/20 [History] Follow up Appointment(s)/Referral(s): Andrea Chun DO [Primary Care Provider] - 1-2 days Discharge Disposition: - Preliminary Cause of Preliminary Cause of : COVID-19 pneumonia
== END 2020-09-08 19:29 | disposition expired | DRG 870 ==
LOC: EC 15:14 → 2SICU 16:44
PROVIDERS: ADMIT Hospitalist; ATTEND Hospitalist
PROC: 0BH17EZ Insertion of Endotracheal Airway into Trachea, Via Natural or Artificial Opening (ICD-10-PCS; principal; 2020-08-23)
PROC: 5A1955Z Respiratory Ventilation, Greater than 96 Consecutive Hours (ICD-10-PCS; principal; 2020-08-23)
PROC: XW033E5 Introduction of Remdesivir Anti-infective into Peripheral Vein, Percutaneous Approach, New Technology Group 5 (ICD-10-PCS; 2020-08-23)
PROC: 02H633Z Insertion of Infusion Device into Right Atrium, Percutaneous Approach (ICD-10-PCS; 2020-08-24)
PROC: 03HC33Z Insertion of Infusion Device into Left Radial Artery, Percutaneous Approach (ICD-10-PCS; 2020-08-24)
PROC: 0DH67UZ Insertion of Feeding Device into Stomach, Via Natural or Artificial Opening (ICD-10-PCS; 2020-08-24)
PROC: 3E0G76Z Introduction of Nutritional Substance into Upper GI, Via Natural or Artificial Opening (ICD-10-PCS; 2020-08-24)
PROC: 30243K1 Transfusion of Nonautologous Frozen Plasma into Central Vein, Percutaneous Approach (ICD-10-PCS; 2020-08-29)
DX: A41.89 Other specified sepsis (principal); U07.1 COVID-19; J12.89 Other viral pneumonia; J80 Acute respiratory distress syndrome; J45.41 Moderate persistent asthma with (acute) exacerbation; Z68.44 Body mass index [BMI] 60.0-69.9, adult; R65.20 Severe sepsis without septic shock; E88.09 Other disorders of plasma-protein metabolism, not elsewhere classified; E66.01 Morbid (severe) obesity due to excess calories; I48.0 Paroxysmal atrial fibrillation; Z66 Do not resuscitate; Z51.5 Encounter for palliative care; F32.9 Major depressive disorder, single episode, unspecified; D72.810 Lymphocytopenia; E78.5 Hyperlipidemia, unspecified; K21.9 Gastro-esophageal reflux disease without esophagitis; M19.90 Unspecified osteoarthritis, unspecified site; F41.9 Anxiety disorder, unspecified; R00.1 Bradycardia, unspecified; Z79.01 Long term (current) use of anticoagulants; Z79.1 Long term (current) use of non-steroidal anti-inflammatories (NSAID); Z79.51 Long term (current) use of inhaled steroids; Z79.899 Other long term (current) drug therapy; Z88.1 Allergy status to other antibiotic agents; Z88.2 Allergy status to sulfonamides
CPT/HCPCS: 36415; 36600; 71045; 80048; 80053; 82550; 82553; 82728; 82805; 83036; 83605; 83615; 83625; 83735; 84145; 84478; 85025; 85379; 85384; 85610; 85730; 86140; 86850; 86900; 86901; 87040; 93306; 94002; 94003; 94640; 94660; 96361; 96365; 96375; 99291